=== PATIENT | female | born 1980 | race Caucasian/White ===

== ENCOUNTER 2016-09-20 20:14 | Emergency (ER) | payer OTHER ==
[~2016-09-20] VITALS: Ht 154.9 cm; Wt 62.0 kg
[2016-09-20 20:18] VITALS: TEMP 36.9; Ht 154.9 cm; Wt 62.0 kg
[2016-09-20] MEDS ORDERED: IBUPROFEN 600 MG TAB PO STA (20:31)
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
[2016-09-20] MEDS ORDERED: AMT24 PO (20:45)
[2016-09-20] MEDS ORDERED: PANT40TA PO (20:45)
[2016-09-20] MEDS ORDERED: DIPHTHERIA/TETANUS/PERTUSSIS 0.5 ML SYR/VIAL IM. ONE (20:45)
[2016-09-20 21:37] VITALS: BP 88/61; PULSE 78; O2SAT 98
== END 2016-09-20 21:38 | disposition home or self-care (01) ==
LOC: EDBD 20:14 → C.EDC 20:18
DX: S81.819A Laceration without foreign body, unspecified lower leg, initial encounter (principal); S80.12XA Contusion of left lower leg, initial encounter; V43.52XA Car driver injured in collision with other type car in traffic accident, initial encounter; Z23 Encounter for immunization

== ENCOUNTER → 2017-01-27 | Outpatient (CLI) | payer OTHER ==
[~2017-01-27] MED LIST: AMT24 PO; PANT40TA PO
[2017-01-27 10:01] LABS: CHOLESTEROL/HDL RATIO 2.1
== END | disposition home or self-care (01) ==
LOC: C.LAB 08:30
PROVIDERS: ATTEND Physician Assistant
DX: Z00.00 Encounter for general adult medical examination without abnormal findings (principal)

== ENCOUNTER → 2017-05-02 | Outpatient (CLI) | payer OTHER | END | disposition home or self-care (01) | LOC: C.PAPS 09:52 | PROVIDERS: ATTEND Obstetrics & Gynecology | DX: Z12.4 Encounter for screening for malignant neoplasm of cervix (principal) ==

== ENCOUNTER → 2018-03-22 | Outpatient (CLI) | payer OTHER | END | disposition home or self-care (01) | LOC: C.LAB 08:53 | PROVIDERS: ATTEND Physician Assistant | DX: Z00.00 Encounter for general adult medical examination without abnormal findings (principal) ==

== ENCOUNTER 2019-08-17 05:30 | Observation (INO) ==
--- NOTE | 2019-07-24 15:48 | PAT Medication Instructions ---
Medication Instructions Date of Service July 24, 2019 Home Medications esomeprazole magnesium 40 mg capsule,delayed release 40 mg PO QAM linaclotide 145 mcg capsule 145 mcg PO QAM DO NOT take the morning of surgery linaclotide 145 mcg capsule 145 mcg PO QAM Take morning of surgery With a small sip of water, OTHERWISE NOTHING TO EAT OR DRINK AFTER MIDNIGHT: esomeprazole magnesium 40 mg capsule,delayed release 40 mg PO QAM Other Notes If you have any questions please call us at [phone] or [phone] or [phone] or [phone]
--- NOTE | 2019-07-25 12:57 | Anesthesiology Consultation ---
Date of Service July 25, 2019 Assessment & Plan (1) Encounter for pre-operative examination: TEST AM DOS Chart Review Chart Review: Acceptable Risk for Surgery and Patient seen in Pre Admission Testing Teaching & Discussion Instructed NPO after midnight before surgery, except medications with 15 cc of water. Medication instructions provided according to the PAT guidelines. History Surgery Operation Date: 08/17/19 07:30 Proposed Procedures p Robotic Total Laparoscopic Hysterectomy - Azam Law Jr, MD, FACOG Height/Weight Height: 5 ft 1 in Weight: 68.9 kg Allergies Allergy/AdvReac Type Severity Reaction Status Date / Time No Known Drug Allergies Allergy Verified 07/25/19 11:21 Medications Home Medications Medication Instructions Recorded Confirmed Last Taken esomeprazole magnesium 40 mg 40 mg PO QAM cap 06/26/19 07/25/19 Unknown capsule,delayed release linaclotide 145 mcg capsule 145 mcg PO QAM 06/26/19 07/25/19 Unknown Past Medical History Medical History Chronic constipation GERD (gastroesophageal reflux disease) History of menorrhagia History of uterine leiomyoma Exercise / Class Metabolic Activity 1 > 8 Run/Swim/Ski/Tennis Past Family History Family History Son Allergic to eggs Esophagitis, eosinophilic Milk allergy Soy allergy Wheat allergy Grandfather (Paternal) Stroke Colorectal cancer Heart disease CHF Diabetes Mother Hepatic cirrhosis Leiomyoma of body of uterus Past Surgical History Surgical History History of delivery x 2 History of esophagogastroduodenoscopy (EGD) History of loop electrical excision procedure (LEEP) History of tubal ligation Past Anesthesia History No Hx of Anesthesia Complications and No Family Hx of Anesthesia Complications History of PONV No Hx of Motion Sickness and History of PONV (single episode after 2nd C/S, pt feels r/t drinking too much water afterward) Social History Smoking Status: Former smoker Do You Dip or Chew Tobacco: No Smoking End Date: 2004 Hx Alcohol Use: Yes Alcohol type: beer and wine alcohol intake frequency: a few times a month Hx Substance Use: No substance use type: does not use Review of Systems Pt denies any recent chest pain, shortness of breath, palpitations, cough, fever or URI. Physical Exam Vital Signs BP: 88/67 (rpt manual 90/72 -- pt denies lightheadedness/dizziness, states normally runs low but this is loweer than normal) P: 72bpm SPO2: 98% RA T: 98.4 F R: 12 ENMT Mouth: no dental restorations, no chipped teeth and no loose teeth Thyromental Distance: > or= 3.5 Finger Breadths (3.5) Mallampati Class: II Neck normal visual inspection; neck extension not limited Respiratory normal respiratory effort Auscultation: lungs clear to auscultation bilaterally Cardiovascular Rate/Rhythm: regular rate and regular rhythm Heart Sounds: no murmur Extremities: no edema Testing Laboratory Results 07/25/19 13:07 Blood Type AB Positive 07/25/19 13:07 Antibody Screen NEGATIVE 07/25/19 13:07
[2019-07-25 15:41] LABS: Basophils # (auto) 0.02 K/uL (0-0.2); Basophils % (auto) 0.3 %; Eosinophils # (auto) 0.06 K/uL (0-0.5); Hematocrit (blood only) 36.9 % (37-47); Immature Granulocytes # (auto) 0.01 K/uL (0.00-0.02); Immature Granulocytes % (auto) 0.2 %; Lymphocytes # (auto) 2.15 K/uL (1.2-3.4); Lymphocytes % (auto) 34.8 %; Mean Corpuscular Hemoglobin 28.8 pg (25-34); Mean Corpuscular Hgb Conc 32.5 g/dL (32-36); Mean Corpuscular Volume 88.7 fL (80-100); Mean Platelet Volume 10.8 fL (7.4-10.4); Monocytes % (auto) 4.9 %; Neutrophils # (auto) 3.64 K/uL (1.4-6.5); Neutrophils % (auto) 58.8 %; Platelet Count 335 K/uL (130-400); RDW Coefficient of Variation 14.2 % (11.5-14.5); RDW Standard Deviation 46.5 fL (36.4-46.3); Red Blood Count 4.16 M/uL (4.2-5.4); White Blood Count 6.18 K/uL (4.8-10.8)
[2019-08-17] MEDS ORDERED: LACTATED RINGER'S 1,000 ML IV SCH ×2 (06:00→11:02)
[2019-08-17] MEDS ORDERED: CEFAZOLIN 2000MG 2,000 MG/15 ML SYR IV SCH (06:00)
[2019-08-17] MEDS ORDERED: LR 15ML/HR IV SCH (06:00)
[2019-08-17] MEDS ORDERED: MIDAZOLAM HCL 1 MG/ML 2ML VIAL ONE (06:47)
[2019-08-17] MEDS ORDERED: fentaNYL citrate 100 MCG/2 ML VIAL ONE ×2 (06:47)
--- NOTE | 2019-08-17 06:55 | History & Physical Bridge Note ---
Date of Service August 17, 2019 History & Physical Bridge Note I have examined the patient, reviewed the History & Physical and in the interval since the performance of the History & Physical I have noted the following changes of clinical significance: no changes noted
[2019-08-17] MEDS ORDERED: LIDOCAINE HCL 2% 2 ML VIAL/AMP(20MG/ML) INFIL ONE (06:56)
[2019-08-17] MEDS ORDERED: PROPOFOL IV EMULSION 10 MG/ML 20 ML VIAL IV ONE (06:56)
[2019-08-17] MEDS ORDERED: ONDANSETRON INJ 2 MG/ML 2 ML VIAL ONE ×2 (06:57→09:13)
[2019-08-17] MEDS ORDERED: DEXAMETHASONE SOD INJ 4 MG/ML VIAL ONE (06:57)
[2019-08-17] MEDS ORDERED: ROCURONIUM BROMIDE 10 MG/ML 5 ML VIAL ONE (06:57)
[2019-08-17] MEDS ORDERED: ACETAMINOPHEN 1000 MG/100 ML IV IV ONE (06:58)
[2019-08-17] MEDS ORDERED: BUPIVACAINE 0.5 % 5 MG/1 ML MPF 30ML VIAL ONE (06:59)
[2019-08-17] MEDS ORDERED: METHYLENE BLUE 0.5% 10 ML VIAL ONE (06:59)
[2019-08-17] MEDS ORDERED: HYDROmorphone INJ 2 MG/ML SYR/VIAL ONE (07:44)
[2019-08-17] MEDS ORDERED: PROMETHAZINE HCL 6.25 MG in SODIUM CHLORIDE 0.9% 50 ML IV PRN (08:12)
[2019-08-17] MEDS ORDERED: ONDANSETRON INJ 2 MG/ML 2 ML VIAL IV PRN ×2 (08:12→11:02)
[2019-08-17] MEDS ORDERED: ATROPINE SULFATE 0.1 MG/ML 10ML SYR IV PRN (08:12)
[2019-08-17] MEDS ORDERED: ePHEDrine sulfate 50 MG/ML AMP IV PRN (08:12)
[2019-08-17] MEDS ORDERED: fentaNYL citrate 100 MCG/2 ML VIAL IV PRN (08:12)
[2019-08-17] MEDS ORDERED: KETOROLAC 30 MG/ML VIAL ONE (09:11)
[2019-08-17] MEDS ORDERED: TISSEEL FIBRIN SEALANT 4ML TOP ONE (09:20)
--- NOTE | 2019-08-17 09:25 | Post Operative Brief Note ---
PG Immediate Post Op with CF Date of Surgery August 17, 2019 Pre & Post Diagnosis Operation Date: 08/17/19 07:30 Pre-Op Diagnosis: 1. Menorrhagia 2. Dysfunctional Uterine Bleeding Post-Op Diagnosis: 1. Menorrhagia 2. Dysfunctional Uterine Bleeding I identified the patient and participated in the time-out.: Yes Procedure Operation Date: 08/17/19 07:30 Actual Procedures p Robotic-assisted Total Laparoscopic Hysterectomy, bilateral salpingectomy, cystoscopy - Azam aLw Jr, MD, FACOG Surgeon Azam Law Jr, MD, FACOG Microstrategy Reports Developer Jes Estimated Blood Loss 75 Findings See Below (multiparous uterus with normal appearing tubes and ocaries, omental adhesions lysed, TLH and salpingectomy, post procedure cystoscopy with bilateral ureteral jets) Specimens Specimen Description: Permanent specimen A: left fallopian tube B: uterus, cervix, right fallopian tube Drains Ambriz Catheter (18fr ambriz catheter placed at beginning of procedure by surgeon, ambriz demonstrates clear yellow urine; output measured and recorded by anesthesia. Catheter replaced with new 18fr catheter at completion of cysto portion of procedure.)
--- NOTE | 2019-08-17 10:14 | Operative Report ---
DATE OF OPERATION: 08/17/2019 PREOPERATIVE DIAGNOSES: Menorrhagia with irregular menstrual cycles. POSTOPERATIVE DIAGNOSES: Menorrhagia with irregular menstrual cycles. PROCEDURE PERFORMED: 1. Total laparoscopic hysterectomy. 2. Bilateral salpingectomy. 3. Post-procedure cystoscopy. SURGEON: Azam Law MD AIR HOIST OPERATOR: Dr. Yasmeen Andre. ANESTHESIA: General. FINDINGS: Laparoscopic examination of the pelvis showed a large multiparous uterus with normal appearing tubes and ovaries bilaterally. Omental adhesions to the anterior abdominal wall lysed. Total laparoscopic hysterectomy and bilateral salpingectomy performed. Post-procedure cystoscopy showed bilateral ureteral jets. PROCEDURE IN DETAIL: The patient was taken to the operating room and after general anesthesia, was placed in the dorsal lithotomy position and draped and prepped in a sterile fashion for a robotic hysterectomy. Montanez catheter was inserted into the bladder which remained there throughout the procedure. Cervical stay sutures were placed at 12 and 3 o'clock with 0 Vicryl suture. Uterine manipulator, VCare, was inserted into the uterine cavity and insufflated with air and fastened to the stay sutures. Small subumbilical incision was made and the Veress needle was introduced into the pelvic cavity, which was then insufflated with 3 liters of CO2. A suprapubic 11 mm trocar was placed. Pelvic organs were visualized and then under direct laparoscopic guidance, robotic 8 mm operative ports were placed, 1 on the left, 2 on the right and a left assistance port. Pelvic organs were visualized with the description as above. Robot was brought to the table and successfully docked on the left, bipolar cautery instruments were placed through arm #1, monopolar scissors through arm #2 and a ProGrasp in arm #3. Omental adhesions were grasped and using the monopolar scissors, these were lysed and freed. Pelvic organs were visualized. Both ureters were identified. A left salpingectomy was performed by cauterizing along the left mesosalpinx, removing the tube from the field. The left round ligament was cut opened the anterior leaf of the broad ligament which was taken down over the level of the cervix. Uterine vessels were skeletonized on the midline and then burned in 3 contiguous alvarez. Dissection was turned to the right. The right fallopian tube was isolated, cauterized and the mesosalpinx was cut excising the right tube. Right round ligament was cut, opening the anterior leaf of the broad ligament which was taken down to join the contralateral side. Bladder flap was developed until the bladder was below the level of the cervix. Uterine vessels skeletonized on the right hand side and cauterized in 3 contiguous alvarez and then cut. Dissection turned to the left. Uterine vessels were identified again, they had previously been cauterized and these were now cut. The cardinal and uterosacral ligaments were cauterized and cut bilaterally. Posterior colpotomy incision was made by cutting down onto the VCare and extending in a circular fashion, the cervix from the vagina. Specimen was delivered into the vagina. Hemostasis was present. Bipolar and the monopolar scissors were removed. These were replaced by the grasper in arm #1 and the eduardo needle transporter driver in arm #2. The vaginal cuff was closed from the lateral edges to the midline with a running 2-0 Vicryl VCare suture doubling back upon itself. Hemostasis was present. Dr. Andre then performed a cystoscopy after removing the Montanez catheter. The patient had received methylene blue intravenously approximately 30 minutes prior. Both ureteral orifices were visualized as well as the dome of the bladder, no evidence of suture injury to the bladder. Both orifices were visualized and ureteral jets were seen bilaterally. Fluid was allowed to escape and a new Montanez catheter was inserted. Finally, 4 mL of Tisseel was sprayed on to the vaginal cuff directly under laparoscopic guidance. All surgical instruments were then removed from the pelvis. The CO2 was allowed to escape. The robot was undocked and removed from the field. The fascia was closed on the umbilical and the assistance ports with an interrupted 0 Vicryl suture. The skin incisions were closed with a 4-0 Monocryl interrupted subcuticular stitches. A 0.5% Marcaine was injected in the solutions and sterile dressings were applied. The patient was taken out of dorsal lithotomy to recovery room in satisfactory condition. I attest to the content of the Intraoperative Record and any orders documented therein. Any exception s are noted below.
--- NOTE | 2019-08-17 10:14 | Anesthesiology Progress Note ---
Date of Service August 17, 2019 Anesthesia Post Procedure Vital Signs Vital Signs: Temp Pulse Pulse Pulse Resp BP BP 08/17/19 10:06 87 13 08/17/19 10:05 87 14 102/72 08/17/19 10:02 90 14 102/75 08/17/19 10:00 92 H 13 08/17/19 09:56 87 14 08/17/19 09:55 88 16 110/72 08/17/19 09:51 88 18 08/17/19 09:50 86 12 102/77 08/17/19 09:46 84 14 08/17/19 09:45 87 12 116/76 08/17/19 09:41 92 H 15 08/17/19 09:40 90 15 118/79 08/17/19 09:39 91 H 12 08/17/19 09:38 36.4 C L 94 H 94 H 12 103/82 103/82 08/17/19 05:58 36.8 C 74 18 98/79 L Pulse Ox 08/17/19 10:06 95 08/17/19 10:05 92 08/17/19 10:02 95 08/17/19 10:00 98 08/17/19 09:56 99 08/17/19 09:55 100 08/17/19 09:51 96 08/17/19 09:50 99 08/17/19 09:46 100 08/17/19 09:45 99 08/17/19 09:41 98 08/17/19 09:40 97 08/17/19 09:39 94 08/17/19 09:38 93 08/17/19 05:58 98 Pain Intensity Abdomen: Pain Intensity: 2 Transfer of Care Handoff Completed per policy Notes Mental Status: alert / awake / arousable Patient Amnestic to Procedure: Yes Nausea / Vomiting: adequately controlled Pain: adequately controlled Airway Patency, RR, SpO2: stable & adequate BP & HR: stable & adequate Hydration State: stable & adequate Anesthetic Complications: no major complications apparent
[2019-08-17] MEDS ORDERED: OXYCODONE/ACETAMINOPHEN 5mg/325mg TAB PO PRN (11:02)
[2019-08-17] MEDS ORDERED: ACETAMINOPHEN 325 MG TAB PO PRN (11:02)
[2019-08-17] MEDS ORDERED: IBUPROFEN 600 MG TAB PO PRN (11:02)
[2019-08-17] MEDS ORDERED: KETOROLAC 30 MG/ML VIAL IV PRN (11:02)
--- NOTE | 2019-08-17 14:26 | Gynecologic Progress Note ---
Date of Service August 17, 2019 Assessment & Plan (1) Dysfunctional uterine bleeding: -Discussed operative findings with the patient and her -Patient ambulating and tolerating p.o. well -Patient desires discharge home -Once the patient can demonstrate urination she will be allowed to be discharged -Postoperative discharge instructions discussed with the patient -Prescriptions sent to the pharmacy -Follow-up in 2 weeks time for postoperative check Subjective Patient ambulating and tolerating a regular diet. Physical Exam Gastrointestinal (Abdomen): Dressings clean and dry, appropriate postoperative tenderness Results & Data Vital Signs (Past 12 Hours) Vital Signs Temp Pulse Pulse Pulse Resp BP BP 08/17/19 13:40 98.2 F 95 H 16 08/17/19 12:40 97.7 F 81 18 08/17/19 11:40 98.1 F 95 H 18 08/17/19 11:10 97.7 F 91 H 18 08/17/19 10:40 97.9 F 90 18 08/17/19 10:26 93 H 14 08/17/19 10:25 92 H 14 102/71 08/17/19 10:21 89 14 08/17/19 10:20 98.8 F 87 14 107/77 08/17/19 10:16 85 14 08/17/19 10:15 68 14 100/73 08/17/19 10:11 95 H 14 104/76 08/17/19 10:10 98 H 22 08/17/19 10:06 87 13 08/17/19 10:05 87 14 102/72 08/17/19 10:02 90 14 102/75 08/17/19 10:00 92 H 13 08/17/19 09:56 87 14 08/17/19 09:55 88 16 110/72 08/17/19 09:51 88 18 08/17/19 09:50 86 12 102/77 08/17/19 09:46 84 14 08/17/19 09:45 87 12 116/76 08/17/19 09:41 92 H 15 08/17/19 09:40 90 15 118/79 08/17/19 09:39 91 H 12 08/17/19 09:38 97.5 F L 94 H 94 H 12 103/82 103/82 08/17/19 05:58 98.2 F 74 18 98/79 L BP Pulse Ox 08/17/19 13:40 106/75 98 08/17/19 12:40 101/64 97 08/17/19 11:40 96/65 L 96 08/17/19 11:10 105/70 91 08/17/19 10:40 108/71 94 08/17/19 10:26 97 08/17/19 10:25 93 08/17/19 10:21 96 08/17/19 10:20 95 08/17/19 10:16 92 08/17/19 10:15 93 08/17/19 10:11 97 08/17/19 10:10 92 08/17/19 10:06 95 08/17/19 10:05 92 08/17/19 10:02 95 08/17/19 10:00 98 08/17/19 09:56 99 08/17/19 09:55 100 08/17/19 09:51 96 08/17/19 09:50 99 08/17/19 09:46 100 08/17/19 09:45 99 08/17/19 09:41 98 08/17/19 09:40 97 08/17/19 09:39 94 08/17/19 09:38 93 08/17/19 05:58 98 PG Care Time/CCT Total # of Minutes Spent Total Time Spent with Patient: Total time spent is greater than 50% in coordination of care (as documented) at patient's floor/unit and/or counseling patient:
--- NOTE | 2019-08-17 14:32 | Discharge Summary ---
Date of Service August 17, 2019 Admission HPI Per Admitting Provider The patient is a 39-year-old 2 para 2, last menstrual period of 12 July, who presents today for preoperative evaluation. The patient is scheduled for total laparoscopic hysterectomy for chronic dysfunctional uterine bleeding. All the patient's menstrual cycles are regular, she has a random episodes of heavy vaginal bleeding. Etiology for this could never be determined. Patient was treated empirically with the estrogen ring and despite having a tubal ligation, there was no improvement in her bleeding. Workup for this included a pelvic ultrasound, office SIS and endometrial biopsy. Treatment options were discussed and the patient has opted for the above-listed procedure. Discharge Data Procedures Performed Operation Date: 08/17/19 07:30 Actual Procedures p Robotic-assisted Total Laparoscopic Hysterectomy, bilateral salpingectomy, - Azam Law Jr, MD, STEVE s Cystoscopy - [facility] Law [facility], [facility] Course (1) Dysfunctional uterine bleeding: -Discussed operative findings with the patient and her -Patient ambulating and tolerating p.o. well -Patient desires discharge home -Once the patient can demonstrate urination she will be allowed to be discharged -Postoperative discharge instructions discussed with the patient -Prescriptions sent to the pharmacy -Follow-up in 2 weeks time for postoperative check
[2019-08-17] MEDS ORDERED: KETOROLAC 0.5% OP SOLN PER DROP CHARGE OP PRN (16:24)
[2019-08-17] MEDS: ERYTHROMYCIN OP OINT 5 MG/GM 3.5 GM TUBE OP SCH ×2 (16:26→17:55)
--- NOTE | 2019-08-17 16:31 | Anesthesiology Progress Note ---
Date of Service August 17, 2019 Anesthesia Post Procedure Vital Signs Vital Signs: Temp Pulse Pulse Pulse Resp BP BP 08/17/19 15:20 36.3 C L 69 20 08/17/19 13:40 36.8 C 95 H 16 08/17/19 12:40 36.5 C 81 18 08/17/19 11:40 36.7 C 95 H 18 08/17/19 11:10 36.5 C 91 H 18 08/17/19 10:40 36.6 C 90 18 08/17/19 10:26 93 H 14 08/17/19 10:25 92 H 14 102/71 08/17/19 10:21 89 14 08/17/19 10:20 37.1 C 87 14 107/77 08/17/19 10:16 85 14 08/17/19 10:15 68 14 100/73 08/17/19 10:11 95 H 14 104/76 08/17/19 10:10 98 H 22 08/17/19 10:06 87 13 08/17/19 10:05 87 14 102/72 08/17/19 10:02 90 14 102/75 08/17/19 10:00 92 H 13 08/17/19 09:56 87 14 08/17/19 09:55 88 16 110/72 08/17/19 09:51 88 18 08/17/19 09:50 86 12 102/77 08/17/19 09:46 84 14 08/17/19 09:45 87 12 116/76 08/17/19 09:41 92 H 15 08/17/19 09:40 90 15 118/79 08/17/19 09:39 91 H 12 08/17/19 09:38 36.4 C L 94 H 94 H 12 103/82 103/82 08/17/19 05:58 36.8 C 74 18 98/79 L BP Pulse Ox 08/17/19 15:20 107/74 97 08/17/19 13:40 106/75 98 08/17/19 12:40 101/64 97 08/17/19 11:40 96/65 L 96 08/17/19 11:10 105/70 91 08/17/19 10:40 108/71 94 08/17/19 10:26 97 08/17/19 10:25 93 08/17/19 10:21 96 08/17/19 10:20 95 08/17/19 10:16 92 08/17/19 10:15 93 08/17/19 10:11 97 08/17/19 10:10 92 08/17/19 10:06 95 08/17/19 10:05 92 08/17/19 10:02 95 08/17/19 10:00 98 08/17/19 09:56 99 08/17/19 09:55 100 08/17/19 09:51 96 08/17/19 09:50 99 08/17/19 09:46 100 08/17/19 09:45 99 08/17/19 09:41 98 08/17/19 09:40 97 08/17/19 09:39 94 08/17/19 09:38 93 08/17/19 05:58 98 Pain Intensity Abdomen: Pain Intensity: 2 Notes Mental Status: alert / awake / arousable and participated in evaluation Patient Amnestic to Procedure: Yes Nausea / Vomiting: adequately controlled Pain: see Notes below Airway Patency, RR, SpO2: stable & adequate BP & HR: stable & adequate Hydration State: stable & adequate Anesthetic Complications: see Notes below Notes: Patient c/o of left eye pain that developed while in PACU and has become worse since arriving on the floor. Patient states the pain is burning in nature. It is associated with a foreign body sensation when blinking. The patient states her eye pain is worse than her incisional pain. She denies any past history of a similar pain. She denies vision changes. She denies the use of contact lenses. On exam the left eye is mildly erythematous. EOMI. On exam, there is no visible injury to the eye. No visible foreign body. The patients symptoms and presentation are consistent with post operative corneal abrasion. I discussed this with the patient. Most corneal abrasions self resolve within the first 24 to 72 hours. Patching is not necessary and may impair healing. The patient was encouraged to rest with eyes closed and the patient can gently apply a cool compress for symptom relief. The patient should avoid rubbing or touching the symptomatic eye. An order was placed for erythromycin ointment QID and ketorolac 0.5% drops PRN to assist with eye pain and symptoms. She was instructed to contact PAT through the hospital if her symptoms have not fully resolved within the next 48 hours. The patient is comfortable with this plan. Sita Naqvi MD, PhD Anesthesiology
[2019-08-17] MEDS ORDERED: KETOROLAC 0.5% OP SOLN 3 ML BTL OP PRN (17:36)
[2019-08-17] MEDS ORDERED: KETOROLAC 0.5% OP SOLN 5 ML BTL OP PRN (17:46)
[2019-08-18] MEDS ORDERED: PANTOprazole 40 MG TAB PO SCH (09:00)
[2019-08-18] MEDS ORDERED: LINACLOTIDE 72 MCG CAPSULE PO SCH (09:00)
== END 2019-08-17 18:10 | disposition home or self-care (01) ==
LOC: ASU 05:30 → 4N 05:30

== ENCOUNTER 2020-08-03 19:16 | Inpatient (IN) ==
[2020-08-03 20:11] LABS: Appearance Urine Cloudy (Clear); Bacteria Urine Automated 1+ (Negative); Bilirubin Urine Negative (Negative); Blood Urine Negative (Negative); Color Urine Yellow; Epithelial Cell Urine Auto >30 /lpf (0-5); Glucose Urine UA Trace (Negative); Ketones Urine 1+ (Negative); Leukocyte Esterase Urine Negative (Negative); Nitrite Urine Negative (Negative); Protein Urine Negative (Negative); RBC Urine Automated 0-4 /hpf (0-4); Specific Gravity Urine 1.018 (1.000-1.030); Urobilinogen Urine Negative (Negative)
--- NOTE | 2020-08-03 20:11 | Emergency Department Note ---
Impression & Plan Mood disorder, Suicidal ideation ED Provider Note INFORMANT: Patient ED PROVIDER(S): Jay Turcios MD CHIEF COMPLAINT: Suicidal ideation PLAN: Disposition: Admitted Condition: Good MEDICAL DECISION MAKING: Patient presented noting depressed mood and suicidal thoughts. She acted upon this with taking a small amount of trazodone. She had unremarkable laboratory testing and ECG except for a mild elevation of alcohol level. She was monitored. She did very well. She was medically cleared. She was evaluated by the ER psychiatric catalytic case operator. Consultation was made with [address] [place] [address] for further management. Triage Nursing notes reviewed and agree them. Vital Signs: reviewed and remarkable for no significant abnormalities Differential diagnosis: Mood disorder, infection, hypoglycemia, electrolyte abnormalities, cardiac sources, intracerebral event, toxicologic, trauma, neurologic, as well as other pathologies. Diagnostics interpreted by me: ECG:Rate: 85 Rhythm:Normal sinus [place]:Normal QRS:Normal ST segements:No elevation or depression Other:No PACs or PVCs Cardiac Monitoring: Cardiac monitoring ordered by me: The patient was placed on continuous cardiac monitoring and observed. It revealed a normal sinus rhythm at 90 beats per minute without ectopy or evidence of dysrhythmia. Imaging studies: Deferred Consultation(s): None HPI: The patient is a 40 year old female who presents to the Emergency Room with complaints of suicidal ideation. This started today after an argument with her and is time this is ever happened. The patient has a history stress disorder that has been exacerbated by family illness recently. Her primary care physician has been treating her with medication. She also notes trouble sleeping and has been using trazodone. Today after her verbal argument with her she took approximately 5 trazodone with the hopes that she would fall asleep and never wake up. She has no prior psychiatric admissions or suicidal attempt. No recent medical illnesses. Pt denies LOC, headache, fevers, chills, diaphoresis, visual changes, neck pain, chest pain, breathing difficulties, nausea, vomiting, abdominal pain, back pain, melena, hematochezia, urinary symptoms, numbness, weakness, lymphadenopathy, rash, or other complaints. ROS: See above HPI for pertinent positives & negatives. A total of 10 systems reviewed and were otherwise negative. 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 Oropharynx unremarkable. EYES: Normal conjunctiva. Sclera non-icteric. NECK: Inspection normal. Non-tender. Supple. No nuchal rigidity. FROM. No masses. RESPIRATORY: Clear to auscultation. No wheezes. No rales. Normal respiratory effort. CARDIAC: Normal rate. Normal rhythm. No murmurs. No rubs. Extremities warm and well perfused. Pulses equal. No JVD. GI: Soft, non-distended. No tenderness to palpation. No rebound or guarding. No masses. RECTAL: Deferred. MUSCULOSKELETAL: Atraumatic. Chest examination reveals no tenderness. The back is symmetrical on inspection without obvious abnormality. There is no CVA tenderness to palpation. No joint edema. LOWER EXTREMITIES: Calves are equal size bilaterally and non-tender. No edema. No discoloration. NEURO: Normal sensorium. No sensory or motor deficits noted. SKIN: No rash or jaundice noted. PSYCH: Depressed mood and flat affect. Positive SI. No HI. Jay Turcios MD Past Med/Surg History Medical History Acne Anxiety Chronic constipation Chronic sinusitis Depression GERD (gastroesophageal reflux disease) History of menorrhagia History of uterine leiomyoma Surgical History History of delivery x 2 History of esophagogastroduodenoscopy (EGD) History of loop electrical excision procedure (LEEP) History of robot-assisted laparoscopic hysterectomy History of tubal ligation Family History Son Allergic to eggs Esophagitis, eosinophilic Milk allergy Soy allergy Wheat allergy Grandfather (Paternal) Stroke Colorectal cancer Heart disease CHF Diabetes Mother Hepatic cirrhosis Leiomyoma of body of uterus Alcohol abuse Father Colonic polyp, Onset Age: 50 Anxiety Social History (Updated 01/11/20 @ 08:31 by Damaris Herrera MA) Smoking Status: Never smoker Age Started Using Tobacco: 18; Age Quit Using Tobacco: 23; Second Hand Exposure: No; Hx Alcohol Use: No Hx Substance Use: No Preferred Language: Nauruan Communication Ability: Effective Visual Impairment: No Limitations Hearing Ability: Normal Still Operator Gin Required: No Beliefs That Will Affect Care: None marital status: Current Living Situation: Spouse and Family Current Living Situation Comment: 2 children current occupational status: employed current occupation: [employer] Feels Safe at Home: Yes Childhood Exposure to Second-Hand Smoke: No Dental Care, Regularly: Yes Physical Activity Frequency: 3-4 Times per Week Seatbelt Use: always Sunscreen Use: Yes Assistive Devices: Glasses Allergies Allergies Allergy/AdvReac Type Severity Reaction Status Date / Time No Known Allergies Allergy Verified 08/03/20 21:05 Home Meds Home Medications Medication Instructions Recorded Confirmed desvenlafaxine succinate [Pristiq] 50 mg PO QAM 07/22/20 08/03/20 ibuprofen 600 mg PO Q4H PRN 07/22/20 08/03/20 trazodone 25 - 50 mg PO HS PRN 07/22/20 08/03/20 azelastine 2 spray INTRANASAL QAM 08/03/20 08/03/20 Previous Rx's Medication Instructions Recorded esomeprazole magnesium 40 mg 40 mg PO QAM 90 Days #90 cap 09/25/19 capsule,delayed release linaclotide 145 mcg capsule 145 mcg PO QAM 90 Days #90 cap 09/25/19 Results & Data (ED) Vital Signs Vital Signs - 24 hr 08/03/20 19:30 08/03/20 20:20 08/03/20 21:34 Temperature 37.1 C Temperature Source Oral Pulse Rate 120 H Pulse Rate [Bilateral Apical] 94 H 103 H Respiratory Rate 20 18 20 Blood Pressure 111/75 Blood Pressure [Right Arm] 120/79 90/63 L Blood Pressure Mean 87 Blood Pressure Mean [Right Arm] 92 72 Pulse Oximetry 98 99 96 Oxygen Delivery Method Room Air Room Air Sepsis Recent Fever Within 48 Hours No Sepsis New/Unexplained Change in Mental Status N/A Sepsis Action Taken by Nursing No Action Required 08/03/20 22:22 Temperature Temperature Source Pulse Rate Pulse Rate [Bilateral Apical] 94 H Respiratory Rate 20 Blood Pressure Blood Pressure [Right Arm] 82/54 L Blood Pressure Mean Blood Pressure Mean [Right Arm] 63 Pulse Oximetry 95 Oxygen Delivery Method Room Air Sepsis Recent Fever Within 48 Hours Sepsis New/Unexplained Change in Mental Status Sepsis Action Taken by Nursing Laboratory Data Result diagrams: 08/03/20 20:07 08/03/20 20:07 Lab Results 08/03/20 08/03/20 08/03/20 Range/Units 19:55 19:55 20:07 WBC 7.43 (4.8-10.8) K/uL RBC 4.44 (4.2-5.4) M/uL Hgb 13.3 (12.0-16.0) g/dL Hct 39.5 (37-47) % MCV 89.0 (80-100) fL MCH 30.0 (25-34) pg MCHC 33.7 (32-36) g/dL RDW Std Deviation 46.2 (36.4-46.3) fL RDW Coeff of Evgeny 14.1 (11.5-14.5) % Plt Count 299 (130-400) K/uL MPV 10.7 H (7.4-10.4) fL Immature Gran % (Auto) 0.1 % Neut % (Auto) 60.5 % Lymph % (Auto) 31.8 % [place] % (Auto) 6.9 % Eos % (Auto) 0.4 % Baso % (Auto) 0.3 % Neut # (Auto) 4.50 (1.4-6.5) K/uL Lymph # (Auto) 2.36 (1.2-3.4) K/uL [place] # (Auto) 0.51 (0.11-0.59) K/uL Eos # (Auto) 0.03 (0-0.5) K/uL Baso # (Auto) 0.02 (0-0.2) K/uL Immature Gran # (Auto) 0.01 (0.00-0.02) K/uL Sodium (136-145) mmol/L Potassium (3.5-5.1) mmol/L Chloride (98-107) mmol/L Carbon Dioxide (21-32) mmol/L Anion Gap (3-11) BUN (7-18) mg/dl Creatinine (0.6-1.2) mg/dl Est Cr Clr Drug Dosing ml/min Est GFR ( Amer) Est GFR (Non-Af Amer) BUN/Creatinine Ratio (10-20) Glucose (70-99) mg/dl Calcium (8.5-10.1) mg/dl Total Bilirubin (0.2-1) mg/dl AST (15-37) U/L ALT (12-78) U/L Alkaline Phosphatase (45-117) U/L Total Protein (6.4-8.2) gm/dl Albumin (3.4-5.0) gm/dl Globulin (2.5-4.0) gm/dl Albumin/Globulin Ratio (0.9-2) TSH (0.300-4.500) uIu/ml HCG, Qual (Negative) Urine Color Yellow Urine Appearance Cloudy A (Clear) Urine pH 5.0 (4.5-7.5) Ur Specific [place] 1.018 (1.000-1.030) Urine Protein Negative (Negative) Urine Glucose (UA) Trace H (Negative) Urine Ketones 1+ H (Negative) Urine Blood Negative (Negative) Urine Nitrite Negative (Negative) Urine Bilirubin Negative (Negative) Urine Urobilinogen Negative (Negative) Ur Leukocyte Esterase Negative (Negative) Urine WBC (Auto) 1-5 (0-5) /hpf Urine RBC (Auto) 0-4 (0-4) /hpf U Hyaline Cast (Auto) 1-5 (0-5) /lpf U Epithel Cells (Auto) >30 H (0-5) /lpf Urine Bacteria (Auto) 1+ H (Negative) Salicylates (2.8-20) mg/dl Urine Opiates Screen Neg (Neg) Ur Methadone, Qual Neg (Neg) Acetaminophen (10-30) ug/ml Urine Barbiturates Neg (Neg) Ur Phencyclidine (PCP) Neg (Neg) U Amphetamin/Meth Scrn Neg (Neg) MDMA (Ecstasy) Screen Pos H (Neg) U Benzodiazepines Scrn Neg (Neg) Ur Cocaine Metabolite Neg (Neg) U Marijuana (THC) Screen Neg (Neg) Ethyl Alcohol mg/dL (0-3) mg/dl SARS-CoV-2 Ag (Rapid) (Negative) 08/03/20 08/03/20 08/03/20 Range/Units 20:07 20:07 20:07 WBC (4.8-10.8) K/uL RBC (4.2-5.4) M/uL Hgb (12.0-16.0) g/dL Hct (37-47) % MCV (80-100) fL MCH (25-34) pg MCHC (32-36) g/dL RDW Std Deviation (36.4-46.3) fL RDW Coeff of Evgeny (11.5-14.5) % Plt Count (130-400) K/uL MPV (7.4-10.4) fL Immature Gran % (Auto) % Neut % (Auto) % Lymph % (Auto) % [place] % (Auto) % Eos % (Auto) % Baso % (Auto) % Neut # (Auto) (1.4-6.5) K/uL Lymph # (Auto) (1.2-3.4) K/uL [place] # (Auto) (0.11-0.59) K/uL Eos # (Auto) (0-0.5) K/uL Baso # (Auto) (0-0.2) K/uL Immature Gran # (Auto) (0.00-0.02) K/uL Sodium 144 (136-145) mmol/L Potassium 3.4 L (3.5-5.1) mmol/L Chloride 110 H (98-107) mmol/L Carbon Dioxide 28 (21-32) mmol/L Anion Gap 6.0 (3-11) BUN 6 L (7-18) mg/dl Creatinine 0.75 (0.6-1.2) mg/dl Est Cr Clr Drug Dosing 86.7 ml/min Est GFR ( Amer) 115.6 Est GFR (Non-Af Amer) 99.7 BUN/Creatinine Ratio 8.6 L (10-20) Glucose 108 H (70-99) mg/dl Calcium 8.6 (8.5-10.1) mg/dl Total Bilirubin 0.3 (0.2-1) mg/dl AST 13 L (15-37) U/L ALT 22 (12-78) U/L Alkaline Phosphatase 79 (45-117) U/L Total Protein 7.6 (6.4-8.2) gm/dl Albumin 3.9 (3.4-5.0) gm/dl Globulin 3.7 (2.5-4.0) gm/dl Albumin/Globulin Ratio 1.1 (0.9-2) TSH 1.090 (0.300-4.500) uIu/ml HCG, Qual (Negative) Urine Color Urine Appearance (Clear) Urine pH (4.5-7.5) Ur Specific [place] (1.000-1.030) Urine Protein (Negative) Urine Glucose (UA) (Negative) Urine Ketones (Negative) Urine Blood (Negative) Urine Nitrite (Negative) Urine Bilirubin (Negative) Urine Urobilinogen (Negative) Ur Leukocyte Esterase (Negative) Urine WBC (Auto) (0-5) /hpf Urine RBC (Auto) (0-4) /hpf U Hyaline Cast (Auto) (0-5) /lpf U Epithel Cells (Auto) (0-5) /lpf Urine Bacteria (Auto) (Negative) Salicylates < 1.7 L (2.8-20) mg/dl Urine Opiates Screen (Neg) Ur Methadone, Qual (Neg) Acetaminophen < 2 L (10-30) ug/ml Urine Barbiturates (Neg) Ur Phencyclidine (PCP) (Neg) U Amphetamin/Meth Scrn (Neg) MDMA (Ecstasy) Screen (Neg) U Benzodiazepines Scrn (Neg) Ur Cocaine Metabolite (Neg) U Marijuana (THC) Screen (Neg) Ethyl Alcohol mg/dL 150.2 H (0-3) mg/dl SARS-CoV-2 Ag (Rapid) (Negative) 08/03/20 08/03/20 Range/Units 20:07 20:30 WBC (4.8-10.8) K/uL RBC (4.2-5.4) M/uL Hgb (12.0-16.0) g/dL Hct (37-47) % MCV (80-100) fL MCH (25-34) pg MCHC (32-36) g/dL RDW Std Deviation (36.4-46.3) fL RDW Coeff of Evgeny (11.5-14.5) % Plt Count (130-400) K/uL MPV (7.4-10.4) fL Immature Gran % (Auto) % Neut % (Auto) % Lymph % (Auto) % [place] % (Auto) % Eos % (Auto) % Baso % (Auto) % Neut # (Auto) (1.4-6.5) K/uL Lymph # (Auto) (1.2-3.4) K/uL [place] # (Auto) (0.11-0.59) K/uL Eos # (Auto) (0-0.5) K/uL Baso # (Auto) (0-0.2) K/uL Immature Gran # (Auto) (0.00-0.02) K/uL Sodium (136-145) mmol/L Potassium (3.5-5.1) mmol/L Chloride (98-107) mmol/L Carbon Dioxide (21-32) mmol/L Anion Gap (3-11) BUN (7-18) mg/dl Creatinine (0.6-1.2) mg/dl Est Cr Clr Drug Dosing ml/min Est GFR ( Amer) Est GFR (Non-Af Amer) BUN/Creatinine Ratio (10-20) Glucose (70-99) mg/dl Calcium (8.5-10.1) mg/dl Total Bilirubin (0.2-1) mg/dl AST (15-37) U/L ALT (12-78) U/L Alkaline Phosphatase (45-117) U/L Total Protein (6.4-8.2) gm/dl Albumin (3.4-5.0) gm/dl Globulin (2.5-4.0) gm/dl Albumin/Globulin Ratio (0.9-2) TSH (0.300-4.500) uIu/ml HCG, Qual Negative (Negative) Urine Color Urine Appearance (Clear) Urine pH (4.5-7.5) Ur Specific [place] (1.000-1.030) Urine Protein (Negative) Urine Glucose (UA) (Negative) Urine Ketones (Negative) Urine Blood (Negative) Urine Nitrite (Negative) Urine Bilirubin (Negative) Urine Urobilinogen (Negative) Ur Leukocyte Esterase (Negative) Urine WBC (Auto) (0-5) /hpf Urine RBC (Auto) (0-4) /hpf U Hyaline Cast (Auto) (0-5) /lpf U Epithel Cells (Auto) (0-5) /lpf Urine Bacteria (Auto) (Negative) Salicylates (2.8-20) mg/dl Urine Opiates Screen (Neg) Ur Methadone, Qual (Neg) Acetaminophen (10-30) ug/ml Urine Barbiturates (Neg) Ur Phencyclidine (PCP) (Neg) U Amphetamin/Meth Scrn (Neg) MDMA (Ecstasy) Screen (Neg) U Benzodiazepines Scrn (Neg) Ur Cocaine Metabolite (Neg) U Marijuana (THC) Screen (Neg) Ethyl Alcohol mg/dL (0-3) mg/dl SARS-CoV-2 Ag (Rapid) Negative (Negative) Discharge Plan Visit Data Chief Complaint: Mental Health Evaluation Stated Complaint: MENTAL HEALTH ED Provider: Jay Turcios Discharge Problem: Mood disorder, Suicidal ideation Patient Disposition: Admitted As Inpatient Discharge Instructions Interventions: ED Discharge Assessment Last Done: 08/03/20 23:44
[2020-08-03 20:38] LABS: Basophils # (auto) 0.02 K/uL (0-0.2); Basophils % (auto) 0.3 %; Eosinophils # (auto) 0.03 K/uL (0-0.5); Eosinophils % (auto) 0.4 %; Hematocrit (blood only) 39.5 % (37-47); Hemoglobin 13.3 g/dL (12.0-16.0); Immature Granulocytes # (auto) 0.01 K/uL (0.00-0.02); Immature Granulocytes % (auto) 0.1 %; Lymphocytes # (auto) 2.36 K/uL (1.2-3.4); Lymphocytes % (auto) 31.8 %; Mean Corpuscular Hgb Conc 33.7 g/dL (32-36); Mean Platelet Volume 10.7 fL (7.4-10.4); Monocytes # (auto) 0.51 K/uL (0.11-0.59); Monocytes % (auto) 6.9 %; Neutrophils % (auto) 60.5 %; Platelet Count 299 K/uL (130-400); RDW Coefficient of Variation 14.1 % (11.5-14.5); RDW Standard Deviation 46.2 fL (36.4-46.3); Red Blood Count 4.44 M/uL (4.2-5.4); White Blood Count 7.43 K/uL (4.8-10.8)
[2020-08-03 20:39] LABS: Amphetamines+Metham, Urine Neg (Neg); Barbiturates, Urine Neg (Neg); Benzodiazepine, Urine Neg (Neg); Cocaine, Urine Neg (Neg); MDMA (Ecstacy), Urine Pos (Neg); Methadone, Urine Neg (Neg); Opiate, Urine Neg (Neg); Phencyclidine, Urine Neg (Neg)
[2020-08-03 20:56] LABS: Albumin Level 3.9 gm/dl (3.4-5.0); BUN Creatinine Ratio 8.6 (10-20); Calcium 8.6 mg/dl (8.5-10.1); Creatinine Clr Calc Pharmacy 86.7 ml/min; Est GFR (African American) 115.6; Est GFR (Non-African American) 99.7; Potassium 3.4 mmol/L (3.5-5.1)
[2020-08-03 20:58] LABS: Pregnancy Test, Serum Negative (Negative)
[2020-08-03 21:01] LABS: Acetaminophen < 2 ug/ml (10-30); Salicylate < 1.7 mg/dl (2.8-20)
[2020-08-03 21:06] LABS: Albumin Globulin Ratio 1.1 (0.9-2); Bilirubin,Total 0.3 mg/dl (0.2-1); Globulin 3.7 gm/dl (2.5-4.0); Thyroid Stimulating Hormone 1.09 uIu/ml (0.300-4.500); Total Protein 7.6 gm/dl (6.4-8.2)
[2020-08-04] MEDS ORDERED: ALUMINUM/MAGNESIUM SUSP 30 ML UDC PO PRN (00:12)
[2020-08-04] MEDS ORDERED: BISMUTH SUBSALICYLATE LIQD 236 ML PO PRN (00:12)
[2020-08-04] MEDS ORDERED: hydrOXYzine HCl 25 MG TAB PO PRN ×2 (00:12)
[2020-08-04] MEDS ORDERED: SODIUM CHLORIDE 0.65% NA SOLN 45 ML (OCEAN) PRN (00:12)
[2020-08-04] MEDS ORDERED: MAGNESIUM HYDROXIDE SUSP 30 ML UDC PO PRN (00:12)
[2020-08-04] MEDS ORDERED: ACETAMINOPHEN 325 MG TAB PO PRN (00:12)
[2020-08-04] MEDS ORDERED: IBUPROFEN 600 MG TAB PO PRN (10:40)
[2020-08-04] MEDS ORDERED: PANTOprazole 40 MG TAB PO SCH (11:00)
[2020-08-04] MEDS ORDERED: VENLAFAXINE HCL 37.5 MG TAB PO ONE (11:00)
--- NOTE | 2020-08-04 12:53 | History & Physical ---
Date of Service August 04, 2020 Impression / Recommendations Impression 40 yo female with a history of depression admit following trazodone OD. (1) Major depression, recurrent: The patient was admitted to the [facility] ([facility] unit) on q15 min checks (behavioral with suicide precautions) for safety. The patient will participate in group, recreational, and milieu therapies and will be offered additional individual and family sessions as clinically appropriate. As Pristiq was initially helpful and only on 50 mg, will further trial fo 100 mg daily. It is non-formulary so to bring home supply. As he is working and unlikely to get here early enough in the day for today's dose, she agreed to substitute Effexor XR 75 mg to minimize any discontinuation syndrome. Active/Remission status: currently active Major depression episode severity: severe Psychotic features: without psychotic features Qualified Code(s): F33.2 - Major depressive disorder, recurrent severe without psychotic features Protective Factors Assessment Employed: Yes ([employer]) Psychiatric History Identifying Data ALENA TORRES is a 40-year-old F who currently lives with locally, no formal psych hx, and was admitted on 08/03/20 23:21 on a 201 voluntary commitment for SI s/p trazodone OD. Chief Complaint "I was feeling hopeless, like I just wanted to go to sleep and not wake up". History of Present Illness Alena reports worsening mood over the course of pandemic, mainly due to missing work for appointments for her son and mother. "it's all just too much". Son is 9 and they are still regulating his Keppra for generalized seizures. Relationship with has been "bad on and off" but OK the past month until argument last night. She states she impulsively poured 5 pills into her hand and took them and went to bed. He returned to the home after the argument and saw them and got treatment. She is glad to be alive and states it was an act of hopelessness. She was trying to get a therapist for the past month and did some med changes in May from Celexa to Pristiq. She was hoping it would have less weight gain (10 lbs) and sexual side effects and "it seemed helpful at first" but not so much the past 3 weeks. She states that sleep and appetite are OK. "He'll probably say I drink more than I should" to cope with down thoughts--states she hadn't drank for 1 month, when she does drink may have a bottle of wine over the course of an isolated evening or 4-6 beers but "any is unacceptable". Tearfulness is longstanding complaint. She denies any hx of soniya. Past Psychiatric History Previous Psych History: no formal, had some counseling as a teen Current Psychiatric Diagnosis: MDD Outpatient Services: med management with PCP Previous Psych Admissions: none History of Previous Suicide Attempt: Yes Describe Attempts in the Past: overdose on trazodone this admit, no prior Past Medication Trials: Celexa only Allergies Allergy/AdvReac Type Severity Reaction Status Date / Time No Known Allergies Allergy Verified 08/03/20 21:05 Home Medications Medication Instructions Recorded Confirmed Type esomeprazole magnesium 40 mg 40 mg PO QAM 90 Days #90 cap 09/25/19 08/03/20 Rx capsule,delayed release linaclotide 145 mcg capsule 145 mcg PO QAM 90 Days #90 cap 09/25/19 08/03/20 Rx desvenlafaxine succinate [Pristiq] 50 mg PO QAM 07/22/20 08/03/20 History ibuprofen 600 mg PO Q4H PRN 07/22/20 08/03/20 History trazodone 25 - 50 mg PO HS PRN 07/22/20 08/03/20 History azelastine 2 spray INTRANASAL QAM 08/03/20 08/03/20 History Family History Family History of: None Family Mental Health History Comment: Reports father has depression and anxiety. Her paternal uncle is schizophrenic Alcohol History Hx of Alcohol Use Over the Past 12 Months: Yes (occasional, typically 2-3 drinks) AUDIT Total Score: 4 Smoking Use Have You Smoked or Used Tobacco Products in the Last 30 Days: No Smoking Status: Never smoker Substance History Hx of Prescription Med Misuse Over the Past 12 Months: No Hx of Over the Counter Med Misuse Over the Past 12 Months: No Hx of Inhalent Misuse Over the Past 12 Months: No Hx of Organic Substance Use Over the Past 12 Months: No Hx of Illegal Substances/Street Drug Use Over Past 12 Months: No Problems as a Result of Past Substance Use: None Identified Personal History Living Arrangements: Home Living Arrangements Comments: Lives with and two kids Highest Grade Completed: Graduate School Highest Grade Completed Comment: [employer] for [employer] Marital Status: Number Of Children: 2 (boys 9 and 13 yo) Beliefs That Will Affect Care: None Current Legal Problems: No Hx Legal Problems: No Psychological Trauma History Comment: none reported. Patient History Medical History Acne Anxiety Chronic constipation Chronic sinusitis Depression GERD (gastroesophageal reflux disease) History of menorrhagia History of uterine leiomyoma Surgical History History of delivery x 2 History of esophagogastroduodenoscopy (EGD) History of loop electrical excision procedure (LEEP) History of robot-assisted laparoscopic hysterectomy History of tubal ligation Family History Son Allergic to eggs Esophagitis, eosinophilic Milk allergy Soy allergy Wheat allergy Grandfather (Paternal) Stroke Colorectal cancer Heart disease CHF Diabetes Mother Hepatic cirrhosis Leiomyoma of body of uterus Alcohol abuse Father Colonic polyp, Onset Age: 50 Anxiety Social History Smoking Status: Never smoker Age Started Using Tobacco: 18; Age Quit Using Tobacco: 23; Second Hand Exposure: No; Hx Alcohol Use: No Hx Substance Use: No Preferred Language: Sri Lankan Communication Ability: Effective Visual Impairment: No Limitations Hearing Ability: Normal Soaking Pit Operator Required: No Beliefs That Will Affect Care: None marital status: Current Living Situation: Spouse and Family Current Living Situation Comment: 2 children current occupational status: employed current occupation: [employer] Feels Safe at Home: Yes Childhood Exposure to Second-Hand Smoke: No Dental Care, Regularly: Yes Physical Activity Frequency: 3-4 Times per Week Seatbelt Use: always Sunscreen Use: Yes Assistive Devices: Glasses Review of Systems Review of Systems: All systems reviewed & are unremarkable except as noted in HPI & below Physical Exam Psychiatric: Orientation: alert Apperance: appropriately groomed Eye Contact: good eye contact Motor Behavior: no abnormal motor movements Speech: normal rate/rhythm/volume of speech Affect: + depressed affect and + tearful affect Mood: + depressed mood Thought Process: goal directed thought process Thought Content: reality based without delusions suicidal ideation "on/off", no intent or plan, mainly hopelessness and is now guilty about what she did. Homicidal Thoughts: denies homicidal thoughts Hallucinations: no auditory hallucinations and no visual hallucinations Cognition: attention grossly intact Estimated Intelligence: consistent with education level Insight: + limited insight Judgement: + limited judgement Vital Signs (Past 24 Hours): Last Vital Signs Temp 36.5 C 08/04/20 06:18 Pulse 74 08/04/20 06:18 Resp 19 08/04/20 06:18 BP 104/69 08/04/20 06:18 Pulse Ox 96 08/04/20 00:19 Exam Statement: A physical exam was performed in the ED by Dr. Turcios for the purposes of medical clearance. I accept that physical as correct and adequate for the purposes of the inpatient physical exam. Results & Data ([facility]) Laboratory Results Laboratory Results - last 24 hr 08/03/20 08/03/20 08/03/20 19:55 19:55 19:55 WBC RBC Hgb Hct MCV MCH MCHC RDW Std Deviation RDW Coeff of Evgeny Plt Count MPV Immature Gran % (Auto) Neut % (Auto) Lymph % (Auto) [place] % (Auto) Eos % (Auto) Baso % (Auto) Neut # (Auto) Lymph # (Auto) [place] # (Auto) Eos # (Auto) Baso # (Auto) Immature Gran # (Auto) Sodium Potassium Chloride Carbon Dioxide Anion Gap BUN Creatinine Est Cr Clr Drug Dosing Est GFR ( Amer) Est GFR (Non-Af Amer) BUN/Creatinine Ratio Glucose Calcium Total Bilirubin AST ALT Alkaline Phosphatase Total Protein Albumin Globulin Albumin/Globulin Ratio TSH HCG, Qual Urine Color Yellow Urine Appearance Cloudy A Urine pH 5.0 Ur Specific [place] 1.018 Urine Protein Negative Urine Glucose (UA) Trace H Urine Ketones 1+ H Urine Blood Negative Urine Nitrite Negative Urine Bilirubin Negative Urine Urobilinogen Negative Ur Leukocyte Esterase Negative Urine WBC (Auto) 1-5 Urine RBC (Auto) 0-4 U Hyaline Cast (Auto) 1-5 U Epithel Cells (Auto) >30 H Urine Bacteria (Auto) 1+ H Salicylates Urine Opiates Screen Neg Ur Methadone, Qual Neg Acetaminophen Urine Barbiturates Neg Ur Phencyclidine (PCP) Neg U Amphetamin/Meth Scrn Neg Urine MDEA Pending MDMA (Ecstasy) Screen Pos H MDMA Pending Urine MDMA Pending U Benzodiazepines Scrn Neg Ur Cocaine Metabolite Neg U Marijuana (THC) Screen Neg Ethyl Alcohol mg/dL SARS-CoV-2 Ag (Rapid) 08/03/20 08/03/20 08/03/20 20:07 20:07 20:07 WBC 7.43 RBC 4.44 Hgb 13.3 Hct 39.5 MCV 89.0 MCH 30.0 MCHC 33.7 RDW Std Deviation 46.2 RDW Coeff of Evgeny 14.1 Plt Count 299 MPV 10.7 H Immature Gran % (Auto) 0.1 Neut % (Auto) 60.5 Lymph % (Auto) 31.8 [place] % (Auto) 6.9 Eos % (Auto) 0.4 Baso % (Auto) 0.3 Neut # (Auto) 4.50 Lymph # (Auto) 2.36 [place] # (Auto) 0.51 Eos # (Auto) 0.03 Baso # (Auto) 0.02 Immature Gran # (Auto) 0.01 Sodium 144 Potassium 3.4 L Chloride 110 H Carbon Dioxide 28 Anion Gap 6.0 BUN 6 L Creatinine 0.75 Est Cr Clr Drug Dosing 86.7 Est GFR ( Amer) 115.6 Est GFR (Non-Af Amer) 99.7 BUN/Creatinine Ratio 8.6 L Glucose 108 H Calcium 8.6 Total Bilirubin 0.3 AST 13 L ALT 22 Alkaline Phosphatase 79 Total Protein 7.6 Albumin 3.9 Globulin 3.7 Albumin/Globulin Ratio 1.1 TSH 1.090 HCG, Qual Urine Color Urine Appearance Urine pH Ur Specific [place] Urine Protein Urine Glucose (UA) Urine Ketones Urine Blood Urine Nitrite Urine Bilirubin Urine Urobilinogen Ur Leukocyte Esterase Urine WBC (Auto) Urine RBC (Auto) U Hyaline Cast (Auto) U Epithel Cells (Auto) Urine Bacteria (Auto) Salicylates < 1.7 L Urine Opiates Screen Ur Methadone, Qual Acetaminophen < 2 L Urine Barbiturates Ur Phencyclidine (PCP) U Amphetamin/Meth Scrn Urine MDEA MDMA (Ecstasy) Screen MDMA Urine MDMA U Benzodiazepines Scrn Ur Cocaine Metabolite U Marijuana (THC) Screen Ethyl Alcohol mg/dL SARS-CoV-2 Ag (Rapid) 08/03/20 08/03/20 08/03/20 20:07 20:07 20:30 WBC RBC Hgb Hct MCV MCH MCHC RDW Std Deviation RDW Coeff of Evgeny Plt Count MPV Immature Gran % (Auto) Neut % (Auto) Lymph % (Auto) [place] % (Auto) Eos % (Auto) Baso % (Auto) Neut # (Auto) Lymph # (Auto) [place] # (Auto) Eos # (Auto) Baso # (Auto) Immature Gran # (Auto) Sodium Potassium Chloride Carbon Dioxide Anion Gap BUN Creatinine Est Cr Clr Drug Dosing Est GFR ( Amer) Est GFR (Non-Af Amer) BUN/Creatinine Ratio Glucose Calcium Total Bilirubin AST ALT Alkaline Phosphatase Total Protein Albumin Globulin Albumin/Globulin Ratio TSH HCG, Qual Negative Urine Color Urine Appearance Urine pH Ur Specific [place] Urine Protein Urine Glucose (UA) Urine Ketones Urine Blood Urine Nitrite Urine Bilirubin Urine Urobilinogen Ur Leukocyte Esterase Urine WBC (Auto) Urine RBC (Auto) U Hyaline Cast (Auto) U Epithel Cells (Auto) Urine Bacteria (Auto) Salicylates Urine Opiates Screen Ur Methadone, Qual Acetaminophen Urine Barbiturates Ur Phencyclidine (PCP) U Amphetamin/Meth Scrn Urine MDEA MDMA (Ecstasy) Screen MDMA Urine MDMA U Benzodiazepines Scrn Ur Cocaine Metabolite U Marijuana (THC) Screen Ethyl Alcohol mg/dL 150.2 H SARS-CoV-2 Ag (Rapid) Negative Current Inpatient Medications Current Inpatient Medications: Current Inpatient Medications Acetaminophen (Acetaminophen 325 Mg Tab) 650 mg PO Q4H PRN PRN Reason: Headache or Minor Fever Stop: 09/03/20 00:11 Al Hydrox/Mg Hydrox/Simethicone (Aluminum/Magnesium Susp 30 Ml Udc) 30 ml PO Q4H PRN PRN Reason: GI Upset Stop: 09/03/20 00:11 Bismuth Subsalicylate (Bismuth Subsalicylate Liqd 236 Ml) 15 ml PO PRN PRN PRN Reason: Loose Stool Stop: 09/03/20 00:11 Hydroxyzine HCl (Hydroxyzine Hcl 25 Mg Tab) 50 mg PO HSZ PRN PRN Reason: Insomnia Stop: 09/03/20 00:11 Hydroxyzine HCl (Hydroxyzine Hcl 25 Mg Tab) 25 mg PO Q4H PRN PRN Reason: Anxiety Stop: 09/03/20 00:11 Ibuprofen (Ibuprofen 600 Mg Tab) 600 mg PO Q4H PRN PRN Reason: Pain Stop: 09/03/20 10:39 Magnesium Hydroxide (Magnesium Hydroxide Susp 30 Ml Udc) 30 ml PO DAILY PRN PRN Reason: Constipation Stop: 09/03/20 00:11 Miscellaneous (Azelastine 0.15 % (205.5 Mcg): Order Awaiting Action) 1 ea N/A QS KATJA Stop: 09/03/20 15:59 Miscellaneous (Linaclotide [Linzess] 145 Mcg Capsule: Order Awaiting Action) 1 ea N/A QS [facility] Stop: 09/03/20 15:59 Miscellaneous (Desvenlafaxine 100 Dose: Order Awaiting Action) 1 ea N/A QS [facility] Stop: 09/03/20 15:59 Pantoprazole Sodium (Pantoprazole 40 Mg Tab) 40 mg PO QAM [facility] Stop: 09/03/20 10:59 Last Admin: 08/04/20 11:19 Dose: 40 mg Documented by: Sodium Chloride (Sodium Chloride 0.65% Na Soln 45 Ml ([place])) 1 - 2 sprays NA PRN PRN PRN Reason: Nasal Dryness/Congestion Stop: 09/03/20 00:11 Trazodone HCl (Trazodone Hcl 50 Mg Tab) 25 mg PO HS PRN PRN Reason: Insomnia Stop: 09/03/20 21:59
--- NOTE | 2020-08-04 19:37 | Electrocardiogram Report ---
Test Reason : Blood Pressure : / mmHG Vent. Rate : 085 BPM Atrial Rate : 085 BPM P-R Int : 140 ms QRS Dur : 084 ms QT Int : 382 ms P-R-T Axes : 071 063 051 degrees QTc Int : 454 ms Normal sinus rhythm Normal ECG When compared with ECG of 13-DEC-2005 11:38, [place] interval has increased QT has lengthened Confirmed by Adrian Goodrich ([id number]) on 08/04/2020 7:37:02 PM Referred By: REFERRED SELF Confirmed By:Adrian Goodrich
[2020-08-05] MEDS: AZELASTINE 0.15% SCH (08:10)
[2020-08-05] MEDS: ESOMEPRAZOLE PO SCH (08:10)
[2020-08-05] MEDS: DESVENLAFAXINE SUCCINATE 50MG PO SCH (08:12)
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
[2020-08-05] MEDS: traZODone HCL 50 MG TAB PO PRN (22:32)
--- NOTE | 2020-08-06 07:56 | Psychiatric Progress Note ---
Date of Service August 06, 2020 Impression / Recommendations Impression 40 y/o female with a history of depression admitted following trazodone OD. (1) Suicide attempt: 08/05 -schedule family meeting with , and obtain collateral inform ation from him. -Discussed the concept of a safety plan, reviewed access to guns ( owns guns, patient does not use them, and they are locked in a safe). She denies ever thinking of using a gun to hurt herself, and states she has never touched them. We will review on the family meeting as part of her safety plan. -Patient would like to resume trazodone as it has been beneficial for sleep. She agrees to have hold her medications until she has stabilized. 08/06 - Family meeting held, confirmed no access to guns and agreed to remove alcohol from the home. Pt denying SI here. (2) Major depression, recurrent: 08/04 - The patient was admitted to the [facility] ([facility]) on q15 min checks (behavioral with suicide precautions) for safety. The patient will participate in group, recreational, and milieu therapies and will be offered additional individual and family sessions as clinically appropriate. As Pristiq was initially helpful and only on 50 mg, will further trial to 100 mg daily. It is non-formulary so to bring home supply. As he is working and unlikely to get here early enough in the day for today's dose, she agreed to substitute Effexor XR 75 mg to minimize any discontinuation syndrome. 08/05 - Continue Pristiq 100mg qam (she reports good response and tolerates it well, and did not tolerate SSRIs), and trazodone 25mg HS prn. -Refer for outpatient therapy and psychiatric care. She has some PTSD symptoms as well which were not endorsed yesterday on initial eval, and will need to be further explored. -Reviewed EKG on presentation, which was normal. 08/06 - Continue current medications and treatment. Referring to [facility] for dual diagnosis treatment. Provided her with information on the [place] [facility] for future reference if needed. -Sleep: Suboptimal d/t restlessness overnight, not feeling rested during the day despite sleeping 8 hours. Reviewed sleep hygiene and encouraged to implement these strategies (avoid caffeine in pm, etc). Consider sleep study, f/u with PCP. Has vivid, negative dreams which are disruptive. Encourage ongoing explor ation of past traumas and addressing stressors in therapy, and avoid alcohol as worsens sleep. Risk Factors Assessment Male: No : Yes Do You Have Access To A Gun?: Yes ( has guns, locked in gun safe) Health Problems: No Mental Health Diagnoses: Yes Substance Use Disorders: No Previous Attempt: No Family History of Suicide: No Previous Psychiatric Hospitalization: No Hopelessness: Yes Smoker: No Protective Factors Assessment : Yes Responsible for Young Children: Yes Employed: Yes ([employer]) Stable Relationships: Yes Supportive Family: Yes Interval History Identifying Information ALENA TORRES is a 40-year-old F who currently lives with her in [facility], has a history of depression and anxiety, and was admitted on 08/03/20 at 23:21 on a 201 voluntary commitment for SI s/p trazodone OD. Chief Complaint "Pretty good". Review of Systems Sleep Information Total Hours of Sleep: 6.5 Sleep Comments: pt on q-15 minute checks Meal Information Percent Meal Consumed - Breakfast: 20 Percent Meal Consumed - Lunch: 100 Percent Meal Consumed - Dinner: 40 Nutrition Comment: documented from meal record Subjective Subjective Patient was seen & assessed and interval progress reviewed with treatment team. Staff report she had a family meeting with the social sciences research scientist and her , during which they discussed relationship issues. Her stated that due to the patient's drinking, their children are staying with his mother and that things will need to change in order for them to reside together or remain a family. It was difficult to clarify the extent of the patient's alcohol use or the problems related to it. They discussed unresolved relationship conflicts related to a lack of trust and an episode in 2008 when patient cheated on her after drinking too much. She discussed her past traumas and the impact on their relationship, and their communication difficulties. On my assessment today, she reports mood is improved, and denies SI. She says the meeting with her was difficult, feels he is "misguided" with his focus on her drinking, as she doesn't feel it is the most important problem. She feels it is not a good coping skill and that she should work on healthier ones. She thinks this is related to her history of being unfaithful to him while intoxicated, and also worries that if she is impaired, she won't take care of their children. She states she is never home alone and he is always there when she is drinking. She admits to hiding her drinking from him, but is agreeing to referral for outpatient therapy ([facility]) to work on this, and thinks she needs to stop drinking. She has been journalling here and finds that very helpful, also spending down time doing puzzles and this has helped to lower stress. She is tolerating the higher dose of Pristiq well and denies side effects. Physical Exam Psychiatric Orientation: alert and cooperative Apperance: appropriately dressed, appropriately groomed and appeared stated age wearing a facemask Eye Contact: good eye contact Motor Behavior: steady gait and station and no abnormal motor movements Speech: normal rate/rhythm/volume of speech Affect: euthymic affect and mood congruent with affect "Pretty good." Thought Process: goal directed thought process and linear/logical thought process Thought Content: reality based without delusions Suicidal Thoughts: denies suicidal thoughts Homicidal Thoughts: denies homicidal thoughts Hallucinations: + auditory hallucinations Cognition: recent memory grossly intact, attention grossly intact and language grossly intact Estimated Intelligence: consistent with education level Insight: + fair insight Judgement: + fair judgement Vital Signs (Past 24 Hours) Last Vital Signs Temp 36.7 C 08/06/20 06:28 Pulse 82 08/06/20 06:29 Resp 16 08/06/20 06:28 BP 93/67 L 08/06/20 06:29 Pulse Ox 96 08/04/20 00:19 Results & Data ([facility]) Current Inpatient Medications Current Inpatient Medications: Current Inpatient Medications Acetaminophen (Acetaminophen 325 Mg Tab) 650 mg PO Q4H PRN PRN Reason: Headache or Minor Fever Stop: 09/03/20 00:11 Al Hydrox/Mg Hydrox/Simethicone (Aluminum/Magnesium Susp 30 Ml Udc) 30 ml PO Q4H PRN PRN Reason: GI Upset Stop: 09/03/20 00:11 Bismuth Subsalicylate (Bismuth Subsalicylate Liqd 236 Ml) 15 ml PO PRN PRN PRN Reason: Loose Stool Stop: 09/03/20 00:11 Desvenlafaxine Succinate (Desvenlafaxine Succinate 50mg) 2 ea PO QAM KATJA Stop: 09/04/20 08:59 Last Admin: 08/05/20 08:12 Dose: 2 ea Documented by: Hydroxyzine HCl (Hydroxyzine Hcl 25 Mg Tab) 50 mg PO HSZ PRN PRN Reason: Insomnia Stop: 09/03/20 00:11 Hydroxyzine HCl (Hydroxyzine Hcl 25 Mg Tab) 25 mg PO Q4H PRN PRN Reason: Anxiety Stop: 09/03/20 00:11 Ibuprofen (Ibuprofen 600 Mg Tab) 600 mg PO Q4H PRN PRN Reason: Pain Stop: 09/03/20 10:39 Linaclotide (Linaclotide 145 Mcg) 1 ea PO QAM KATJA Stop: 09/04/20 08:59 Last Admin: 08/05/20 08:12 Dose: 1 ea Documented by: Magnesium Hydroxide (Magnesium Hydroxide Susp 30 Ml Udc) 30 ml PO DAILY PRN PRN Reason: Constipation Stop: 09/03/20 00:11 Azelastine 0.15 % ~ Non-Formulary Patient's Own Med 2 ea NA QAM KATJA Stop: 09/04/20 08:59 Last Admin: 08/05/20 08:10 Dose: 2 sprays Documented by: Esomeprazole ~ Non- Formulary Patient's Own Med 1 ea PO QAM KATJA Stop: 09/04/20 08:59 Last Admin: 08/05/20 08:10 Dose: 1 cap Documented by: Sodium Chloride (Sodium Chloride 0.65% Na Soln 45 Ml ([place])) 1 - 2 sprays NA PRN PRN PRN Reason: Nasal Dryness/Congestion Stop: 09/03/20 00:11 Trazodone HCl (Trazodone Hcl 50 Mg Tab) 25 mg PO HS PRN PRN Reason: Insomnia Stop: 09/03/20 21:59 Last Admin: 08/05/20 22:32 Dose: 25 mg Documented by: Mental Health & Subst Abuse Tx Therapist Name of Therapist: none Post Discharge Appointments Primary Care Physician Name Of Family Doctor: Dr. Campbell (1) Major depression, recurrent Active/Remission status: currently active Major depression episode severity: severe Psychotic features: without psychotic features Qualified Code(s): F33.2 - Major depressive disorder, recurrent severe without psychotic features
[2020-08-06] MEDS: AZELASTINE 0.15% SCH (07:57)
[2020-08-06] MEDS: DESVENLAFAXINE SUCCINATE 50MG PO SCH (07:58)
[2020-08-06] MEDS: ESOMEPRAZOLE PO SCH (07:58)
[2020-08-06 20:52] LABS: MDA negative; MDEA negative; MDMA (Ecstasy) Urine, Confirm negative
[2020-08-06] MEDS: traZODone HCL 50 MG TAB PO PRN (21:14)
[2020-08-07] MEDS: AZELASTINE 0.15% SCH (08:17)
[2020-08-07] MEDS: ESOMEPRAZOLE PO SCH (08:17)
[2020-08-07] MEDS: DESVENLAFAXINE SUCCINATE 50MG PO SCH (08:18)
--- NOTE | 2020-08-07 08:33 | Discharge Summary ---
Date of Service August 07, 2020 History of Present Illness Massiel reports worsening mood over the course of pandemic, mainly due to missing work for appointments for her son and mother. "it's all just too much". Son is 9 and they are still regulating his Keppra for generalized seizures. Relationship with has been "bad on and off" but OK the past month until argument last night. She states she impulsively poured 5 pills into her hand and took them and went to bed. He returned to the home after the argument and saw them and got treatment. She is glad to be alive and states it was an act of hopelessness. She was trying to get a therapist for the past month and did some med changes in May from Celexa to Pristiq. She was hoping it would have less weight gain (10 lbs) and sexual side effects and "it seemed helpful at first" but not so much the past 3 weeks. She states that sleep and appetite are OK. "He'll probably say I drink more than I should" to cope with down thoughts--states she hadn't drank for 1 month, when she does drink may have a bottle of wine over the course of an isolated evening or 4-6 beers but "any is unacceptable". Tearfulness is longstanding complaint. She denies any hx of soniya. Physical Exam Psychiatric Orientation: alert and cooperative Apperance: appropriately dressed, appropriately groomed and appeared stated age wearing facemask Eye Contact: good eye contact Motor Behavior: steady gait and station and no abnormal motor movements Speech: normal rate/rhythm/volume of speech Affect: euthymic affect and mood congruent with affect "good" Thought Process: goal directed thought process Suicidal Thoughts: denies suicidal thoughts Homicidal Thoughts: denies homicidal thoughts Hallucinations: no auditory hallucinations Cognition: recent memory grossly intact, attention grossly intact and language grossly intact Estimated Intelligence: consistent with education level Insight: good insight Judgement: good judgement Vital Signs (Past 24 Hours) Last Vital Signs Temp 36.8 C 08/07/20 06:00 Pulse 87 08/07/20 06:00 Resp 16 08/07/20 06:00 BP 79/56 L 08/07/20 06:00 Pulse Ox 96 08/04/20 00:19 Principal Diagnosis Suicide attempt by overdose Major depressive disorder, recurrent, severe without psychosis Psychiatric Data Patient was hospitalized for 4 days. On admission, her Pristiq was increased to 100mg daily. She attended and participated in groups and therapy, worked on healthy coping skills (journalling), and processed stressors and past traumas. Triggers for her suicide attempt were explored, including that she had been thinking more about childhood traumas, which she had never had treatment for. She reported subsyndromal PTSD symptoms. Marital strain also played a role, as well as alcohol. She reported binge drinking, which causes marital discord, but denied that it caused impairment in other areas of her life. She had a family meeting with the social economist and her , during which they discussed relationship issues, her 's concerns about her drinking, and both agreed that she would abstain from alcohol for the time being, and to remove alcohol from the home. They discussed unresolved relationship conflicts related to a lack of trust and an episode in 2008 when patient cheated on her after drinking too much. She discussed her past traumas and the impact on their relationship, and their communication difficulties. Marital therapy was recommended and a referral made, and referrals were also made for psychiatric care and dual diagnosis therapy. She was engaged in treatment, actively participated in groups and therapy, was eating and sleeping well, and completed a discharge safety plan. Day of Discharge Assessment Staff report the patient has been doing well on the unit, continues to report improved mood and denies suicidal thoughts, and reported having a productive phone call with her last evening. On my assessment, she states that mood has improved significantly since admission, she denies any return of suici galilea thoughts, and feels treatment has been helpful to work on healthy coping skills and address stressors. She has a therapy intake scheduled next week, and we are still awaiting her psychiatric appointment, so we will schedule a bridge appointment with her PCP in the interim. She denies any side effects to her psychotropic medication, and denies any safety concerns with discharge. Transition of Care Transition Of Care Record: was reviewed with the patient Advance Directives Advance Directives Information Provided: Yes Advance Directives: No Mental Health Advance Directive: No Advance Directives on File: No Living Will: No Power of Isobutylene Operator Chief: No Advance Directives Reason:: Declines as Mental Health Visit. Risk Factors Assessment Risk factors were mitigated by admission to the inpatient unit, use of medications to target mood symptoms, education regarding diagnosis and treatment recommendations including abstinence from alcohol, involvement in groups and therapy, working on healthy coping skills and discharge safety plan, family meeting with her whom she lives with, and referral for outpatient services. Patient has demonstrated improvement in mood, has consistently denied suicidal ideation, has been eating and sleeping well, and performing ADLs independently. She is requesting discharge, and as she is no longer at acute risk of harm to herself, can be managed as an outpatient at this time. No risk factors for harm to others. Male: No : Yes Do You Have Access To A Gun?: Yes ( has guns, locked in gun safe) Health Problems: No Mental Health Diagnoses: Yes Substance Use Disorders: No Previous Attempt: No Family History of Suicide: No Previous Psychiatric Hospitalization: No Hopelessness: Yes Smoker: No Protective Factors Assessment : Yes Responsible for Young Children: Yes Employed: Yes ([employer] [place] [employer]) Stable Relationships: Yes Supportive Family: Yes Tobacco Cessation at Discharge Tobacco Cessation Medication Prescribed at Discharge: Not Applicable/Non-Smoker Total Time Total Time Spent: Greater Than 30 Minutes Total Time Includes: Examination of the patient, Discharge Planning and Medication Reconciliation Discharge Data Lab Results 08/03/20 08/03/20 08/03/20 19:55 19:55 19:55 WBC RBC Hgb Hct MCV MCH MCHC RDW Std Deviation RDW Coeff of Evgeny Plt Count MPV Immature Gran % (Auto) Neut % (Auto) Lymph % (Auto) Simpson % (Auto) Eos % (Auto) Baso % (Auto) Neut # (Auto) Lymph # (Auto) Simpson # (Auto) Eos # (Auto) Baso # (Auto) Immature Gran # (Auto) Sodium Potassium Chloride Carbon Dioxide Anion Gap BUN Creatinine Est Cr Clr Drug Dosing Est GFR ( Amer) Est GFR (Non-Af Amer) BUN/Creatinine Ratio Glucose Calcium Total Bilirubin AST ALT Alkaline Phosphatase Total Protein Albumin Globulin Albumin/Globulin Ratio TSH HCG, Qual Urine Color Yellow Urine Appearance Cloudy A Urine pH 5.0 Ur Specific [place] 1.018 Urine Protein Negative Urine Glucose (UA) Trace H Urine Ketones 1+ H Urine Blood Negative Urine Nitrite Negative Urine Bilirubin Negative Urine Urobilinogen Negative Ur Leukocyte Esterase Negative Urine WBC (Auto) 1-5 Urine RBC (Auto) 0-4 U Hyaline Cast (Auto) 1-5 U Epithel Cells (Auto) >30 H Urine Bacteria (Auto) 1+ H Salicylates Urine Opiates Screen Neg Ur Methadone, Qual Neg Acetaminophen Urine Barbiturates Neg Ur Phencyclidine (PCP) Neg U Amphetamin/Meth Scrn Neg Urine MDEA negative MDMA (Ecstasy) Screen Pos H MDMA negative Urine MDMA negative U Benzodiazepines Scrn Neg Ur Cocaine Metabolite Neg U Marijuana (THC) Screen Neg Ethyl Alcohol mg/dL SARS-CoV-2 Ag (Rapid) 08/03/20 08/03/20 08/03/20 20:07 20:07 20:07 WBC 7.43 RBC 4.44 Hgb 13.3 Hct 39.5 MCV 89.0 MCH 30.0 MCHC 33.7 RDW Std Deviation 46.2 RDW Coeff of Evgeny 14.1 Plt Count 299 MPV 10.7 H Immature Gran % (Auto) 0.1 Neut % (Auto) 60.5 Lymph % (Auto) 31.8 Simpson % (Auto) 6.9 Eos % (Auto) 0.4 Baso % (Auto) 0.3 Neut # (Auto) 4.50 Lymph # (Auto) 2.36 Simpson # (Auto) 0.51 Eos # (Auto) 0.03 Baso # (Auto) 0.02 Immature Gran # (Auto) 0.01 Sodium 144 Potassium 3.4 L Chloride 110 H Carbon Dioxide 28 Anion Gap 6.0 BUN 6 L Creatinine 0.75 Est Cr Clr Drug Dosing 86.7 Est GFR ( Amer) 115.6 Est GFR (Non-Af Amer) 99.7 BUN/Creatinine Ratio 8.6 L Glucose 108 H Calcium 8.6 Total Bilirubin 0.3 AST 13 L ALT 22 Alkaline Phosphatase 79 Total Protein 7.6 Albumin 3.9 Globulin 3.7 Albumin/Globulin Ratio 1.1 TSH 1.090 HCG, Qual Urine Color Urine Appearance Urine pH Ur Specific [place] Urine Protein Urine Glucose (UA) Urine Ketones Urine Blood Urine Nitrite Urine Bilirubin Urine Urobilinogen Ur Leukocyte Esterase Urine WBC (Auto) Urine RBC (Auto) U Hyaline Cast (Auto) U Epithel Cells (Auto) Urine Bacteria (Auto) Salicylates < 1.7 L Urine Opiates Screen Ur Methadone, Qual Acetaminophen < 2 L Urine Barbiturates Ur Phencyclidine (PCP) U Amphetamin/Meth Scrn Urine MDEA MDMA (Ecstasy) Screen MDMA Urine MDMA U Benzodiazepines Scrn Ur Cocaine Metabolite U Marijuana (THC) Screen Ethyl Alcohol mg/dL SARS-CoV-2 Ag (Rapid) 08/03/20 08/03/20 08/03/20 20:07 20:07 20:30 WBC RBC Hgb Hct MCV MCH MCHC RDW Std Deviation RDW Coeff of Evgeny Plt Count MPV Immature Gran % (Auto) Neut % (Auto) Lymph % (Auto) Simpson % (Auto) Eos % (Auto) Baso % (Auto) Neut # (Auto) Lymph # (Auto) Simpson # (Auto) Eos # (Auto) Baso # (Auto) Immature Gran # (Auto) Sodium Potassium Chloride Carbon Dioxide Anion Gap BUN Creatinine Est Cr Clr Drug Dosing Est GFR ( Amer) Est GFR (Non-Af Amer) BUN/Creatinine Ratio Glucose Calcium Total Bilirubin AST ALT Alkaline Phosphatase Total Protein Albumin Globulin Albumin/Globulin Ratio TSH HCG, Qual Negative Urine Color Urine Appearance Urine pH Ur Specific [place] Urine Protein Urine Glucose (UA) Urine Ketones Urine Blood Urine Nitrite Urine Bilirubin Urine Urobilinogen Ur Leukocyte Esterase Urine WBC (Auto) Urine RBC (Auto) U Hyaline Cast (Auto) U Epithel Cells (Auto) Urine Bacteria (Auto) Salicylates Urine Opiates Screen Ur Methadone, Qual Acetaminophen Urine Barbiturates Ur Phencyclidine (PCP) U Amphetamin/Meth Scrn Urine MDEA MDMA (Ecstasy) Screen MDMA Urine MDMA U Benzodiazepines Scrn Ur Cocaine Metabolite U Marijuana (THC) Screen Ethyl Alcohol mg/dL 150.2 H SARS-CoV-2 Ag (Rapid) Negative Hospital Course (1) Suicide attempt: 08/05 -schedule family meeting with , and obtain collateral information from him. -Discussed the concept of a safety plan, reviewed access to guns ( owns guns, patient does not use them, and they are locked in a safe). She denies ever thinking of using a gun to hurt herself, and states she has never touched them. We will review on the family meeting as part of her safety plan. -Patient would like to resume trazodone as it has been beneficial for sleep. She agrees to have hold her medications until she has stabilized. 08/06 - Family meeting held, confirmed no access to guns and agreed to remove alcohol from the home. Pt denying SI here. 08/07 - Patient continues to deny SI here, able to review safety plan. Discharge to home. (2) Major depression, recurrent: 08/04 - The patient was admitted to the [facility] ([facility] unit) on q15 min checks (behavioral with suicide precautions) for safety. The patient will participate in group, recreational, and milieu therapies and will be offered additional individual and family sessions as clinically appropriate. As Pristiq was initially helpful and only on 50 mg, will further trial to 100 mg daily. It is non-formulary so to bring home supply. As he is working and unlikely to get here early enough in the day for today's dose, she agreed to substitute Effexor XR 75 mg to minimize any discontinuation syndrome. 08/05 - Continue Pristiq 100mg qam (she reports good response and tolerates it well, and did not tolerate SSRIs), and trazodone 25mg HS prn. -Refer for outpatient therapy and psychiatric care. She has some PTSD symptoms as well which were not endorsed yesterday on initial eval, and will need to be further explored. -Reviewed EKG on presentation, which was normal. 08/06 - Continue current medications and treatment. Referring to [facility] for dual diagnosis treatment. Provided her with information on the [place] Nurse Peer Assistance Program for future reference if needed. -Sleep: Suboptimal d/t restlessness overnight, not feeling rested during the day despite sleeping 8 hours. Reviewed sleep hygiene and encouraged to implement these strategies (avoid caffeine in pm, etc). Consider sleep study, f/u with PCP. Has vivid, negative dreams which are disruptive. Encourage ongoing explo ration of past traumas and addressing stressors in therapy, and avoid alcohol as worsens sleep. 08/07 - Prescription issued for 1 month supply of Pristiq 100mg. Referred to [facility] for psychiatric care, still awaiting a scheduled appt, and will schedule a bridge appt with PCP in the interim. - Referred to [facility] for dual diagnosis therapy, intake 08/13/20. - Recommended marital therapy with RHEA Mckinley called but have not yet heard back. Mental Health & Subst Abuse Tx Therapist Name of Therapist: [facility] The[facility]'s Date of Therapist Appointment: 08/13/20 Time of Therapist Appointment: 11:00am Post Discharge Appointments Primary Care Physician Name Of Family Doctor: Dr. Campbell Primary Care Smoking Cessation Counseling Tobacco Cessation Medication Prescribed at Discharge: Not Applicable/Non-Smoker Discharge Plan Discharge Items Patient Disposition: Home - Self-Care Reason For Visit: MDR Discharge Diagnosis: Major depression, recurrent Activity: Per Instructions section Non-emergency contact: Psychiatrist and Therapist Call non-emergency contact if: you have any medication questions and your symptoms worsen Follow-up/Referrals: Louann Campbell MD [Primary Care Provider] - Diet: Regular Addtl Attending Provider Instructions: SPECIAL CARE INSTRUCTIONS: 1. Follow through with your scheduled aftercare appointments. If unable to keep an appointment, please call to reschedule. 2. Take your medication only as prescribed. Medication should not be changed or stopped without the approval of your doctor. In the event of worsening symptoms or concerns about side effects, contact your doctor immediately. 3. Utilize new healthy coping skills, anger management skills, and stress management skills learned during your hospitalization. Journal feelings and process them with a support person. Identify stressors or situations that may result in relapse, deterioration or inappropriate behaviors and develop a plan to deal with those issues. 4. If your coping skills are ineffective and you are in crisis, contact your outpatient providers for direction. If unable to reach your providers, please call the [facility] CRISIS LINE AT , go to the [facility] walk-in center at [address], [place], or go to the closest Emergency Room. 5. Avoid alcohol and un-prescribed drugs. 6. You have been provided with the Mental Health Advance Directives Pamphlet for your review. AFTERCARE APPOINTMENTS: * Please call your insurance company prior to your scheduled appointment to confirm your aftercare providers are covered. Take your insurance information to your jacob ointments. WHO TO CALL AND WHEN: Medical Emergencies: For questions or emergencies related to your hospital stay, please contact the Inpatient Behavioral Health Unit at [phone]. A director of managed services is on-call 14/03 for the Behavioral Health Unit for emergencies At any time you feel your situation is an emergency, you may also call 911 immediately. Pending Studies at Discharge: No Stand-Alone Forms: My [employer], Smoking Cessation Medications and DC Order Prescriptions: New desvenlafaxine succinate [Pristiq] 50 mg tablet extended release 24 hr 100 mg PO QAM Qty: 60 RF: 0 Continued Linzess 145 mcg capsule 145 mcg PO QAM 90 Days Qty: 90 RF: 3 esomeprazole magnesium 40 mg capsule,delayed release(DR/EC) 40 mg PO QAM 90 Days Qty: 90 RF: 3 trazodone 50 mg tablet 25 - 50 mg PO HS PRN (Reason: Sleep) RF: 0 ibuprofen 600 mg tablet 600 mg PO Q4H PRN (Reason: Pain) RF: 0 azelastine 0.15 % (205.5 mcg) spray,non-aerosol 2 spray intranasal QAM RF: 0 Discontinued desvenlafaxine succinate [Pristiq] 50 mg tablet extended release 24 hr 50 mg PO QAM RF: 0 Discharge Orders: Discharge Order (Routine); Ordered 08/07/20 Ordered By: Lissette Banuelos Admission Data Admit Date/Time: 08/03/20 23:21 Attending Provider: Judith Michel Admit Provider: Judith Michel Primary Care Provider: Louann Campbell Other Interventions: PSY Interdisciplinary Discharge Planning Last Done: 08/07/20 08:45 Coding Level of Care Code 88555 D/C day mgmt > 30 min Diagnoses Suicide attempt T14.91XA Major depression, recurrent F33.2 Active/Remission status: currently active Major depression episode severity: severe Psychotic features: without psychotic features
== END 2020-08-07 16:15 | disposition home or self-care (01) | DRG 918 ==
LOC: ED 19:16 → 3S 23:21

== ENCOUNTER 2021-11-09 22:22 | Inpatient (IN) ==
[~2021-11-09 22:22] MED LIST changes: -AMT24 PO; +ETOMIDATE 2 MG/ML 20 ML VIAL IV ONE; -PANT40TA PO; +SUCCINYLCHOLINE CHLORIDE 20 MG/ML 10 ML VIAL IV ONE
[2021-11-09] MEDS ORDERED: RAPID SEQUENCE INDUCTION BAG ONE (22:30)
[2021-11-09] MEDS ORDERED: SODIUM CHLORIDE 0.9% 1000ML 1,000 ML IV SCH ×2 (22:30→23:30)
[2021-11-09] MEDS ORDERED: PROPOFOL IV EMULSION 10 MG/ML 100 ML VIAL IV ONE (22:37)
[2021-11-09 22:49] LABS: Basophils # (auto) 0.02 K/uL (0-0.2); Basophils % (auto) 0.3 %; Eosinophils # (auto) 0.05 K/uL (0-0.5); Eosinophils % (auto) 0.7 %; Hematocrit (blood only) 40.2 % (37-47); Hemoglobin 14.1 g/dL (12.0-16.0); Immature Granulocytes # (auto) 0.02 K/uL (0.00-0.02); Immature Granulocytes % (auto) 0.3 %; Lymphocytes # (auto) 3.02 K/uL (1.2-3.4); Lymphocytes % (auto) 42.1 %; Mean Corpuscular Hemoglobin 32.3 pg (25-34); Mean Corpuscular Hgb Conc 35.1 g/dL (32-36); Mean Corpuscular Volume 92.2 fL (80-100); Mean Platelet Volume 9.8 fL (7.4-10.4); Monocytes # (auto) 0.56 K/uL (0.11-0.59); Monocytes % (auto) 7.8 %; Neutrophils # (auto) 3.51 K/uL (1.4-6.5); Neutrophils % (auto) 48.8 %; Platelet Count 244 K/uL (130-400); RDW Standard Deviation 50.7 fL (36.4-46.3); Red Blood Count 4.36 M/uL (4.2-5.4); White Blood Count 7.18 K/uL (4.8-10.8)
[2021-11-09 23:02] LABS: INR 0.9 (0.9-1.1)
[2021-11-09 23:09] LABS: Albumin Globulin Ratio 1.5 (0.9-2); Albumin Level 4.4 gm/dl (3.4-5.0); BUN Creatinine Ratio 14.1 (10-20); Bilirubin,Total 0.4 mg/dl (0.2-1.0); Calcium 9.3 mg/dl (8.5-10.1); Creatinine Clr Calc Pharmacy 113.1 ml/min; Est GFR (African American) 128.5 ml/min; Est GFR (Non-African American) 110.8 ml/min; Magnesium 2.1 mg/dl (1.7-2.4); Potassium 3.7 mmol/L (3.5-5.1); Total Protein 7.4 gm/dl (6.0-8.3)
[2021-11-09 23:16] LABS: Pregnancy Test, Serum Negative (Negative)
[2021-11-09 23:18] LABS: Acetaminophen < 3 ug/ml (10-30); Salicylate < 3.0 mg/dl (3.0-30)
[2021-11-09] MEDS ORDERED: dexAMETHasone**PF** 10 MG/ML VIAL IV ONE (23:24)
[2021-11-09] MEDS ORDERED: STAT IV Infusion **Titration per Protocol STA (23:44)
[2021-11-09 23:45] LABS: Appearance Urine Clear (Clear); Bilirubin Urine Negative (Negative); Blood Urine Negative (Negative); Color Urine Yellow; Glucose Urine UA Negative (Negative); Ketones Urine Negative (Negative); Leukocyte Esterase Urine Negative (Negative); Nitrite Urine Negative (Negative); Protein Urine Negative (Negative); Specific Gravity Urine 1.005 (1.000-1.030); Urobilinogen Urine Negative (Negative)
[2021-11-09] MEDS: propofoL 1,000 MG/100 ML VIAL IV SCH (23:49)
[2021-11-10 00:10] LABS: Amphetamines+Metham, Urine Neg (Neg); Barbiturates, Urine Neg (Neg); Benzodiazepine, Urine Neg (Neg); Cocaine, Urine Neg (Neg); MDMA (Ecstacy), Urine Neg (Neg); Methadone, Urine Neg (Neg); Opiate, Urine Neg (Neg); Phencyclidine, Urine Neg (Neg)
[2021-11-10] MEDS ORDERED: LACTATED RINGER'S 500 ML IV ONE ×2 (00:14→00:17)
--- NOTE | 2021-11-10 01:12 | Emergency Department Note ---
Impression & Plan Suicide attempt by drug overdose, Alcohol overdose, Obtundation ED Provider Note NAME: ALENA TORRES AGE: 41 SEX: F ARRIVES VIA: Ambulance INFORMANT: EMS ED PROVIDER(S): Pipo Goldsmith MD CHIEF COMPLAINT: Overdose PLAN: Disposition: Admit MEDICAL DECISION MAKING: The patient is a 41-year-old woman with a pmhx of depression with suicidal idea tion and history of intentional drug overdose, GERD who presents to the emergency department via EMS after please were called to the patient's home by her for the overdose. Per EMS report the patient had left her home in a personal vehicle was and was pulled over by police. It was reported that the patient was alert and oriented at that time. EMS was called and upon their arrival the patient was rapidly becoming altered. She was given IV Narcan with but with no effect. Patient continued to become less responsive in route to the emergency department. Upon arrival the patient was noted to be obtunded with a GCS of 6, not opening her eyes, moaning and without purposeful movements to painful stimulus. Per report, the told police that the patient had told him that she took 40 of her 50 mg Seroquel tablets and drank alcohol. She does have a history of prior suicide attempts. BSG was 70 in the field. Upon arrival the patient is obtunded with a GCS of 6, with heart in the 130s- 160s and O2 saturation in the 90s on room air. Pupils were mid range and reactive. Her reflexes were within normal limits. There was no clonus. Her skin was warm and dry. EKG demonstrates sinus tachycardia without QTC or QRS prolongation. WBC, H/H and platelets within normal limits. Chemistry without metabolic acidosis. Electrolytes LFTs without significant abnormality. hCG was negative. UA without convincing evidence of infection. Salicylates and acetaminophen were undetectable. Medical alcohol was 251. COVID-19, RNA, LULU test was negative. And the patient's obtundation on arrival in the setting of her overdose decision was made for intubation. See procedure note for details of the patient's difficult intubation which ultimately was successful. Serial chest x-rays were performed to ensure appropriate placement. OG tube was placed and after final chest x-ray was pulled back additionally. Case was reviewed with Poison Control Center and appreciate recommendations. A grees with management thus far and management will continue to be supportive. If needed for agitation may administer benzodiazepines addition to the patient's current propofol for sedation. Case was d/w Dr. Masters, [facility] hospitalist who will evaluate the patient for admission. Triage Nursing notes reviewed and agree them. Prior medical records reviewed Vital Signs: reviewed and remarkable for tachycardia. Differential diagnosis: Overdose, toxicologic, infection, hypoglycemia, electrolyte abnormalities, cardiac sources, intracerebral event, neurologic, trauma, as well as other pathologies. ER treatment provided: See below. Diagnostics interpreted by me: ECG: Sinus tachycardia, 139 bpm, no ectopy, no overt ST elevation or depression, QTC 416, QRS 76 Cardiac Monitoring: An order for continuous cardiac monitoring was placed and demonstrated Sinus tachycardia, 139 bpm, no ectopy. Laboratory studies: See below Imaging studies: See below Consultation(s): Poison control center [facility] hospitalist, Dr. Masters HPI: The patient is a 41-year-old woman with a pmhx of depression with suicidal ideation and history of intentional drug overdose, GERD who presents to the emergency department via EMS after please were called to the patient's home by her for the overdose. Per EMS report the patient had left her home in a personal vehicle was and was pulled over by police. It was reported that the patient was alert and oriented at that time. EMS was called and upon their arrival the patient was rapidly becoming altered. She was given IV Narcan with but with no effect. Patient continued to become less responsive in route to the emergency department. Upon arrival the patient was noted to be obtunded with a GCS of 6, not opening her eyes, moaning and without purposeful movements to painful stimulus. Per report, the told police that the patient had told him that she took 40 of her 50 mg Seroquel tablets and drank alcohol. She does have a history of prior suicide attempts. BSG was 70 in the field. ROS: See above HPI for pertinent positives & negatives. A total of 10 systems reviewed and were otherwise negative. VITALS:See Below PHYSICAL EXAMINATION: GENERAL: Obtunded. GCS 6. BMI 29.8 HENT: Normocephalic, atraumatic. Oropharynx unremarkable. EYES: Normal conjunctiva. Sclera non-icteric. NECK: Supple. No nuchal rigidity. FROM. No JVD. RESPIRATORY: Clear to auscultation. CARDIAC: Regular rate, normal rhythm. Extremities warm and well perfused. Pulses equal. ABDOMEN: Soft, non-distended. No tenderness to palpation. No rebound or guarding. No masses. RECTAL: Deferred. MUSCULOSKELETAL: Chest examination reveals no tenderness. The back is symmetrical on inspection without obvious abnormality. There is no CVA tenderness to palpation. No joint edema. LOWER EXTREMITIES: Calves are equal size bilaterally and non-tender. No edema. No discoloration. NEURO: GCS. Does not open eyes. Moans. Non-purposeful flexion. SKIN: No rash or jaundice noted. ED COURSE: Procedures: Endotracheal Intubation Indication: Airway protection. The patient was on 100% oxygen via NRB prior to the procedure. Suction, airway equipment, RSI drugs, respiratory equipment, and appropriate personnel were prepared prior to the initiation of the procedure. A time out was taken. Induction was performed with Etomidate and initial paralysis with Succinylcholine. After observing the clinical benefit of the medications the airway was visualized utilizing MAC4 glidesocpe. Unfortunately the patient's a irway anatomy was difficult and despite visualization of the cords stylette/ETT was unable to be placed. Additionally paralysis administered with Rocuronium. The patient was manually ventilated in between repeat attempts including attempt at direct visualization but again despite visualization of the cords placement of ETT tube was unsuccessful. Ultimately, repeat attempt was made with glide scope and use of bougie with cricoid pressure was successful and ET tube was loaded and placed between the cords deeply to ensure endotracheal positioning. This was noted to likely be a right mainstem intubation given lack of left-sided breath sounds. Serial chest x-rays were obtained to help guide placement of ET tube and avoid accidental extubation given the difficulty of her airway. A 8.0 size ETT tube was placed 19cm at the lip. Cuff inflated without signs of malfunction. There were bilateral breath sounds, positive colormetric change, no gastric sounds, a good capnography waveform, and post procedure pulse oximetry was 100%. Post intubation sedation was administered using propofol. Given airway edema due to traumatic/difficult intubation she was given dexamethasone. Critical Care: I have personally spent greater than 75 minutes of critical care time in the direct management of this patient. This includes bedside care, interpretation of diagnostic studies, and testing, discussion with consultants, patient, and family members, and other required patient management activities. This 75 minutes is in excess of all separately billable procedures. Pipo Goldsmith MD Past Med/Surg History Medical History Acne Chronic constipation Chronic sinusitis Depression Family history of colonic polyps GERD (gastroesophageal reflux disease) History of menorrhagia History of uterine leiomyoma Surgical History History of delivery x 2 History of esophagogastroduodenoscopy (EGD) History of loop electrical excision procedure (LEEP) History of robot-assisted laparoscopic hysterectomy History of tubal ligation Family History Son Allergic to eggs Esophagitis, eosinophilic Milk allergy Soy allergy Wheat allergy Grandfather (Paternal) Stroke Colorectal cancer Heart disease CHF Diabetes Mother Hepatic cirrhosis Leiomyoma of body of uterus Alcohol abuse Father Colonic polyp, Onset Age: 50 Anxiety Social History Smoking Status: Never smoker Tobacco Type: Cigarettes Age Started Using Tobacco: 18; Age Quit Using Tobacco: 25; Cigarettes Per Day: unsure-smoked socially; Second Hand Exposure: No; Hx Alcohol Use: Yes Alcohol type: beer and wine Alcohol Intake Frequency: Monthly or Less Hx Substance Use: No Preferred Language: Slovak Communication Ability: Effective Visual Impairment: No Limitations Hearing Ability: Normal Lumite Injector Required: No Beliefs That Will Affect Care: None marital status: Current Living Situation: Spouse and Family Current Living Situation Comment: 2 children current occupational status: employed 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 Feels Safe at Home: Yes Childhood Exposure to Second-Hand Smoke: No Dental Care, Regularly: Yes Physical Activity Frequency: 3-4 Times per Week Seatbelt Use: always Sunscreen Use: Yes Assistive Devices: Glasses Allergies Allergies Allergy/AdvReac Type Severity Reaction Status Date / Time No Known Allergies Allergy Verified 11/09/21 23:44 Home Meds Home Medications Medication Instructions Recorded Confirmed ibuprofen 600 mg tablet 600 mg PO Q4H PRN 07/22/20 11/09/21 prazosin 2 mg capsule 2 mg PO HS 08/09/21 11/09/21 folic acid 1 mg tablet 1 mg PO DAILY 09/08/21 11/09/21 thiamine mononitrate (vit B1) 100 100 mg PO DAILY 09/08/21 11/09/21 mg tablet aripiprazole 5 mg tablet (Abilify) 5 mg PO DAILY 10/23/21 11/09/21 duloxetine 20 mg capsule,delayed 20 mg PO DAILY 11/09/21 11/09/21 release (Cymbalta) esomeprazole magnesium 40 mg 40 mg PO QAM 11/09/21 11/09/21 capsule,delayed release trazodone 50 mg tablet 25 - 50 mg PO HS PRN 11/09/21 11/09/21 Previous Rx's Medication Instructions Recorded linaclotide 290 mcg capsule 290 mcg PO DAILY 90 Days #90 cap 01/21/21 ondansetron 4 mg disintegrating 4 mg PO Q6H PRN #120 tab 05/25/21 tablet olopatadine 0.6 % nasal spray 2 spray INTRANASAL DAILY #30.5 g 07/31/21 (Patanase) naltrexone 50 mg tablet 25 mg PO HS #30 tab 09/08/21 quetiapine 50 mg tablet 50 mg PO HS #30 tab 10/23/21 Results & Data (ED) Vital Signs Vital Signs - 24 hr 11/09/21 22:29 11/09/21 23:05 11/09/21 23:15 Temperature 36.8 C Temperature Source Temporal Artery Scan Pulse Rate 160 H Pulse Rate [Apical] 136 H Pulse Rate from SpO2 Sensor Respiratory Rate 8 L 20 Blood Pressure 144/106 H Blood Pressure [Right Arm] 114/71 Blood Pressure Mean 118 Blood Pressure Mean [Right Arm] 85 Blood Pressure Position Sitting Pulse Oximetry 90 96 Oxygen Delivery Method Room Air Mechanical Vent Mechanical Vent Fraction of Inspired Oxygen Sepsis Recent Fever Within 48 Hours No Sepsis New/Unexplained Change in Mental Status No Sepsis Action Taken by Nursing No Action Required 11/09/21 23:16 11/09/21 23:23 11/09/21 23:37 Temperature Temperature Source Pulse Rate 136 H 133 H Pulse Rate [Apical] Pulse Rate from SpO2 Sensor 136 H 133 H Respiratory Rate 14 22 14 Blood Pressure 100/49 L 112/64 Blood Pressure [Right Arm] Blood Pressure Mean 66 80 Blood Pressure Mean [Right Arm] Blood Pressure Position Pulse Oximetry 100 100 Oxygen Delivery Method Mechanical Vent Mechanical Vent Fraction of Inspired Oxygen 50 Sepsis Recent Fever Within 48 Hours Sepsis New/Unexplained Change in Mental Status Sepsis Action Taken by Nursing 11/09/21 23:40 11/09/21 23:46 11/10/21 00:00 Temperature Temperature Source Pulse Rate 130 H 129 H 127 H Pulse Rate [Apical] Pulse Rate from SpO2 Sensor 130 H 128 H Respiratory Rate 14 14 14 Blood Pressure 110/60 105/59 L Blood Pressure [Right Arm] Blood Pressure Mean 76 74 Blood Pressure Mean [Right Arm] Blood Pressure Position Pulse Oximetry 100 100 100 Oxygen Delivery Method Mechanical Vent Mechanical Vent Mechanical Vent Fraction of Inspired Oxygen Sepsis Recent Fever Within 48 Hours Sepsis New/Unexplained Change in Mental Status Sepsis Action Taken by Nursing 11/10/21 00:10 11/10/21 00:30 Temperature Temperature Source Pulse Rate 127 H 127 H Pulse Rate [Apical] Pulse Rate from SpO2 Sensor 127 H 127 H Respiratory Rate 14 23 Blood Pressure 104/60 111/74 Blood Pressure [Right Arm] Blood Pressure Mean 74 86 Blood Pressure Mean [Right Arm] Blood Pressure Position Pulse Oximetry 100 100 Oxygen Delivery Method Mechanical Vent Mechanical Vent Fraction of Inspired Oxygen Sepsis Recent Fever Within 48 Hours Sepsis New/Unexplained Change in Mental Status Sepsis Action Taken by Nursing Laboratory Data Attestation: I reviewed the patient's lab results. Result diagrams: 11/09/21 22:33 11/09/21 22:33 Lab Results 11/09/21 11/09/21 11/09/21 Range/Units 22:33 22:33 22:33 WBC 7.18 (4.8-10.8) K/uL RBC 4.36 (4.2-5.4) M/uL Hgb 14.1 (12.0-16.0) g/dL Hct 40.2 (37-47) % MCV 92.2 (80-100) fL MCH 32.3 (25-34) pg MCHC 35.1 (32-36) g/dL RDW Std Deviation 50.7 H (36.4-46.3) fL RDW Coeff of Evgeny 15.0 H (11.5-14.5) % Plt Count 244 (130-400) K/uL MPV 9.8 (7.4-10.4) fL Immature Gran % (Auto) 0.3 % Neut % (Auto) 48.8 % Lymph % (Auto) 42.1 % Douglas % (Auto) 7.8 % Eos % (Auto) 0.7 % Baso % (Auto) 0.3 % Neut # (Auto) 3.51 (1.4-6.5) K/uL Lymph # (Auto) 3.02 (1.2-3.4) K/uL Douglas # (Auto) 0.56 (0.11-0.59) K/uL Eos # (Auto) 0.05 (0-0.5) K/uL Baso # (Auto) 0.02 (0-0.2) K/uL Immature Gran # (Auto) 0.02 (0.00-0.02) K/uL PT 10.0 (9.0-12.0) Seconds INR 0.9 (0.9-1.1) Sodium 139 (136-145) mmol/L Potassium 3.7 (3.5-5.1) mmol/L Chloride 105 (98-107) mmol/L Carbon Dioxide 23 (21-32) mmol/L Anion Gap 11 (3-11) BUN 9 (6-23) mg/dl Creatinine 0.64 (0.6-1.2) mg/dl Est Cr Clr Drug Dosing 113.1 ml/min Est GFR ( Amer) 128.5 ml/min Est GFR (Non-Af Amer) 110.8 ml/min BUN/Creatinine Ratio 14.1 (10-20) Glucose 113 H (70-99(Fasting)) mg/dl Calcium 9.3 (8.5-10.1) mg/dl Magnesium 2.1 (1.7-2.4) mg/dl Total Bilirubin 0.4 (0.2-1.0) mg/dl AST 19 (13-39) U/L ALT 12 (7-52) U/L Alkaline Phosphatase 65 (34-104) U/L Total Creatine Kinase 91 (26-192) U/L Total Protein 7.4 (6.0-8.3) gm/dl Albumin 4.4 (3.4-5.0) gm/dl Globulin 3.0 (2.5-4.0) gm/dl Albumin/Globulin Ratio 1.5 (0.9-2) Lipase 106 H (11-82) U/L HCG, Qual (Negative) Urine Color Urine Appearance (Clear) Urine pH (4.5-7.5) Ur Specific [place] (1.000-1.030) Urine Protein (Negative) Urine Glucose (UA) (Negative) Urine Ketones (Negative) Urine Blood (Negative) Urine Nitrite (Negative) Urine Bilirubin (Negative) Urine Urobilinogen (Negative) Ur Leukocyte Esterase (Negative) Salicylates (3.0-30) mg/dl Urine Opiates Screen (Neg) Ur Methadone, Qual (Neg) Acetaminophen (10-30) ug/ml Urine Barbiturates (Neg) Ur Phencyclidine (PCP) (Neg) U Amphetamin/Meth Scrn (Neg) MDMA (Ecstasy) Screen (Neg) U Benzodiazepines Scrn (Neg) Ur Cocaine Metabolite (Neg) U Marijuana (THC) Screen (Neg) Ethyl Alcohol mg/dL (<10.0) mg/dl SARS-CoV-2, RNA, NAAT (NEGATIVE) 11/09/21 11/09/21 11/09/21 Range/Units 22:33 22:33 22:33 WBC (4.8-10.8) K/uL RBC (4.2-5.4) M/uL Hgb (12.0-16.0) g/dL Hct (37-47) % MCV (80-100) fL MCH (25-34) pg MCHC (32-36) g/dL RDW Std Deviation (36.4-46.3) fL RDW Coeff of Evgeny (11.5-14.5) % Plt Count (130-400) K/uL MPV (7.4-10.4) fL Immature Gran % (Auto) % Neut % (Auto) % Lymph % (Auto) % Douglas % (Auto) % Eos % (Auto) % Baso % (Auto) % Neut # (Auto) (1.4-6.5) K/uL Lymph # (Auto) (1.2-3.4) K/uL Douglas # (Auto) (0.11-0.59) K/uL Eos # (Auto) (0-0.5) K/uL Baso # (Auto) (0-0.2) K/uL Immature Gran # (Auto) (0.00-0.02) K/uL PT (9.0-12.0) Seconds INR (0.9-1.1) Sodium (136-145) mmol/L Potassium (3.5-5.1) mmol/L Chloride (98-107) mmol/L Carbon Dioxide (21-32) mmol/L Anion Gap (3-11) BUN (6-23) mg/dl Creatinine (0.6-1.2) mg/dl Est Cr Clr Drug Dosing ml/min Est GFR ( Amer) ml/min Est GFR (Non-Af Amer) ml/min BUN/Creatinine Ratio (10-20) Glucose (70-99(Fasting)) mg/dl Calcium (8.5-10.1) mg/dl Magnesium (1.7-2.4) mg/dl Total Bilirubin (0.2-1.0) mg/dl AST (13-39) U/L ALT (7-52) U/L Alkaline Phosphatase (34-104) U/L Total Creatine Kinase (26-192) U/L Total Protein (6.0-8.3) gm/dl Albumin (3.4-5.0) gm/dl Globulin (2.5-4.0) gm/dl Albumin/Globulin Ratio (0.9-2) Lipase (11-82) U/L HCG, Qual Negative (Negative) Urine Color Urine Appearance (Clear) Urine pH (4.5-7.5) Ur Specific [place] (1.000-1.030) Urine Protein (Negative) Urine Glucose (UA) (Negative) Urine Ketones (Negative) Urine Blood (Negative) Urine Nitrite (Negative) Urine Bilirubin (Negative) Urine Urobilinogen (Negative) Ur Leukocyte Esterase (Negative) Salicylates < 3.0 L (3.0-30) mg/dl Urine Opiates Screen (Neg) Ur Methadone, Qual (Neg) Acetaminophen < 3 L (10-30) ug/ml Urine Barbiturates (Neg) Ur Phencyclidine (PCP) (Neg) U Amphetamin/Meth Scrn (Neg) MDMA (Ecstasy) Screen (Neg) U Benzodiazepines Scrn (Neg) Ur Cocaine Metabolite (Neg) U Marijuana (THC) Screen (Neg) Ethyl Alcohol mg/dL 251.3 H (<10.0) mg/dl SARS-CoV-2, RNA, NAAT (NEGATIVE) 11/09/21 11/09/21 11/09/21 Range/Units 23:13 23:27 23:27 WBC (4.8-10.8) K/uL RBC (4.2-5.4) M/uL Hgb (12.0-16.0) g/dL Hct (37-47) % MCV (80-100) fL MCH (25-34) pg MCHC (32-36) g/dL RDW Std Deviation (36.4-46.3) fL RDW Coeff of Evgeny (11.5-14.5) % Plt Count (130-400) K/uL MPV (7.4-10.4) fL Immature Gran % (Auto) % Neut % (Auto) % Lymph % (Auto) % Douglas % (Auto) % Eos % (Auto) % Baso % (Auto) % Neut # (Auto) (1.4-6.5) K/uL Lymph # (Auto) (1.2-3.4) K/uL Douglas # (Auto) (0.11-0.59) K/uL Eos # (Auto) (0-0.5) K/uL Baso # (Auto) (0-0.2) K/uL Immature Gran # (Auto) (0.00-0.02) K/uL PT (9.0-12.0) Seconds INR (0.9-1.1) Sodium (136-145) mmol/L Potassium (3.5-5.1) mmol/L Chloride (98-107) mmol/L Carbon Dioxide (21-32) mmol/L Anion Gap (3-11) BUN (6-23) mg/dl Creatinine (0.6-1.2) mg/dl Est Cr Clr Drug Dosing ml/min Est GFR ( Amer) ml/min Est GFR (Non-Af Amer) ml/min BUN/Creatinine Ratio (10-20) Glucose (70-99(Fasting)) mg/dl Calcium (8.5-10.1) mg/dl Magnesium (1.7-2.4) mg/dl Total Bilirubin (0.2-1.0) mg/dl AST (13-39) U/L ALT (7-52) U/L Alkaline Phosphatase (34-104) U/L Total Creatine Kinase (26-192) U/L Total Protein (6.0-8.3) gm/dl Albumin (3.4-5.0) gm/dl Globulin (2.5-4.0) gm/dl Albumin/Globulin Ratio (0.9-2) Lipase (11-82) U/L HCG, Qual (Negative) Urine Color Yellow Urine Appearance Clear (Clear) Urine pH 5.0 (4.5-7.5) Ur Specific [place] 1.005 (1.000-1.030) Urine Protein Negative (Negative) Urine Glucose (UA) Negative (Negative) Urine Ketones Negative (Negative) Urine Blood Negative (Negative) Urine Nitrite Negative (Negative) Urine Bilirubin Negative (Negative) Urine Urobilinogen Negative (Negative) Ur Leukocyte Esterase Negative (Negative) Salicylates (3.0-30) mg/dl Urine Opiates Screen Neg (Neg) Ur Methadone, Qual Neg (Neg) Acetaminophen (10-30) ug/ml Urine Barbiturates Neg (Neg) Ur Phencyclidine (PCP) Neg (Neg) U Amphetamin/Meth Scrn Neg (Neg) MDMA (Ecstasy) Screen Neg (Neg) U Benzodiazepines Scrn Neg (Neg) Ur Cocaine Metabolite Neg (Neg) U Marijuana (THC) Screen Neg (Neg) Ethyl Alcohol mg/dL (<10.0) mg/dl SARS-CoV-2, RNA, NAAT NEGATIVE (NEGATIVE) Administered Medications Sodium Chloride (Nss 1000ml) 1,000 mls @ 125 mls/hr IV .Q8H [facility] Stop: 12/09/21 23:29 Last Admin: 11/09/21 23:43 Dose: 125 mls/hr Documented by: [id number] Propofol (Diprivan) 1,000 mg in 100 mls @ 9.156 mls/hr IV .[id number] [facility]; Protocol Stop: 11/12/21 23:44 Last Titration: 11/10/21 01:30 Dose: 35 mcg/kg/min, 16 mls/hr Documented by: [id number] Titration: 11/10/21 01:20 Dose: 30 mcg/kg/min, 13.7 mls/hr Documented by: [id number] Titration: 11/10/21 00:59 Dose: 25 mcg/kg/min, 11.4 mls/hr Documented by: [id number] Titration: 11/10/21 00:41 Dose: 20 mcg/kg/min, 9.2 mls/hr Documented by: [id number] Titration: 11/10/21 00:16 Dose: 15 mcg/kg/min, 6.9 mls/hr Documented by: [id number] Admin: 11/09/21 23:49 Dose: 10 mcg/kg/min, 4.6 mls/hr Documented by: [id number] Cosigned by: [id number] Discontinued Medications Dexamethasone Sodium Phosphate (DexamethasonePf 10 Mg/Ml Vial) 10 mg IV NOW ONE Stop: 11/09/21 23:25 Last Admin: 11/10/21 00:18 Dose: 10 mg Documented by: [id number] Sodium Chloride (Nss 1000ml) 1,000 mls @ 999 mls/hr IV .Q1H1M [facility] Stop: 11/09/21 23:30 Last Infusion: 11/09/21 23:36 Dose: 0 mls/hr Documented by: [id number] Admin: 11/09/21 22:45 Dose: 999 mls/hr Documented by: [id number] Lactated Ringer's (Lr) 500 mls @ 999 mls/hr IV .Q31M ONE Stop: 11/10/21 00:44 Last Infusion: 11/10/21 00:50 Dose: 0 mls/hr Documented by: [id number] Admin: 11/10/21 00:14 Dose: 999 mls/hr Documented by: [id number] Lactated Ringer's (Lr) 500 mls @ 999 mls/hr IV .Q31M ONE Stop: 11/10/21 00:47 Last Admin: 11/10/21 00:20 Dose: Not Given Documented by: [id number] Miscellaneous (Rapid Sequence Induction Bag) Confirm Administered Dose 1 ea .ROUTE .STK-MED ONE Stop: 11/09/21 22:31 Last Admin: 11/10/21 00:13 Dose: 1 ea Documented by: [id number] Propofol (Propofol Iv Emulsion 10 Mg/Ml 100 Ml Vial) Confirm Administered Dose 1,000 mg IV .STK-MED ONE Stop: 11/09/21 22:38 Last Admin: 11/10/21 00:13 Dose: Not Given Documented by: [id number] Imaging Data My Impression: CXR: Serial CXR performed for ETT placement subsequently in appropriate position. Gtube with distal placement, subsequently pulled back. Discharge Plan Visit Data Chief Complaint: Overdose (Intentional) ED Provider: Pipo Goldsmith Discharge Problem: Suicide attempt by drug overdose, Alcohol overdose, Obtundation Patient Disposition: Admitted As Inpatient Discharge Instructions Interventions: ED Discharge Assessment Last Done: 11/10/21 01:14 Discharge Problem: Alcohol overdose Qualifiers: Encounter type: initial encounter Injury intent: intentional self-harm Qualified Code(s): T51.92XA - Toxic effect of unspecified alcohol, intentional self-harm, initial encounter
--- NOTE | 2021-11-10 01:28 | History & Physical Report ---
Date of Service November 10, 2021 Assessment & Plan (1) Suicide attempt by drug overdose: Plan: 41yo female with history of MDD, psychosocial stressors, EtOH use presenting after intentional overdose at home, presumed suicide attempt. Patient reportedly ingested 40 tablets of Seroquel (50mg each) sometime between 19:30 and 20:30 as well as drinking an unknown amount of EtOH. Patient has had three prior suicide attempts before. She has been seen by Psychiatry in the past. Patient with declining mental status - obtunded on arrival with GCS of 6 necessitating intubation for airway protection. EKG with normal intervals. Patient is comfortably sedated on Propofol. [address] -Admit to MICU for supportive care, ventilator management -Hold Psychiatric agents - Abilify, Cymbalta, Seroquel, Trazodone -Telemetry monitoring for QT interval -Seizure precautions -Benzos as needed for seizure activity -Psychiatry consultation appreciated -Suicide checks per protocol Neuro: Patient with MDD as above, admission due to intentional overdose -Hold home medications for now -Propofol gtt for sedation -Dilaudid PRN pain -Psychiatry consultation appreciated -Question of daily/frequent EtOH use. Continue Folic acid and Thiamine daily. Hold Naltrexone. Monitor for withdrawal symptoms. CV: Patient with narrow complex sinus tachycardia possibly secondary to overdose of Seroquel. Blood pressure is stable -Continue to monitor -IVF Pulmonary: Patient intubated for airway protection. Adequate oxygenation on 14/400/50%/5. Difficult intubation in ER. Patient has been given Decadron for airway edema. -SBT in AM per PCC team GI: No active issues. -OGT in place. Routine care q shift -Protonix 40mg PO for PPX -NPO : No active issues -Continue to monitor renal function -Montanez in place, routine care qu shift Endocrine: No active issues Heme: No active issues. CBC WNL. ID: No active issues. Afebrile. No suspected infection. F/E/N - NSS at 125mL/hr to complete liter, electroytes WNL, NPO Ppx - Lovenox Code -Full Dispo - Admit to MICU (2) Depression: (3) GERD (gastroesophageal reflux disease): History of Present Illness Chief Complaint: intentional overdose Primary Care Provider: Louann Campbell MD Massiel Pop is a 41yo female presenting after intentional overdose. Patient intubated in the ER for airway protection. History obtained through discussion with ER staff as well as patient's mother at bedside. 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 Patient is currently under a considerable amount of stress in her personal life as she is in the middle of a very difficult divorce and custody situation. This evening she became very distraught and took appx 40 tablets of Seroquel (50mg each = appx 2000mg Seroquel) + EtOH unknown quantity. Patient's mother believes that she took the pills between 19:30 and 20:30. Patient's reportedly called the police. Patient was pulled over by the police and was reportedly alert and oriented. EMS was notified - patient noted to be altered. She was administered 20mg IV Narcan with no improvement in mental status. Patient's mental status continued to decline en route to [facility]. Upon arrival she was noted to be obtunded with GCS of 6. She was intubated for airway protection. Of note, intubation was difficult but ultimately successful. Some post-intubation airway edema noted No additional history obtained. ER Course: Etomidate 30mg, Succinylcholine 120mg, Rocuronium 10mg Dexamethasone 10mg IV Propofol NSS x 1L now at 125mL/hr LR x 1L Allergies Allergy/AdvReac Type Severity Reaction Status Date / Time No Known Allergies Allergy Verified 11/09/21 23:44 Home Medications Medication Instructions Recorded Confirmed Type ibuprofen 600 mg tablet 600 mg PO Q4H PRN 07/22/20 11/09/21 History linaclotide 290 mcg capsule 290 mcg PO DAILY 90 Days #90 cap 01/21/21 11/09/21 Rx ondansetron 4 mg disintegrating 4 mg PO Q6H PRN #120 tab 05/25/21 11/09/21 Rx tablet olopatadine 0.6 % nasal spray 2 spray INTRANASAL DAILY #30.5 g 07/31/21 11/09/21 Rx (Patanase) prazosin 2 mg capsule 2 mg PO HS 08/09/21 11/09/21 History folic acid 1 mg tablet 1 mg PO DAILY 09/08/21 11/09/21 History naltrexone 50 mg tablet 25 mg PO HS #30 tab 09/08/21 11/09/21 Rx thiamine mononitrate (vit B1) 100 100 mg PO DAILY 09/08/21 11/09/21 History mg tablet aripiprazole 5 mg tablet (Abilify) 5 mg PO DAILY 10/23/21 11/09/21 History quetiapine 50 mg tablet 50 mg PO HS #30 tab 10/23/21 11/09/21 Rx duloxetine 20 mg capsule,delayed 20 mg PO DAILY 11/09/21 11/09/21 History release (Cymbalta) esomeprazole magnesium 40 mg 40 mg PO QAM 11/09/21 11/09/21 History capsule,delayed release trazodone 50 mg tablet 25 - 50 mg PO HS PRN 11/09/21 11/09/21 History Past Med/Surg History Medical History Acne Chronic constipation Chronic sinusitis Depression Family history of colonic polyps GERD (gastroesophageal reflux disease) History of menorrhagia History of uterine leiomyoma Surgical History History of delivery x 2 History of esophagogastroduodenoscopy (EGD) History of loop electrical excision procedure (LEEP) History of robot-assisted laparoscopic hysterectomy History of tubal ligation Family History Son Allergic to eggs Esophagitis, eosinophilic Milk allergy Soy allergy Wheat allergy Grandfather (Paternal) Stroke Colorectal cancer Heart disease CHF Diabetes Mother Hepatic cirrhosis Leiomyoma of body of uterus Alcohol abuse Father Colonic polyp, Onset Age: 50 Anxiety Social History Smoking Status: Never smoker Tobacco Type: Cigarettes Age Started Using Tobacco: 18; Age Quit Using Tobacco: 25; Cigarettes Per Day: unsure-smoked socially; Second Hand Exposure: No; Hx Alcohol Use: Yes Alcohol type: beer and wine Alcohol Intake Frequency: Monthly or Less Hx Substance Use: No Preferred Language: Luxembourgish Communication Ability: Effective Visual Impairment: No Limitations Hearing Ability: Normal Diabetes Educator Required: No Beliefs That Will Affect Care: None marital status: Current Living Situation: Spouse and Family Current Living Situation Comment: 2 children current occupational status: employed 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 Feels Safe at Home: Yes Childhood Exposure to Second-Hand Smoke: No Dental Care, Regularly: Yes Physical Activity Frequency: 3-4 Times per Week Seatbelt Use: always Sunscreen Use: Yes Assistive Devices: Glasses Review of Systems Review of Systems: Unobtainable due to endotracheal tube Physical Exam Physical Exam: General: patient intubated, sedated on Propofol gtt Skin: warm, dry, intact, no rashes or lesions HEENT: NC/AT, Pupils small, equal, round and reactive, anicteric sclera, conjunctiva without injection, external ear normal to inspection and nontender, nares patent, moist mucus membranes, dentition intact, no oropharyngeal lesions, neck supple, trachea midline, no LAD, no thyromegaly, no JVD Heart: +S1/S2, regular, tachycardic no m/r/g Lungs: equal air entry bilaterally, no rales/rhonchi/wheezes Abd: +BS, soft, NT/ND, no masses/organomegaly/ascites Ext: warm, 2+ pulses in UE/LE bilaterally, no clubbing/cyanosis or edema Neuro: sedated, no clonus Results & Data Results & Data ([facility]) Vital Signs (Past 12 Hours) Vital Signs Temp Pulse Pulse Resp BP BP Pulse Ox 11/10/21 00:45 130 H 16 125/80 100 11/10/21 00:30 127 H 23 111/74 100 11/10/21 00:10 127 H 14 104/60 100 11/10/21 00:00 127 H 14 105/59 L 100 11/09/21 23:46 129 H 14 100 11/09/21 23:40 130 H 14 110/60 100 11/09/21 23:37 133 H 14 112/64 100 11/09/21 23:23 136 H 22 100/49 L 100 11/09/21 23:16 14 11/09/21 23:05 136 H 20 114/71 96 11/09/21 22:29 36.8 C 160 H 8 L 144/106 H 90 Laboratory Results Laboratory Results WBC 7.18 K/uL (4.8-10.8) 11/09/21 22:33 RBC 4.36 M/uL (4.2-5.4) 11/09/21 22:33 Hgb 14.1 g/dL (12.0-16.0) 11/09/21: Hct 40.2 % (37-47) 11/09/21: MCV 92.2 fL (80-100) 11/09/21: MCH 32.3 pg (25-34) 11/09/21: MCHC 35.1 g/dL (32-36) 11/09/21: RDW Std Deviation 50.7 fL (36.4-46.3) H 11/09/21: RDW Coeff of Evgeny 15.0 % (11.5-14.5) H 11/09/21: Plt Count 244 K/uL (130-400) 11/09/21: MPV 9.8 fL (7.4-10.4) 11/09/21: Immature Gran % (Auto) 0.3 % 11/09/21: Neut % (Auto) 48.8 % 11/09/21: Lymph % (Auto) 42.1 % 11/09/21: Randall % (Auto) 7.8 % 11/09/21: Eos % (Auto) 0.7 % 11/09/21: Baso % (Auto) 0.3 % 11/09/21: Neut # (Auto) 3.51 K/uL (1.4-6.5) 11/09/21: Lymph # (Auto) 3.02 K/uL (1.2-3.4) 11/09/21: Randall # (Auto) 0.56 K/uL (0.11-0.59) 11/09/21: Eos # (Auto) 0.05 K/uL (0-0.5) 11/09/21: Baso # (Auto) 0.02 K/uL (0-0.2) 11/09/21: Immature Gran # (Auto) 0.02 K/uL (0.00-0.02) 11/09/21: PT 10.0 Seconds (9.0-12.0) 11/09/21: INR 0.9 (0.9-1.1) 03/21/22 22:33 Sodium 139 mmol/L (136-145) 11/09/21 22:33 Potassium 3.7 mmol/L (3.5-5.1) 11/09/21 22:33 Chloride 105 mmol/L (98-107) 11/09/21 22:33 Carbon Dioxide 23 mmol/L (21-32) 11/09/21 22:33 Anion Gap 11 (3-11) 11/09/21 22:33 BUN 9 mg/dl (6-23) 11/09/21 22:33 Creatinine 0.64 mg/dl (0.6-1.2) 11/09/21 22:33 Est Cr Clr Drug Dosing 113.1 ml/min 11/09/21 22:33 Est GFR ( Amer) 128.5 ml/min 11/09/21 22:33 Est GFR (Non-Af Amer) 110.8 ml/min 11/09/21 22:33 BUN/Creatinine Ratio 14.1 (10-20) 11/09/21 22:33 Glucose 113 mg/dl (70-99(Fasting)) H 11/09/21 22:33 Calcium 9.3 mg/dl (8.5-10.1) 11/09/21 22:33 Magnesium 2.1 mg/dl (1.7-2.4) 11/09/21 22:33 Total Bilirubin 0.4 mg/dl (0.2-1.0) 11/09/21 22:33 AST 19 U/L (13-39) 11/09/21 22:33 ALT 12 U/L (7-52) 11/09/21 22:33 Alkaline Phosphatase 65 U/L (34-104) 11/09/21 22:33 Total Creatine Kinase 91 U/L (26-192) 11/09/21 22:33 Total Protein 7.4 gm/dl (6.0-8.3) 11/09/21 22:33 Albumin 4.4 gm/dl (3.4-5.0) 11/09/21 22:33 Globulin 3.0 gm/dl (2.5-4.0) 11/09/21 22:33 Albumin/Globulin Ratio 1.5 (0.9-2) 11/09/21 22:33 Lipase 106 U/L (11-82) H 11/09/21 22:33 HCG, Qual Negative (Negative) 11/09/21 22:33 Urine Color Yellow 11/09/21 23:27 Urine Appearance Clear (Clear) 11/09/21 23:27 Urine pH 5.0 (4.5-7.5) 11/09/21 23:27 Ur Specific [place] 1.005 (1.000-1.030) 11/09/21 23:27 Urine Protein Negative (Negative) 11/09/21 23:27 Urine Glucose (UA) Negative (Negative) 11/09/21 23:27 Urine Ketones Negative (Negative) 11/09/21 23: Urine Blood Negative (Negative) 11/09/21 23: Urine Nitrite Negative (Negative) 11/09/21 23: Urine Bilirubin Negative (Negative) 11/09/21 23: Urine Urobilinogen Negative (Negative) 11/09/21 23: Ur Leukocyte Esterase Negative (Negative) 11/09/21 23:27 Salicylates < 3.0 mg/dl (3.0-30) L 11/09/21 22:33 Urine Opiates Screen Neg (Neg) 11/09/21 23:27 Ur Methadone, Qual Neg (Neg) 11/09/21 23:27 Acetaminophen < 3 ug/ml (10-30) L 11/09/21 22:33 Urine Barbiturates Neg (Neg) 11/09/21 23:27 Ur Phencyclidine (PCP) Neg (Neg) 11/09/21 23:27 U Amphetamin/Meth Scrn Neg (Neg) 11/09/21 23:27 MDMA (Ecstasy) Screen Neg (Neg) 11/09/21 23:27 U Benzodiazepines Scrn Neg (Neg) 11/09/21 23:27 Ur Cocaine Metabolite Neg (Neg) 11/09/21 23:27 U Marijuana (THC) Screen Neg (Neg) 11/09/21 23:27 Ethyl Alcohol mg/dL 251.3 mg/dl (<10.0) H 11/09/21 22:33 SARS-CoV-2, RNA, NAAT NEGATIVE (NEGATIVE) 11/09/21 23:13 ECG Additional Comments: EKG with ST at 139, normal axis, YD=435, QRS=76, XVz=314, no acute ischemic changes Code Status & VTE Plan VTE Prophylaxis Plan VTE Prophylaxis will be ordered: Yes PG Care Time/CCT Total # of Minutes Spent Total Time Spent with Patient: Total time spent is greater than 50% in coordination of care (as documented) at patient's floor/unit and/or counseling patient: 45 minutes Coding Level of Care Code None Diagnoses Suicide attempt by drug overdose T50.902A Depression F32.9 GERD (gastroesophageal reflux disease) K21.9
[2021-11-10 02:10] LABS: iSTAT Art Bld Gas pCO2 Correct 44 mmHg (35-46); iSTAT Art Bld Gas pH Corrected 7.308 (7.35-7.45); iSTAT Arterial Blood Gas HCO3 22 meg/L (19-24); iSTAT Arterial Blood Gas pCO2 44 mmHg (35-46); iSTAT Arterial Blood Gas pH 7.31 (7.35-7.45); iSTAT Arterial Blood Gas pO2 111 mmHg (80-95); iSTAT Arterial Blood Gas pO2 C 111; iSTAT Carbon Dioxide 24 mmol/L (24-31); iSTAT FiO2 35 %; iSTAT Hematocrit 34 % (37-47); iSTAT Hemoglobin 11.6 g/dl (12.0-16.0); iSTAT Site R Radial; iSTAT Sodium 141 mmol/L (135-144)
[2021-11-10] MEDS ORDERED: HYDROmorphone INJ 0.5 MG/0.5 ML SYR IV PRN (02:11)
[2021-11-10] MEDS ORDERED: ICU PROTOCOL FOR HYPERGLYCEMIA PRN (02:11)
[2021-11-10] MEDS ORDERED: LORazepam 2 MG/1 ML VIAL IV PRN (02:11)
--- NOTE | 2021-11-10 02:15 | Critical Care Consultation ---
Date of Consultation November 10, 2021 Assessment & Plan (1) Suicide attempt by drug overdose: Reason Critically Ill: 41-year-old female presenting with multisubstance overdose to include release Seroquel and alcohol. Patient became increasingly obtunded and required intubation for airway protection. NEURO/PSYCH - * CAM ICU: Unable to assess * Suicide attempt: * Patient ingested approximately 40, 50 mg Seroquel with alcohol. * Patient has had multiple suicide attempts in the past. * Did require endotracheal intubation for airway protection. * Given suicide attempt with Seroquel, continue to monitor QRS/QTc. Continue supportive measures supporting blood pressure with IV fluids and pressors as needed. Consider magnesium/bicarb for QTC prolongation. Poison control has been contacted and no further interventions appropriate at this time. * Psychiatric consultation when clinically appropriate. CARDIAC/VASCULAR - * Tachycardia: * In the setting of significant overdose attempt with Seroquel. * EKG: Sinus tachycardia at [address] or T wave changes noted otherwise. QTc 416 ms. QRS 76 ms * Monitor on telemetry. RESPIRATORY - * Intubation for airway protection: * ABG to assess baseline status post intubation. * Wean ventilator settings as tolerated. * Reported difficult airway with some airway edema noted post intubation. GI/NUTRITION - * OGT in place RENAL/LYTES - * No significant electrolyte derangements - * No concerns at this time. * Montanez in place - Strict I&Os. ENDO - * No history of diabetes or thyroid disease * BSGs per unit protocol. ISS --> gtt per unit policy. HEME - * Stable H&H ID - * No concerns for infectious contribution at this time LINES/IV ACCESS - * PIVs x2 * Montanez * ET tube * OGT DVT PROPHYLAXIS - * SCDs I have personally spent 35 minutes of critical care time in the direct management of this patient. This is a life/limb threatening event. This includes time spent evaluating patient, direct bedside care, chart review, placing orders, interpretation of diagnostic studies, discussion with consultants, patient, and family members, as well as other required patient management activities. This time is exclusive of all separately billable procedures, and teaching time and separate from and in addition to any other critical care service time. Thank you for allowing us to participate in the care of this patient. Please refer to my attending physician's documentation for any further recommendations. (2) Alcohol overdose: (3) Obtundation: (4) Depression: History of Present Illness Attending Physician: Zabrina Masters DO History of Present Illness 41-year-old female with a significant past medical history of GERD, chronic constipation, depression, suicidal ideation, and alcohol use. Patient presented to the emergency department via EMS after presumed suicide attempt. Patient reports take greater than 40 tablets of Seroquel with alcohol. Intubated in the emergency department for airway protection. History of present illness unable to be obtained as patient is intubated and sedated. Allergies Allergy/AdvReac Type Severity Reaction Status Date / Time No Known Allergies Allergy Verified 11/09/21 23:44 Home Medications Medication Instructions Recorded Confirmed Type ibuprofen 600 mg tablet 600 mg PO Q4H PRN 07/22/20 11/09/21 History linaclotide 290 mcg capsule 290 mcg PO DAILY 90 Days #90 cap 01/21/21 11/09/21 Rx ondansetron 4 mg disintegrating 4 mg PO Q6H PRN #120 tab 05/25/21 11/09/21 Rx tablet olopatadine 0.6 % nasal spray 2 spray INTRANASAL DAILY #30.5 g 07/31/21 11/09/21 Rx (Patanase) prazosin 2 mg capsule 2 mg PO HS 08/09/21 11/09/21 History folic acid 1 mg tablet 1 mg PO DAILY 09/08/21 11/09/21 History naltrexone 50 mg tablet 25 mg PO HS #30 tab 09/08/21 11/09/21 Rx thiamine mononitrate (vit B1) 100 100 mg PO DAILY 09/08/21 11/09/21 History mg tablet aripiprazole 5 mg tablet (Abilify) 5 mg PO DAILY 10/23/21 11/09/21 History quetiapine 50 mg tablet 50 mg PO HS #30 tab 10/23/21 11/09/21 Rx duloxetine 20 mg capsule,delayed 20 mg PO DAILY 11/09/21 11/09/21 History release (Cymbalta) esomeprazole magnesium 40 mg 40 mg PO QAM 11/09/21 11/09/21 History capsule,delayed release trazodone 50 mg tablet 25 - 50 mg PO HS PRN 11/09/21 11/09/21 History Patient History Medical History Acne Chronic constipation Chronic sinusitis Depression Family history of colonic polyps GERD (gastroesophageal reflux disease) History of menorrhagia History of uterine leiomyoma Surgical History History of delivery x 2 History of esophagogastroduodenoscopy (EGD) History of loop electrical excision procedure (LEEP) History of robot-assisted laparoscopic hysterectomy History of tubal ligation Family History Son Allergic to eggs Esophagitis, eosinophilic Milk allergy Soy allergy Wheat allergy Grandfather (Paternal) Stroke Colorectal cancer Heart disease CHF Diabetes Mother Hepatic cirrhosis Leiomyoma of body of uterus Alcohol abuse Father Colonic polyp, Onset Age: 50 Anxiety Social History Smoking Status: Never smoker Tobacco Type: Cigarettes Age Started Using Tobacco: 18; Age Quit Using Tobacco: 25; Cigarettes Per Day: unsure-smoked socially; Second Hand Exposure: No; Hx Alcohol Use: Yes Alcohol type: beer and wine Alcohol Intake Frequency: Monthly or Less Hx Substance Use: No Preferred Language: Croatian Communication Ability: Effective Visual Impairment: No Limitations Hearing Ability: Normal Firer Low Pressure Required: No Beliefs That Will Affect Care: None marital status: Current Living Situation: Spouse and Family Current Living Situation Comment: 2 children current occupational status: employed 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 GENERAL - 41-year-old female appearing her stated age who is in no acute distress. Intubated and sedated. SKIN - Without rashes. HEAD - NC/AT. EYES - PERRL. Sclera anicteric. MOUTH/OROPHARYNX - ETT in place. Without perioral cyanosis. NECK - Supple to palpation. No lymphadenopathy noted. No nuchal rigidity. LUNGS - Chest wall symmetric without accessory muscle use, intercostals retractions, or central cyanosis. Normal vesicular breath sounds CTA B/L. No wheezes, rales, or rhonchi appreciated. CARDIAC - RRR with S1/S2. No murmur, rubs, or gallops appreciated. ABDOMEN - Abdominal contour obese without pulsations or visible masses. BS normoactive all four quadrants. No tenderness, palpable masses, hepatosplenome kenisha, or ascites noted. EXTREMITIES - No clubbing or peripheral cyanosis. No pretibial edema present. +3/5 radial and dorsalis pedis pulses palpated throughout. NEUROLOGIC - No focal neurological deficits noted. Unable to fully assess secondary to sedation. PSYCH - Sedated. Active suicide attempt. Results & Data Results & Data ([facility]) Vital Signs (Past 12 Hours) Vital Signs Temp Pulse Pulse Resp BP BP Pulse Ox 11/10/21 02:02 107 H 16 99 11/10/21 01:15 113 H 12 122/80 100 11/10/21 01:00 120 H 17 100 11/10/21 00:45 130 H 16 125/80 100 11/10/21 00:30 127 H 23 111/74 100 11/10/21 00:10 127 H 14 104/60 100 11/10/21 00:00 127 H 14 105/59 L 100 11/09/21 23:46 129 H 14 100 11/09/21 23:40 130 H 14 110/60 100 11/09/21 23:37 133 H 14 112/64 100 11/09/21 23:23 136 H 22 100/49 L 100 11/09/21 23:16 14 11/09/21 23:05 136 H 20 114/71 96 11/09/21 22:29 36.8 C 160 H 8 L 144/106 H 90 Coding Level of Care Code Critical Care 1st 30-74 mins Diagnoses Suicide attempt by drug overdose T50.902A Alcohol overdose T51.92XA Encounter type: initial encounter Injury intent: intentional self-harm Obtundation R40.1 Depression F32.9 Time Spent (min) 35 (1) Alcohol overdose Encounter type: initial encounter Injury intent: intentional self-harm Qualified Code(s): T51.92XA - Toxic effect of unspecified alcohol, intentional self-harm, initial encounter
[2021-11-10] MEDS ORDERED: ACETAMINOPHEN 1,000 MG/100 ML VIAL IV PRN (02:28)
[2021-11-10] MEDS: propofoL 1,000 MG/100 ML VIAL IV SCH ×4 (03:06→20:42)
[2021-11-10 05:20] LABS: Basophils # (auto) 0.01 K/uL (0-0.2); Basophils % (auto) 0.1 %; Hematocrit (blood only) 36.7 % (37-47); Hemoglobin 12.5 g/dL (12.0-16.0); Immature Granulocytes # (auto) 0.02 K/uL (0.00-0.02); Immature Granulocytes % (auto) 0.2 %; Lymphocytes # (auto) 0.81 K/uL (1.2-3.4); Lymphocytes % (auto) 8.5 %; Mean Corpuscular Hemoglobin 31.6 pg (25-34); Mean Corpuscular Hgb Conc 34.1 g/dL (32-36); Mean Corpuscular Volume 92.9 fL (80-100); Mean Platelet Volume 10.5 fL (7.4-10.4); Monocytes # (auto) 0.16 K/uL (0.11-0.59); Monocytes % (auto) 1.7 %; Neutrophils # (auto) 8.51 K/uL (1.4-6.5); Neutrophils % (auto) 89.5 %; Platelet Count 185 K/uL (130-400); RDW Coefficient of Variation 15.2 % (11.5-14.5); RDW Standard Deviation 51.7 fL (36.4-46.3); Red Blood Count 3.95 M/uL (4.2-5.4); White Blood Count 9.51 K/uL (4.8-10.8)
[2021-11-10] MEDS: ENOXAPARIN INJ 40 MG/0.4 ML SYR SQ SCH (05:26)
[2021-11-10 05:44] LABS: BUN Creatinine Ratio 16.7 (10-20); Calcium 8.2 mg/dl (8.5-10.1); Creatinine Clr Calc Pharmacy 172.4 ml/min; Est GFR (African American) 147.6 ml/min; Est GFR (Non-African American) 127.3 ml/min; Magnesium 1.8 mg/dl (1.7-2.4); Phosphorus 2.1 mg/dl (2.5-4.9); Potassium 3.9 mmol/L (3.5-5.1)
[2021-11-10] MEDS ORDERED: POTASSIUM PHOS 3 MMOL/1 ML INFUSION IV STA (05:49)
[2021-11-10] MEDS ORDERED: POTASSIUM PHOSPHATE 15 MMOL in SODIUM CHLORIDE 0.9% 250 ML IV ONE (06:00)
--- NOTE | 2021-11-10 07:07 | XRay Report ---
SINGLE VIEW CHEST CLINICAL HISTORY: Intubation. FINDINGS: 3 AP, portable, supine chest radiographs are compared to study dated 05/21/2006. An endotrac heal tube has been placed. On initial 2 images the tip projects over the main stem bronchus. On the t hird image of this has been pulled back and projects approximately 3 cm above the isa. The cardiom ediastinal silhouette is unremarkable. There is left basilar consolidation. No large pleural effusion or pneumothorax is seen. The bony thorax is grossly intact. IMPRESSION: 1. An endotracheal tube has been placed as above. 2. There is left basilar consolidation which could represent atelectasis versus pneumonia. Clinical c orrelation will be required and radiographic follow-up to resolution is recommended. ACT 112: Negative or not required by law. Electronically signed by: Simeon Matthew M.D. 11/10/2021 7:05 AM
[2021-11-10] MEDS ORDERED: MAGNESIUM SULFATE / D5W 1 GM/100 ML BAG IV ONE ×2 (07:45→15:38)
--- NOTE | 2021-11-10 07:48 | XRay Report ---
SINGLE VIEW CHEST CLINICAL HISTORY: Enteric tube placement. FINDINGS: An AP, portable, supine view of the lower chest and upper abdomen is compared to study perf ormed earlier the same day 11/09/2021. An enteric tube has been placed. The tip projects below the chichi phragm over the distal stomach. Left basilar consolidation is noted. The right lung base appears laquita r. The heart is normal in size. There is no evidence of bowel obstruction. IMPRESSION: 1. An enteric tube has been placed as above. 2. Left basilar consolidation persists. Electronically signed by: Simeon Matthew M.D. 11/10/2021 7:46 AM
--- NOTE | 2021-11-10 07:54 | Critical Care Progress Note ---
Date of Service November 10, 2021 Assessment & Plan (1) Suicide attempt by drug overdose: (2) Alcohol overdose: (3) Depression: Plan: (1) Suicide attempt by drug overdose: Reason Critically Ill: 41-year-old female presenting with multisubstance overdose to include release Seroquel and alcohol. Patient became increasingly obtunded and required intubation for airway protection. NEURO/PSYCH - * CAM ICU: Unable to assess * Suicide attempt: * Patient ingested approximately 40 tab 50 mg Seroquel with alcohol. * Patient has had multiple suicide attempts in the past. * endotracheal intubation for airway protection. * Given suicide attempt with Seroquel, continue to monitor QRS/QTc. Continue supportive measures supporting blood pressure with IV fluids and pressors as needed. Consider magnesium/bicarb for QTC prolongation. Poison control has been contacted and no further interventions appropriate at this time. * Psychiatric consultation when clinically appropriate. CARDIAC/VASCULAR - * Tachycardia: * In the setting of significant overdose attempt with Seroquel. * EKG: Sinus tachycardia at [address] or T wave changes noted otherwise. QTc 462 ms. QRS 82 ms * Monitor on telemetry. EKG Q8 RESPIRATORY - * Intubation for airway protection: * Wean ventilator settings as tolerated. * Reported difficult airway with some airway edema noted post intubation. GI/NUTRITION - * OGT in place RENAL/LYTES - * No significant electrolyte derangements, repleted K phos, Mg - * No concerns at this time. * Montanez in place - Strict I&Os. ENDO - * No history of diabetes or thyroid disease * BSGs per unit protocol. ISS --> gtt per unit policy. HEME - * Stable H&H ID - * No concerns for infectious contribution at this time LINES/IV ACCESS - * PIVs x2 * Montanez * ET tube * OGT DVT PROPHYLAXIS - * SCDs * Lovenox ordered Admission and Anticipated Discharge Date Admission Date: November 10, 2021 Supervising Physician Co-Signing Physician Notes Dr. Jenkins was the resident-physician during care of patient. I separately evaluated patient for morales portions of the history and the exam. I was present during the critical portion of medical decision making, and I discussed the case with the resident. I generally agree with the findings and plan except for any additions/exceptions noted. Patient seen and examined at bedside. No acute distress. Patient was on propofol 25 mics at the time of examination RASS -2 Patient was breathing with the vent. Constitutional: No acute distress HEENT: PERRLA, sluggish pupillary response, positive ETT Respiratory system: Decreased air entry bilaterally, no wheeze, no rhonchi, no crackles CVS: S1-S2 positive, no murmurs or gallops Abdomen: Soft, nontender, nondistended, positive bowel sounds x4 Extremities: +2 pulses bilaterally radialis/ dorsalis pedis, no cyanosis, no edema Neuro: RASS -2, sedated Psych: Unable to assess G/U: Positive Montanez --Prophylaxis VTE: Lovenox on hold GI: Lansoprazole Lines: Peripheral Diet: We will start tube feeds Plan: In/out: -905, urine output 2500 AB.31/44/111 on PEEP of 5, 35% Labs from today shows metabolic acidosis. Delta delta less than 1, gap was nongap. Gap is likely from lactic acidosis plus starvation ketosis. Unfortunately we do not have beta hydroxybutyric acid test in-house Give IV fluid LR bolus 1 L. Start the patient on tube feeds I will give the patient 5 mg of thiamine for 3 days followed by 200 mg for 2 days and then 100 mg on a daily basis Patient did have difficult intubation. Occasional oozing of blood from the mouth. Hold Lovenox for the time being I will start the patient on Solu-Medrol 40 mg every 12 hours to decrease the edema around the airway. Patient is already on lansoprazole. QTC early in the morning was 462. Continue repeating EKG IV every 8 hours. Keep phosphorus around 3, magnesium greater than 2, potassium > 4 Repeat BMP mag phos at 3 PM Patient will need psych consult prior to discharge I have personally spent additional 45 minutes of critical care time in the direct management of this patient. This is a life/limb threatening event. This includes time spent evaluating patient, direct bedside care, chart review, placing orders, interpretation of diagnostic studies, discussion with consultants, patient, and/or family members regarding treatment decisions, as well as other required patient management activities. This time is exclusive of all separately billable procedures, and teaching time and separate from and in addition to any other critical care service time. Subjective Patient seen at bedside, sedated intubated on mechanical vent. Grimaces with shoulder tapping. Review of Systems Review of Systems: Unobtainable due to reduced consciousness Physical Exam Constitutional: + lethargic, + mechanically ventilated and + overweight Eyes: PERRL ENMT: Intubated, blood noted on suction Neck: trachea midline, no thyromegaly Respiratory: no respiratory distress Auscultation: lungs clear to auscultation bilaterally Cardiovascular: Rate/Rhythm: regular rhythm and + tachycardic Heart Sounds: normal S1 and normal S2 Extremities: normal capillary refill; no edema Chest (Breasts): normal inspection/palpation of breasts Gastrointestinal (Abdomen): Inspection/Auscultation: abdomen normal to inspection and + hypoactive bowel sounds Percussion/Palpation: abdomen soft Skin: no rashes, warm and dry Results & Data Results & Data ([facility]) Vital Signs (Past 12 Hours) Vital Signs Temp Pulse Pulse Resp BP BP Pulse Ox 11/10/21 07:20 106 H 16 99 11/10/21 06:00 94 H 16 110/73 100 11/10/21 05:00 89 16 103/73 100 11/10/21 04:30 89 16 99 11/10/21 04:15 91 H 16 98 11/10/21 04:00 91 H 16 103/72 99 11/10/21 03:45 92 H 16 98 11/10/21 03:30 96 H 16 98 11/10/21 03:15 95 H 16 95 11/10/21 03:00 98 H 16 102/76 98 11/10/21 02:45 98 H 16 97 11/10/21 02:30 102 H 16 97 11/10/21 02:15 105 H 16 98 11/10/21 02:02 107 H 16 99 11/10/21 01:15 113 H 12 122/80 100 11/10/21 01:00 120 H 17 100 11/10/21 00:45 130 H 16 125/80 100 11/10/21 00:30 127 H 23 111/74 100 11/10/21 00:10 127 H 14 104/60 100 11/10/21 00:00 127 H 14 105/59 L 100 11/09/21 23:46 129 H 14 100 11/09/21 23:40 130 H 14 110/60 100 11/09/21 23:37 133 H 14 112/64 100 11/09/21 23:23 136 H 22 100/49 L 100 11/09/21 23:16 14 11/09/21 23:05 136 H 20 114/71 96 11/09/21 22:29 36.8 C 160 H 8 L 144/106 H 90 Resident Activity Tracking Resident Involvement: Resident Care Provided Care Provided: Adult Hospital Medicine (1) Alcohol overdose Encounter type: initial encounter Injury intent: intentional self-harm Qualified Code(s): T51.92XA - Toxic effect of unspecified alcohol, intentional self-harm, initial encounter
[2021-11-10] MEDS: fentaNYL citrate 100 MCG/2 ML VIAL IV PRN (08:04)
[2021-11-10 08:27] LABS: Appearance Urine Clear (Clear); Bilirubin Urine Negative (Negative); Blood Urine Negative (Negative); Color Urine Yellow; Glucose Urine UA Negative (Negative); Ketones Urine 3+ (Negative); Leukocyte Esterase Urine Negative (Negative); Nitrite Urine Negative (Negative); Protein Urine Negative (Negative); Specific Gravity Urine 1.019 (1.000-1.030); Urobilinogen Urine Negative (Negative); pH Urine 6.5 (4.5-7.5)
[2021-11-10 08:57] LABS: Creatinine Urine Random 54.2 mg/dl; Potassium Random Urine 136.1 mmol/L
[2021-11-10] MEDS: LANSOPRAZOLE 30 MG SOLTAB PO SCH (09:00)
[2021-11-10] MEDS: THIAMINE HCL 100 MG TAB PO SCH (09:00)
[2021-11-10] MEDS: FOLIC ACID 1 MG TAB PO SCH (09:00)
--- NOTE | 2021-11-10 09:17 | XRay Report ---
SINGLE VIEW CHEST CLINICAL HISTORY: Respiratory failure. FINDINGS: An AP, portable, upright chest radiograph is compared to study dated 11/09/2021. An endotrac heal tube and an enteric tube are unchanged in position. The cardiomediastinal silhouette is unremark able. Consolidative change at the left lung base has modestly improved from previous. No large pleura l effusion or pneumothorax is seen. The bony thorax is grossly intact. IMPRESSION: 1. Stable lines and tubes. 2. There is decreasing consolidation at the left lung base which likely represented atelectasis. Cont inued follow-up to resolution is recommended. ACT 112: Negative or not required by law. Electronically signed by: Simeon Matthew M.D. 11/10/2021 9:15 AM
[2021-11-10] MEDS ORDERED: LACTATED RINGER'S 1,000 ML IV ONE (09:26)
[2021-11-10] MEDS ORDERED: THIAMINE HCL 500 MG in SODIUM CHLORIDE 0.9% 50 ML IV SCH (09:45)
[2021-11-10] MEDS: THIAMINE HCL 500 MG in SODIUM CHLORIDE 0.9% 50 ML IV SCH (10:20)
--- NOTE | 2021-11-10 10:40 | Billing Data ---
Date of Service November 10, 2021 Coding Level of Care Code Critical Care ea addt'l 30 min Time Spent (min) 45 Comment [id number] plus [id number]
--- NOTE | 2021-11-10 10:47 | Electrocardiogram Report ---
Test Reason : Blood Pressure : / mmHG Vent. Rate : 097 BPM Atrial Rate : 097 BPM P-R Int : 130 ms QRS Dur : 084 ms QT Int : 368 ms P-R-T Axes : 068 059 057 degrees QTc Int : 467 ms Poor data quality, interpretation may be adversely affected Normal sinus rhythm Low voltage QRS Borderline ECG Confirmed by Tim Matt ([id number]) on 11/10/2021 10:47:18 AM Referred By: REFERRED SELF Confirmed By:Sammy Matt
--- NOTE | 2021-11-10 10:48 | Electrocardiogram Report ---
Test Reason : Blood Pressure : / mmHG Vent. Rate : 139 BPM Atrial Rate : 139 BPM P-R Int : 120 ms QRS Dur : 076 ms QT Int : 274 ms P-R-T Axes : 060 061 046 degrees QTc Int : 416 ms Sinus tachycardia Possible Left atrial enlargement Borderline ECG When compared with ECG of 03-AUG-2020 19:51, Vent. rate has increased BY 54 BPM Confirmed by Tim Matt ([id number]) on 11/10/2021 10:48:08 AM Referred By: REFERRED SELF Confirmed By:Sammy Matt
--- NOTE | 2021-11-10 10:52 | Electrocardiogram Report ---
Test Reason : Blood Pressure : / mmHG Vent. Rate : 106 BPM Atrial Rate : 106 BPM P-R Int : 120 ms QRS Dur : 082 ms QT Int : 348 ms P-R-T Axes : 066 061 060 degrees QTc Int : 462 ms Sinus tachycardia Low voltage QRS Borderline ECG When compared with ECG of 10-NOV-2021 03:17, (unconfirmed) No significant change was found Confirmed by Tim Matt ([id number]) on 11/10/2021 10:51:32 AM Referred By: REFERRED SELF Confirmed By:Sammy Matt
[2021-11-10] MEDS: PEPTAMEN INTENSE VHP 1.0 CAL 1,000 ML BAG OG SCH (11:13)
[2021-11-10] MEDS: TUBE FEEDING WATER FLUSH OG SCH ×4 (11:14→22:40)
--- NOTE | 2021-11-10 14:21 | Psychiatric Consultation ---
Date of Consultation November 10, 2021 Impression / Recommendations Impression This is a 41 yo woman admitted medically following a suspected intentional overdose suicide attempt. Diagnostically unclear at this time given that patient is currently intubated and history is per chart review but suspect worsening of MDD. Acute risk of self-harm remains elevated and high given suicide attempt requiring medical admission and ongoing ICU treatment, history of major depressive symptoms, history of prior attempts, history of substance use and postive ethyl alcohol on admission, and ongoing psychosocial stressors including divorce. Given elevated risk of harm to self they will likely meet criteria for inpatient psychiatric care for diagnostic clarification, safety/stabilization, development of additional coping skills, medication management and disposition/safety planning once medically stable. -Once extubated/no longer sedated begin 1-on-1 for risk of harm to self -Do not discharge or allow to leave AMA, [address] -Hold psych medications for now -Continue with AWSS, thiamine, folic acid -Once medically cleared plan for likely psychiatric hospitalization (either 201 or 302 status) pending further assessment once she is extubated and able to participate in psychiatric interview (1) Suicide attempt by drug overdose: (2) Alcohol overdose: Encounter type: initial encounter Injury intent: intentional self-harm Qualified Code(s): T51.92XA - Toxic effect of unspecified alcohol, intentional self-harm, initial encounter see above Psych History Identifying Data 41 yo woman with a history of GERD, MDD, PTSD, and alcohol use disorder with recent psychiatric hospitalization ([facility] 08/10/2021 - 08/14/2021) and multiple prior suicide attempts (3, most recently 07/2021 via attempted hanging) who was admitted medically for ingestion of seroquel and alcohol. Psychiatry was consulted for risk assessment and recommendations. Chief Complaint intubated History of Present Illness Massiel is currently intubated in the ICU due to the severity of the ingestion so history is per chart review. She was hospitalized in July 2021 following a suicide attempt via hanging and increase in depression and alcohol use in the context of a divorce. There she was diagnosed with MDD, PTSD and alcohol use disorder and set up with outpatient care through [facility] for psychiatry and therapy dual diagnosis at [place]. She presented to the ED on 11/10/21 via EMS after her called for reported suicide attempt via overdose. Reportedly prior to the attempt she had been pulled over by police and then on EMS arrival she had decreased responsiveness and was intubated and admitted to the ICU. Per 's report to EMS she consumed approximately 40 tabs of 50mg Seroquel (total dose of ~ 2,000 mg) and had been consuming alcohol. Appears her outpatient psychiatric medications are: abilify, Cymbalta, Seroquel, trazodone and naltrexone. Was also on prazosin 2 mg qhs at time of discharge from [facility] in 07/2021. Past Psychiatric History Previous Psych History: see HPI Previous Psych Admissions: [facility] 07/2021, [facility] 07/2020 History of Previous Suicide Attempt: Yes Allergies Allergy/AdvReac Type Severity Reaction Status Date / Time No Known Allergies Allergy Verified 11/09/21 23:44 Home Medications Medication Instructions Recorded Confirmed Type ibuprofen 600 mg tablet 600 mg PO Q4H PRN 07/22/20 11/09/21 History linaclotide 290 mcg capsule 290 mcg PO DAILY 90 Days #90 cap 01/21/21 11/09/21 Rx ondansetron 4 mg disintegrating 4 mg PO Q6H PRN #120 tab 05/25/21 11/09/21 Rx tablet olopatadine 0.6 % nasal spray 2 spray INTRANASAL DAILY #30.5 g 07/31/21 11/09/21 Rx (Patanase) prazosin 2 mg capsule 2 mg PO HS 08/09/21 11/09/21 History folic acid 1 mg tablet 1 mg PO DAILY 09/08/21 11/09/21 History naltrexone 50 mg tablet 25 mg PO HS #30 tab 09/08/21 11/09/21 Rx thiamine mononitrate (vit B1) 100 100 mg PO DAILY 09/08/21 11/09/21 History mg tablet aripiprazole 5 mg tablet (Abilify) 5 mg PO DAILY 10/23/21 11/09/21 History quetiapine 50 mg tablet 50 mg PO HS #30 tab 10/23/21 11/09/21 Rx duloxetine 20 mg capsule,delayed 20 mg PO DAILY 11/09/21 11/09/21 History release (Cymbalta) esomeprazole magnesium 40 mg 40 mg PO QAM 11/09/21 11/09/21 History capsule,delayed release trazodone 50 mg tablet 25 - 50 mg PO HS PRN 11/09/21 11/09/21 History Substance Abuse History recent alcohol use in July 2021, unclear use pattern in recent months. Positive ethyl alcohol on admission. Personal History Beliefs That Will Affect Care: None Patient History Medical History Acne Chronic constipation Chronic sinusitis Depression Family history of colonic polyps GERD (gastroesophageal reflux disease) History of menorrhagia History of uterine leiomyoma Surgical History History of delivery x 2 History of esophagogastroduodenoscopy (EGD) History of loop electrical excision procedure (LEEP) History of robot-assisted laparoscopic hysterectomy History of tubal ligation Family History Son Allergic to eggs Esophagitis, eosinophilic Milk allergy Soy allergy Wheat allergy Grandfather (Paternal) Stroke Colorectal cancer Heart disease CHF Diabetes Mother Hepatic cirrhosis Leiomyoma of body of uterus Alcohol abuse Father Colonic polyp, Onset Age: 50 Anxiety Social History Smoking Status: Never smoker Tobacco Type: Cigarettes Age Started Using Tobacco: 18; Age Quit Using Tobacco: 25; Cigarettes Per Day: unsure-smoked socially; Second Hand Exposure: No; Hx Alcohol Use: Yes Alcohol type: beer and wine Alcohol Intake Frequency: Monthly or Less Hx Substance Use: No Preferred Language: Persian Communication Ability: Unable Visual Impairment: No Limitations Hearing Ability: Normal Electrical Systems Designer Required: No Beliefs That Will Affect Care: None marital status: Current Living Situation: Spouse and Family Current Living Situation Comment: 2 children current occupational status: employed 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 [employer] Feels Safe at Home: Yes Childhood Exposure to Second-Hand Smoke: No Dental Care, Regularly: Yes Physical Activity Frequency: 3-4 Times per Week Seatbelt Use: always Sunscreen Use: Yes Assistive Devices: Oxygen - Continuous Physical Exam Psychiatric: Orientation: + not alert Apperance: appropriately dressed and appropriately groomed Motor Behavior: no abnormal motor movements Vital Signs (Past 24 Hours): Last Vital Signs Temp 36.7 C 11/10/21 08:00 Pulse 104 H 11/10/21 11:35 Resp 20 11/10/21 11:35 BP 110/76 11/10/21 11:00 Pulse Ox 99 11/10/21 11:35 Review of Systems Unobtainable due to endotracheal tube Results & Data (PSY) Laboratory Results UDS negative with exception of alcohol, normal AST/ALT Medications Administered Enoxaparin Sodium (Enoxaparin Inj 40 Mg/0.4 Ml Syr) 40 mg SQ Q24H [facility] Stop: 12/10/21 05:59 Last Admin: 11/10/21 05:26 Dose: 40 mg Documented by: [id number] Fentanyl Citrate (Fentanyl Citrate 100 Mcg/2 Ml Vial) 50 mcg IV Q2H PRN PRN Reason: Moderate Pain (4,5,6) on NRS Stop: 11/24/21 02:27 Last Admin: 11/10/21 08:04 Dose: 50 mcg Documented by: [id number] Folic Acid (Folic Acid 1 Mg Tab) 1 mg PO DAILY [facility] Stop: 12/10/21 08:59 Last Admin: 11/10/21 09:00 Dose: 1 mg Documented by: [id number] Propofol (Diprivan) 1,000 mg in 100 mls @ 9.156 mls/hr IV .[id number] [facility]; Protocol Stop: 11/12/21 23:44 Last Titration: 11/10/21 09:00 Dose: 20 mcg/kg/min, 9.2 mls/hr Documented by: [id number] Titration: 11/10/21 07:46 Dose: 25 mcg/kg/min, 11.4 mls/hr Documented by: [id number] Titration: 11/10/21 07:05 Dose: 30 mcg/kg/min, 13.7 mls/hr Documented by: [id number] Cosigned by: [id number] Admin: 11/10/21 05:27 Dose: 30 mcg/kg/min, 13.7 mls/hr Documented by: [id number] Cosigned by: [id number] Titration: 11/10/21 05:27 Dose: 30 mcg/kg/min, 13.7 mls/hr Documented by: [id number] Cosigned by: [id number] Admin: 11/10/21 03:06 Dose: 30 mcg/kg/min, 13.7 mls/hr Documented by: [id number] Cosigned by: [id number] Titration: 11/10/21 03:06 Dose: 35 mcg/kg/min, 16 mls/hr Documented by: [id number] Cosigned by: [id number] Titration: 11/10/21 01:30 Dose: 35 mcg/kg/min, 16 mls/hr Documented by: [id number] Titration: 11/10/21 01:20 Dose: 30 mcg/kg/min, 13.7 mls/hr Documented by: [id number] Titration: 11/10/21 00:59 Dose: 25 mcg/kg/min, 11.4 mls/hr Documented by: [id number] Titration: 11/10/21 00:41 Dose: 20 mcg/kg/min, 9.2 mls/hr Documented by: [id number] Titration: 11/10/21 00:16 Dose: 15 mcg/kg/min, 6.9 mls/hr Documented by: [id number] Admin: 11/09/21 23:49 Dose: 10 mcg/kg/min, 4.6 mls/hr Documented by: [id number] Cosigned by: [id number] Thiamine HCl 500 mg/ Sodium (Chloride) 55 mls @ 220 mls/hr IV QAM KATJA Stop: 11/13/21 10:14 Last Infusion: 11/10/21 10:35 Dose: 0 mls/hr Documented by: [id number] Admin: 11/10/21 10:20 Dose: 220 mls/hr Documented by: [id number] Lansoprazole (Lansoprazole 30 Mg Soltab) 30 mg PO QAM KATJA Stop: 12/10/21 08:59 Last Admin: 11/10/21 09:00 Dose: 30 mg Documented by: [id number] Nutritional Formula (Peptamen Intense Vhp 1.0 Porter 1,000 Ml Bag) 1,000 ml OG UD KATJA; Protocol Stop: 12/10/21 10:44 Last Admin: 11/10/21 11:13 Dose: 1,000 ml Documented by: [id number] Sterile Water (Tube Feeding Water Flush) 150 ml OG Q4H KATJA Stop: 12/10/21 10:44 Last Admin: 11/10/21 11:14 Dose: 150 ml Documented by: [id number] Thiamine HCl (Thiamine Hcl 100 Mg Tab) 100 mg PO DAILY AKTJA Stop: 12/10/21 08:59 Last Admin: 11/10/21 09:00 Dose: 100 mg Documented by: [id number] Coding Level of Care Code 73879 Inpt Consult Level 2 Diagnoses Suicide attempt by drug overdose T50.902A Alcohol overdose T51.92XA Encounter type: initial encounter Injury intent: intentional self-harm
[2021-11-10 15:36] LABS: BUN Creatinine Ratio 9.6 (10-20); Calcium 8.6 mg/dl (8.5-10.1); Creatinine Clr Calc Pharmacy 139.3 ml/min; Est GFR (African American) 137.5 ml/min; Est GFR (Non-African American) 118.7 ml/min; Magnesium 1.9 mg/dl (1.7-2.4); Phosphorus 3.2 mg/dl (2.5-4.9); Potassium 3.7 mmol/L (3.5-5.1)
[2021-11-10] MEDS ORDERED: POTASSIUM CHLORIDE CRTAB 20 MEQ TABCR PO STA (15:38)
[2021-11-10] MEDS: POTASSIUM CHLORIDE / WTR 10 MEQ/100 ML PLCT IV SCH ×2 (16:16→17:23)
--- NOTE | 2021-11-10 16:17 | Electrocardiogram Report ---
Test Reason : Blood Pressure : / mmHG Vent. Rate : 106 BPM Atrial Rate : 106 BPM P-R Int : 122 ms QRS Dur : 082 ms QT Int : 342 ms P-R-T Axes : 032 046 051 degrees QTc Int : 454 ms Poor data quality, interpretation may be adversely affected Sinus tachycardia Low voltage QRS Borderline ECG When compared with ECG of 10-NOV-2021 07:15, No significant change was found Confirmed by Tim Matt ([id number]) on 11/10/2021 4:16:26 PM Referred By: REFERRED SELF Confirmed By:Sammy Matt
[2021-11-10] MEDS ORDERED: POTASSIUM CHLORIDE 20 MEQ/15 ML UDC PO STA ×2 (16:39→17:13)
[2021-11-10] MEDS: methylPREDNISolone 40 MG in SYRINGE 0 ML IV SCH (19:53)
[2021-11-11] MEDS: propofoL 1,000 MG/100 ML VIAL IV SCH ×6 (01:43→21:45)
[2021-11-11 03:36] LABS: iSTAT Allen Test Pass; iSTAT Art Bld Gas pCO2 Correct 34 mmHg (35-46); iSTAT Art Bld Gas pH Corrected 7.456 (7.35-7.45); iSTAT Arterial Blood Gas HCO3 24 meg/L (19-24); iSTAT Arterial Blood Gas pCO2 35 mmHg (35-46); iSTAT Arterial Blood Gas pH 7.45 (7.35-7.45); iSTAT Arterial Blood Gas pO2 91 mmHg (80-95); iSTAT Arterial Blood Gas pO2 C 88; iSTAT Carbon Dioxide 25 mmol/L (24-31); iSTAT FiO2 25 %; iSTAT Hematocrit 34 % (37-47); iSTAT Hemoglobin 11.6 g/dl (12.0-16.0); iSTAT Site L Radial; iSTAT Sodium 138 mmol/L (135-144)
[2021-11-11] MEDS: TUBE FEEDING WATER FLUSH OG SCH ×6 (03:48→21:45)
[2021-11-11 05:16] LABS: Basophils # (auto) 0.01 K/uL (0-0.2); Basophils % (auto) 0.1 %; Hematocrit (blood only) 36.5 % (37-47); Immature Granulocytes # (auto) 0.04 K/uL (0.00-0.02); Immature Granulocytes % (auto) 0.3 %; Lymphocytes # (auto) 0.72 K/uL (1.2-3.4); Lymphocytes % (auto) 6.3 %; Mean Corpuscular Hgb Conc 32.9 g/dL (32-36); Mean Corpuscular Volume 94.3 fL (80-100); Monocytes % (auto) 5.2 %; Neutrophils # (auto) 10.13 K/uL (1.4-6.5); Neutrophils % (auto) 88.1 %; Platelet Count 230 K/uL (130-400); RDW Coefficient of Variation 15.5 % (11.5-14.5); RDW Standard Deviation 53.6 fL (36.4-46.3); Red Blood Count 3.87 M/uL (4.2-5.4)
[2021-11-11] MEDS: ENOXAPARIN INJ 40 MG/0.4 ML SYR SQ SCH ×2 (05:28→08:09)
[2021-11-11 05:41] LABS: Calcium 8.8 mg/dl (8.5-10.1); Creatinine Clr Calc Pharmacy 130.3 ml/min; Est GFR (African American) 142.2 ml/min; Est GFR (Non-African American) 122.7 ml/min; Magnesium 2.3 mg/dl (1.7-2.4); Phosphorus 3.3 mg/dl (2.5-4.9); Potassium 3.9 mmol/L (3.5-5.1)
[2021-11-11] MEDS ORDERED: POTASSIUM CHLORIDE CRTAB 20 MEQ TABCR PO ONE (07:08)
[2021-11-11] MEDS: LANSOPRAZOLE 30 MG SOLTAB PO SCH (08:00)
[2021-11-11] MEDS: FOLIC ACID 1 MG TAB PO SCH (08:00)
[2021-11-11] MEDS: methylPREDNISolone 40 MG in SYRINGE 0 ML IV SCH ×3 (08:01→21:45)
[2021-11-11] MEDS: THIAMINE HCL 500 MG in SODIUM CHLORIDE 0.9% 50 ML IV SCH (08:02)
--- NOTE | 2021-11-11 08:04 | Critical Care Progress Note ---
Date of Service November 11, 2021 Assessment & Plan (1) Suicide attempt by drug overdose: (2) Alcohol overdose: (3) Depression: Plan: (1) Suicide attempt by drug overdose: Reason Critically Ill: 41-year-old female presenting with multisubstance overdose to include release Seroquel and alcohol. Patient became increasingly obtunded and required intubation for airway protection. NEURO/PSYCH - * CAM ICU: Unable to assess * Suicide attempt: * Patient ingested approximately 40 tab 50 mg Seroquel with alcohol. * Patient has had multiple suicide attempts in the past. * endotracheal intubation for airway protection. * Given suicide attempt with Seroquel, continue to monitor QRS/QTc. Continue supportive measures symptom management blood pressure with IV fluids and pressors as needed. Poison control has been contacted and no further interventions appropriate at this time. * Psychiatric consultation when clinically appropriate. * Currently on propofol 30 will continue to wean down, RASS -1 CARDIAC/VASCULAR - * QTC being monitored RESPIRATORY - * Intubation for airway protection: * ABG to assess baseline status post intubation. * Wean ventilator settings as tolerated. * Reported difficult airway with some airway edema noted post intubation. Added solumedrol GI/NUTRITION - * OGT in place, started tube feeding * on thiamine 500mg 3 days, 200mg 2 days, 100mg daily after, folic acid RENAL/LYTES - * No significant electrolyte derangements, repleted K phos, Mg - * No concerns at this time. * Montanez in place - Strict I&Os. -200, urine 4400 ENDO - * No history of diabetes or thyroid disease * BSGs per unit protocol. ISS --> gtt per unit policy. HEME - * Stable H&H * ABG 7.456/34/88 on PEEP 5, 25% ID - * No concerns for infectious contribution at this time * Lactate 2.2 LINES/IV ACCESS - * PIVs x2 * Montanez * ET tube * OGT DVT PROPHYLAXIS - * SCDs * Lovenox ordered, resumed Admission and Anticipated Discharge Date Admission Date: November 10, 2021 Supervising Physician Co-Signing Physician Notes Dr. Jenkins was the resident-physician during care of patient. I separately evaluated patient for morales portions of the history and the exam. I was present during the critical portion of medical decision making, and I discussed the case with the resident. I generally agree with the findings and plan except for any additions/exceptions noted. Patient seen and examined at bedside. No acute distress. Overnight patient did have bouts of agitation for which propofol was increased The time of examination patient was on 40 of propofol She was breathing with the vent Has been afebrile. Saturating 97-98% on 25% FiO2 Constitutional: No acute distress HEENT: PERRLA, sluggish pupillary response, positive ETT Respiratory system: Decreased air entry bilaterally, no wheeze, no rhonchi, no crackles CVS: S1-S2 positive, no murmurs or gallops Abdomen: Soft, nontender, nondistended, positive bowel sounds x4 Extremities: +2 pulses bilaterally radialis/ dorsalis pedis, no cyanosis, no edema Neuro: RASS -2, sedated Psych: Unable to assess G/U: Positive Montanez --Prophylaxis VTE: Lovenox GI: Lansoprazole Lines: Peripheral Diet: Tube feeds Plan: In/out: -1.1 L, urine output 4400 AB.45/35/91 on 25%, PEEP of 5 Patient's metabolic acidosis has resolved. QTC today 449. Try to go down on propofol to keep the patient RASS -1 Unfortunately patient still does not have any cuff leak. She has already been started on Solu-Medrol as of yesterday. Patient also has size 8 tube. I would continue with ventilation for the time being. If there is still no leak tomorrow we can still give a trial of extubation keeping anesthesia aware I have personally spent additional 37 minutes of critical care time in the direct management of this patient. This is a life/limb threatening event. This includes time spent evaluating patient, direct bedside care, chart review, placing orders, interpretation of diagnostic studies, discussion with consultants, patient, and/or family members regarding treatment decisions, as well as other required patient management activities. This time is exclusive of all separately billable procedures, and teaching time and separate from and in addition to any other critical care service time. Subjective Patient seen at bedside, calm comfortable, able to follow commands, notes some discomfort with her intubation, patient was made aware she still required intubation due to her throat swelling. Per nursing she needed additional propofol after family agitation, currently weaning down. No events overnight. Review of Systems Review of Systems: Unobtainable due to endotracheal tube Physical Exam Constitutional: + lethargic, + mechanically ventilated and + overweight Eyes: PERRL Neck: trachea midline, no thyromegaly Respiratory: no respiratory distress Auscultation: lungs clear to auscultation bilaterally Cardiovascular: Rate/Rhythm: regular rate and regular rhythm Heart Sounds: normal S1 and normal S2 Extremities: normal capillary refill; no edema Chest (Breasts): normal inspection/palpation of breasts Gastrointestinal (Abdomen): Inspection/Auscultation: abdomen normal to inspe ction Percussion/Palpation: abdomen soft Skin: no rashes, warm and dry Results & Data Results & Data ([facility]) Vital Signs (Past 12 Hours) Vital Signs Temp Pulse Resp BP Pulse Ox 11/11/21 07:35 74 17 99 11/11/21 06:30 74 16 98 11/11/21 06:15 73 16 97 11/11/21 06:00 72 16 98/75 L 97 11/11/21 05:45 83 17 93 11/11/21 05:30 75 16 99 11/11/21 05:15 72 16 99 11/11/21 05:01 78 16 11/11/21 05:00 115/85 11/11/21 04:59 75 16 95 11/11/21 04:52 79 16 96 11/11/21 04:30 81 16 96 11/11/21 04:15 85 16 96 11/11/21 04:00 36.5 C 83 16 94/79 L 94 11/11/21 03:45 81 16 97 11/11/21 03:41 80 16 98 11/11/21 03:30 81 16 97 11/11/21 03:15 80 16 98 11/11/21 03:00 83 16 97/68 L 97 11/11/21 02:45 83 16 97 11/11/21 02:30 78 16 98 11/11/21 02:15 80 16 97 11/11/21 02:00 82 16 101/73 97 11/11/21 01:45 82 16 11/11/21 01:30 82 16 11/11/21 01:15 83 16 92/62 L 95 11/11/21 01:01 85 14 95 11/11/21 00:45 89 16 95 11/11/21 00:30 86 16 95 11/11/21 00:15 86 16 95 11/11/21 00:00 36.8 C 84 16 91/65 L 95 11/10/21 23:45 85 16 95 11/10/21 23:30 92 H 16 95 11/10/21 23:15 85 16 95 11/10/21 23:12 85 17 96 11/10/21 23:00 84 16 98/75 L 96 11/10/21 22:45 83 16 95 11/10/21 22:33 85 16 95 11/10/21 22:15 86 16 96 11/10/21 22:01 89 16 96 11/10/21 21:45 82 16 95 11/10/21 21:31 79 16 96 11/10/21 21:15 81 14 96 11/10/21 21:01 85 16 96 11/10/21 21:00 94/64 L 11/10/21 20:59 85 17 96 11/10/21 20:45 89 16 96 11/10/21 20:38 105 H 11/10/21 20:32 94 H 16 96 11/10/21 20:15 36.4 C L 96 H 16 107/72 95 Resident Activity Tracking Resident Involvement: Resident Care Provided Care Provided: Adult Hospital Medicine (1) Alcohol overdose Encounter type: initial encounter Injury intent: intentional self-harm Qualified Code(s): T51.92XA - Toxic effect of unspecified alcohol, intentional self-harm, initial encounter
[2021-11-11] MEDS: MULTI VIT W/MINERALS LIQUID 15 ML UDP NG SCH (08:08)
[2021-11-11] MEDS: PROPOFOL BOLUS FROM BAG IV PRN ×3 (08:13→21:45)
--- NOTE | 2021-11-11 08:14 | XRay Report ---
XR chest 1V portable CLINICAL HISTORY: Status post intubation. Follow up left basilar opacity.. COMPARISON STUDY: 11/10/2021 TECHNIQUE: 1 view of the chest FINDINGS: Single frontal view of the chest demonstrates the cardiomediastinal silhouette to be within normal li mits. ET and NG tubes are again seen. There is decreased expansion of lungs when compared to previous study. However, there has been resolution of left basilar opacity, again most likely representing at electasis. The lungs are clear of new alveolar opacities. There is no evidence for pleural effusion. There is no evidence for vascular congestion. There is no acute osseous pathology. IMPRESSION: 1. Stable tubes and catheters with resolution of left basilar atelectasis. 2. Otherwise, no acute chest disease. ACT 112: Negative or not required by law. Electronically signed by: Cornel Barbosa M.D. 11/11/2021 8:13 AM
[2021-11-11] MEDS: fentaNYL citrate 100 MCG/2 ML VIAL IV PRN ×4 (09:23→22:11)
--- NOTE | 2021-11-11 10:19 | Billing Data ---
Date of Service November 11, 2021 Coding Level of Care Code Critical Care 1st 30-74 mins Time Spent (min) 37
--- NOTE | 2021-11-11 13:32 | Electrocardiogram Report ---
Test Reason : Blood Pressure : / mmHG Vent. Rate : 084 BPM Atrial Rate : 084 BPM P-R Int : 130 ms QRS Dur : 080 ms QT Int : 380 ms P-R-T Axes : 026 058 058 degrees QTc Int : 449 ms Normal sinus rhythm Low voltage QRS Borderline ECG When compared with ECG of 10-NOV-2021 15:23, No significant change was found Confirmed by Tim Matt ([id number]) on 11/11/2021 1:32:48 PM Referred By: REFERRED SELF Confirmed By:Sammy Matt
--- NOTE | 2021-11-11 13:37 | Electrocardiogram Report ---
Test Reason : Blood Pressure : / mmHG Vent. Rate : 077 BPM Atrial Rate : 077 BPM P-R Int : 138 ms QRS Dur : 080 ms QT Int : 390 ms P-R-T Axes : 039 052 052 degrees QTc Int : 441 ms Normal sinus rhythm Low voltage QRS Borderline ECG When compared with ECG of 10-NOV-2021 22:45, (unconfirmed) No significant change was found Confirmed by Tim Matt ([id number] on 11/11/2021 1:36:55 PM Referred By: REFERRED SELF Confirmed By:Sammy Matt
--- NOTE | 2021-11-11 21:09 | Hospitalist Progress Note ---
Date of Service November 11, 2021 Assessment & Plan (1) Suicide attempt by drug overdose: Plan: 41yo female with history of MDD, psychosocial stressors, EtOH use presenting after intentional overdose at home, presumed suicide attempt. Patient reportedly ingested 40 tablets of Seroquel (50mg each) sometime between 19:30 and 20:30 as well as drinking an unknown amount of EtOH. Patient has had three prior suicide attempts before. She has been seen by Psychiatry in the past. Patient with declining mental status - obtunded on arrival with GCS of 6 necessitating intubation for airway protection. EKG with normal intervals. Patient is comfortably sedated on Propofol. [address] -Admit to MICU for supportive care, ventilator management -Hold Psychiatric agents - Abilify, Cymbalta, Seroquel, Trazodone -Telemetry monitoring for QT interval -Seizure precautions -Benzos as needed for seizure activity -Psychiatry consultation appreciated -Suicide checks per protocol Patient will remain intubated today 11/12 Neuro: Patient with MDD as above, admission due to intentional overdose -Hold home medications for now -Propofol gtt for sedation -Dilaudid PRN pain -Psychiatry consultation appreciated -Question of daily/frequent EtOH use. Continue Folic acid and Thiamine daily. Hold Naltrexone. Monitor for withdrawal symptoms. CV: Patient with narrow complex sinus tachycardia possibly secondary to overdose of Seroquel. Blood pressure is stable -Continue to monitor -IVF Pulmonary: Patient intubated for airway protection. Adequate oxygenation on 14/400/50%/5. Difficult intubation in ER. Patient has been given Decadron for airway edema. -SBT in AM per PCC team GI: No active issues. -OGT in place. Routine care q shift -Protonix 40mg PO for PPX -NPO : No active issues -Continue to monitor renal function -Montanez in place, routine care qu shift Endocrine: No active issues Heme: No active issues. CBC WNL. ID: No active issues. Afebrile. No suspected infection. F/E/N - NSS at 125mL/hr to complete liter, electroytes WNL, NPO Ppx - Lovenox Code -Full Dispo - Admit to MICU (2) Depression: (3) GERD (gastroesophageal reflux disease): Admission and Anticipated Discharge Date Admission Date: November 10, 2021 Subjective Patient is intubated Review of Systems Review of Systems: Unobtainable due to endotracheal tube Physical Exam Physical Exam: General: patient intubated, sedated on Propofol gtt Skin: warm, dry, intact, no rashes or lesions HEENT: NC/AT, Pupils small, equal, round and reactive, anicteric sclera, conjunctiva without injection, external ear normal to inspection and nontender, nares patent, moist mucus membranes, dentition intact, no oropharyngeal lesions, neck supple, trachea midline, no LAD, no thyromegaly, no JVD Heart: +S1/S2, regular, tachycardic no m/r/g Lungs: equal air entry bilaterally, no rales/rhonchi/wheezes Abd: +BS, soft, NT/ND, no masses/organomegaly/ascites Ext: warm, 2+ pulses in UE/LE bilaterally, no clubbing/cyanosis or edema Neuro: sedated, no clonus Results & Data Results & Data ([facility]) Vital Signs (Past 12 Hours) Vital Signs Temp Pulse Pulse Resp BP Pulse Ox 11/11/21 20:08 86 16 94 11/11/21 19:00 96 H 18 103/70 96 11/11/21 18:45 94 H 13 11/11/21 18:39 91 H 11/11/21 18:00 81 18 92/69 L 11/11/21 17:00 87 17 101/69 96 11/11/21 16:30 37.6 C H 11/11/21 16:00 88 16 101/71 95 11/11/21 15:30 87 17 96 11/11/21 15:01 83 17 97/71 L 96 11/11/21 14:00 83 16 101/65 95 11/11/21 13:49 81 14 96 11/11/21 13:38 81 20 97 11/11/21 13:18 82 16 96 11/11/21 13:02 78 16 91/62 L 96 11/11/21 12:01 80 17 89/60 L 94 11/11/21 11:56 36.9 C 11/11/21 11:45 79 16 96 11/11/21 11:30 76 16 95 11/11/21 11:15 75 16 96 11/11/21 11:00 77 16 88/63 L 96 11/11/21 10:45 72 16 97 11/11/21 10:43 80 16 96 11/11/21 10:32 78 16 96 11/11/21 10:15 73 16 97 11/11/21 10:00 72 16 97/69 L 97 11/11/21 09:58 36.6 C 11/11/21 09:45 69 16 99 11/11/21 09:30 68 16 99 11/11/21 09:15 97 H 22 98 PG Care Time/CCT Total # of Minutes Spent Total Time Spent with Patient: Total time spent is greater than 50% in coordination of care (as documented) at patient's floor/unit and/or counseling patient: Coding Level of Care Code 49302 Subseq Hosp Care Lvl 2 Diagnoses Suicide attempt by drug overdose T50.902A Depression F32.9 GERD (gastroesophageal reflux disease) K21.9
--- NOTE | 2021-11-11 22:52 | Communication Note ---
Date of Service: November 11, 2021 Patient noted to have several second period of asystole with turning during bathing. I was in a different patient room but was summoned by nursing staff to be made aware of events. Rhythm strip confirms sinus pause of several beats. Return of rhythm was spontaneous and without intervention. Patient's propofol was titrated down as her HR had been noted to be slowing compared to days prior. Additionally, EKG and PRP orders were placed. EKG shows a NSR @ [address] changes noted. QTc 410. QRS 84. Electrolytes pending. Patient is waking with stimulation. Will wean down propofol and reassess electrolytes. Patient reassessed after review of labs and EKG. She is now awake, alert, and writing on a piece of paper. She complains of some pain in her throat. Explained why she must remain intubated overnight. Overall, doing much better with no further sinus pauses. I have personally spent 32 minutes of critical care time in the direct ma nagement of this patient. This is a life/limb threatening event. This includes time spent evaluating patient, direct bedside care, chart review, placing orders, interpretation of diagnostic studies, discussion with consultants, patient, and family members, as well as other required patient management activities. This time is exclusive of all separately billable procedures, and teaching time and separate from and in addition to any other critical care service time. Coding Level of Care Code Critical Care 1st 30-74 mins Time Spent (min) 32
[2021-11-11 23:29] LABS: BUN Creatinine Ratio 32.1 (10-20); Calcium 8.7 mg/dl (8.5-10.1); Creatinine Clr Calc Pharmacy 109.4 ml/min; Est GFR (African American) 134.2 ml/min; Est GFR (Non-African American) 115.8 ml/min; Phosphorus 3.1 mg/dl (2.5-4.9); Potassium 3.9 mmol/L (3.5-5.1)
[2021-11-12] MEDS ORDERED: fentaNYL citrate 100 MCG/2 ML VIAL ONE (00:43)
[2021-11-12] MEDS: propofoL 1,000 MG/100 ML VIAL IV SCH ×4 (00:59→03:09)
[2021-11-12] MEDS: TUBE FEEDING WATER FLUSH OG SCH ×2 (02:55→06:43)
[2021-11-12] MEDS: PEPTAMEN INTENSE VHP 1.0 CAL 1,000 ML BAG OG SCH (03:10)
[2021-11-12] MEDS: ENOXAPARIN INJ 40 MG/0.4 ML SYR SQ SCH (04:01)
[2021-11-12] MEDS: fentaNYL citrate 100 MCG/2 ML VIAL IV PRN ×2 (04:02→08:06)
[2021-11-12 05:33] LABS: Basophils # (auto) 0.01 K/uL (0-0.2); Basophils % (auto) 0.1 %; Hematocrit (blood only) 35.6 % (37-47); Hemoglobin 11.7 g/dL (12.0-16.0); Immature Granulocytes # (auto) 0.03 K/uL (0.00-0.02); Immature Granulocytes % (auto) 0.2 %; Lymphocytes % (auto) 8.6 %; Mean Corpuscular Hemoglobin 31.4 pg (25-34); Mean Corpuscular Hgb Conc 32.9 g/dL (32-36); Mean Corpuscular Volume 95.4 fL (80-100); Mean Platelet Volume 10.4 fL (7.4-10.4); Monocytes # (auto) 0.89 K/uL (0.11-0.59); Monocytes % (auto) 6.4 %; Neutrophils # (auto) 11.77 K/uL (1.4-6.5); Neutrophils % (auto) 84.7 %; Platelet Count 216 K/uL (130-400); RDW Coefficient of Variation 15.6 % (11.5-14.5); RDW Standard Deviation 55.1 fL (36.4-46.3); Red Blood Count 3.73 M/uL (4.2-5.4)
[2021-11-12 05:58] LABS: Calcium 8.7 mg/dl (8.5-10.1); Creatinine Clr Calc Pharmacy 130.3 ml/min; Est GFR (African American) 142.2 ml/min; Est GFR (Non-African American) 122.7 ml/min; Magnesium 1.9 mg/dl (1.7-2.4); Phosphorus 3.2 mg/dl (2.5-4.9)
[2021-11-12] MEDS ORDERED: MAGNESIUM SULFATE / D5W 1 GM/100 ML BAG IV ONE (07:58)
[2021-11-12] MEDS: THIAMINE HCL 500 MG in SODIUM CHLORIDE 0.9% 50 ML IV SCH (08:07)
[2021-11-12] MEDS: MULTI VIT W/MINERALS LIQUID 15 ML UDP NG SCH (08:07)
[2021-11-12] MEDS: FOLIC ACID 1 MG TAB PO SCH (08:07)
[2021-11-12] MEDS: methylPREDNISolone 40 MG in SYRINGE 0 ML IV SCH (08:07)
[2021-11-12] MEDS: LANSOPRAZOLE 30 MG SOLTAB PO SCH (08:07)
[2021-11-12] MEDS ORDERED: RACEPINEPHRINE 2.25% NEBU SOLN 0.5 ML VIAL ONE (08:16)
--- NOTE | 2021-11-12 08:32 | XRay Report ---
XR chest 1V portable CLINICAL HISTORY: Dyspnea TECHNIQUE: Single frontal radiograph of the chest was obtained. Comparison: Comparison is made to chest one view 11/11/2021 FINDINGS: Enteric tube is stable. The cardiomediastinal silhouette is normal. Lungs are underinflated but clear . No evidence of pleural effusion or pneumothorax. IMPRESSION: No acute chest disease. ACT 112: Negative or not required by law. Electronically signed by: Dexter Morejon M.D. 11/12/2021 8:31 AM
--- NOTE | 2021-11-12 08:48 | Critical Care Progress Note ---
Date of Service November 12, 2021 Assessment & Plan (1) Suicide attempt by drug overdose: (2) Alcohol overdose: (3) Depression: Plan: (1) Suicide attempt by drug overdose: Reason Critically Ill: 41-year-old female presenting with multisubstance overdose to include release Seroquel and alcohol. Patient became increasingly obtunded and required intubation for airway protection. NEURO/PSYCH - * CAM ICU: Unable to assess * Suicide attempt: * Patient ingested approximately 40 tab 50 mg Seroquel with alcohol. * Patient has had multiple suicide attempts in the past. * Given suicide attempt with Seroquel, continue to monitor QRS/QTc. Continue supportive measures symptom management blood pressure with IV fluids and pressors as needed. Poison control has been contacted and no further interventions appropriate at this time. * Psychiatric consultation when clinically appropriate. * patient extubated, propofol OG tube and restraints dc'd, 1:1 sitter present CARDIAC/VASCULAR - * Tachycardia: resolved * In the setting of significant overdose attempt with Seroquel. * EKG: normal sinus rhythm QTc 401, QRS 80 * Monitor on telemetry. RESPIRATORY - * Intubation for airway protection, airway edema noted post intubation, added solumedrol to reduce inflammation * patient currently extubated, continue solumedrol for today and tomorrow, on high flow NC GI/NUTRITION - * OGT removed, regular diet in safety tray ordered * on thiamine 500mg 3 days, 200mg 2 days, 100mg daily after, folic acid * consider speech eval tomorrow RENAL/LYTES - * No significant electrolyte derangements, repleted K phos, Mg - * No concerns at this time. * Montanez in place - Strict I&Os. +850, urine 1650 ENDO - * No history of diabetes or thyroid disease * BSGs per unit protocol. ISS --> gtt per unit policy. HEME - * Stable H&H * ABG 7.456/34/88 on PEEP 5, 25% ID - * No concerns for infectious contribution at this time * Lactate 2.2 LINES/IV ACCESS - * PIVs x2 * Montanez DVT PROPHYLAXIS - * SCDs * Lovenox ordered, resumed Admission and Anticipated Discharge Date Admission Date: November 10, 2021 Supervising Physician Co-Signing Physician Notes Dr. Jenkins was the resident-physician during care of patient. I separately evaluated patient for morales portions of the history and the exam. I was present during the critical portion of medical decision making, and I discussed the case with the resident. I generally agree with the findings and plan except for any additions/exceptions noted. Patient seen and examined at bedside. No acute distress Overnight while patient was on propofol and being cleaned she did have a pause of approximately 5 seconds I think this is most likely vasovagal response from propofol as well as being on the side. EKG did not show any significant changes. She is asymptomatic Serge Denied any headache, no nausea, no vomiting She was requesting to take the tube out. Constitutional: No acute distress HEENT: PERRLA, PERRLA, positive ETT Respiratory system: Decreased air entry bilaterally, no wheeze, no rhonchi, no crackles CVS: S1-S2 positive, no murmurs or gallops Abdomen: Soft, nontender, nondistended, positive bowel sounds x4 Extremities: +2 pulses bilaterally radialis/ dorsalis pedis, no cyanosis, no edema Neuro: RASS -1, answering all the questions appropriately Psych: Normal mood and affect G/U: Positive Montanez --Prophylaxis VTE: Lovenox GI: Lansoprazole Lines: Peripheral Diet: Tube feeds Plan: In/out: +724, urine output 1650 Today at bedside unfortunately patient again did not have any cuff leak. Patient has current total of 4 doses of 40 mg Solu-Medrol 12 hours apart. Patient does have size 8 tube. I will give her a trial of extubation and make anesthesia aware regarding the history of traumatic intubation if she needs to be reintubated We will keep the patient on high flow post extubation. We will consider racemic epi if I hear stridor post extubation. QTC is 401. We will discontinue serial EKGs Magnesium being replaced. Continue with Solu-Medrol tonight and then stop it tomorrow I have personally spent additional 38 minutes of critical care time in the direct management of this patient. This is a life/limb threatening event. This includes time spent evaluating patient, direct bedside care, chart review, placing orders, interpretation of diagnostic studies, discussion with consultants, patient, and/or family members regarding treatment decisions, as well as other required patient management activities. This time is exclusive of all separately billable procedures, and teaching time and separate from and in addition to any other critical care service time. Subjective Patient seen at bedside, awake writing on notepad would like her endotracheal tube removed, writes it is uncomfortable. Patient understands the tube was placed due to her swollen airway, there was no air leak when cuff was deflated so there was a possibility anesthesia would need to replace the tube soon after removal, patient wanted trial of tube removal. Endotracheal tube was removed with hotel yardperson and anesthesia present in room, patient tolerated procedure well some gurgles while breathing but no resperatory distress, placed on high flow NC, whispers when speaking. She states she has nothing to live for at this time, is tearful. 1 to 1 sitter present in room. OG tube removed, sedation dc'd, restraints removed. Overnight patient had a 4-5 beat pause when nursing turned her for bathing afterwards resumed without further incident, likely secondary to vasovagal and on propofol. No further events overnight. Review of Systems Review of Systems: Unobtainable due to endotracheal tube Physical Exam Constitutional: well developed, well nourished, cooperative, + in distress and + overweight Eyes: PERRL ENMT: external ear and nose normal, oropharynx normal Neck: trachea midline, no thyromegaly Respiratory: no respiratory distress Auscultation: lungs clear to auscultation bilaterally; no rhonchi Cardiovascular: Rate/Rhythm: regular rate and regular rhythm Heart Sounds: normal S1 and normal S2 Extremities: normal capillary refill; no edema Chest (Breasts): normal inspection/palpation of breasts Gastrointestinal (Abdomen): Inspection/Auscultation: abdomen normal to inspection Percussion/Palpation: abdomen soft Skin: no rashes, warm and dry Psychiatric: Orientation: alert and oriented x 3 Results & Data Results & Data ([facility]) Vital Signs (Past 12 Hours) Vital Signs Temp Pulse Resp BP Pulse Ox 11/12/21 07:39 37.3 C 11/12/21 06:15 72 18 98 11/12/21 06:00 71 14 94/68 L 98 11/12/21 05:45 70 14 97 11/12/21 05:30 74 14 97 11/12/21 05:15 37.2 C 74 14 96 11/12/21 05:00 70 15 99/71 L 95 11/12/21 04:45 74 14 95 11/12/21 04:30 77 14 96 11/12/21 04:15 71 19 95 11/12/21 04:14 79 19 96 11/12/21 04:00 37.2 C 77 21 105/76 95 11/12/21 03:45 77 16 96 11/12/21 03:30 78 16 96 11/12/21 03:15 76 16 96 11/12/21 03:00 78 16 96/68 L 96 11/12/21 02:45 81 16 95 11/12/21 02:30 81 16 96 11/12/21 02:15 82 16 95 11/12/21 02:00 84 16 95/66 L 95 11/12/21 01:45 82 16 95 11/12/21 01:30 87 16 95 11/12/21 01:15 83 16 95 11/12/21 01:00 82 16 97/72 L 95 11/12/21 00:45 82 16 95 11/12/21 00:30 85 18 96 11/12/21 00:15 83 32 H 100 11/12/21 00:00 77 16 90/63 L 96 11/11/21 23:45 79 19 96 11/11/21 23:30 71 16 97 11/11/21 23:15 76 16 96 11/11/21 23:00 37.8 C H 79 21 97/72 L 98 11/11/21 22:45 72 16 96 11/11/21 22:40 81 29 H 95 11/11/21 22:31 70 14 90/64 L 11/11/21 22:30 73 16 97 11/11/21 22:27 62 16 103/73 96 11/11/21 22:15 17 100 11/11/21 22:00 82 16 105/78 94 11/11/21 21:45 83 16 96 11/11/21 21:30 79 16 11/11/21 21:15 84 16 96 11/11/21 21:00 85 16 94/62 L 96 Resident Activity Tracking Resident Involvement: Resident Care Provided Care Provided: Adult Hospital Medicine (1) Alcohol overdose Encounter type: initial encounter Injury intent: intentional self-harm Qualified Code(s): T51.92XA - Toxic effect of unspecified alcohol, intentional self-harm, initial encounter
[2021-11-12] MEDS ORDERED: Flu Vaccine (Fluarix) 0.5mL SYR (Standard Dose) IM ONE (09:00)
[2021-11-12] MEDS ORDERED: PNEUMOCOCCAL Polysaccharide Vaccine 25mcg/0.5mL vial/Syr IM ONE (09:00)
--- NOTE | 2021-11-12 15:26 | Psychiatric Progress Note ---
Date of Service November 12, 2021 Impression / Recommendations Impression This is a 41 yo woman admitted medically following an intentional overdose suicide attempt. Diagnostically consistent with worsening of MDD. Acute risk of self-harm remains elevated and high given suicide attempt requiring medical admission and ongoing ICU treatment, history of major depressive symptoms, history of prior attempts, history of substance use and positive ethyl alcohol on admission, and ongoing psychosocial stressors including divorce. Given elevated risk of harm to self they will likely meet criteria for inpatient psychiatric care for diagnostic clarification, safety/stabilization, development of additional coping skills, medication management and disposition/safety planning once medically stable. -1-on-1 for risk of harm to self -Do not discharge or allow to leave AMA, [address] -Hold psych medications for now -Continue with AWSS, thiamine, folic acid -Once medically cleared plan for likely psychiatric hospitalization (either 201 or 302 status) (1) Suicide attempt by drug overdose: (2) Alcohol overdose: (3) MDD (major depressive disorder), recurrent episode, severe: see above Interval History Identifying Information 41 yo woman with a history of GERD, MDD, PTSD, and alcohol use disorder with recent psychiatric hospitalization ([facility] 08/10/2021 - 08/14/2021) and multiple prior suicide attempts (3, most recently 07/2021 via attempted hanging) who was admitted medically for ingestion of seroquel and alcohol. Psychiatry was consulted for risk assessment and recommendations. Chief Complaint "It was an attempt". Review of Systems Notes Pain with swallowing. Subjective Subjective Patient was seen & assessed and interval progress reviewed. Massiel was extubated this morning and is able to speak softly though speech is notably hoarse. Her was present at bedside and she requested that he remain in the room for the interview. Given speech difficulties and swallowing pain, interview was less extensive and focused on recent events. She confirms that overdose of seroquel and alcohol use was a suicide attempt. Denies current SI. She is ambivalent about being alive noting "glad to have survived" but still feels very depressed and becomes tearful as we discuss this. Reviewed plan to hold her psychiatric medications until medical stability improves which she agrees with. 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 Discussed that once medically clear she will need to decide if she is agreeable to inpatient psych treatment which will be the recommendation, at this time she states she is agreeable and will want inpatient psychiatric treatment. She denied any other questions or concerns. Physical Exam Psychiatric Orientation: alert and oriented x 3 Apperance: appropriately dressed and appropriately groomed Eye Contact: good eye contact Motor Behavior: no abnormal motor movements Speech: normal rate/rhythm/volume of speech Affect: + depressed affect and + tearful affect Mood: + depressed mood Thought Process: goal directed thought process Thought Content: reality based without delusions Suicidal Thoughts: denies suicidal thoughts (but ambivalent about surviving attempt) Homicidal Thoughts: denies homicidal thoughts Hallucinations: no auditory hallucinations and no visual hallucinations Cognition: recent memory grossly intact, remote memory grossly intact, attention grossly intact and language grossly intact Estimated Intelligence: consistent with education level Insight: + fair insight Judgement: + limited judgement Vital Signs (Past 24 Hours) Last Vital Signs Temp 37.3 C 11/12/21 07:39 Pulse 86 11/12/21 11:00 Resp 22 11/12/21 11:00 BP 113/82 11/12/21 11:00 Pulse Ox 98 11/12/21 11:00 Results & Data ([facility]) Laboratory Results Laboratory Results - last 24 hr 11/11/21 11/11/21 11/12/21 18:38 22:54 04:57 WBC 13.90 H RBC 3.73 L Hgb 11.7 L Hct 35.6 L MCV 95.4 MCH 31.4 MCHC 32.9 RDW Std Deviation 55.1 H RDW Coeff of Evgeny 15.6 H Plt Count 216 MPV 10.4 Immature Gran % (Auto) 0.2 Neut % (Auto) 84.7 Lymph % (Auto) 8.6 [place] % (Auto) 6.4 Eos % (Auto) 0.0 Baso % (Auto) 0.1 Neut # (Auto) 11.77 H Lymph # (Auto) 1.20 [place] # (Auto) 0.89 H Eos # (Auto) 0.00 Baso # (Auto) 0.01 Immature Gran # (Auto) 0.03 H Sodium 138 Potassium 3.9 Chloride 107 Carbon Dioxide 24 Anion Gap 7 BUN 18 Creatinine 0.56 L Est Cr Clr Drug Dosing 109.4 Est GFR ( Amer) 134.2 Est GFR (Non-Af Amer) 115.8 BUN/Creatinine Ratio 32.1 H Glucose 123 H POC Glucose 122 H Calcium 8.7 Phosphorus 3.1 Magnesium 2.0 11/12/21 04:57 WBC RBC Hgb Hct MCV MCH MCHC RDW Std Deviation RDW Coeff of Evgeny Plt Count MPV Immature Gran % (Auto) Neut % (Auto) Lymph % (Auto) [place] % (Auto) Eos % (Auto) Baso % (Auto) Neut # (Auto) Lymph # (Auto) [place] # (Auto) Eos # (Auto) Baso # (Auto) Immature Gran # (Auto) Sodium 135 L Potassium 4.0 Chloride 106 Carbon Dioxide 25 Anion Gap 4 BUN 16 Creatinine 0.47 L Est Cr Clr Drug Dosing 130.3 Est GFR ( Amer) 142.2 Est GFR (Non-Af Amer) 122.7 BUN/Creatinine Ratio 34.0 H Glucose 134 H POC Glucose Calcium 8.7 Phosphorus 3.2 Magnesium 1.9 Current Inpatient Medications Current Inpatient Medications: Current Inpatient Medications Enoxaparin Sodium (Enoxaparin Inj 40 Mg/0.4 Ml Syr) 40 mg SQ Q24H [facility] Stop: 12/10/21 05:59 Last Admin: 11/12/21 04:01 Dose: 40 mg Documented by: Fentanyl Citrate (Fentanyl Citrate 100 Mcg/2 Ml Vial) 50 mcg IV Q1H PRN PRN Reason: Moderate Pain (4,5,6) on NRS Stop: 11/24/21 02:27 Last Admin: 11/12/21 08:06 Dose: 50 mcg Documented by: Folic Acid (Folic Acid 1 Mg Tab) 1 mg PO DAILY [facility] Stop: 12/10/21 08:59 Last Admin: 11/12/21 08:07 Dose: 1 mg Documented by: Acetaminophen ([facility]) 1,000 mg in 100 mls @ 400 mls/hr IV Q8H PRN PRN Reason: Fever/Mild Pain (Pain 1,2,3) Stop: 11/13/21 02:27 Thiamine HCl 200 mg/ Sodium (Chloride) 52 mls @ 208 mls/hr IV QAM [facility] Stop: 11/14/21 09:14 Methylprednisolone 40 mg/ (Syringe) 0.64 mls @ 1.5 mls/min IV TODAY@2100 ONE Stop: 11/12/21 21:01 Lansoprazole (Lansoprazole 30 Mg Soltab) 30 mg PO QAM KATJA Stop: 12/10/21 08:59 Last Admin: 11/12/21 08:07 Dose: 30 mg Documented by: Multivitamins/Minerals (Multi Vit W/Minerals Liquid 15 Ml Udp) 15 ml NG QAM KATJA Stop: 12/11/21 08:59 Last Admin: 11/12/21 08:07 Dose: 15 ml Documented by: Thiamine HCl (Thiamine Hcl 100 Mg Tab) 100 mg PO DAILY [facility] Stop: 12/10/21 08:59 Last Admin: 11/10/21 09:00 Dose: 100 mg Documented by: (1) Alcohol overdose Encounter type: initial encounter Injury intent: intentional self-harm Qualified Code(s): T51.92XA - Toxic effect of unspecified alcohol, intentional self-harm, initial encounter
[2021-11-12] MEDS ORDERED: COUGH DROP (SUGAR FREE) LOZ 24 LOZ/1 BOX BUCCAL STA (15:59)
[2021-11-12] MEDS ORDERED: COUGH DROP (SUGAR FREE) LOZ 24 LOZ/1 BOX BUCCAL ONE (16:03)
[2021-11-12] MEDS: COUGH DROP (SUGAR FREE) LOZ 24 LOZ/1 BOX BUCCAL PRN (16:12)
--- NOTE | 2021-11-12 16:16 | Billing Data ---
Date of Service November 12, 2021 Coding Level of Care Code Critical Care 1st 30-74 mins Time Spent (min) 38
[2021-11-12] MEDS ORDERED: ALBUT/IPRATROP 3MG/0.5MG NEB 3 ML VIAL ONE (16:38)
[2021-11-12] MEDS: ALBUT/IPRATROP 3MG/0.5MG NEB 3 ML VIAL NEB SCH ×2 (16:50→19:31)
--- NOTE | 2021-11-12 16:53 | Electrocardiogram Report ---
Test Reason : Blood Pressure : / mmHG Vent. Rate : 096 BPM Atrial Rate : 096 BPM P-R Int : 126 ms QRS Dur : 084 ms QT Int : 334 ms P-R-T Axes : 052 049 043 degrees QTc Int : 421 ms Normal sinus rhythm Normal ECG When compared with ECG of 11-NOV-2021 06:31, No significant change was found Confirmed by Tim Matt ([id number]) on 11/12/2021 4:53:06 PM Referred By: REFERRED SELF Confirmed By:Sammy Matt
--- NOTE | 2021-11-12 16:56 | Electrocardiogram Report ---
Test Reason : Blood Pressure : / mmHG Vent. Rate : 074 BPM Atrial Rate : 074 BPM P-R Int : 116 ms QRS Dur : 084 ms QT Int : 370 ms P-R-T Axes : 046 057 050 degrees QTc Int : 410 ms Normal sinus rhythm Normal ECG When compared with ECG of 11-NOV-2021 18:32, (unconfirmed) No significant change was found Confirmed by Tim Matt ([id number]) on 11/12/2021 4:56:23 PM Referred By: REFERRED SELF Confirmed By:Sammy Matt
--- NOTE | 2021-11-12 16:58 | Electrocardiogram Report ---
Test Reason : Blood Pressure : / mmHG Vent. Rate : 073 BPM Atrial Rate : 073 BPM P-R Int : 128 ms QRS Dur : 080 ms QT Int : 364 ms P-R-T Axes : 040 053 048 degrees QTc Int : 401 ms Normal sinus rhythm Normal ECG When compared with ECG of 11-NOV-2021 22:35, (unconfirmed) No significant change was found Confirmed by Tim Matt ([id number]) on 11/12/2021 4:58:42 PM Referred By: REFERRED SELF Confirmed By:Sammy Matt
--- NOTE | 2021-11-12 20:41 | Hospitalist Progress Note ---
Date of Service November 12, 2021 Assessment & Plan (1) Suicide attempt by drug overdose: Plan: 41yo female with history of MDD, psychosocial stressors, EtOH use presenting after intentional overdose at home, presumed suicide attempt. Patient reportedly ingested 40 tablets of Seroquel (50mg each) sometime between 19:30 and 20:30 as well as drinking an unknown amount of EtOH. Patient has had three prior suicide attempts before. She has been seen by Psychiatry in the past. Patient with declining mental status - obtunded on arrival with GCS of 6 necessitating intubation for airway protection. EKG with normal intervals. Patient is comfortably sedated on Propofol. [address] -Admit to MICU for supportive care, ventilator management -Hold Psychiatric agents - Abilify, Cymbalta, Seroquel, Trazodone -Telemetry monitoring for QT interval -Seizure precautions -Benzos as needed for seizure activity -Psychiatry consultation appreciated -Suicide checks per protocol Patient will try to extubate later today. update: 8:30 Patient extubated. Following commands D/W Psych. She cannot leave against medical advice. She is agreeable to inpatient psych. Neuro: Patient with MDD as above, admission due to intentional overdose -Hold home medications for now -Propofol gtt for sedation -Dilaudid PRN pain -Psychiatry consultation appreciated -Question of daily/frequent EtOH use. Continue Folic acid and Thiamine daily. Hold Naltrexone. Monitor for withdrawal symptoms. CV: Patient with narrow complex sinus tachycardia possibly secondary to overdose of Seroquel. Blood pressure is stable -Continue to monitor -IVF Pulmonary: Patient intubated for airway protection. Adequate oxygenation on 14/400/50%/5. Difficult intubation in ER. Patient has been given Decadron for airway edema. -SBT in AM per PCC team GI: No active issues. -OGT in place. Routine care q shift -Protonix 40mg PO for PPX -NPO : No active issues -Continue to monitor renal function -Montanez in place, routine care qu shift Endocrine: No active issues Heme: No active issues. CBC WNL. ID: No active issues. Afebrile. No suspected infection. F/E/N - NSS at 125mL/hr to complete liter, electroytes WNL, NPO Ppx - Lovenox Code -Full Dispo - Admit to MICU (2) Depression: (3) GERD (gastroesophageal reflux disease): Admission and Anticipated Discharge Date Admission Date: November 10, 2021 Subjective Patient is intubated Review of Systems Review of Systems: Unobtainable due to endotracheal tube Physical Exam Physical Exam: General: patient intubated, sedated on Propofol gtt Skin: warm, dry, intact, no rashes or lesions HEENT: NC/AT, Pupils small, equal, round and reactive, anicteric sclera, conjunctiva without injection, external ear normal to inspection and nontender, nares patent, moist mucus membranes, dentition intact, no oropharyngeal lesions, neck supple, trachea midline, no LAD, no thyromegaly, no JVD Heart: +S1/S2, regular, tachycardic no m/r/g Lungs: equal air entry bilaterally, no rales/rhonchi/wheezes Abd: +BS, soft, NT/ND, no masses/organomegaly/ascites Ext: warm, 2+ pulses in UE/LE bilaterally, no clubbing/cyanosis or edema Neuro: sedated, no clonus Results & Data Results & Data ([facility]) Vital Signs (Past 12 Hours) Vital Signs Temp Pulse Pulse Resp BP Pulse Ox 11/12/21 20:00 90 22 111/71 92 11/12/21 19:45 95 H 19 99 11/12/21 19:30 91 H 14 94 11/12/21 19:15 102 H 20 97 11/12/21 19:00 81 16 112/82 96 11/12/21 18:45 100 H 22 99 11/12/21 18:30 102 H 19 97 11/12/21 18:15 77 25 H 100/74 98 11/12/21 18:00 89 16 97/65 L 97 11/12/21 17:00 87 24 98 11/12/21 16:50 96 H 18 98 11/12/21 16:00 92 H 19 105/69 97 11/12/21 15:04 88 20 96/71 L 97 11/12/21 15:03 81 23 87/67 L 11/12/21 15:01 85 22 90/61 L 98 11/12/21 14:00 80 16 115/71 96 11/12/21 13:00 91 H 18 105/77 94 11/12/21 12:00 37.1 C 87 27 H 118/80 97 11/12/21 11:20 87 18 94 11/12/21 11:00 86 22 113/82 98 11/12/21 10:08 77 16 11/12/21 10:00 82 14 102/69 11/12/21 09:00 80 15 109/77 99 PG Care Time/CCT Total # of Minutes Spent Total Time Spent with Patient: Total time spent is greater than 50% in coordination of care (as documented) at patient's floor/unit and/or counseling patient: Coding Level of Care Code 47910 Subseq Hosp Care Lvl 2 Diagnoses Suicide attempt by drug overdose T50.902A Depression F32.9 GERD (gastroesophageal reflux disease) K21.9
[2021-11-12] MEDS: guaiFENesin 600 MG TABCR PO SCH (20:58)
[2021-11-12] MEDS ORDERED: methylPREDNISolone 40 MG in SYRINGE 0 ML IV ONE (21:00)
[2021-11-12] MEDS: ALBUT/IPRATROP 3MG/0.5MG NEB 3 ML VIAL NEB PRN (23:05)
[2021-11-13] MEDS: ALBUT/IPRATROP 3MG/0.5MG NEB 3 ML VIAL NEB SCH ×4 (01:05→19:12)
[2021-11-13] MEDS: ALBUT/IPRATROP 3MG/0.5MG NEB 3 ML VIAL NEB PRN ×4 (04:21→15:46)
[2021-11-13] MEDS: ENOXAPARIN INJ 40 MG/0.4 ML SYR SQ SCH (05:44)
[2021-11-13 05:47] LABS: Basophils # (auto) 0.01 K/uL (0-0.2); Basophils % (auto) 0.1 %; Hemoglobin 12.5 g/dL (12.0-16.0); Immature Granulocytes # (auto) 0.03 K/uL (0.00-0.02); Immature Granulocytes % (auto) 0.3 %; Lymphocytes # (auto) 1.41 K/uL (1.2-3.4); Lymphocytes % (auto) 13.7 %; Mean Corpuscular Hemoglobin 31.6 pg (25-34); Mean Corpuscular Hgb Conc 32.9 g/dL (32-36); Mean Corpuscular Volume 96.2 fL (80-100); Mean Platelet Volume 10.1 fL (7.4-10.4); Monocytes # (auto) 0.78 K/uL (0.11-0.59); Monocytes % (auto) 7.6 %; Neutrophils # (auto) 8.09 K/uL (1.4-6.5); Neutrophils % (auto) 78.3 %; Platelet Count 233 K/uL (130-400); RDW Coefficient of Variation 15.4 % (11.5-14.5); RDW Standard Deviation 54.4 fL (36.4-46.3); Red Blood Count 3.95 M/uL (4.2-5.4); White Blood Count 10.32 K/uL (4.8-10.8)
[2021-11-13 06:14] LABS: BUN Creatinine Ratio 29.5 (10-20); Calcium 8.8 mg/dl (8.5-10.1); Creatinine Clr Calc Pharmacy 100.4 ml/min; Est GFR (African American) 130.5 ml/min; Est GFR (Non-African American) 112.6 ml/min; Magnesium 2.1 mg/dl (1.7-2.4); Phosphorus 4.2 mg/dl (2.5-4.9); Potassium 3.7 mmol/L (3.5-5.1)
[2021-11-13] MEDS ORDERED: POTASSIUM CHLORIDE CRTAB 20 MEQ TABCR PO STA (06:27)
[2021-11-13] MEDS: COUGH DROP (SUGAR FREE) LOZ 24 LOZ/1 BOX BUCCAL PRN (07:00)
--- NOTE | 2021-11-13 07:32 | Hospitalist Progress Note ---
Date of Service November 13, 2021 Assessment & Plan (1) Suicide attempt by drug overdose: Plan: 41yo female with history of MDD, psychosocial stressors, EtOH use presenting after intentional overdose at home, presumed suicide attempt. Patient reportedly ingested 40 tablets of Seroquel (50mg each) sometime between 19:30 and 20:30 as well as drinking an unknown amount of EtOH. Patient has had three prior suicide attempts before. She has been seen by Psychiatry in the past. Patient with declining mental status - obtunded on arrival with GCS of 6 necessitating intubation for airway protection. Patient was cared for in the critical care unit while intubated on the ventilator she was extubated 8:30 AM on 11/12/2021 she has a raspy voice and some sore throat subsequent to that but she has been stable with regard to her pulmonary status and has not required supplemental oxygen -Hold Psychiatric agents - Abilify, Cymbalta, Seroquel, Trazodone --Question of daily/frequent EtOH use. Continue Folic acid and Thiamine daily. Hold Naltrexone. Patient became more active with signs of acute alcohol withdrawal with agitation tachycardia and anxiety in the afternoon of 11/13/2021 patient will be on Librium 50 mg load 25 every 8 and she will be on gabapentin 800 load with the 400 due to her low body size. As needed Ativan with the DANIEL scale is also ordered -Psychiatry consultation appreciated -Suicide precautions and checks per protocol D/W Psych.[address] She cannot leave against medical advice. She is agreeable to inpatient psych. (2) Depression: Plan: All medications are held at this time psychiatry is involved patient willing to go voluntarily to inpatient psychiatry when she is medically stable (3) GERD (gastroesophageal reflux disease): Plan: Patient on Protonix Plan: Patient is a full code Lovenox for DVT prevention Admission and Anticipated Discharge Date Admission Date: November 10, 2021 Subjective Patient is still slightly tearful she is agreeable to voluntary care. He has a significantly raspy sore throat and some increased work of breathing which likely was from her difficult intubation since she has been extubated she has had stable respiratory status Afternoon the patient became more active and what appeared to be alcohol withdrawal and is started on Librium gabapentin and as needed IV Ativan Review of Systems Review of Systems: Mild distress and fatigue no headache, no visual changes no speech or swallowing issues no chest pain, pressure or palpitations no shortness of breath, cough or wheezes no abdominal pain, nausea or vomiting, diarrhea or constipation no dysuria, hematuria or frequency no focal joint pain or swelling no back pain, CVA tenderness or radicular pain no bruising, bleeding or rashes no focal signs of weakness or numbness or altered sensation no complaints of anxiety or depression.. Results & Data Results & Data ([facility]) Vital Signs (Past 12 Hours) Vital Signs Temp Pulse Pulse Resp BP Pulse Ox 11/13/21 07:00 86 21 99/69 L 97 11/13/21 06:00 82 19 98 11/13/21 05:45 97 H 19 97 11/13/21 05:30 110 H 21 93 11/13/21 05:15 83 17 98 11/13/21 05:04 98.6 F 11/13/21 05:00 99 H 19 96/67 L 97 11/13/21 04:45 92 H 18 96 11/13/21 04:30 78 13 98 11/13/21 04:22 89 22 97 11/13/21 04:15 85 17 97 11/13/21 04:00 93 H 20 95/67 L 99 11/13/21 03:45 92 H 18 97 11/13/21 03:30 95 H 19 97 11/13/21 03:15 90 21 98 11/13/21 03:00 87 21 93/65 L 97 11/13/21 02:45 88 21 97 11/13/21 02:30 91 H 15 97 11/13/21 02:15 115 H 18 98 11/13/21 02:00 108 H 20 87/62 L 97 11/13/21 01:45 108 H 21 97 11/13/21 01:30 110 H 21 98 11/13/21 01:15 111 H 20 99 11/13/21 01:05 111 H 18 96 11/13/21 01:00 110 H 21 96/61 L 96 11/13/21 00:45 115 H 19 96 11/13/21 00:30 110 H 23 97 11/13/21 00:15 123 H 26 H 97 11/13/21 00:00 110 H 22 99/66 L 95 11/12/21 23:45 112 H 22 94 11/12/21 23:30 75 12 90 11/12/21 23:15 100 H 23 99 11/12/21 23:07 102 H 24 97 11/12/21 23:00 93 H 18 96/73 L 93 11/12/21 22:45 100 H 25 H 94 11/12/21 22:30 103 H 25 H 94 11/12/21 22:15 96 H 19 94 11/12/21 22:00 95 H 25 H 91/58 L 93 11/12/21 21:45 104 H 22 93 11/12/21 21:30 105 H 24 93 11/12/21 21:15 99 H 22 95 11/12/21 21:02 99.3 F 11/12/21 21:01 96 H 15 106/74 94 11/12/21 21:00 99 H 15 96 11/12/21 20:45 104 H 15 98 11/12/21 20:30 107 H 23 93 11/12/21 20:15 101 H 24 95 11/12/21 20:00 90 22 111/71 92 11/12/21 19:45 95 H 19 99 11/12/21 19:31 88 20 98 PG Care Time/CCT Total # of Minutes Spent Total Time Spent with Patient: Total time spent is greater than 50% in coordination of care (as documented) at patient's floor/unit and/or counseling patient: Coding Level of Care Code 43220 Subseq Hosp Care Lvl 3 Diagnoses Suicide attempt by drug overdose T50.902A Depression F32.9 GERD (gastroesophageal reflux disease) K21.9
[2021-11-13] MEDS: FOLIC ACID 1 MG TAB PO SCH (08:06)
[2021-11-13] MEDS: LANSOPRAZOLE 30 MG SOLTAB PO SCH (08:06)
[2021-11-13] MEDS: guaiFENesin 600 MG TABCR PO SCH ×2 (08:06→20:55)
[2021-11-13] MEDS: MULTI VIT W/MINERALS LIQUID 15 ML UDP NG SCH (08:12)
--- NOTE | 2021-11-13 08:34 | Critical Care Progress Note ---
Date of Service November 13, 2021 Assessment & Plan (1) Suicide attempt by drug overdose: (2) Alcohol overdose: (3) Depression: Plan: (1) Suicide attempt by drug overdose: Reason Critically Ill: 41-year-old female presenting with multisubstance overdose to include release Seroquel and alcohol. Patient became increasingly obtunded and required intubation for airway protection. NEURO/PSYCH - * CAM ICU: negative * Suicide attempt: * Patient ingested approximately 40 tab 50 mg Seroquel with alcohol. * Patient has had multiple suicide attempts in the past. * Poison control has been contacted and no further interventions appropriate at this time. * Psychiatric consulted, [address] * patient extubated, 1:1 sitter present CARDIAC/VASCULAR - * Tachycardia: resolved * In the setting of significant overdose attempt with Seroquel. * EKG: normal sinus rhythm QTc 401, QRS 80 * Monitor on telemetry. RESPIRATORY - * Intubation for airway protection, airway edema noted post intubation, added solumedrol to reduce inflammation * patient currently extubated, continue solumedrol 40mg IV q12 for today, albuterol inhaler and mucinex for breathing discomfort * CXR unremarkable GI/NUTRITION - * regular diet in safety tray ordered * on thiamine 500mg 3 days, 200mg 2 days, 100mg daily after, folic acid * passed swallow eval RENAL/LYTES - * No significant electrolyte derangements, repleted K phos, Mg - * No concerns at this time. * Strict I&Os. -1362, urine 1700 ENDO - * No history of diabetes or thyroid disease * BSGs per unit protocol. ISS --> gtt per unit policy. HEME - * Stable H&H * last ABG 7.456/34/88 on PEEP 5, 25% ID - * No concerns for infectious contribution at this time * Lactate 2.2 LINES/IV ACCESS - * PIVs x2 DVT PROPHYLAXIS - * SCDs * Lovenox ordered Patient may be downgraded from ICU. For additional information please refer to Dr. Cook's addendum. Admission and Anticipated Discharge Date Admission Date: November 10, 2021 Supervising Physician Co-Signing Physician Notes Dr. Jenkins was the resident-physician during care of patient. I separately evaluated patient for morales portions of the history and the exam. I was present during the critical portion of medical decision making, and I discussed the case with the resident. I generally agree with the findings and plan except for any additions/exceptions noted. Patient seen and examined at bedside. No acute distress. Patient was successfully extubated yesterday. She did complain of some chest tightness overnight for which she got duo nebs. She does have a hoarse voice still Overall she says she feels better. She passed swallow eval. No headache, no nausea, no vomiting Constitutional: No acute distress HEENT: PERRLA, PERRLA, no clear stridor Respiratory system: Decreased air entry bilaterally, no wheeze, positive rhonchi appreciated specially in the right lower lobe, no crackles CVS: S1-S2 positive, no murmurs or gallops Abdomen: Soft, nontender, nondistended, positive bowel sounds x4 Extremities: +2 pulses bilaterally radialis/ dorsalis pedis, no cyanosis, no edema Neuro: Awake alert oriented x3 Psych: Normal mood and affect G/U: No Montanez --Prophylaxis VTE: Lovenox GI: Lansoprazole --> changed to Protonix Lines: Peripheral Diet: Swallow eval today Plan: In/out: -1.3 L, urine output 1700 Patient's T-max was 37. Chest x-ray from today does not show any infiltrate. She does bring up phlegm which is clear. We will send for sputum if it changes in color. She still has hoarse voice and complains of tightness in the chest area. Overall she is doing better. I will give another day of Solu-Medrol 40 mg twice daily given the hoarseness of voice that she has. I do not hear any clear stridor on auscultation of the neck She does have some rhonchi for which she already has flutter valve Patient is hemodynamically stable to be downgraded to medical floor Please note the above document was generated using voice recognition software. It may contain grammatical, syntax or spelling errors.Any formal questions or concerns about the content, text or information contained within the body of this dictation should be directly addressed to the provider for clarification. Subjective Patient seen at bedside calm comfortable cooperative, raspy breath post extubation yesterday. She passed swallow evaluation, can tolerate medication and soft foods. States she still feels discomfort breathing, patient understands this is more due to extubation than her history of exercise induced asthma, at home she does not regularly use her rescue inhaler. No other events overnight. Review of Systems Review of Systems: Positive breathing discomfort Negative fever chills Negative headache dizziness Negative chest pain palpitations SOB Negative nausea vomitting diarrhea constipation Negative numbness tingling rash swelling Physical Exam Constitutional: well developed, well nourished, cooperative and + overweight Eyes: PERRL ENMT: external ear and nose normal, oropharynx normal Neck: trachea midline, no thyromegaly Respiratory: + stridor; no respiratory distress Auscultation: lungs clear to auscultation bilaterally; no rhonchi Cardiovascular: Rate/Rhythm: regular rate and regular rhythm Heart Sounds: normal S1 and normal S2 Extremities: normal capillary refill; no edema Chest (Breasts): Chest: normal inspection of chest Gastrointestinal (Abdomen): Inspection/Auscultation: abdomen normal to inspection Percussion/Palpation: abdomen soft Skin: no rashes, warm and dry Psychiatric: Orientation: alert and oriented x 3 Results & Data Results & Data ([facility]) Vital Signs (Past 12 Hours) Vital Signs Temp Pulse Pulse Resp BP Pulse Ox 11/13/21 07:34 101 H 28 H 99 11/13/21 07:00 86 21 99/69 L 97 11/13/21 06:00 82 19 98 11/13/21 05:45 97 H 19 97 11/13/21 05:30 110 H 21 93 11/13/21 05:15 83 17 98 11/13/21 05:04 37.0 C 11/13/21 05:00 99 H 19 96/67 L 97 11/13/21 04:45 92 H 18 96 11/13/21 04:30 78 13 98 11/13/21 04:22 89 22 97 11/13/21 04:15 85 17 97 11/13/21 04:00 93 H 20 95/67 L 99 11/13/21 03:45 92 H 18 97 11/13/21 03:30 95 H 19 97 11/13/21 03:15 90 21 98 11/13/21 03:00 87 21 93/65 L 97 11/13/21 02:45 88 21 97 11/13/21 02:30 91 H 15 97 11/13/21 02:15 115 H 18 98 11/13/21 02:00 108 H 20 87/62 L 97 11/13/21 01:45 108 H 21 97 11/13/21 01:30 110 H 21 98 11/13/21 01:15 111 H 20 99 11/13/21 01:05 111 H 18 96 11/13/21 01:00 110 H 21 96/61 L 96 11/13/21 00:45 115 H 19 96 11/13/21 00:30 110 H 23 97 11/13/21 00:15 123 H 26 H 97 11/13/21 00:00 110 H 22 99/66 L 95 11/12/21 23:45 112 H 22 94 11/12/21 23:30 75 12 90 11/12/21 23:15 100 H 23 99 11/12/21 23:07 102 H 24 97 11/12/21 23:00 93 H 18 96/73 L 93 11/12/21 22:45 100 H 25 H 94 11/12/21 22:30 103 H 25 H 94 11/12/21 22:15 96 H 19 94 11/12/21 22:00 95 H 25 H 91/58 L 93 11/12/21 21:45 104 H 22 93 11/12/21 21:30 105 H 24 93 11/12/21 21:15 99 H 22 95 11/12/21 21:02 37.4 C 11/12/21 21:01 96 H 15 106/74 94 11/12/21 21:00 99 H 15 96 11/12/21 20:45 104 H 15 98 Resident Activity Tracking Resident Involvement: Resident Care Provided Care Provided: Adult Hospital Medicine (1) Alcohol overdose Encounter type: initial encounter Injury intent: intentional self-harm Qualified Code(s): T51.92XA - Toxic effect of unspecified alcohol, intentional self-harm, initial encounter
[2021-11-13] MEDS ORDERED: THIAMINE HCL 200 MG in SODIUM CHLORIDE 0.9% 50 ML IV SCH (09:00)
--- NOTE | 2021-11-13 09:16 | XRay Report ---
XR chest 1V portable HISTORY: Shortness of breath. COMPARISON: Chest 11/12/2021. FINDINGS: The lungs are clear. Cardiac silhouette is normal in size. No pleural effusions. No pneumot horax. IMPRESSION: No acute process. ACT 112: Negative or not required by law. Electronically signed by: Shawn Seay M.D. 11/13/2021 9:15 AM
[2021-11-13] MEDS: MULTIVITAMIN TAB PO SCH (10:33)
[2021-11-13] MEDS: methylPREDNISolone 40 MG in SYRINGE 0 ML IV SCH ×2 (10:35→20:55)
--- NOTE | 2021-11-13 11:10 | Billing Data ---
Date of Service November 13, 2021 Coding Level of Care Code 02807 Subseq Hosp Care Lvl 3
--- NOTE | 2021-11-13 11:21 | Psychiatric Progress Note ---
Date of Service November 13, 2021 Impression / Recommendations Impression This is a 41 yo woman admitted medically following an intentional overdose suicide attempt. Diagnostically consistent with worsening of MDD. Acute risk of self-harm remains elevated and high given suicide attempt requiring medical admission and ongoing ICU treatment, history of major depressive symptoms, history of prior attempts, history of substance use and positive ethyl alcohol on admission, and ongoing psychosocial stressors including divorce. Given elevated risk of harm to self they will likely meet criteria for inpatient psychiatric care for diagnostic clarification, safety/stabilization, development of additional coping skills, medication management and disposition/safety planning once medically stable. She would like to come to the [facility] behavioral health unit once she is medically stable. -1-on-1 for risk of harm to self -Do not discharge or allow to leave AMA, [address] -Hold psych medications for now -Continue with AWSS, thiamine, folic acid -Once medically cleared plan for psychiatric hospitalization (201 vs 302) -psych liason to get collateral records from [facility] and [facility] (1) Suicide attempt by drug overdose: (2) Alcohol overdose: (3) MDD (major depressive disorder), recurrent episode, severe: inpatient psych treatment once medically stable, she'd prefer [facility] Interval History Identifying Information 41 yo woman with a history of GERD, MDD, PTSD, and alcohol use disorder with recent psychiatric hospitalization ([facility] 08/10/2021 - 08/14/2021) and multiple prior suicide attempts (3, most recently 07/2021 via attempted hanging) who was admitted medically for ingestion of seroquel and alcohol. Psychiatry was consulted for risk assessment and recommendations. Chief Complaint "I'm still feeling pretty ambivalent". Review of Systems Notes Stable sleep and appetite. Sore throat and some breathing difficulty but she feels this is improving. Subjective Subjective Patient was seen & assessed and interval progress reviewed. She is not feeling suicidal today but continues to feel ambivalent about surviving the attempt. Discussed that attempt was quite impulsive. She remains motivated for inpatient psychiatric treatment and thinks she would like to do more extended residential dual diagnosis treatment after that. Some potential signs of withdrawal today, ongoing AWSS. She signed ROIs so psych liason can get records from [facility] and [facility] [employer]. She discussed with psych liason recent stressors contributing to depression including separation from her since May. Physical Exam Psychiatric Orientation: alert and oriented x 3 Apperance: appropriately dressed and appropriately groomed Eye Contact: good eye contact Motor Behavior: no abnormal motor movements Speech: normal rate/rhythm/volume of speech Affect: + depressed affect and + tearful affect Mood: + depressed mood Thought Process: goal directed thought process Thought Content: reality based without delusions Suicidal Thoughts: denies suicidal thoughts (but ambivalent about surviving attempt) Homicidal Thoughts: denies homicidal thoughts Hallucinations: no auditory hallucinations and no visual hallucinations Cognition: recent memory grossly intact, remote memory grossly intact, attention grossly intact and language grossly intact Estimated Intelligence: consistent with education level Insight: + fair insight Judgement: + limited judgement Vital Signs (Past 24 Hours) Last Vital Signs Temp 37.0 C 11/13/21 05:04 Pulse 96 H 11/13/21 10:39 Resp 15 11/13/21 10:39 BP 101/74 11/13/21 10:39 Pulse Ox 99 11/13/21 10:39 Results & Data ([facility]) Laboratory Results Laboratory Results - last 24 hr 11/13/21 11/13/21 05:11 05:11 WBC 10.32 RBC 3.95 L Hgb 12.5 Hct 38.0 MCV 96.2 MCH 31.6 MCHC 32.9 RDW Std Deviation 54.4 H RDW Coeff of Evgeny 15.4 H Plt Count 233 MPV 10.1 Immature Gran % (Auto) 0.3 Neut % (Auto) 78.3 Lymph % (Auto) 13.7 [place] % (Auto) 7.6 Eos % (Auto) 0.0 Baso % (Auto) 0.1 Neut # (Auto) 8.09 H Lymph # (Auto) 1.41 [place] # (Auto) 0.78 H Eos # (Auto) 0.00 Baso # (Auto) 0.01 Immature Gran # (Auto) 0.03 H Sodium 141 Potassium 3.7 Chloride 105 Carbon Dioxide 25 Anion Gap 11 BUN 18 Creatinine 0.61 Est Cr Clr Drug Dosing 100.4 Est GFR ( Amer) 130.5 Est GFR (Non-Af Amer) 112.6 BUN/Creatinine Ratio 29.5 H Glucose 128 H Calcium 8.8 Phosphorus 4.2 D Magnesium 2.1 Current Inpatient Medications Current Inpatient Medications: Current Inpatient Medications Albuterol (Albut/Ipratrop 3mg/0.5mg Neb 3 Ml Vial) 3 ml NEB Q6R KATJA; Protocol Stop: 12/12/21 18:59 Last Admin: 11/13/21 07:31 Dose: 3 ml Documented by: Albuterol (Albut/Ipratrop 3mg/0.5mg Neb 3 Ml Vial) 3 ml NEB Q4R PRN; Protocol PRN Reason: Shortness Of Breath Or Wheezin Stop: 12/12/21 22:59 Last Admin: 11/13/21 04:21 Dose: 3 ml Documented by: Enoxaparin Sodium (Enoxaparin Inj 40 Mg/0.4 Ml Syr) 40 mg SQ Q24H KATJA Stop: 12/10/21 05:59 Last Admin: 11/13/21 05:44 Dose: 40 mg Documented by: Fentanyl Citrate (Fentanyl Citrate 100 Mcg/2 Ml Vial) 50 mcg IV Q1H PRN PRN Reason: Moderate Pain (4,5,6) on NRS Stop: 11/24/21 02:27 Last Admin: 11/12/21 08:06 Dose: 50 mcg Documented by: Folic Acid (Folic Acid 1 Mg Tab) 1 mg PO DAILY KATJA Stop: 12/10/21 08:59 Last Admin: 11/13/21 08:06 Dose: 1 mg Documented by: Guaifenesin (Guaifenesin 600 Mg Tabcr) 1,200 mg PO Q12 KATJA Stop: 12/12/21 20:59 Last Admin: 11/13/21 08:06 Dose: 1,200 mg Documented by: Methylprednisolone 40 mg/ (Syringe) 0.64 mls @ 1.5 mls/min IV BID KATJA Stop: 11/13/21 21:01 Last Admin: 11/13/21 10:35 Dose: 1.5 mls/min Documented by: Menthol (Cough Drop (Sugar Free) Kae 24 Kae/1 Box) 1 kae BUCCAL QID PRN PRN Reason: Sore Throat Stop: 12/12/21 16:03 Last Admin: 11/13/21 07:00 Dose: 1 kae Documented by: Multivitamins (Multivitamin Tab) 1 tab PO QAM KATJA Stop: 12/13/21 08:59 Last Admin: 11/13/21 10:33 Dose: 1 tab Documented by: Pantoprazole Sodium (Pantoprazole 40 Mg Tab) 40 mg PO DAILY [facility] Stop: 12/14/21 08:59 Thiamine HCl (Thiamine Hcl 100 Mg Tab) 100 mg PO DAILY KATJA Stop: 12/10/21 08:59 Last Admin: 11/10/21 09:00 Dose: 100 mg Documented by: (1) Alcohol overdose Encounter type: initial encounter Injury intent: intentional self-harm Qualified Code(s): T51.92XA - Toxic effect of unspecified alcohol, intentional self-harm, initial encounter
[2021-11-13] MEDS ORDERED: ONDANSETRON 2 MG OD TAB PO PRN (11:33)
[2021-11-13] MEDS ORDERED: POLYETHYLENE (MIRALAX) 17 GM PACK PO PRN (11:35)
[2021-11-13] MEDS: ACETAMINOPHEN 325 MG TAB PO PRN (11:44)
[2021-11-13] MEDS ORDERED: ATIVAN IV ALCOHOL WITHDRAWL IV PRN (13:12)
[2021-11-13] MEDS ORDERED: GABAPENTIN 800MG ALCOHOL WITHDRAWAL LOAD PO STA (13:12)
[2021-11-13] MEDS ORDERED: LORazepam 2 MG/1 ML VIAL IV PRN ×3 (13:12)
[2021-11-13] MEDS: chlordiazePOXIDE HCl 25 MG CAP PO SCH ×2 (13:45→20:55)
[2021-11-13] MEDS: ALUMINUM/MAGNESIUM SUSP 72 ML, LIDOCAINE VISCOUS 2% SOLN 24 ML, BARCODE IDENTIFIER 1 EA PO PRN ×2 (13:52→23:19)
[2021-11-13] MEDS ORDERED: GABAPENTIN 400 MG CAP PO SCH ×2 (14:00→20:00)
[2021-11-13] MEDS ORDERED: chlordiazePOXIDE HCl 25 MG CAP PO SCH (14:00)
[2021-11-13] MEDS: GABAPENTIN 400 MG CAP PO SCH (20:55)
[2021-11-14] MEDS: ALBUT/IPRATROP 3MG/0.5MG NEB 3 ML VIAL NEB SCH ×4 (01:04→19:18)
[2021-11-14] MEDS: ALUMINUM/MAGNESIUM SUSP 72 ML, LIDOCAINE VISCOUS 2% SOLN 24 ML, BARCODE IDENTIFIER 1 EA PO PRN ×4 (04:40→20:00)
[2021-11-14] MEDS: GABAPENTIN 400 MG CAP PO SCH ×3 (05:34→22:05)
[2021-11-14] MEDS: ENOXAPARIN INJ 40 MG/0.4 ML SYR SQ SCH (05:34)
[2021-11-14 05:50] LABS: Basophils # (auto) 0.01 K/uL (0-0.2); Basophils % (auto) 0.1 %; Hematocrit (blood only) 38.3 % (37-47); Hemoglobin 12.6 g/dL (12.0-16.0); Immature Granulocytes # (auto) 0.13 K/uL (0.00-0.02); Immature Granulocytes % (auto) 0.9 %; Lymphocytes % (auto) 12.3 %; Mean Corpuscular Hemoglobin 31.2 pg (25-34); Mean Corpuscular Hgb Conc 32.9 g/dL (32-36); Mean Corpuscular Volume 94.8 fL (80-100); Mean Platelet Volume 10.3 fL (7.4-10.4); Monocytes % (auto) 6.5 %; Neutrophils % (auto) 80.2 %; Platelet Count 302 K/uL (130-400); RDW Coefficient of Variation 15.2 % (11.5-14.5); RDW Standard Deviation 52.7 fL (36.4-46.3); Red Blood Count 4.04 M/uL (4.2-5.4); White Blood Count 13.84 K/uL (4.8-10.8)
[2021-11-14 06:08] LABS: BUN Creatinine Ratio 20.5 (10-20); Creatinine Clr Calc Pharmacy 139.2 ml/min; Est GFR (African American) 145.3 ml/min; Est GFR (Non-African American) 125.4 ml/min
[2021-11-14] MEDS: THIAMINE HCL 100 MG TAB PO SCH (07:44)
[2021-11-14] MEDS: FOLIC ACID 1 MG TAB PO SCH (07:44)
[2021-11-14] MEDS: guaiFENesin 600 MG TABCR PO SCH ×2 (07:45→19:59)
[2021-11-14] MEDS: MULTIVITAMIN TAB PO SCH (07:45)
[2021-11-14] MEDS: chlordiazePOXIDE HCl 25 MG CAP PO SCH ×3 (07:46→19:59)
[2021-11-14 09:00] LABS: Alanine Aminotransferase 22 U/L (7-52); Albumin Level 3.9 gm/dl (3.4-5.0); Alkaline Phosphatase 54 U/L (34-104); Bilirubin,Total 0.5 mg/dl (0.2-1.0)
[2021-11-14] MEDS: PANTOprazole 40 MG TAB PO SCH (09:07)
--- NOTE | 2021-11-14 10:03 | Hospitalist Progress Note ---
Date of Service November 14, 2021 Assessment & Plan (1) Suicide attempt by drug overdose: Plan: 41yo female with history of MDD, psychosocial stressors, EtOH use disorder, presenting after intentional overdose at home, presumed suicide attempt. Patient reportedly ingested 40 tablets of Seroquel (50mg each) sometime between 19:30 and 20:30 as well as drinking an unknown amount of EtOH. EtOH level 251 on arrival UDS, ASA, APAP negative Patient has had three prior suicide attempts before. She has been seen by Psychiatry in the past. Patient with declining mental status - obtunded on arrival with GCS of 6 necessitating intubation for airway protection. QTc was never prolonged and mentation improved after 2 days, extubated. Remained hemodynamically stable, just some sinus tachycardia Patient was cared for in the critical care unit while intubated on the v entilator she was extubated 8:30 AM on 11/12/2021 Continues to have some issues with hoarse voice from presumed laryngeal edema, but is improved after 2 days of IV steroids -continue to hold Psychiatric agents from home - Abilify, Cymbalta, Seroquel, Trazodone --Question of daily/frequent EtOH use. Continue Folic acid and Thiamine daily. Hold Naltrexone. Patient became more active with signs of acute alcohol withdrawal with agitation tachycardia and anxiety in the afternoon of 11/13/2021 Started on Librium taper and gabapentin taper--> withdrawal symptoms now much improved -continue As needed Ativan with the DANIEL scale is also ordered -Psychiatry consultation appreciated-plan for inaptient psych stay after medically cleared -Suicide precautions and 1:1 D/W Psych.[address] She cannot leave against medical advice. She is agreeable to inpatient psych. (2) Alcohol use disorder: Plan: Unknown amount of daily EtOH use as above, level 251 on arrival With EtOH withdrawal as above treating with Librium, gabapentin tapers thiamine, folate, MVI daily LFTs normal continued substance abuse counseling will be crucial in the future (3) Laryngeal edema: Plan: secondary to difficult intubation hoarse voice, sore throat, some upper airway inspiratory and exp wheezing received IV steroids x 2 days, now discontinued as per PULM restart steroids if worsens again may need ENT eval in future if not improving (4) MDD (major depressive disorder), recurrent episode, severe: Plan: with suicide attempt appreciate Psychiatry consultation plan for inpatient psych admission after medically cleared holding meds from home (5) Chronic constipation: Plan: moving bowels on 11/14 Miralax prn on Linzess at home (6) Exercise-induced asthma: Plan: having some upper airway edema as above with wheezing but feels better with nebs-continue nebs SPutum cx with moderate normal esperanza, no PNA on CXR, no need for abx (7) GERD (gastroesophageal reflux disease): Plan: Patient on Protonix Plan: Patient is a full code Lovenox for DVT prevention Dispo-continued stay on tele, not yet medically cleared for discharge to Psychiatry Discussed her care with Psychiatry today Admission and Anticipated Discharge Date Admission Date: November 10, 2021 Subjective Feeling a little better today with her breathing. Still sore throat and hoarse voice but less SOB. No abd pains or nausea, is amanda po. Is moving bowels and urinating. SInus tach on tele Review of Systems Review of Systems: All systems reviewed & are unremarkable except as noted in HPI & below Physical Exam Constitutional: WD/WN, vitals as above Eyes: + anicteric sclerae Neck: trachea midline, no thyromegaly Respiratory: normal respiratory effort Auscultation: + wheezes (inspiratory and exp wheezes more audible over upper airway) Cardiovascular: RRR, no murmur, no edema Chest (Breasts): Chest: normal inspection of chest Gastrointestinal (Abdomen): normal bowel sounds, soft, nontender, no hepatosplenomegaly Musculoskeletal: Extremities: extremities normal to inspection; no cyanosis and no clubbing Skin: no rashes, warm and dry Neurologic: moves all extremities and awake; no focal motor deficits Psychiatric: A+Ox3, euthymic affect Lymphatic: no lymphedema Results & Data Results & Data ([facility]) Vital Signs (Past 12 Hours) Vital Signs Temp Pulse Pulse Resp BP BP Pulse Ox 11/14/21 09:21 36.9 C 114 H 14 98/74 L 98 11/14/21 07:31 98 H 19 95 11/14/21 06:00 101 H 20 11/14/21 04:00 113 H 25 H 11/14/21 03:00 98 H 20 103/73 99 11/14/21 02:21 110 H 11/14/21 02:00 105 H 18 97/67 L 94 11/14/21 01:05 101 H 18 95 11/14/21 01:00 95 H 23 115/82 94 11/14/21 00:00 36.8 C 95 H 21 113/72 95 Laboratory Results 11/14/21 11/14/21 11/14/21 Range/Units 09:31 05:33 05:33 WBC (4.8-10.8) K/uL RBC (4.2-5.4) M/uL Hgb (12.0-16.0) g/dL Hct (37-47) % MCV (80-100) fL MCH (25-34) pg MCHC (32-36) g/dL RDW Std Deviation (36.4-46.3) fL RDW Coeff of Evgeny (11.5-14.5) % Plt Count (130-400) K/uL MPV (7.4-10.4) fL Immature Gran % (Auto) % Neut % (Auto) % Lymph % (Auto) % [place] % (Auto) % Eos % (Auto) % Baso % (Auto) % Neut # (Auto) (1.4-6.5) K/uL Lymph # (Auto) (1.2-3.4) K/uL [place] # (Auto) (0.11-0.59) K/uL Eos # (Auto) (0-0.5) K/uL Baso # (Auto) (0-0.2) K/uL Immature Gran # (Auto) (0.00-0.02) K/uL Sodium 135 L (136-145) mmol/L Potassium (3.5-5.1) mmol/L Chloride 104 (98-107) mmol/L Carbon Dioxide 24 (21-32) mmol/L Anion Gap 7 (3-11) BUN 9 (6-23) mg/dl Creatinine 0.44 L (0.6-1.2) mg/dl Est Cr Clr Drug Dosing 139.2 ml/min Est GFR ( Amer) 145.3 ml/min Est GFR (Non-Af Amer) 125.4 ml/min BUN/Creatinine Ratio 20.5 H (10-20) Glucose 117 H (70-99(Fasting)) mg/dl Calcium 9.0 (8.5-10.1) mg/dl Phosphorus 3.0 D (2.5-4.9) mg/dl Magnesium 2.0 (1.7-2.4) mg/dl Total Bilirubin 0.5 (0.2-1.0) mg/dl Direct Bilirubin 0.1 TNP AST 21 TNP ALT 22 (7-52) U/L Alkaline Phosphatase 54 (34-104) U/L Total Protein 7.0 (6.0-8.3) gm/dl Albumin 3.9 (3.4-5.0) gm/dl 11/14/21 Range/Units 05:33 WBC 13.84 H (4.8-10.8) K/uL RBC 4.04 L (4.2-5.4) M/uL Hgb 12.6 (12.0-16.0) g/dL Hct 38.3 (37-47) % MCV 94.8 (80-100) fL MCH 31.2 (25-34) pg MCHC 32.9 (32-36) g/dL RDW Std Deviation 52.7 H (36.4-46.3) fL RDW Coeff of Evgeny 15.2 H (11.5-14.5) % Plt Count 302 (130-400) K/uL MPV 10.3 (7.4-10.4) fL Immature Gran % (Auto) 0.9 % Neut % (Auto) 80.2 % Lymph % (Auto) 12.3 % [place] % (Auto) 6.5 % Eos % (Auto) 0.0 % Baso % (Auto) 0.1 % Neut # (Auto) 11.10 H (1.4-6.5) K/uL Lymph # (Auto) 1.70 (1.2-3.4) K/uL [place] # (Auto) 0.90 H (0.11-0.59) K/uL Eos # (Auto) 0.00 (0-0.5) K/uL Baso # (Auto) 0.01 (0-0.2) K/uL Immature Gran # (Auto) 0.13 H (0.00-0.02) K/uL Sodium (136-145) mmol/L Potassium (3.5-5.1) mmol/L Chloride (98-107) mmol/L Carbon Dioxide (21-32) mmol/L Anion Gap (3-11) BUN (6-23) mg/dl Creatinine (0.6-1.2) mg/dl Est Cr Clr Drug Dosing ml/min Est GFR ( Amer) ml/min Est GFR (Non-Af Amer) ml/min BUN/Creatinine Ratio (10-20) Glucose (70-99(Fasting)) mg/dl Calcium (8.5-10.1) mg/dl Phosphorus (2.5-4.9) mg/dl Magnesium (1.7-2.4) mg/dl Total Bilirubin (0.2-1.0) mg/dl Direct Bilirubin AST ALT (7-52) U/L Alkaline Phosphatase (34-104) U/L Total Protein (6.0-8.3) gm/dl Albumin (3.4-5.0) gm/dl PG Care Time/CCT Total # of Minutes Spent Total Time Spent with Patient: Total time spent is greater than 50% in coordination of care (as documented) at patient's floor/unit and/or counseling patient: Coding Level of Care Code 73656 Subseq Hosp Care Lvl 3 Diagnoses Suicide attempt by drug overdose T50.902A GERD (gastroesophageal reflux disease) K21.9 Alcohol use disorder Laryngeal edema J38.4 MDD (major depressive disorder), recurrent episode, severe F33.2 Chronic constipation K59.09 Exercise-induced asthma J45.990
[2021-11-14 10:09] LABS: Bilirubin Direct 0.1 mg/dl (0-0.2)
[2021-11-14] MEDS: LORazepam 1 MG TAB PO PRN ×2 (10:40→19:59)
[2021-11-14] MEDS: ALBUT/IPRATROP 3MG/0.5MG NEB 3 ML VIAL NEB PRN ×2 (10:56→23:07)
--- NOTE | 2021-11-14 12:47 | Psychiatric Progress Note ---
Date of Service November 14, 2021 Impression / Recommendations Impression This is a 41 yo woman admitted medically following an intentional overdose suicide attempt. Diagnostically consistent with worsening of MDD. Acute risk of self-harm remains elevated and high given suicide attempt requiring medical admission and ongoing ICU treatment, history of major depressive symptoms, history of prior attempts, history of substance use and positive ethyl alcohol on admission, and ongoing psychosocial stressors including divorce. Given elevated risk of harm to self they will likely meet criteria for inpatient psychiatric care for diagnostic clarification, safety/stabilization, development of additional coping skills, medication management and disposition/safety planning once medically stable. She would like to come to the [facility] behavioral health unit once she is medically stable. -1-on-1 for risk of harm to self -Do not discharge or allow to leave AMA, [address] -Hold psych medications for now -Continue with AWSS, thiamine, folic acid -Once medically cleared plan for psychiatric hospitalization (201 vs 302) -psych liason to get collateral records from [place] [facility] 11/14/21: improving medically but now on Librium for withdrawal (1) Suicide attempt by drug overdose: (2) Alcohol overdose: (3) MDD (major depressive disorder), recurrent episode, severe: 11/14/21: inpatient psych treatment once medically cleared with recommendation for leave of absence from work and likely stepdown to dual dx rehab from inpatient psych. Interval History Identifying Information 41 yo woman with a history of GERD, MDD, PTSD, and alcohol use disorder with recent psychiatric hospitalization ([place] 08/10/2021 - 08/14/2021) and multipl e prior suicide attempts (3, most recently 07/2021 via attempted hanging) who was admitted medically for ingestion of seroquel and alcohol. Psychiatry was consulted for risk assessment and recommendations. Chief Complaint "throat is sore, still some breathing issues, but I'm still willing for inpatient." Review of Systems Notes as per HPI Subjective Subjective Patient was seen & assessed and interval progress reviewed with nursing and Dr. Dai. Reportedly rather dramatic interaction with her yesterday at same time having some withdrawal symptoms. Currently calm and pleasant with a visitor and 1-on-1 at bedside. Physical Exam Psychiatric Orientation: alert Apperance: appropriately groomed Eye Contact: good eye contact Motor Behavior: no abnormal motor movements Speech: normal rate/rhythm/volume of speech Affect: no tearful affect Mood: + depressed mood Thought Process: goal directed thought process Thought Content: reality based without delusions Suicidal Thoughts: denies suicidal thoughts (while monitored in hospital, ambivalent re: future) Homicidal Thoughts: denies homicidal thoughts did not appear to be responding to internal stimuli. Cognition: attention grossly intact and language grossly intact Estimated Intelligence: consistent with education level Vital Signs (Past 24 Hours) Last Vital Signs Temp 36.9 C 11/14/21 09:21 Pulse 92 H 11/14/21 10:57 Resp 20 11/14/21 10:57 BP 98/74 L 11/14/21 09:21 Pulse Ox 98 11/14/21 09:21 Results & Data ([facility]) Laboratory Results Laboratory Results - last 24 hr 11/14/21 11/14/21 11/14/21 05:33 05:33 05:33 WBC 13.84 H RBC 4.04 L Hgb 12.6 Hct 38.3 MCV 94.8 MCH 31.2 MCHC 32.9 RDW Std Deviation 52.7 H RDW Coeff of Evgeny 15.2 H Plt Count 302 MPV 10.3 Immature Gran % (Auto) 0.9 Neut % (Auto) 80.2 Lymph % (Auto) 12.3 [place] % (Auto) 6.5 Eos % (Auto) 0.0 Baso % (Auto) 0.1 Neut # (Auto) 11.10 H Lymph # (Auto) 1.70 [place] # (Auto) 0.90 H Eos # (Auto) 0.00 Baso # (Auto) 0.01 Immature Gran # (Auto) 0.13 H Sodium 135 L Potassium Chloride 104 Carbon Dioxide 24 Anion Gap 7 BUN 9 Creatinine 0.44 L Est Cr Clr Drug Dosing 139.2 Est GFR ( Amer) 145.3 Est GFR (Non-Af Amer) 125.4 BUN/Creatinine Ratio 20.5 H Glucose 117 H Calcium 9.0 Phosphorus 3.0 D Magnesium 2.0 Total Bilirubin 0.5 Direct Bilirubin TNP AST TNP ALT 22 Alkaline Phosphatase 54 Total Protein 7.0 Albumin 3.9 11/14/21 09:31 WBC RBC Hgb Hct MCV MCH MCHC RDW Std Deviation RDW Coeff of Evgeny Plt Count MPV Immature Gran % (Auto) Neut % (Auto) Lymph % (Auto) [place] % (Auto) Eos % (Auto) Baso % (Auto) Neut # (Auto) Lymph # (Auto) [place] # (Auto) Eos # (Auto) Baso # (Auto) Immature Gran # (Auto) Sodium Potassium Chloride Carbon Dioxide Anion Gap BUN Creatinine Est Cr Clr Drug Dosing Est GFR ( Amer) Est GFR (Non-Af Amer) BUN/Creatinine Ratio Glucose Calcium Phosphorus Magnesium Total Bilirubin Direct Bilirubin 0.1 AST 21 ALT Alkaline Phosphatase Total Protein Albumin Current Inpatient Medications Current Inpatient Medications: Current Inpatient Medications Acetaminophen (Acetaminophen 325 Mg Tab) 650 mg PO Q4H PRN PRN Reason: Pain Stop: 12/13/21 11:31 Last Admin: 11/13/21 11:44 Dose: 650 mg Documented by: Albuterol (Albut/Ipratrop 3mg/0.5mg Neb 3 Ml Vial) 3 ml NEB Q6R KATJA; Protocol Stop: 12/12/21 18:59 Last Admin: 11/14/21 07:29 Dose: 3 ml Documented by: Albuterol (Albut/Ipratrop 3mg/0.5mg Neb 3 Ml Vial) 3 ml NEB Q4R PRN; Protocol PRN Reason: Shortness Of Breath Or Wheezin Stop: 12/12/21 22:59 Last Admin: 11/14/21 10:56 Dose: 3 ml Documented by: Chlordiazepoxide HCl (Chlordiazepoxide Hcl 25 Mg Cap) 25 mg PO TID KATJA Stop: 12/13/21 13:59 Last Admin: 11/14/21 07:46 Dose: 25 mg Documented by: Al Hydrox/Mg Hydrox/Simethicone 72 ml/ Lidocaine HCl 24 ml/ BARCODE IDENTIFIER 1 ea 0 ml PO Q4H PRN PRN Reason: throat pain Stop: 12/13/21 12:14 Last Admin: 11/14/21 09:08 Dose: 24 ml Documented by: Enoxaparin Sodium (Enoxaparin Inj 40 Mg/0.4 Ml Syr) 40 mg SQ Q24H KATJA Stop: 12/10/21 05:59 Last Admin: 11/14/21 05:34 Dose: 40 mg Documented by: Folic Acid (Folic Acid 1 Mg Tab) 1 mg PO DAILY KATJA Stop: 12/10/21 08:59 Last Admin: 11/14/21 07:44 Dose: 1 mg Documented by: Gabapentin (Gabapentin 400 Mg Cap) 400 mg PO Q8H KATJA Stop: 11/15/21 06:01 Gabapentin (Gabapentin 400 Mg Cap) 400 mg PO Q12H [facility] Stop: 11/16/21 06:01 Gabapentin (Gabapentin 400 Mg Cap) 400 mg PO Q24H [facility] Stop: 11/17/21 06:01 Guaifenesin (Guaifenesin 600 Mg Tabcr) 1,200 mg PO Q12 [facility] Stop: 12/12/21 20:59 Last Admin: 11/14/21 07:45 Dose: 1,200 mg Documented by: Lorazepam (Lorazepam 2 Mg/1 Ml Vial) 1 mg IV UD PRN; Protocol PRN Reason: EtOH Withdrawl AWSS Score 6,7 Stop: 12/13/21 13:11 Last Admin: 11/13/21 13:45 Dose: 1 mg Documented by: Lorazepam (Lorazepam 2 Mg/1 Ml Vial) 3 mg IV ONCE PRN; Protocol PRN Reason: EtOH Withdrawl AWSS Score >=10 Stop: 12/13/21 13:11 Lorazepam (Lorazepam 2 Mg/1 Ml Vial) 2 mg IV UD PRN; Protocol PRN Reason: EtOH Withdrawl AWSS Score 8,9 Stop: 12/13/21 13:11 Lorazepam (Lorazepam 1 Mg Tab) 1 mg PO Q6 PRN PRN Reason: Anxiety Stop: 12/14/21 09:54 Last Admin: 11/14/21 10:40 Dose: 1 mg Documented by: Menthol (Cough Drop (Sugar Free) Kae 24 Kae/1 Box) 1 kae BUCCAL QID PRN PRN Reason: Sore Throat Stop: 12/12/21 16:03 Last Admin: 11/13/21 07:00 Dose: 1 kae Documented by: Multivitamins (Multivitamin Tab) 1 tab PO QAM [facility] Stop: 12/13/21 08:59 Last Admin: 11/14/21 07:45 Dose: 1 tab Documented by: Ondansetron HCl (Ondansetron 2 Mg Od Tab) 2 mg PO Q4H PRN PRN Reason: Nausea And Vomiting Stop: 12/13/21 11:32 Pantoprazole Sodium (Pantoprazole 40 Mg Tab) 40 mg PO DAILY [facility] Stop: 12/14/21 08:59 Last Admin: 11/14/21 09:07 Dose: 40 mg Documented by: Polyethylene Glycol (Polyethylene (Miralax) 17 Gm Pack) 17 gm PO DAILY PRN PRN Reason: Constipation Stop: 12/13/21 11:34 Thiamine HCl (Thiamine Hcl 100 Mg Tab) 100 mg PO DAILY KATJA Stop: 12/10/21 08:59 Last Admin: 11/14/21 07:44 Dose: 100 mg Documented by: (1) Alcohol overdose Encounter type: initial encounter Injury intent: intentional self-harm Qualified Code(s): T51.92XA - Toxic effect of unspecified alcohol, intentional self-harm, initial encounter
[2021-11-14] MEDS: ACETAMINOPHEN 325 MG TAB PO PRN (15:49)
[2021-11-14] MEDS: BUDESONIDE 0.5 MG/2 ML VIAL (PULMICORT) NEB SCH (21:48)
--- NOTE | 2021-11-14 22:15 | Communication Note ---
Date of Service: November 14, 2021 Contacted by the nurse and advised the patient was having difficulty with breathing and wheezing. Tried nebulized Pulmicort without symptomatic improvement. Will give 20 mg IV Solu-Medrol and reassess.
[2021-11-14] MEDS ORDERED: methylPREDNISolone 20 MG in SYRINGE 0 ML IV ONE (22:45)
[2021-11-15] MEDS: ALBUT/IPRATROP 3MG/0.5MG NEB 3 ML VIAL NEB SCH ×4 (01:20→14:50)
[2021-11-15] MEDS: ALUMINUM/MAGNESIUM SUSP 72 ML, LIDOCAINE VISCOUS 2% SOLN 24 ML, BARCODE IDENTIFIER 1 EA PO PRN ×4 (02:03→19:57)
[2021-11-15] MEDS: ALBUT/IPRATROP 3MG/0.5MG NEB 3 ML VIAL NEB PRN ×3 (03:10→23:37)
[2021-11-15] MEDS: LORazepam 1 MG TAB PO PRN ×3 (03:29→22:33)
[2021-11-15] MEDS: COUGH DROP (SUGAR FREE) LOZ 24 LOZ/1 BOX BUCCAL PRN (04:14)
[2021-11-15] MEDS: GABAPENTIN 400 MG CAP PO SCH (06:08)
[2021-11-15] MEDS: ENOXAPARIN INJ 40 MG/0.4 ML SYR SQ SCH (06:08)
[2021-11-15 06:12] LABS: Basophils # (auto) 0.01 K/uL (0-0.2); Basophils % (auto) 0.1 %; Eosinophils # (auto) 0.05 K/uL (0-0.5); Eosinophils % (auto) 0.4 %; Hematocrit (blood only) 37.5 % (37-47); Hemoglobin 12.3 g/dL (12.0-16.0); Immature Granulocytes # (auto) 0.11 K/uL (0.00-0.02); Lymphocytes # (auto) 1.71 K/uL (1.2-3.4); Mean Corpuscular Hemoglobin 31.5 pg (25-34); Mean Corpuscular Hgb Conc 32.8 g/dL (32-36); Mean Corpuscular Volume 95.9 fL (80-100); Mean Platelet Volume 9.8 fL (7.4-10.4); Monocytes # (auto) 0.74 K/uL (0.11-0.59); Monocytes % (auto) 6.5 %; Neutrophils # (auto) 8.77 K/uL (1.4-6.5); Platelet Count 291 K/uL (130-400); RDW Coefficient of Variation 15.2 % (11.5-14.5); RDW Standard Deviation 53.2 fL (36.4-46.3); Red Blood Count 3.91 M/uL (4.2-5.4); White Blood Count 11.39 K/uL (4.8-10.8)
[2021-11-15 06:37] LABS: BUN Creatinine Ratio 20.4 (10-20); Calcium 8.7 mg/dl (8.5-10.1); Est GFR (African American) 140.3 ml/min; Magnesium 1.9 mg/dl (1.7-2.4); Potassium 4.1 mmol/L (3.5-5.1)
[2021-11-15] MEDS: BUDESONIDE 0.5 MG/2 ML VIAL (PULMICORT) NEB SCH ×2 (07:25→20:06)
[2021-11-15] MEDS: MULTIVITAMIN TAB PO SCH (07:42)
[2021-11-15] MEDS: THIAMINE HCL 100 MG TAB PO SCH (07:42)
[2021-11-15] MEDS: chlordiazePOXIDE HCl 25 MG CAP PO SCH ×3 (07:42→21:31)
[2021-11-15] MEDS: guaiFENesin 600 MG TABCR PO SCH (07:42)
[2021-11-15] MEDS: FOLIC ACID 1 MG TAB PO SCH (07:42)
[2021-11-15] MEDS: PANTOprazole 40 MG TAB PO SCH (07:42)
[2021-11-15] MEDS: predniSONE 20 MG TAB PO SCH (08:01)
--- NOTE | 2021-11-15 09:52 | Hospitalist Progress Note ---
Date of Service November 15, 2021 Assessment & Plan (1) Suicide attempt by drug overdose: Plan: 41yo female with history of MDD, psychosocial stressors, EtOH use disorder, presenting after intentional overdose at home, presumed suicide attempt. Patient reportedly ingested 40 tablets of Seroquel (50mg each) sometime between 19:30 and 20:30 as well as drinking an unknown amount of EtOH. EtOH level 251 on arrival UDS, ASA, APAP negative Patient has had three prior suicide attempts before. She has been seen by Psychiatry in the past. Patient with declining mental status - obtunded on arrival with GCS of 6 necessitating intubation for airway protection. Had a difficult intubation as per ER MD notes QTc was never prolonged and mentation improved after 2 days, extubated. Remained hemodynamically stable, just some sinus tachycardia Patient was cared for in the critical care unit while intubated on the ventilator she was extubated 8:30 AM on 11/12/2021 Continues to have some issues with hoarse voice from laryngeal edema, did receive 2 days of IV steroids With some worsening SOB and trouble drinking thin liquids 11/15 CT soft tissue neck 11/15 confirms laryngeal edema but airway patent -restart prednisone 40mg po once daily x 3 days -continue to hold Psychiatric agents from home - Abilify, Cymbalta, Seroquel, Trazodone -Psychiatry consultation appreciated-plan for inaptient psych stay after medically cleared -Suicide precautions and 1:1 D/W Psych.[address] She cannot leave against medical advice. She is agreeable to inpatient psych once medically cleared (2) Alcohol use disorder: Plan: admits to drinking mostly on the weekends as above, level 251 on arrival With EtOH withdrawal worsening on 11/13 treating with Librium, gabapentin tapers doing very well with withdrawal today, mild -dc gabapentin -decrease Librium to bid for today then once daily for tomorrow, then stop -continue As needed Ativan with the DANIEL scale thiamine, folate, MVI daily LFTs normal continued substance abuse counseling will be crucial in the future-she is considering dual diagnosis program after discharge from inpatient Psych (3) Laryngeal edema: Plan: secondary to difficult intubation hoarse voice, sore throat, some upper airway inspiratory and exp wheezing received IV steroids x 2 days, then discontinued as per PULM with worsening sxs 11/15 as above, CT neck with laryngeal edema, airway patent restart steroids as above x 3 more days may need ENT eval in future if not improving -continue to adv diet as tolerated -start maintenance IVFs while not taking much po-LR at 80mL/hr (4) MDD (major depressive disorder), recurrent episode, severe: Plan: with suicide attempt appreciate Psychiatry consultation plan for inpatient psych admission after medically cleared holding meds from home (5) Chronic constipation: Plan: moving bowels on 11/14 Miralax prn on Linzess at home but takes prn (6) Exercise-induced asthma: Plan: having some upper airway edema as above with wheezing but feels better with nebs-continue nebs SPutum cx with moderate normal esperanza, no PNA on CXR, no need for abx (7) GERD (gastroesophageal reflux disease): Plan: Patient on Protonix Plan: Patient is a full code Lovenox for DVT prevention Dispo-continued stay on tele, not yet medically cleared for discharge to Psychiatry Discussed her care with Psychiatry today-will have a bed available tomorrow if medically stable-will see how she is feeling tomorrow Admission and Anticipated Discharge Date Admission Date: November 10, 2021 Subjective Had some difficulty with SOB overnight, bad sore throat, and choking even on thin liquids. SHe was started on Pulmicort nebs and given IV SOlu Medrol 20mg x 1. This AM she feels slightly better but not much. Is very cautiously sipping even water. No tremor or anxiety. Says she only drinks EtOH on the weekends. No abd pain, did not move bowels today yet. Tele with sinus tach Review of Systems Review of Systems: All systems reviewed & are unremarkable except as noted in HPI & below Physical Exam Constitutional: WD/WN, vitals as above Eyes: + anicteric sclerae ENMT: posterior OP without erythema, uvula normal, airway patent Neck: trachea midline, no thyromegaly Respiratory: normal respiratory effort Auscultation: + wheezes (inspiratory and exp wheezes more audible over upper airway) Cardiovascular: RRR, no murmur, no edema Chest (Breasts): Chest: normal inspection of chest Gastrointestinal (Abdomen): normal bowel sounds, soft, nontender, no hepatosplenomegaly Musculoskeletal: Extremities: extremities normal to inspection; no cyanosis and no clubbing Skin: no rashes, warm and dry Neurologic: moves all extremities and awake; no focal motor deficits Motor/Sensory: no tremor Psychiatric: A+Ox3, euthymic affect Lymphatic: no lymphedema Results & Data Results & [facility] ([facility] Vital Signs (Past 12 Hours) Vital Signs Temp Pulse Pulse Resp BP Pulse Ox 11/15/21 08:16 105 H 14 107/86 97 11/15/21 07:23 110 H 20 96 11/15/21 03:30 37.3 C 114 H 20 110/71 96 11/15/21 03:10 100 H 18 96 11/15/21 00:50 110 H 11/14/21 23:30 37.2 C 116 H 22 113/60 95 11/14/21 23:07 110 H 22 95 Laboratory Results 11/15/21 11/15/21 Range/Units 05:54 05:54 WBC 11.39 H (4.8-10.8) K/uL RBC 3.91 L (4.2-5.4) M/uL Hgb 12.3 (12.0-16.0) g/dL Hct 37.5 (37-47) % MCV 95.9 (80-100) fL MCH 31.5 (25-34) pg MCHC 32.8 (32-36) g/dL RDW Std Deviation 53.2 H (36.4-46.3) fL RDW Coeff of Evgeny 15.2 H (11.5-14.5) % Plt Count 291 (130-400) K/uL MPV 9.8 (7.4-10.4) fL Immature Gran % (Auto) 1.0 % Neut % (Auto) 77.0 % Lymph % (Auto) 15.0 % [place] % (Auto) 6.5 % Eos % (Auto) 0.4 % Baso % (Auto) 0.1 % Neut # (Auto) 8.77 H (1.4-6.5) K/uL Lymph # (Auto) 1.71 (1.2-3.4) K/uL [place] # (Auto) 0.74 H (0.11-0.59) K/uL Eos # (Auto) 0.05 (0-0.5) K/uL Baso # (Auto) 0.01 (0-0.2) K/uL Immature Gran # (Auto) 0.11 H (0.00-0.02) K/uL Sodium 137 (136-145) mmol/L Potassium 4.1 (3.5-5.1) mmol/L Chloride 105 (98-107) mmol/L Carbon Dioxide 24 (21-32) mmol/L Anion Gap 8 (3-11) BUN 10 (6-23) mg/dl Creatinine 0.49 L (0.6-1.2) mg/dl Est Cr Clr Drug Dosing 125.0 ml/min Est GFR ( Amer) 140.3 ml/min Est GFR (Non-Af Amer) 121.0 ml/min BUN/Creatinine Ratio 20.4 H (10-20) Glucose 151 H (70-99(Fasting)) mg/dl Calcium 8.7 (8.5-10.1) mg/dl Magnesium 1.9 (1.7-2.4) mg/dl PG Care Time/CCT Total # of Minutes Spent Total Time Spent with Patient: Total time spent is greater than 50% in coordination of care (as documented) at patient's floor/unit and/or counseling patient: Coding Level of Care Code 20283 Subseq Hosp Care Lvl 3 Diagnoses Suicide attempt by drug overdose T50.902A Alcohol use disorder Laryngeal edema J38.4 MDD (major depressive disorder), recurrent episode, severe F33.2 Chronic constipation K59.09 Exercise-induced asthma J45.990 GERD (gastroesophageal reflux disease) K21.9
[2021-11-15] MEDS: LACTATED RINGER'S 1,000 ML IV SCH ×2 (10:10→21:31)
[2021-11-15] MEDS ORDERED: OPTIRAY 320 100ml IV ONE (10:13)
--- NOTE | 2021-11-15 10:27 | CT Scan Report ---
CT soft tissue neck w con CLINICAL HISTORY: hoarseness,SOB s/p extubation Technique: Axial CT images of the soft tissues of the neck were obtained following intravenous admini stration of 100 cc of Omnipaque 300. Automated dose lowering techniques and/or adjustment according t o patient size were utilized for this exam. Comparison: None available at the time of this dictation. Findings: There are no masses or inflammatory changes seen within the soft tissues of the neck. There is mild e berry of the larynx, however the larynx is patent. No enlarged lymph nodes are seen. The parotid gland s, submandibular glands, and thyroid gland are unremarkable. Imaged portions of the brain parenchyma are unremarkable. Mucous retention cyst is in the right maxi llary sinus. Impression: Likely mild laryngeal edema in this patient status post extubation, without obstruction of the pharyn x and larynx. ACT 112: Negative or not required by law. Electronically signed by: Dexter Morejon M.D. 11/15/2021 10:25 AM
[2021-11-15] MEDS ORDERED: GABAPENTIN 400 MG CAP PO SCH (18:00)
[2021-11-15] MEDS: ACETAMINOPHEN 325 MG TAB PO PRN (22:33)
[2021-11-16] MEDS: ALBUT/IPRATROP 3MG/0.5MG NEB 3 ML VIAL NEB SCH ×3 (00:36→12:10)
[2021-11-16] MEDS: ALUMINUM/MAGNESIUM SUSP 72 ML, LIDOCAINE VISCOUS 2% SOLN 24 ML, BARCODE IDENTIFIER 1 EA PO PRN ×2 (01:41→07:32)
[2021-11-16] MEDS: ALBUT/IPRATROP 3MG/0.5MG NEB 3 ML VIAL NEB PRN (03:11)
[2021-11-16] MEDS: ACETAMINOPHEN 325 MG TAB PO PRN ×2 (04:40→08:43)
[2021-11-16] MEDS: ENOXAPARIN INJ 40 MG/0.4 ML SYR SQ SCH (05:17)
[2021-11-16] MEDS: LORazepam 1 MG TAB PO PRN (05:25)
[2021-11-16] MEDS: BUDESONIDE 0.5 MG/2 ML VIAL (PULMICORT) NEB SCH (07:10)
[2021-11-16] MEDS: chlordiazePOXIDE HCl 25 MG CAP PO SCH (07:32)
[2021-11-16] MEDS: PANTOprazole 40 MG TAB PO SCH (07:33)
[2021-11-16] MEDS: FOLIC ACID 1 MG TAB PO SCH (07:33)
[2021-11-16] MEDS: MULTIVITAMIN TAB PO SCH (07:33)
[2021-11-16] MEDS: predniSONE 20 MG TAB PO SCH (07:34)
[2021-11-16] MEDS: THIAMINE HCL 100 MG TAB PO SCH (07:34)
[2021-11-16] MEDS ORDERED: KETOROLAC TROMETHAMINE 15 MG/ML VIAL IV PRN (09:13)
[2021-11-16] MEDS: LACTATED RINGER'S 1,000 ML IV SCH (09:34)
[2021-11-16] MEDS ORDERED: IBUPROFEN 800 MG TAB PO PRN (11:00)
[2021-11-16] MEDS ORDERED: chlordiazePOXIDE HCl 25 MG CAP PO ONE (15:00)
--- NOTE | 2021-11-16 15:49 | Discharge Summary ---
Date of Service November 16, 2021 Admission HPI Per Admitting Provider Massiel Pop is a 41yo female presenting after intentional overdose. Patient intubated in the ER for airway protection. History obtained through discussion with ER staff as well as patient's mother at bedside. 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 Patient is currently under a considerable amount of stress in her personal life as she is in the middle of a very difficult divorce and custody situation. This evening she became very distraught and took appx 40 tablets of Seroquel (50mg each = appx 2000mg Seroquel) + EtOH unknown quantity. Patient's mother believes that she took the pills between 19:30 and 20:30. Patient's reportedly called the police. Patient was pulled over by the police and was reportedly alert and oriented. EMS was notified - patient noted to be altered. She was administered 20mg IV Narcan with no improvement in mental status. Patient's mental status continued to decline en route to [facility]. Upon arrival she was noted to be obtunded with GCS of 6. She was intubated for airway protection. Of note, intubation was difficult but ultimately successful. Some post-intubation airway edema noted No additional history obtained. ER Course: Etomidate 30mg, Succinylcholine 120mg, Rocuronium 10mg Dexamethasone 10mg IV Propofol NSS x 1L now at 125mL/hr LR x 1L Principal Diagnosis Suicide attempt, overdose on Seroquel, Alcohol use disorder with withdrawal and intoxication, laryngeal edema Discharge Exam Constitutional WD/WN, vitals as above Eyes + anicteric sclerae Neck trachea midline, no thyromegaly Respiratory normal respiratory effort, lungs clear to auscultation normal respiratory effort Auscultation: + wheezes (inspiratory and exp wheezes more audible over upper airway, improving) Cardiovascular RRR, no murmur, no edema Chest (Breasts) Chest: normal inspection of chest Gastrointestinal (Abdomen) normal bowel sounds, soft, nontender, no hepatosplenomegaly Musculoskeletal Extremities: extremities normal to inspection; no cyanosis and no clubbing Skin no rashes, warm and dry Neurologic moves all extremities and awake; no focal motor deficits Motor/Sensory: no tremor Psychiatric A+Ox3, euthymic affect Lymphatic no lymphedema Discharge Data Allergies Allergy/AdvReac Type Severity Reaction Status Date / Time No Known Allergies Allergy Verified 11/09/21 23:44 Consultations 11/09/21 23:42 ED Decision to Admit Stat 11/10/21 02:11 Consult Solder Cream Maker Routine Consult Psychiatry Routine Ordered Studies 11/15/21 10:01 CT soft tissue neck w con Urgent Hospital Course (1) Suicide attempt by drug overdose: 41yo female with history of MDD, psychosocial stressors, EtOH use disorder, presenting after intentional overdose at home, presumed suicide attempt. Patient reportedly ingested 40 tablets of Seroquel (50mg each) sometime between 19:30 and 20:30 as well as drinking an unknown amount of EtOH. EtOH level 251 on arrival UDS, ASA, APAP negative Patient has had three prior suicide attempts before. She has been seen by Psychiatry in the past. Patient with declining mental status - obtunded on arrival with GCS of 6 necessitating intubation for airway protection. Had a difficult intubation as per ER MD notes QTc was never prolonged and mentation improved after 2 days, extubated. Remained hemodynamically stable, just some sinus tachycardia Patient was cared for in the critical care unit while intubated on the ventilator she was extubated 8:30 AM on 11/12/2021 Continues to have some issues with hoarse voice from laryngeal edema, did receive 2 days of IV steroids With some worsening SOB and trouble drinking thin liquids 11/15 CT soft tissue neck 11/15 confirms laryngeal edema but airway patent -restarted prednisone 40mg po once daily x 3 days and now with improvement in hoarseness and throat pain-finish one more day of prednisone -can use ibuprofen as needed for pain -continue to hold Psychiatric agents from home - Abilify, Cymbalta, Seroquel, Trazodone and Psych to determine which meds to use -Psychiatry consultation appreciated-plan for inpatient psych stay after medically cleared -Suicide precautions and 1:1 D/W Psych.[address] She cannot leave against medical advice. She is agreeable to inpatient psych now that she is medically cleared-dc to inpatient U (2) Alcohol use disorder: admits to drinking mostly on the weekends as above, level 251 on arrival With EtOH withdrawal worsening on 11/13 treated with Librium, gabapentin tapers doing very well with withdrawal, mild, no symptoms on 11/16 -dcd gabapentin -last dose of Librium on afternoon of 11/16, then stop continue thiamine, folate, MVI daily LFTs normal continued substance abuse counseling will be crucial in the future-she is considering dual diagnosis program after discharge from inpatient Psych (3) Laryngeal edema: secondary to difficult intubation hoarse voice, sore throat, some upper airway inspiratory and exp wheezing received IV steroids x 2 days, then discontinued as per PULM with worsening sxs 11/15 as above, CT neck with laryngeal edema, airway patent restart steroids as above x 3 more days-last dose on 11/17 may need ENT eval in future if not improving -continue soft diet as tolerated -dc IVFs as she is able to drink adequate fluids now (4) MDD (major depressive disorder), recurrent episode, severe: with suicide attempt appreciate Psychiatry consultation plan for inpatient psych admission after medically cleared today holding meds from home (5) Chronic constipation: moving bowels on 11/14 Miralax prn on Linzess at home but takes prn (6) Exercise-induced asthma: having some upper airway edema as above with wheezing but feels better now SPutum cx with moderate normal esperanza, no PNA on CXR, no need for abx albuterol HFA prn on discharge (7) GERD (gastroesophageal reflux disease): Patient on PPI Patient is a full code Lovenox for DVT prevention was used Dispo-dc to inpatient Psych unit Total Time Total Time Spent Total Time Spent (In Minutes): 40 min Discharge Plan Discharge Items Patient Disposition: Transfer Behavioral Health Fac Reason For Visit: OVERDOSE, INTUBATION Discharge Diagnosis: Overdose, alcohol use disorder with withdrawal, laryngeal edema, suicide attempt Condition on Discharge: Fair Activity: As commented below Bathing: No limitations Exercise/Sports: Gradually increase as tolerated Non-emergency contact: Primary Care Provider and Psychiatrist Call non-emergency contact if: you have any medication questions, your symptoms worsen and your pain is not controlled Follow-up/Referrals: Louann Campbell MD [Primary Care Provider] - Diet: Regular Diet Texture: Easy to Chew Addtl Attending Provider Instructions: Please continue the prednisone for one more day for the laryngeal edema. You can take ibuprofen as needed for headaches or throat pain. If your hoarseness does not continue to improve over the next 1-2 weeks, please get a referral to see ENT. Psychiatry will determine which medications to put you on for your major depresive disorder. Best wishes to you, Namita Dai M.D. Pending Studies at Discharge: No Stand-Alone Forms: My [facility] Skilled Items DNR: No Lines: None Urinary Catheter: No Medications and DC Order Prescriptions: New acetaminophen 325 mg Tablet 650 mg PO Q4H PRN (Reason: pain) Qty: 30 RF: 0 ibuprofen 800 mg Tablet 800 mg PO TID PRN (Reason: pain) Qty: 30 RF: 0 Cepacol Sore Throat (shahida-men) 15-3.6 mg Lozenge 1 misty buccal QID PRN (Reason: sore throat) Qty: 30 RF: 0 polyethylene glycol 3350 [Miralax] 17 gram Powder In Packet 17 g PO DAILY PRN (Reason: constipation) Qty: 30 RF: 0 prednisone 20 mg Tablet 40 mg PO DAILY Qty: 2 RF: 0 multivitamin with folic acid [Daily-Ana (with folic acid)] 400 mcg Tablet 1 tab PO QAM Qty: 30 RF: 0 albuterol sulfate 90 mcg/actuation HFA aerosol inhaler 2 inh inhalation Q6H PRN (Reason: shortness of breath or wheezing) Qty: 8.5 RF: 0 Continued olopatadine [Patanase] 0.6 % spray,non-aerosol 2 spray intranasal DAILY Qty: 30.5 RF: 11 folic acid 1 mg tablet 1 mg PO DAILY RF: 0 thiamine mononitrate (vit B1) 100 mg tablet 100 mg PO DAILY RF: 0 esomeprazole magnesium 40 mg capsule,delayed release(DR/EC) 40 mg PO QAM RF: 0 Changed linaclotide 290 mcg capsule 290 mcg PO DAILY PRN (Reason: constipation) 90 Days Qty: 90 RF: 3 Discontinued ondansetron 4 mg tablet,disintegrating 4 mg PO Q6H PRN (Reason: nausea and vomiting) Qty: 120 RF: 0 naltrexone 50 mg tablet 25 mg PO HS Qty: 30 RF: 0 quetiapine 50 mg tablet 50 mg PO HS Qty: 30 RF: 0 aripiprazole [Abilify] 5 mg tablet 5 mg PO DAILY RF: 0 ibuprofen 600 mg tablet 600 mg PO Q4H PRN (Reason: Pain) RF: 0 prazosin 2 mg capsule 2 mg PO HS RF: 0 trazodone 50 mg tablet 25 - 50 mg PO HS PRN (Reason: Sleep) RF: 0 duloxetine [Cymbalta] 20 mg capsule,delayed release(DR/EC) 20 mg PO DAILY RF: 0 Discharge Orders: Discharge Order (Routine); Ordered 11/16/21 Ordered By: Namita Dai Admission Data Admit Date/Time: 11/10/21 00:45 Attending Provider: Namita Dai Admit Provider: Zabrina Masters Primary Care Provider: Louann Campbell Other Providers: Zabrina Masters ; Luisito Cook ; Kristin Randall ; Judith Michel ; Anna Butcher Coding Level of Care Code D/C DAY MANAGEMENT >30 MINS Diagnoses Suicide attempt by drug overdose T50.902A Alcohol use disorder Laryngeal edema J38.4 MDD (major depressive disorder), recurrent episode, severe F33.2 Chronic constipation K59.09 Exercise-induced asthma J45.990 GERD (gastroesophageal reflux disease) K21.9
[2021-11-17] MEDS ORDERED: GABAPENTIN 400 MG CAP PO SCH (06:00)
== END 2021-11-16 16:39 | DRG 917 ==
LOC: ED 22:22 → 1E 11-10 00:45 → SUATTDRO 11-10 00:45 → 1E 11-10 01:14

== ENCOUNTER 2021-11-16 16:13 | Inpatient (IN) ==
[2021-11-16] MEDS ORDERED: BISMUTH SUBSALICYLATE LIQD 236 ML PO PRN (16:19)
[2021-11-16] MEDS ORDERED: SODIUM CHLORIDE 0.65% NA SOLN 45 ML (OCEAN) PRN (16:19)
[2021-11-16] MEDS ORDERED: MAGNESIUM HYDROXIDE SUSP 30 ML UDC PO PRN (16:19)
[2021-11-16] MEDS ORDERED: ACETAMINOPHEN 325 MG TAB PO PRN (16:19)
[2021-11-16] MEDS ORDERED: hydrOXYzine HCl 25 MG TAB PO PRN ×2 (16:19)
[2021-11-16] MEDS ORDERED: ALUMINUM/MAGNESIUM SUSP 30 ML UDC PO PRN (16:19)
[2021-11-16] MEDS ORDERED: ALBUTEROL HFA 8 GM INHALER INH PRN (17:19)
[2021-11-16] MEDS ORDERED: LINACLOTIDE 290 MCG PO PRN (17:19)
[2021-11-16] MEDS ORDERED: POLYETHYLENE (MIRALAX) 17 GM PACK PO PRN (18:00)
[2021-11-16] MEDS: COUGH DROP (SUGAR FREE) LOZ 24 LOZ/1 BOX BUCCAL PRN (19:30)
[2021-11-16] MEDS: IBUPROFEN 800 MG TAB PO PRN (19:52)
[2021-11-16] MEDS ORDERED: FIRST - Mouthwash BLM 119 ML PO SCH (20:00)
--- NOTE | 2021-11-16 22:38 | History & Physical ---
Date of Service November 16, 2021 Impression / Recommendations Homero Rankin is a 41-year-old female with a history of multiple suicide attempts due to recurrent depression complicated by alcohol use disorder who presents s/p significant Seroquel OD that required intubation. She has residual laryngeal edema that is resolving but still causing throat pain/difficulty swallowing and is on prednisone for asthma. She completed Librium taper. (1) MDD (major depressive disorder), recurrent episode, severe: (2) Suicide attempt by drug overdose: (3) Alcohol use disorder: The patient was admitted to [facility] on q15 min checks (behavioral with suicide precautions) for safety. The patient will participate in group, recreational, and milieu therapies and will be offered additional individual and family sessions as clinically appropriate. Will discuss medication options tomorrow, main goal is getting patient to dual dx rehab treatment. The patient's AUDIT score suggests problematic drinking (Zone III WHO). Brief intervention was offered and accepted. Intervention was greater than 5 min in length and included assessing readiness to quit, motivation toward rehab (interest in [facility]) and impact on med staff role. 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 head screen worker will also assist in anticipating barriers to sobriety and in problem-solving for solutions to those problems while arranging for referral to appropriate treatment. The patient is in action stage with regards to transtheoretical model of change and would like to transition to rehab as soon as possible/feels more stable. She will be provided with the recovery workbook. 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 Needs: coparenting/couples work, rehab referral Risk Factors Assessment : Yes Do You Have Access To A Gun?: No ( previously secured) Mental Health Diagnoses: Yes Substance Use Disorders: Yes Previous Attempt: Yes Previous Attempt; Highly Lethal: Yes Previous Psychiatric Hospitalization: Yes Protective Factors Assessment : Yes (but ) Responsible for Young Children: Yes Employed: Yes Psychiatric History Identifying Data ALENA TORRES is a 41-year-old F who currently lives in [place], has a history of multiple suicide attempts, and was admitted on 11/16/21 16:51 on a 201 voluntary commitment on discharge from the medical floor s/p suicide attempt. Chief Complaint "I won't lie, I really didn't want to wake up." History of Present Illness Patient was seen in consultation by Dr. Randall on the medical floor s/p intentional ingestion of 40 of 50 mg Seroquel (reported by who called EMS) with ETOH as a suicide attempt. She required intubation and had a several day ICU course with residual issues with asthma and sore throat that makes it difficult to eat. The couple continues to have marital problems that also precipitated her 2019 admission to [facility] where she took an impulsive trazodone ingestion and minimized her drinking. She states she has some "brain zaps" from psych meds being held but relates that she had been "off of" the Seroquel for some time due to concerns about weight gain. Her most recent hospitalization was at [facility] in 08/11 following a period of heavy drinking and attempted hanging. Past Psychiatric History Current Psychiatric Diagnosis: MDD Outpatient Services: [facility] [place] [facility] Previous Psych Admissions: [facility] 08/10, [facility] 08/11 Do You Have Access To A Gun?: No ( previously secured) History of Previous Suicide Attempt: Yes Describe Attempts in the Past: 3-4 prior Past Medication Trials: per records: Abilify, Cymbalta, Seroquel, trazodone, naltrexone, prazosin, Pristiq Allergies Allergy/AdvReac Type Severity Reaction Status Date / Time No Known Allergies Allergy Verified 11/09/21 23:44 Home Medications Medication Instructions Recorded Confirmed Type olopatadine 0.6 % nasal spray 2 spray INTRANASAL DAILY #30.5 g 07/31/21 11/09/21 Rx (Patanase) folic acid 1 mg tablet 1 mg PO DAILY 09/08/21 11/09/21 History thiamine mononitrate (vit B1) 100 100 mg PO DAILY 09/08/21 11/09/21 History mg tablet esomeprazole magnesium 40 mg 40 mg PO QAM 11/09/21 11/09/21 History capsule,delayed release acetaminophen 325 mg tablet 650 mg PO Q4H PRN #30 tab 11/16/21 Rx albuterol sulfate 90 mcg/actuation 2 inh INHALATION Q6H PRN #8.5 g 11/16/21 Rx aerosol inhaler benzocaine 15 mg-menthol 3.6 mg 1 kae BUCCAL QID PRN #30 ea 11/16/21 Rx lozenges (Cepacol Sore Throat (benzocaine-menthol)) ibuprofen 800 mg tablet 800 mg PO TID PRN #30 tab 11/16/21 Rx linaclotide 290 mcg capsule 290 mcg PO DAILY PRN 90 Days #90 11/16/21 11/09/21 Rx cap multivitamin with folic acid 400 1 tab PO QAM #30 tab 11/16/21 Rx mcg tablet (Daily-Ana (with folic acid)) polyethylene glycol 3350 17 gram 17 g PO DAILY PRN #30 ea 11/16/21 Rx oral powder packet (Miralax) prednisone 20 mg tablet 40 mg PO DAILY #2 tab 11/16/21 Rx Alcohol History Hx of Alcohol Use Over the Past 12 Months: Yes AUDIT Total Score: 19 Smoking Use Have You Smoked or Used Tobacco Products in the Last 30 Days: No Smoking Status: Former smoker Substance History Hx of Prescription Med Misuse Over the Past 12 Months: Yes (overdose of prescription medications) Hx of Over the Counter Med Misuse Over the Past 12 Months: No Hx of Inhalent Misuse Over the Past 12 Months: No Hx of Organic Substance Use Over the Past 12 Months: No Hx of Illegal Substances/Street Drug Use Over Past 12 Months: No Problems as a Result of Past Substance Use: Relationships Ended, Life out of Control and Attempted Suicide Problems as a Result of Past Substance Use Comments: possible DUI r/t ovedose/ETOH use Personal History Highest Grade 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: 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) Employment Status: [employer] Employed (will submit for leave of absence) Marital Status: Number Of Children: 2 boys, 1 has a seizure disorder Beliefs That Will Affect Care: None Hx Legal Problems: No Patient History Medical History Acne Alcohol use disorder Chronic constipation Chronic sinusitis Depression Exercise-induced asthma Family history of colonic polyps GERD (gastroesophageal reflux disease) History of menorrhagia History of uterine leiomyoma Surgical History History of delivery x 2 History of esophagogastroduodenoscopy (EGD) History of loop electrical excision procedure (LEEP) History of robot-assisted laparoscopic hysterectomy History of tubal ligation Family History Son Allergic to eggs Esophagitis, eosinophilic Milk allergy Soy allergy Wheat allergy Grandfather (Paternal) Stroke Colorectal cancer Heart disease CHF Diabetes Mother Hepatic cirrhosis Leiomyoma of body of uterus Alcohol abuse Father Colonic polyp, Onset Age: 50 Anxiety Social History Smoking Status: Former smoker Tobacco Type: Cigarettes Age Started Using Tobacco: 18; Age Quit Using Tobacco: 25; Cigarettes Per Day: unsure-smoked socially; Second Hand Exposure: No; Hx Alcohol Use: Yes Alcohol type: beer and wine Alcohol Intake Frequency: Monthly or Less Hx Substance Use: Yes Last Used Substance: Just Prior to Arrival Preferred Language: Northern Irish Communication Ability: Effective Visual Impairment: No Limitations Hearing Ability: Normal Road Consultant Required: No Beliefs That Will Affect Care: None marital status: Current Living Situation: Spouse and Family Current Living Situation Comment: 2 children current occupational status: employed 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 Feels Safe at Home: Yes Childhood Exposure to Second-Hand Smoke: No Dental Care, Regularly: Yes Physical Activity Frequency: 3-4 Times per Week Seatbelt Use: always Sunscreen Use: Yes Assistive Devices: None Review of Systems Review of Systems: All systems reviewed & are unremarkable except as noted in HPI & below Physical Exam Psychiatric: Orientation: alert and oriented x 3 Apperance: appropriately dressed and appropriately groomed Eye Contact: good eye contact Motor Behavior: no abnormal motor movements Speech: normal rate/rhythm/volume of speech Affect: + depressed affect Mood: + depressed mood Thought Process: goal directed thought process Thought Content: reality based without delusions Suicidal Thoughts: + reports suicidal thoughts (passive, future focussed re: rehab) Homicidal Thoughts: denies homicidal thoughts Hallucinations: no auditory hallucinations and no visual hallucinations Cognition: attention grossly intact and language grossly intact Estimated Intelligence: consistent with education level Insight: + limited insight Judgement: + limited judgement Vital Signs (Past 24 Hours): Last Vital Signs Temp 36.8 C 11/16/21 20:05 Pulse 87 11/16/21 17:12 Resp 18 11/16/21 17:12 BP 104/71 11/16/21 17:12 Exam Statement: A physical exam was performed on the medical floor by the hospitalist service and I accept that PE as well as medical clearance by Dr. Dai for the purposes of inpatient physical. Results & Data [facility] Laboratory Results See medical admission. Current Inpatient Medications Current Inpatient Medications: Current Inpatient Medications Acetaminophen (Acetaminophen 325 Mg Tab) 650 mg PO Q4H PRN PRN Reason: Headache or Minor Fever Stop: 12/16/21 16:18 Al Hydrox/Mg Hydrox/Simethicone (Aluminum/Magnesium Susp 30 Ml Udc) 30 ml PO Q4H PRN PRN Reason: GI Upset Stop: 12/16/21 16:18 Albuterol (Albuterol Hfa 8 Gm Inhaler) 2 puffs INH Q6R PRN PRN Reason: shortness of breath or wheezing Stop: 12/16/21 17:18 Bismuth Subsalicylate (Bismuth Subsalicylate Liqd 236 Ml) 15 ml PO PRN PRN PRN Reason: Loose Stool Stop: 12/16/21 16:18 Folic Acid (Folic Acid 1 Mg Tab) 1 mg PO DAILY KATJA Stop: 12/17/21 08:59 Hydroxyzine HCl (Hydroxyzine Hcl 25 Mg Tab) 50 mg PO HSZ PRN PRN Reason: Insomnia Stop: 12/16/21 16:18 Hydroxyzine HCl (Hydroxyzine Hcl 25 Mg Tab) 25 mg PO Q4H PRN PRN Reason: Anxiety Stop: 12/16/21 16:18 Ibuprofen (Ibuprofen 800 Mg Tab) 800 mg PO TID PRN PRN Reason: pain Stop: 12/16/21 17:46 Last Admin: 11/16/21 19:52 Dose: 800 mg Documented by: Menthol (Cough Drop (Sugar Free) Kae 24 Kae/1 Box) 1 kae BUCCAL QID PRN PRN Reason: sore throat Stop: 12/16/21 17:18 Last Admin: 11/16/21 19:30 Dose: 1 kae Documented by: Multi-Ingredient Mouthwash/Gargle (First - Mouthwash Blm 119 Ml) 5 ml PO Q4 PRN PRN Reason: Pain Stop: 12/16/21 19:59 Multivitamins (Multivitamin Tab) 1 tab PO QAM KATJA Stop: 12/17/21 08:59 Pantoprazole Sodium (Pantoprazole 40 Mg Tab) 40 mg PO QAM KATJA Stop: 12/17/21 08:59 Polyethylene Glycol (Polyethylene (Miralax) 17 Gm Pack) 17 gm PO DAILY PRN PRN Reason: constipation Stop: 12/16/21 17:59 Prednisone (Prednisone 20 Mg Tab) 40 mg PO DAILY KATJA Stop: 12/17/21 08:59 Sodium Chloride (Sodium Chloride 0.65% Na Soln 45 Ml (Latimer)) 1 - 2 sprays NA PRN PRN PRN Reason: Nasal Dryness/Congestion Stop: 12/16/21 16:18 Thiamine HCl (Thiamine Hcl 100 Mg Tab) 100 mg PO DAILY KATJA Stop: 12/17/21 08:59
[2021-11-17] MEDS: IBUPROFEN 800 MG TAB PO PRN ×2 (04:00→20:26)
[2021-11-17] MEDS: FOLIC ACID 1 MG TAB PO SCH (08:46)
[2021-11-17] MEDS: PANTOprazole 40 MG TAB PO SCH (08:47)
[2021-11-17] MEDS: MULTIVITAMIN TAB PO SCH (08:47)
[2021-11-17] MEDS: THIAMINE HCL 100 MG TAB PO SCH (08:47)
[2021-11-17] MEDS: predniSONE 20 MG TAB PO SCH (08:47)
[2021-11-17] MEDS: COUGH DROP (SUGAR FREE) LOZ 24 LOZ/1 BOX BUCCAL PRN (08:51)
[2021-11-17] MEDS: FIRST - Mouthwash BLM 119 ML PO PRN ×3 (09:28→17:07)
--- NOTE | 2021-11-17 15:25 | Psychiatric Progress Note ---
Date of Service November 17, 2021 Impression / Recommendations Impression 41 yo female s/p Seroquel and ETOH OD, difficult intubation with residual asthma/laryngeal edema (resolving), tapering steroid. 11/17/21: mood improving, Lungs with bilateral upper airway wheezes, clearing lower airways with good inspiratory efforts. (1) MDD (major depressive disorder), recurrent episode, severe: (2) Suicide attempt by drug overdose: (3) Alcohol use disorder: 11/17/21: patient prefers to remain off of psychiatric medications and focus on recovery/rehab program. [facility] to [facility] paperwork and department will notify med staff office on leave. 11/16/21: [facility] on q15 min checks (behavioral with suicide precautions) for safety. The patient will participate in group, recreational, and milieu therapies and will be offered additional individual and family sessions as clinically appropriate. Will discuss medication options tomorrow, main goal is getting patient to dual dx rehab treatment. The patient's AUDIT score suggests problematic drinking (Zone III WHO). Brief intervention was offered and accepted. Intervention was greater than 5 min in length and included assessing readiness to quit, motivation toward rehab (interest in [facility]) and impact on med staff role. She currently has a machine adjuster leader case trim with the [place] [facility]. heater worker will also assist in anticipating barriers to sobriety and in problem-solving for solutions to those problems while arranging for referral to appropriate treatment. The patient is in action stage with regards to transtheoretical model of change and would like to transition to rehab as soon as possible/feels more stable. She will be provided with the recovery workbook. Risk Factors Assessment : Yes Do You Have Access To A Gun?: No Mental Health Diagnoses: Yes Substance Use Disorders: Yes Previous Attempt: Yes Previous Attempt; Highly Lethal: Yes Previous Psychiatric Hospitalization: Yes Protective Factors Assessment : Yes (but ) Responsible for Young Children: Yes Employed: Yes Interval History Identifying Information ALENA TORRES is a 41-year-old F who currently lives in [place], has a history of multiple suicide attempts, and was admitted on 11/16/21 16:51 on a 201 voluntary commitment on discharge from the medical floor s/p suicide attempt. Chief Complaint "I feel like things happen for a reason and I'm ready for next steps." Review of Systems Sleep Information Total Hours of Sleep: 5 Sleep Comments: pt on q-15 minute checks Meal Information Percent Meal Consumed - Breakfast: 100 Percent Meal Consumed - Lunch: 100 Percent Meal Consumed - Dinner: 100 Subjective Subjective Patient was seen & assessed and interval progress reviewed with nursing and social work. Patient is motivated toward [employer] [facility] program and CM/monitoring with appropriate peer nursing program. She reports some ongoing asthma symptoms, her voice/ST is about the same but able to eat better with lidocaine prior to meals. Physical Exam Psychiatric Orientation: alert and oriented x 3 Apperance: appropriately dressed and appropriately groomed Eye Contact: good eye contact Motor Behavior: no abnormal motor movements Speech: normal rate/rhythm/volume of speech Affect: + depressed affect Mood: + depressed mood Thought Process: goal directed thought process Thought Content: reality based without delusions denied suicidal thoughts Homicidal Thoughts: denies homicidal thoughts Hallucinations: no auditory hallucinations and no visual hallucinations Cognition: attention grossly intact and language grossly intact Estimated Intelligence: consistent with education level Insight: + limited insight Judgement: + limited judgement Vital Signs (Past 24 Hours) Last Vital Signs Temp 37 C 11/17/21 06:24 Pulse 101 H 11/17/21 14:51 Resp 18 11/17/21 10:41 BP 117/73 11/17/21 14:51 Pulse Ox 98 11/17/21 10:41 Results & Data ([facility]) Current Inpatient Medications Current Inpatient Medications: Current Inpatient Medications Acetaminophen (Acetaminophen 325 Mg Tab) 650 mg PO Q4H PRN PRN Reason: Headache or Minor Fever Stop: 12/16/21 16:18 Al Hydrox/Mg Hydrox/Simethicone (Aluminum/Magnesium Susp 30 Ml Udc) 30 ml PO Q4H PRN PRN Reason: GI Upset Stop: 12/16/21 16:18 Albuterol (Albuterol Hfa 8 Gm Inhaler) 2 puffs INH Q4RWA KATJA Stop: 12/17/21 15:19 Bismuth Subsalicylate (Bismuth Subsalicylate Liqd 236 Ml) 15 ml PO PRN PRN PRN Reason: Loose Stool Stop: 12/16/21 16:18 Folic Acid (Folic Acid 1 Mg Tab) 1 mg PO DAILY KATJA Stop: 12/17/21 08:59 Last Admin: 11/17/21 08:46 Dose: 1 mg Documented by: Hydroxyzine HCl (Hydroxyzine Hcl 25 Mg Tab) 50 mg PO HSZ PRN PRN Reason: Insomnia Stop: 12/16/21 16:18 Hydroxyzine HCl (Hydroxyzine Hcl 25 Mg Tab) 25 mg PO Q4H PRN PRN Reason: Anxiety Stop: 12/16/21 16:18 Ibuprofen (Ibuprofen 800 Mg Tab) 800 mg PO TID PRN PRN Reason: pain Stop: 12/16/21 17:46 Last Admin: 11/17/21 04:00 Dose: 800 mg Documented by: Menthol (Cough Drop (Sugar Free) Kae 24 Kae/1 Box) 1 kae BUCCAL QID PRN PRN Reason: sore throat Stop: 12/16/21 17:18 Last Admin: 11/17/21 08:51 Dose: 1 kae Documented by: Multi-Ingredient Mouthwash/Gargle (First - Mouthwash Blm 119 Ml) 5 ml PO Q4 PRN PRN Reason: Pain Stop: 12/16/21 19:59 Last Admin: 11/17/21 12:40 Dose: 5 ml Documented by: Multivitamins (Multivitamin Tab) 1 tab PO QAM KATJA Stop: 12/17/21 08:59 Last Admin: 11/17/21 08:47 Dose: 1 tab Documented by: Pantoprazole Sodium (Pantoprazole 40 Mg Tab) 40 mg PO QAM KATJA Stop: 12/17/21 08:59 Last Admin: 11/17/21 08:47 Dose: 40 mg Documented by: Polyethylene Glycol (Polyethylene (Miralax) 17 Gm Pack) 17 gm PO DAILY PRN PRN Reason: constipation Stop: 12/16/21 17:59 Prednisone (Prednisone 20 Mg Tab) 40 mg PO DAILY KATJA Stop: 12/17/21 08:59 Last Admin: 11/17/21 08:47 Dose: 40 mg Documented by: Sodium Chloride (Sodium Chloride 0.65% Na Soln 45 Ml ([place])) 1 - 2 sprays NA PRN PRN PRN Reason: Nasal Dryness/Congestion Stop: 12/16/21 16:18 Thiamine HCl (Thiamine Hcl 100 Mg Tab) 100 mg PO DAILY KATJA Stop: 12/17/21 08:59 Last Admin: 03/29/22 08:47 Dose: 100 mg Documented by: Mental Health & Subst Abuse Tx Therapist Name of Therapist: [facility] Post Discharge Appointments Primary Care Physician Name Of Family Doctor: Dr. Radha Campbell
[2021-11-17] MEDS: ALBUTEROL HFA 8 GM INHALER INH SCH ×2 (16:35→20:08)
[2021-11-18] MEDS: COUGH DROP (SUGAR FREE) LOZ 24 LOZ/1 BOX BUCCAL PRN (02:10)
[2021-11-18] MEDS: IBUPROFEN 800 MG TAB PO PRN ×2 (05:11→21:58)
[2021-11-18] MEDS: ALBUTEROL HFA 8 GM INHALER INH SCH ×4 (06:50→18:31)
[2021-11-18] MEDS: FIRST - Mouthwash BLM 119 ML PO PRN ×2 (08:41→17:27)
[2021-11-18] MEDS: FOLIC ACID 1 MG TAB PO SCH (08:42)
[2021-11-18] MEDS: MULTIVITAMIN TAB PO SCH (08:42)
[2021-11-18] MEDS: predniSONE 20 MG TAB PO SCH (08:43)
[2021-11-18] MEDS: PANTOprazole 40 MG TAB PO SCH (08:43)
[2021-11-18] MEDS: THIAMINE HCL 100 MG TAB PO SCH (08:43)
--- NOTE | 2021-11-18 12:00 | Psychiatric Progress Note ---
Date of Service November 18, 2021 Impression / Recommendations Impression 41 yo female s/p Seroquel and ETOH OD, difficult intubation with residual asthma/laryngeal edema (resolving), tapering steroid. 11/18/21: improving (1) MDD (major depressive disorder), recurrent episode, severe: (2) Suicide attempt by drug overdose: (3) Alcohol use disorder: 11/18/21: medically and psychiatrically stable for discharge to rehab. Bed acceptance pending. Will write prednisone taper at discharge. 11/17/21: patient prefers to remain off of psychiatric medications and focus on recovery/rehab program. Referral to [facility]. [facility] paperwork and department will notify med staff office on leave. 11/16/21: [facility] on q15 min checks (behavioral with suicide precautions) for safety. The patient will participate in group, recreational, and milieu therapies and will be offered additional individual and family sessions as clinically appropriate. Will discuss medication options tomorrow, main goal is getting patient to dual dx rehab treatment. The patient's AUDIT score suggests problematic drinking (Zone III WHO). Brief intervention was offered and accepted. Intervention was greater than 5 min in length and included assessing readiness to quit, motivation toward rehab (interest in [facility]) and impact on med staff role. She currently has a case preparer and liner with the [place] [facility]. bench worker helper will also assist in anticipating barriers to sobriety and in problem-solving for solutions to those problems while arranging for referral to appropriate treatment. The patient is in action stage with regards to transtheoretical model of change and would like to transition to rehab as soon as possible/feels more stable. She will be provided with the recovery workbook. Risk Factors Assessment : Yes Do You Have Access To A Gun?: No Mental Health Diagnoses: Yes Substance Use Disorders: Yes Previous Attempt: Yes Previous Attempt; Highly Lethal: Yes Previous Psychiatric Hospitalization: Yes Protective Factors Assessment : Yes (but ) Responsible for Young Children: Yes Employed: Yes Interval History Identifying Information ALENA TORRES is a 41-year-old F who currently lives in [place], has a history of multiple suicide attempts, and was admitted on 11/16/21 16:51 on a 201 voluntary commitment on discharge from the medical floor s/p suicide attempt. Chief Complaint "ready for my next step". Review of Systems Sleep Information Total Hours of Sleep: 4.5 Sleep Comments: pt CHARLES @0450 and thereafter. pt in dayarea reading a book. pt on q-15 minute checks Meal Information Percent Meal Consumed - Breakfast: 100 Percent Meal Consumed - Lunch: 100 Percent Meal Consumed - Dinner: 80 Subjective Subjective Patient was seen & assessed and interval progress reviewed with treatment team. Family meeting with today. She misses her kids and is hoping to spend some time with them prior to and during her travel to rehab. She denies SOB and voice is stronger today. Eating and drinking well. She continues to deny suicidal ideation. Physical Exam Psychiatric Orientation: alert and oriented x 3 Apperance: appropriately dressed and appropriately groomed Eye Contact: good eye contact Motor Behavior: no abnormal motor movements Speech: normal rate/rhythm/volume of speech Affect: euthymic affect Mood: + depressed mood Thought Process: goal directed thought process Thought Content: reality based without delusions Suicidal Thoughts: denies suicidal thoughts Homicidal Thoughts: denies homicidal thoughts Hallucinations: no auditory hallucinations and no visual hallucinations Cognition: attention grossly intact and language grossly intact Estimated Intelligence: consistent with education level Insight: + fair insight Judgement: + fair judgement Vital Signs (Past 24 Hours) Last Vital Signs Temp 37.2 C 11/18/21 06:24 Pulse 99 H 11/18/21 06:24 Resp 18 11/18/21 06:24 BP 108/75 11/18/21 06:24 Pulse Ox 98 11/17/21 16:35 Results & Data ([facility]) Current Inpatient Medications Current Inpatient Medications: Current Inpatient Medications Acetaminophen (Acetaminophen 325 Mg Tab) 650 mg PO Q4H PRN PRN Reason: Headache or Minor Fever Stop: 12/16/21 16:18 Al Hydrox/Mg Hydrox/Simethicone (Aluminum/Magnesium Susp 30 Ml Udc) 30 ml PO Q4H PRN PRN Reason: GI Upset Stop: 12/16/21 16:18 Albuterol (Albuterol Hfa 8 Gm Inhaler) 2 puffs INH Q4RWA KATJA Stop: 12/17/21 15:19 Last Admin: 11/18/21 10:47 Dose: 2 puffs Documented by: Bismuth Subsalicylate (Bismuth Subsalicylate Liqd 236 Ml) 15 ml PO PRN PRN PRN Reason: Loose Stool Stop: 12/16/21 16:18 Folic Acid (Folic Acid 1 Mg Tab) 1 mg PO DAILY [facility] Stop: 12/17/21 08:59 Last Admin: 11/18/21 08:42 Dose: 1 mg Documented by: Hydroxyzine HCl (Hydroxyzine Hcl 25 Mg Tab) 50 mg PO HSZ PRN PRN Reason: Insomnia Stop: 12/16/21 16:18 Hydroxyzine HCl (Hydroxyzine Hcl 25 Mg Tab) 25 mg PO Q4H PRN PRN Reason: Anxiety Stop: 12/16/21 16:18 Ibuprofen (Ibuprofen 800 Mg Tab) 800 mg PO TID PRN PRN Reason: pain Stop: 12/16/21 17:46 Last Admin: 11/18/21 05:11 Dose: 800 mg Documented by: Menthol (Cough Drop (Sugar Free) Kae 24 Kae/1 Box) 1 kae BUCCAL QID PRN PRN Reason: sore throat Stop: 12/16/21 17:18 Last Admin: 11/18/21 02:10 Dose: 1 kae Documented by: Multi-Ingredient Mouthwash/Gargle (First - Mouthwash Blm 119 Ml) 5 ml PO Q4 PRN PRN Reason: Pain Stop: 12/16/21 19:59 Last Admin: 11/18/21 08:41 Dose: 5 ml Documented by: Multivitamins (Multivitamin Tab) 1 tab PO QAM [facility] Stop: 12/17/21 08:59 Last Admin: 11/18/21 08:42 Dose: 1 tab Documented by: Pantoprazole Sodium (Pantoprazole 40 Mg Tab) 40 mg PO QAM [facility] Stop: 12/17/21 08:59 Last Admin: 11/18/21 08:43 Dose: 40 mg Documented by: Polyethylene Glycol (Polyethylene (Miralax) 17 Gm Pack) 17 gm PO DAILY PRN PRN Reason: constipation Stop: 12/16/21 17:59 Prednisone (Prednisone 20 Mg Tab) 40 mg PO DAILY [facility] Stop: 12/17/21 08:59 Last Admin: 11/18/21 08:43 Dose: 40 mg Documented by: Sodium Chloride (Sodium Chloride 0.65% Na Soln 45 Ml ([place])) 1 - 2 sprays NA PRN PRN PRN Reason: Nasal Dryness/Congestion Stop: 12/16/21 16:18 Thiamine HCl (Thiamine Hcl 100 Mg Tab) 100 mg PO DAILY KATJA Stop: 12/17/21 08:59 Last Admin: 11/18/21 08:43 Dose: 100 mg Documented by: Mental Health & Subst Abuse Tx Psychiatrist Name of Psychiatrist: [facility] Comment: Follow up after completion of rehab. Therapist Name of Therapist: [facility] Appointment Comment: Follow up after completion of rehab. Photo Lab Technician Name of Photo Lab Technician: JIMENEZ Roman Phone Number for Photo Lab Technician: [phone] ext. [phone] Case Management Appointment Comment: Follow up with additional needs/concerns/progress. Post Discharge Appointments Primary Care Physician Name Of Family Doctor: ATIYA - Dr. Radha Campbell Provider Appointment Comment: Follow up after completion of rehab. Specialist Name of Specialist: Sara Govea [place] Phone Number for Specialist: [phone] Specialty Appointment Comment: [address], [place] [address]
[2021-11-19] MEDS: FIRST - Mouthwash BLM 119 ML PO PRN ×2 (04:45→15:27)
[2021-11-19] MEDS: COUGH DROP (SUGAR FREE) LOZ 24 LOZ/1 BOX BUCCAL PRN ×2 (07:47→11:00)
[2021-11-19] MEDS: ALBUTEROL HFA 8 GM INHALER INH SCH ×4 (07:49→20:07)
[2021-11-19] MEDS: FOLIC ACID 1 MG TAB PO SCH (07:49)
[2021-11-19] MEDS: MULTIVITAMIN TAB PO SCH (07:50)
[2021-11-19] MEDS: PANTOprazole 40 MG TAB PO SCH (07:50)
[2021-11-19] MEDS: THIAMINE HCL 100 MG TAB PO SCH (07:51)
[2021-11-19] MEDS: predniSONE 20 MG TAB PO SCH (07:51)
--- NOTE | 2021-11-19 13:53 | Psychiatric Progress Note ---
Date of Service November 19, 2021 Impression / Recommendations Impression 41 yo female s/p Seroquel and ETOH OD, difficult intubation with residual asthma/laryngeal edema (resolving), tapering steroid. 11/19/21: accepted to program recommended by [facility]. (1) MDD (major depressive disorder), recurrent episode, severe: (2) Suicide attempt by drug overdose: (3) Alcohol use disorder: 11/19/21: met with patient for the 4th time today to review discharge planning. Reviewed my recommendation that she transition to rehab by secure transport in am (which is the plan that is now supported by ). She was clearly disappointed but voiced understanding of the medical decision making and wants to comply with all recs. Staff to assist with notification of family/friends and gathering necessary items. Transport by [facility] before 6 am. 11/18/21: medically and psychiatrically stable for discharge to rehab. Bed acceptance pending. Will write prednisone taper at discharge. 11/17/21: patient prefers to remain off of psychiatric medications and focus on recovery/rehab program. Referral to [facility]. [facility] paperwork and department will notify med staff office on leave. 11/16/21: [facility]) on q15 min checks (behavioral with suicide precautions) for safety. The patient will participate in group, recreational, and milieu therapies and will be offered additional individual and family sessions as clinically appropriate. Will discuss medication options tomorrow, main goal is getting patient to dual dx rehab treatment. The patient's AUDIT score suggests problematic drinking (Zone III WHO). Brief intervention was offered and accepted. Intervention was greater than 5 min in length and included assessing readiness to quit, motivation toward rehab (interest in [facility]) and impact on med staff role. She currently has a case folder with the [place] [facility]. production line worker will also assist in anticipating barriers to sobriety and in problem-solving for solutions to those problems while arranging for referral to appropriate treatment. The patient is in action stage with regards to transtheoretical model of change and would like to transition to rehab as soon as possible/feels more stable. She will be provided with the recovery workbook. Risk Factors Assessment : Yes Do You Have Access To A Gun?: No Mental Health Diagnoses: Yes Substance Use Disorders: Yes Previous Attempt: Yes Previous Attempt; Highly Lethal: Yes Previous Psychiatric Hospitalization: Yes Protective Factors Assessment : Yes (but ) Responsible for Young Children: Yes Employed: Yes Interval History Identifying Information MASSIEL TORRES is a 41-year-old F who currently lives in [place], has a history of multiple suicide attempts, and was admitted on 11/16/21 16:51 on a 201 voluntary commitment on discharge from the medical floor s/p suicide attempt. Chief Complaint "I really don't want this to be a lateral move." Review of Systems Sleep Information Total Hours of Sleep: 5.25 Meal Information Percent Meal Consumed - Breakfast: 100 Percent Meal Consumed - Lunch: 75 Percent Meal Consumed - Dinner: 100 Subjective Subjective Patient was seen & assessed and interval progress reviewed with nursing and social work. I spent time with patient and transition social worker while she was communicating with [facility] as she had some initial reservations about the [facility] program ([facility]), wanted to ensure met dual dx/rehab requirements as goal is return to practice after the program. It was reinforced by [facility] that she would be stepping down to an IOP program for several weeks and the patient identified preference for [facility] as already established but will be determined during her caer at [facility]. Reviewed FMLA and short term disability paperwork. Bed availability for 11/20/21 was confirmed with arrival "as early as possible" The patient continued to request the previous plan (prior to denial from Sara) that transport. Reviewed same concern that relationship issues were a contributing factor to her depression/ETOH use; she reports that he has been discussing goal for reconciliation. Reviewed focus should be on recovery prior to longer term decision making. Previous rationale for time at home was really to accommodate seeing kids as we do not have visiting at this time; she and her decided that seeing kids again and leaving right away would be confusing. requested to speak with provider following meeting with to discuss medication concerns and discharge plan. Reviewed that given her lack of lability on unit, as well as concerns about disinhibition on antidepressants/Abilify, I felt it important to reestablish a baseline (hx of multiple med changes) with ongoing consideration for medications during her recovery program. Again reinforced safety plan as he stated he planned to stay over with her as he had made arrangements for the kids. Reviewed that previous plan was for her friends to stay with her and I had concerns about even transport tomorrow given their marital status. He stated that he had spoken with "4 of her friends and she'd have 5 people with her" at all times. Reviewed with the patient and her that we would like to discuss safety plan further with these identified supports given need for monitoring for sharps, OTC meds, etc. Staff attempted to confirm availability of friend with contact provided. No answer per staff. Patient provided additional names. The next 2 names stated they planned to visit but could not stay overnight. Met with patient to review her hospitalization and reflect on her attempt in general. Sat with her while she emailed Cecy in the med staff office to of ficially request a leave of absence from the medical staff. Massiel provided additional contact info for neighbor/friend who she was hoping to stay with joceline. Physical Exam Psychiatric Orientation: alert and oriented x 3 Apperance: appropriately dressed and appropriately groomed Eye Contact: good eye contact Motor Behavior: no abnormal motor movements Speech: normal rate/rhythm/volume of speech Affect: euthymic affect Mood: + anxious mood Thought Process: goal directed thought process Thought Content: reality based without delusions Suicidal Thoughts: denies suicidal thoughts Homicidal Thoughts: denies homicidal thoughts Hallucinations: no auditory hallucinations and no visual hallucinations Cognition: attention grossly intact and language grossly intact Estimated Intelligence: consistent with education level Vital Signs (Past 24 Hours) Last Vital Signs Temp 37.0 C 11/19/21 06:25 Pulse 79 11/19/21 06:26 Resp 16 11/19/21 06:25 BP 105/75 11/19/21 06:26 Pulse Ox 98 11/17/21 16:35 Results & Data ([facility]) Current Inpatient Medications Current Inpatient Medications: Current Inpatient Medications Acetaminophen (Acetaminophen 325 Mg Tab) 650 mg PO Q4H PRN PRN Reason: Headache or Minor Fever Stop: 12/16/21 16:18 Al Hydrox/Mg Hydrox/Simethicone (Aluminum/Magnesium Susp 30 Ml Udc) 30 ml PO Q4H PRN PRN Reason: GI Upset Stop: 12/16/21 16:18 Albuterol (Albuterol Hfa 8 Gm Inhaler) 2 puffs INH Q4RWA KATJA Stop: 12/17/21 15:19 Last Admin: 11/19/21 11:05 Dose: 2 puffs Documented by: Bismuth Subsalicylate (Bismuth Subsalicylate Liqd 236 Ml) 15 ml PO PRN PRN PRN Reason: Loose Stool Stop: 12/16/21 16:18 Folic Acid (Folic Acid 1 Mg Tab) 1 mg PO DAILY KATJA Stop: 12/17/21 08:59 Last Admin: 11/19/21 07:49 Dose: 1 mg Documented by: Hydroxyzine HCl (Hydroxyzine Hcl 25 Mg Tab) 50 mg PO HSZ PRN PRN Reason: Insomnia Stop: 12/16/21 16:18 Hydroxyzine HCl (Hydroxyzine Hcl 25 Mg Tab) 25 mg PO Q4H PRN PRN Reason: Anxiety Stop: 12/16/21 16:18 Ibuprofen (Ibuprofen 800 Mg Tab) 800 mg PO TID PRN PRN Reason: pain Stop: 12/16/21 17:46 Last Admin: 11/18/21 21:58 Dose: 800 mg Documented by: Menthol (Cough Drop (Sugar Free) Kae 24 Kae/1 Box) 1 kae BUCCAL QID PRN PRN Reason: sore throat Stop: 12/16/21 17:18 Last Admin: 11/19/21 11:00 Dose: 1 kae Documented by: Multi-Ingredient Mouthwash/Gargle (First - Mouthwash Blm 119 Ml) 5 ml PO Q4 PRN PRN Reason: Pain Stop: 12/16/21 19:59 Last Admin: 11/19/21 04:45 Dose: 5 ml Documented by: Multivitamins (Multivitamin Tab) 1 tab PO QAM KATJA Stop: 12/17/21 08:59 Last Admin: 11/19/21 07:50 Dose: 1 tab Documented by: Pantoprazole Sodium (Pantoprazole 40 Mg Tab) 40 mg PO QAM KATJA Stop: 12/17/21 08:59 Last Admin: 11/19/21 07:50 Dose: 40 mg Documented by: Polyethylene Glycol (Polyethylene (Miralax) 17 Gm Pack) 17 gm PO DAILY PRN PRN Reason: constipation Stop: 12/16/21 17:59 Prednisone (Prednisone 20 Mg Tab) 40 mg PO DAILY KATJA Stop: 12/17/21 08:59 Last Admin: 11/19/21 07:51 Dose: 40 mg Documented by: Sodium Chloride (Sodium Chloride 0.65% Na Soln 45 Ml ([place])) 1 - 2 sprays NA PRN PRN PRN Reason: Nasal Dryness/Congestion Stop: 12/16/21 16:18 Thiamine HCl (Thiamine Hcl 100 Mg Tab) 100 mg PO DAILY KATJA Stop: 12/17/21 08:59 Last Admin: 11/19/21 07:51 Dose: 100 mg Documented by: Mental Health & Subst Abuse Tx Psychiatrist Name of Psychiatrist: [facility] Comment: Follow up after completion of rehab. Therapist Name of Therapist: [facility] Appointment Comment: Follow up after completion of rehab. Wound Care Technician Name of Wound Care Technician: JIMENEZ Roman Phone Number for Wound Care Technician: [phone] ext. [phone] Case Management Appointment Comment: Follow up with additional needs/concerns/progress. Post Discharge Appointments Primary Care Physician Name Of Family Doctor: ATIYA - Dr. Radha Campbell Provider Appointment Comment: Follow up after completion of rehab. Specialist Name of Specialist: Sara Govea - [place] Phone Number for Specialist: [phone] Specialty Appointment Comment: [address], [place] [address]
[2021-11-19] MEDS: IBUPROFEN 800 MG TAB PO PRN (21:00)
[2021-11-20] MEDS: ALBUTEROL HFA 8 GM INHALER INH SCH (05:20)
[2021-11-20] MEDS: MULTIVITAMIN TAB PO SCH (05:21)
[2021-11-20] MEDS: FOLIC ACID 1 MG TAB PO SCH (05:21)
[2021-11-20] MEDS: PANTOprazole 40 MG TAB PO SCH (05:22)
[2021-11-20] MEDS: THIAMINE HCL 100 MG TAB PO SCH (05:23)
[2021-11-20] MEDS: FIRST - Mouthwash BLM 119 ML PO PRN (05:26)
[2021-11-20] MEDS ORDERED: predniSONE 10 MG TABLET PO SCH (09:00)
== END 2021-11-20 05:52 | disposition alcohol treatment (31) | DRG 885 ==
LOC: 3S 16:51
DX: K21.9 Gastro-esophageal reflux disease without esophagitis; Z90.710 Acquired absence of both cervix and uterus; Z91.51 Personal history of suicidal behavior; F10.10 Alcohol abuse, uncomplicated; K59.09 Other constipation; Z98.51 Tubal ligation status; F33.2 Major depressive disorder, recurrent severe without psychotic features; Z87.891 Personal history of nicotine dependence; J45.990 Exercise induced bronchospasm; Z79.52 Long term (current) use of systemic steroids

== ENCOUNTER 2022-01-19 11:27 | Inpatient (IN) ==
--- NOTE | 2022-01-19 11:56 | Emergency Department Note ---
Impression & Plan Stridor, Dyspnea ED Provider Note NAME: ALENA TORRES AGE: 41 SEX: F : 1980 ARRIVES VIA: Walk-In INFORMANT: Patient, ED PROVIDER(S): Kareem Thomas MD Chief Complaint: Shortness of breath, throat HPI: Patient presents due to concern for shortness of breath as well as some stridor. The patient relates that she was admitted and had to be intubated 2 months ago. Patient has had some difficulty with her voice since then. The patient had been seen by Dr. Valenzuela in the outpatient setting. Patient was seen by ear nose and throat Dr. Valenzuela on December 23. At time she had been seen for dysphonia and dyspnea. 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 Patient was undergoing speech therapy and had already received high-dose steroids. Patient feels as though her symptoms have worsened over the last 3 weeks but maybe even worse in the last 2 days with stridor presenting today. No known cough fever chills. The patient denies any chest pains or difficulty with swallowing. The patient does not believe that she recently swallowed or aspirated something. Patient has not taken anything for symptoms at home. No known allergies. Patient denies any vomiting or diarrhea. ROS: See HPI for pertinent positives and negatives. A total of 10 systems were reviewed and otherwise negative. Past medical history: See below Surgical history: See below Social history: See below Physical Exam: GENERAL: NAD, wearing a mask, non-toxic. EYE EXAM: Normal conjunctiva. PERRL, no anisocoria and EOM's grossly intact w/o pain. OROPHARYNX: Moist mucus membranes. Grossly normal dentition. No exudate, posterior pharynx is clear, no tonsillar/uvular deviation or swelling. No cervical adenopathy, no submental, submandibular, or sublingual swelling. NECK: Supple, no nuchal rigidity, no adenopathy, non-tender. No signs of meningismus. FROM of the neck with good chin to chest and neck extension. Mild stridor noted. LUNGS: Clear to auscultation. Normal chest wall mechanics. HEART: NSR, no MRG. ABDOMEN: Abdomen soft, non-tender, normo-active bowel sounds, no masses, no rebound or guarding. BACK: No CVA TTP. SKIN: No rashes and no bruising. UPPER EXTREMITIES: Upper extremities are grossly normal. LOWER EXTREMITIES: Grossly normal, no edema. NEURO EXAM: A&O x3, cranial nerves II-XII grossly intact, normal speech, moves all 4 extremities on command w/o issue. Differential diagnoses: Viral syndrome, vocal cord dysfunction, obstruction, tonsillitis, streptococcal pharyngitis, mononucleosis, peritonsillar abscess, retropharyngeal abscess, otitis, pneumonia, influenza, as well as other pathologies. Course: Patient was seen and evaluated the bedside. Full history physical exam was performed. Imaging Studies: See Below Cardiac monitoring: An order was placed for continuous cardiac monitoring. The monitor shows a rate of 65 with sinus rhythm. MDM: Patient was seen due to concern for stridor. The patient did have blood work completed along with a CT soft tissue neck. The patient's blood work fairly unremarkable. CT soft tissue neck is negative. The patient did receive racemic epinephrine and Solu-Medrol upon presentation. Upon reassessment the patient had no further stridor. Patient did undergo an ambulatory pulse ox trial and was not symptomatic and had no desaturation. Patient's sats were maintained well in the high 90s. However, I did receive a [place] text from Dr. Valenzuela with ENT who stated that she was planning on traching the patient. Patient looks and feels well. Patient was admitted to Dr. Pa pending operative treatment. Critical Care: I have personally spent 35 minutes of critical care time in direct management of this patient. This includes bedside care, interpretation of diagnostic studies, and testing, discussion with consultants, patient, and family members, and other require inpatient management activities. This 35 minutes is in excess of all separately billable procedures. Past Med/Surg History Medical History Acne Alcohol overdose Alcohol use disorder Chronic constipation Chronic sinusitis Exercise-induced asthma Family history of colonic polyps GERD (gastroesophageal reflux disease) History of menorrhagia History of uterine leiomyoma Surgical History History of delivery x 2 History of esophagogastroduodenoscopy (EGD) History of loop electrical excision procedure (LEEP) History of robot-assisted laparoscopic hysterectomy History of tubal ligation Family History Son Allergic to eggs Esophagitis, eosinophilic Milk allergy Soy allergy Wheat allergy Grandfather (Paternal) Stroke Colorectal cancer Heart disease CHF Diabetes Mother Hepatic cirrhosis Leiomyoma of body of uterus Alcohol abuse Father Colonic polyp, Onset Age: 50 Anxiety Social History Smoking Status: Former smoker Tobacco Type: Cigarettes Age Started Using Tobacco: 18; Age Quit Using Tobacco: 25; Cigarettes Per Day: unsure-smoked socially; Second Hand Exposure: No; Do You Dip or Chew Tobacco: No; Tobacco Cessation Education Requested by Patient: No Hx Alcohol Use: Yes Alcohol type: beer and wine Alcohol Intake Frequency: Monthly or Less Hx Substance Use: Yes Last Used Substance: Just Prior to Arrival Preferred Language: [place] Communication Ability: Effective Communication Ability Comment: New Trach Visual Impairment: No Limitations Hearing Ability: Normal Conveyor Man Required: No Beliefs That Will Affect Care: None marital status: Current Living Situation: Spouse Current Living Situation Comment: 2 children current occupational status: employed current occupation: [email or web address] [place] [employer] Other Information That Helps Us Care for You: No Feels Safe at Home: Yes Safety Concerns: Feels Safe At This Time Childhood Exposure to Second-Hand Smoke: No Dental Care, Regularly: Yes Physical Activity Frequency: 3-4 Times per Week Seatbelt Use: always Sunscreen Use: Yes Assistive Devices: None Allergies Allergies Allergy/AdvReac Type Severity Reaction Status Date / Time No Known Drug Allergies Allergy Verified 01/19/22 12:54 Home Meds Home Medications Medication Instructions Recorded Confirmed folic acid 1 mg tablet 1 mg PO DAILY 09/08/21 01/19/22 thiamine mononitrate (vit B1) 100 100 mg PO DAILY 09/08/21 01/19/22 mg tablet esomeprazole magnesium 40 mg 40 mg PO QAM 11/09/21 01/19/22 capsule,delayed release prazosin 2 mg capsule 2 mg PO QPM 12/30/21 01/19/22 Previous Rx's Medication Instructions Recorded olopatadine 0.6 % nasal spray 2 spray INTRANASAL DAILY #30.5 g 07/31/21 (Patanase) acetaminophen 325 mg tablet 650 mg PO Q4H PRN #30 tab 11/16/21 albuterol sulfate 90 mcg/actuation 2 inh INHALATION Q6H PRN #8.5 g 11/16/21 aerosol inhaler ibuprofen 800 mg tablet 800 mg PO TID PRN #30 tab 11/16/21 linaclotide 290 mcg capsule 290 mcg PO DAILY PRN 90 Days #90 11/16/21 cap multivitamin with folic acid 400 1 tab PO QAM #30 tab 11/16/21 mcg tablet (Daily-Ana (with folic acid)) escitalopram oxalate 10 mg tablet 10 mg PO DAILY #90 tab 12/30/21 (Lexapro) methylprednisolone 4 mg tablets in See Rx Instructions .ROUTE 01/19/22 a dose pack .COMPLEX #21 ea Results & Data (ED) Vital Signs Vital Signs - 24 hr 01/19/22 11:42 01/19/22 12:14 01/19/22 12:34 Temperature 36.8 C Temperature Source Oral Pulse Rate 94 H Pulse Rate [Right Finger] 69 Respiratory Rate 22 16 Respiratory Effort / Characteristics Labored Short of Breath Normal for Patient Spontaneous Blood Pressure 105/66 Blood Pressure Mean 79 Blood Pressure Position Sitting Pulse Oximetry 96 99 Oxygen Delivery Method Room Air Room Air Room Air Sepsis Recent Fever Within 48 Hours No Sepsis New/Unexplained Change in Mental Status No Sepsis Action Taken by Nursing No Action Required Home Medications Current Medication List: was personally reviewed by me Laboratory Data Attestation: I reviewed the patient's lab results. Result diagrams: 01/20/22 05:18 01/20/22 05:18 Lab Results 01/19/22 01/19/22 01/19/22 Range/Units 12:15 12:15 12:41 WBC 7.53 (4.8-10.8) K/uL RBC 4.33 (4.2-5.4) M/uL Hgb 13.5 (12.0-16.0) g/dL POC Hgb 11.9 L (12.0-16.0) g/dl Hct 39.1 (37-47) % POC Hct 35 L (37-47) % MCV 90.3 (80-100) fL MCH 31.2 (25-34) pg MCHC 34.5 (32-36) g/dL RDW Std Deviation 43.1 (36.4-46.3) fL RDW Coeff of Evgeny 12.9 (11.5-14.5) % Plt Count 317 (130-400) K/uL MPV 11.3 H (7.4-10.4) fL Immature Gran % (Auto) 0.1 % Neut % (Auto) 62.1 % Lymph % (Auto) 31.1 % [place] % (Auto) 5.4 % Eos % (Auto) 0.9 % Baso % (Auto) 0.4 % Neut # (Auto) 4.67 (1.4-6.5) K/uL Lymph # (Auto) 2.34 (1.2-3.4) K/uL [place] # (Auto) 0.41 (0.11-0.59) K/uL Eos # (Auto) 0.07 (0-0.5) K/uL Baso # (Auto) 0.03 (0-0.2) K/uL Immature Gran # (Auto) 0.01 (0.00-0.02) K/uL POC Sodium 139 (135-144) mmol/L Sodium 140 (136-145) mmol/L POC Potassium 3.9 (3.3-5.0) mmol/L Potassium 4.0 (3.5-5.1) mmol/L POC Chloride 113 H (101-112) mmol/L Chloride 109 H (98-107) mmol/L Carbon Dioxide 26 (21-32) mmol/L POC Total CO2 19 L (24-31) mmol/L Anion Gap 5 (3-11) POC Anion Gap 12.0 L (16-25) mmol/L POC BUN 6 L (7-18) mg/dl BUN 7 (6-23) mg/dl Creatinine 0.65 (0.6-1.2) mg/dl POC Creatinine 0.5 L (0.6-1.3) mg/dl Est Cr Clr Drug Dosing 102.6 ml/min Est GFR ( Amer) 127.8 ml/min Est GFR (Non-Af Amer) 110.3 ml/min BUN/Creatinine Ratio 10.8 (10-20) Glucose 95 (70-99(Fasting)) mg/dl POC Glucose (other) 96 (70-99) mg/dl Calcium 9.5 (8.5-10.1) mg/dl POC Ioniz Calcium Ketty 1.01 L (1.12-1.32) mmol/l Total Bilirubin 0.7 (0.2-1.0) mg/dl AST 14 (13-39) U/L ALT 10 (7-52) U/L Alkaline Phosphatase 59 (34-104) U/L Total Protein 7.1 (6.0-8.3) gm/dl Albumin 4.6 (3.4-5.0) gm/dl Globulin 2.5 (2.5-4.0) gm/dl Albumin/Globulin Ratio 1.8 (0.9-2) SARS-CoV-2, RNA, NAAT (NEGATIVE) 01/19/22 Range/Units 13:36 WBC (4.8-10.8) K/uL RBC (4.2-5.4) M/uL Hgb (12.0-16.0) g/dL POC Hgb (12.0-16.0) g/dl Hct (37-47) % POC Hct (37-47) % MCV (80-100) fL MCH (25-34) pg MCHC (32-36) g/dL RDW Std Deviation (36.4-46.3) fL RDW Coeff of Evgeny (11.5-14.5) % Plt Count (130-400) K/uL MPV (7.4-10.4) fL Immature Gran % (Auto) % Neut % (Auto) % Lymph % (Auto) % [place] % (Auto) % Eos % (Auto) % Baso % (Auto) % Neut # (Auto) (1.4-6.5) K/uL Lymph # (Auto) (1.2-3.4) K/uL [place] # (Auto) (0.11-0.59) K/uL Eos # (Auto) (0-0.5) K/uL Baso # (Auto) (0-0.2) K/uL Immature Gran # (Auto) (0.00-0.02) K/uL POC Sodium (135-144) mmol/L Sodium (136-145) mmol/L POC Potassium (3.3-5.0) mmol/L Potassium (3.5-5.1) mmol/L POC Chloride (101-112) mmol/L Chloride (98-107) mmol/L Carbon Dioxide (21-32) mmol/L POC Total CO2 (24-31) mmol/L Anion Gap (3-11) POC Anion Gap (16-25) mmol/L POC BUN (7-18) mg/dl BUN (6-23) mg/dl Creatinine (0.6-1.2) mg/dl POC Creatinine (0.6-1.3) mg/dl Est Cr Clr Drug Dosing ml/min Est GFR ( Amer) ml/min Est GFR (Non-Af Amer) ml/min BUN/Creatinine Ratio (10-20) Glucose (70-99(Fasting)) mg/dl POC Glucose (other) (70-99) mg/dl Calcium (8.5-10.1) mg/dl POC Ioniz Calcium Ketty (1.12-1.32) mmol/l Total Bilirubin (0.2-1.0) mg/dl AST (13-39) U/L ALT (7-52) U/L Alkaline Phosphatase (34-104) U/L Total Protein (6.0-8.3) gm/dl Albumin (3.4-5.0) gm/dl Globulin (2.5-4.0) gm/dl Albumin/Globulin Ratio (0.9-2) SARS-CoV-2, RNA, NAAT NEGATIVE (NEGATIVE) Administered Medications Acetaminophen (Acetaminophen 500 Mg Tab) 1,000 mg PO Q8H PRN PRN Reason: Fever or mild pain (1,2,3) Stop: 02/19/22 11:06 Last Admin: 01/20/22 14:39 Dose: 1,000 mg Documented by: [id number] Escitalopram Oxalate (Escitalopram Oxalate 10 Mg Tab) 10 mg PO [facility] Stop: 02/19/22 08:59 Last Admin: 01/20/22 08:19 Dose: 10 mg Documented by: [id number] Fentanyl Citrate (Fentanyl Citrate 100 Mcg/2 Ml Vial) 50 mcg IV Q2H PRN PRN Reason: Moderate Pain (4,5,6) on NRS Stop: 02/02/22 20:04 Last Admin: 01/20/22 11:26 Dose: 50 mcg Documented by: [id number] Admin: 01/20/22 07:26 Dose: 50 mcg Documented by: [id number] Admin: 01/20/22 04:15 Dose: 50 mcg Documented by: [id number] Admin: 01/19/22 21:27 Dose: 50 mcg Documented by: [id number] F[facility] ([facility] 1 Mg Tab) [facility] Stop: 02/19/22 11:44 Last Admin: 01/20/22 12:12 Dose: 1 mg Documented by: [id number] Pantoprazole Sodium (Pantoprazole 40 Mg Tab) 40 mg PO [facility] Stop: 02/19/22 08:59 Last Admin: 01/20/22 08:19 Dose: 40 mg Documented by: [id number] Thiamine HCl (Thiamine Hcl 100 Mg Tab) 100 mg PO [facility] Stop: 02/19/22 08:59 Last Admin: 01/20/22 08:19 Dose: 100 mg Documented by: [id number] Discontinued Medications Diphenhydramine HCl (Diphenhydramine 50 Mg/Ml Vial) 12.5 mg IV NOW STA Stop: 01/19/22 22:11 Last Admin: 01/20/22 00:03 Dose: Not Given Documented by: [id number] Epinephrine (Racepinephrine 2.25% Nebu Soln 0.5 Ml Vial) 0.5 ml NEB NOW STA Stop: 01/19/22 12:11 Last Admin: 01/19/22 12:33 Dose: 0.5 ml Documented by: [id number] Fentanyl Citrate (Fentanyl Citrate 100 Mcg/2 Ml Vial) 50 mcg IV Q5M PRN PRN Reason: PACU Use Only-Pain Stop: 01/20/22 01:22 Last Admin: 01/19/22 18:27 Dose: 50 mcg Documented by: [id number] Sodium Chloride (Nss 1000ml) 1,000 mls @ 999 mls/hr IV .[id number] ONE Stop: 01/19/22 13:14 Last Infusion: 01/19/22 13:22 Dose: 0 mls/hr Documented by: [id number] Admin: 01/19/22 12:27 Dose: 999 mls/hr Documented by: [id number] Parenteral Electrolytes (Plasma-Lyte A) 1,000 mls @ 80 mls/hr IV .[id number] [facility] Stop: 02/18/22 20:14 Last Infusion: 01/20/22 07:38 Dose: 0 mls/hr Documented by: [id number] Admin: 01/19/22 21:27 Dose: 80 mls/hr Documented by: [id number] Magnesium Sulfate/Dextrose (Magnesium Sulfate / D5w) 1 gm in 100 mls @ 50 mls/hr IV ONE ONE Stop: 01/20/22 09:57 Last Infusion: 01/20/22 10:39 Dose: 0 mls/hr Documented by: [id number] Admin: 01/20/22 08:19 Dose: 50 mls/hr Documented by: [id number] Ioversol (Optiray 320 100ml) 94 ml IV ONCE ONE Stop: 01/19/22 13:18 Last Admin: 01/19/22 13:17 Dose: 94 ml Documented by: [id number] Methylprednisolone (Methylprednisolone 125 Mg/2 Ml Vial) 125 mg IV NOW STA Stop: 01/19/22 12:11 Last Admin: 01/19/22 12:28 Dose: 125 mg Documented by: [id number] Imaging Data Radiologist's Impression: Soft Tissue Neck CT 01/19/22 12:10 CT soft tissue neck w con HISTORY: 41 years-old Female stridor, sob acute stridor with shortness of breath COMPARISON: CT soft tissue neck 11/15/2021 TECHNIQUE: Multiple axial CT images of the soft tissues of the neck were obtained following the intravenous administration of 94 mL Optiray 320. A dose lowering technique was used consistent with the principals of BO. FINDINGS: The imaged intracranial structures appear unremarkable. Possible developmental venous anomaly within the right lentiform nucleus. The nasopharynx, oral pharynx and hypopharynx appear patent. Mild secretions are noted within the vallecula with mild prominence of the lingual tonsils. The epiglottis, glottis and subglottic airway appears unremarkable. Unremarkable thyroid. There is no prevertebral edema. No parapharyngeal fluid collections. There is a small focus of polypoid mucosal thickening within the anterior right maxillary sinus. Mastoid air cells and middle ear cavities are clear. No pneumothorax. 4 mm groundglass nodule of the right lung apex is unchanged. Mild multilevel uncovertebral hypertrophy with facet arthrosis and mild intervertebral disc space narrowing of the cervical spine. IMPRESSION: 1. Unremarkable appearance of the soft tissues of the neck. 2. No significant inflammatory changes or fluid collections. 3. No lymphadenopathy. 4. Unchanged 4 mm groundglass nodule of the right upper lobe. ACT 112: Negative or not required by law. The above report was generated using voice recognition software. It may contain grammatical, syntax or spelling errors. Electronically signed by: Oscar Alvarez M.D. 01/19/2022 1:36 PM Discharge Plan Visit Data Chief Complaint: Referred by Doctor Stated Complaint: SHORTNESS OF BREATH, DR REFERRED ED Provider: Kareem Thomas Discharge Problem: Stridor, Dyspnea Patient Disposition: Home - Self-Care Condition: Good Discharge Instructions Interventions: ED Discharge Assessment Last Done: 01/19/22 15:54
[2022-01-19] MEDS ORDERED: RACEPINEPHRINE 2.25% NEBU SOLN 0.5 ML VIAL NEB STA (12:10)
[2022-01-19] MEDS ORDERED: methylPREDNISolone 125 MG/2 ML VIAL IV STA (12:10)
[2022-01-19] MEDS ORDERED: SODIUM CHLORIDE 0.9% 1000ML 1,000 ML IV ONE (12:14)
[2022-01-19 12:30] LABS: Basophils # (auto) 0.03 K/uL (0-0.2); Basophils % (auto) 0.4 %; Eosinophils # (auto) 0.07 K/uL (0-0.5); Eosinophils % (auto) 0.9 %; Hematocrit (blood only) 39.1 % (37-47); Hemoglobin 13.5 g/dL (12.0-16.0); Immature Granulocytes # (auto) 0.01 K/uL (0.00-0.02); Immature Granulocytes % (auto) 0.1 %; Lymphocytes # (auto) 2.34 K/uL (1.2-3.4); Lymphocytes % (auto) 31.1 %; Mean Corpuscular Hemoglobin 31.2 pg (25-34); Mean Corpuscular Hgb Conc 34.5 g/dL (32-36); Mean Corpuscular Volume 90.3 fL (80-100); Mean Platelet Volume 11.3 fL (7.4-10.4); Monocytes # (auto) 0.41 K/uL (0.11-0.59); Monocytes % (auto) 5.4 %; Neutrophils # (auto) 4.67 K/uL (1.4-6.5); Neutrophils % (auto) 62.1 %; Platelet Count 317 K/uL (130-400); RDW Coefficient of Variation 12.9 % (11.5-14.5); RDW Standard Deviation 43.1 fL (36.4-46.3); Red Blood Count 4.33 M/uL (4.2-5.4); White Blood Count 7.53 K/uL (4.8-10.8)
[2022-01-19 12:50] LABS: Albumin Globulin Ratio 1.8 (0.9-2); Albumin Level 4.6 gm/dl (3.4-5.0); BUN Creatinine Ratio 10.8 (10-20); Bilirubin,Total 0.7 mg/dl (0.2-1.0); Calcium 9.5 mg/dl (8.5-10.1); Creatinine Clr Calc Pharmacy 102.6 ml/min; Est GFR (African American) 127.8 ml/min; Est GFR (Non-African American) 110.3 ml/min; Globulin 2.5 gm/dl (2.5-4.0); Total Protein 7.1 gm/dl (6.0-8.3)
[2022-01-19] MEDS ORDERED: OPTIRAY 320 100ml IV ONE (13:17)
--- NOTE | 2022-01-19 13:38 | CT Scan Report ---
CT soft tissue neck w con HISTORY: 41 years-old Female stridor, sob acute stridor with shortness of breath COMPARISON: CT soft tissue neck 11/15/2021 TECHNIQUE: Multiple axial CT images of the soft tissues of the neck were obtained following the intra venous administration of 94 mL Optiray 320. A dose lowering technique was used consistent with the pr incipals of BO. FINDINGS: The imaged intracranial structures appear unremarkable. Possible developmental venous anomaly within the right lentiform nucleus. The nasopharynx, oral pharynx and hypopharynx appear patent. Mild secret ions are noted within the vallecula with mild prominence of the lingual tonsils. The epiglottis, glot tis and subglottic airway appears unremarkable. Unremarkable thyroid. There is no prevertebral edema. No parapharyngeal fluid collections. There is a small focus of polypoid mucosal thickening within th e anterior right maxillary sinus. Mastoid air cells and middle ear cavities are clear. No pneumothora x. 4 mm groundglass nodule of the right lung apex is unchanged. Mild multilevel uncovertebral hypertr ophy with facet arthrosis and mild intervertebral disc space narrowing of the cervical spine. IMPRESSION: 1. Unremarkable appearance of the soft tissues of the neck. 2. No significant inflammatory changes or fluid collections. 3. No lymphadenopathy. 4. Unchanged 4 mm groundglass nodule of the right upper lobe. ACT 112: Negative or not required by law. The above report was generated using voice recognition software. It may contain grammatical, syntax o r spelling errors. Electronically signed by: Oscar Alvarez M.D. 01/19/2022 1:36 PM
[2022-01-19] MEDS ORDERED: ICU PROTOCOL FOR HYPERGLYCEMIA PRN ×2 (15:14→19:59)
--- NOTE | 2022-01-19 15:36 | History & Physical Report ---
Date of Service January 19, 2022 Assessment & Plan (1) Stridor: Plan: Patient admitted to the ICU for stridor, vocal cord paralysis and granuloma Patient will getting a tracheostomy today. -Will need RT and trach teaching after OR -OK for bedside speech eval after OR. (2) MDD (major depressive disorder), recurrent episode, severe: Plan: Recent admission since 11/10 after a suicide attempt by drug overdose. All of her psychiatric medication was discontinued during that admission. Transferred to a residential treatment program ([facility]) where she stayed for 29 days. At time of discharge, she was prescribed Lexapro 10 mg and prazosin 2 mg as her only psychiatric medications. Appears controlled. Hold meds while NPO. (3) Alcohol use disorder: Plan: S/P discharge from residential treatment program. will check alcohol level. (4) GERD (gastroesophageal reflux disease): Plan: resume ppi (5) Status post tracheostomy: Plan: Update: ENT recommends keeping patient admitted for 5 days. may consider restarting diet once she passes bedside swallow. She may require speech. There does appear to be scaring on posterior glottis. History of Present Illness Chief Complaint: SOB. Primary Care Provider: Louann Campbell MD 41 yo female with history of depression presents to the ER with 4 week history of worsening SOB. Patient reports SOB on exertion with any activity. Patient reports feeling SOB since her last hospital stay in which she was intubated. This occurred after a suicide attempt. Patient reports she has been having worsening SOB on exertion accompanied by a stridor. Patient reports she felt her worst yesterday. Patient is following with ENT: Dr. Valenzuela. Patient had a recent laryngoscopy which showed granuloma on right vocal cord. Due to worsening stridor and SOB, she was told to come to the ER. Allergies Allergy/AdvReac Type Severity Reaction Status Date / Time No Known Drug Allergies Allergy Verified 01/19/22 12:54 Home Medications Medication Instructions Recorded Confirmed Type olopatadine 0.6 % nasal spray 2 spray INTRANASAL DAILY #30.5 g 07/31/21 01/19/22 Rx (Patanase) folic acid 1 mg tablet 1 mg PO DAILY 09/08/21 01/19/22 History thiamine mononitrate (vit B1) 100 100 mg PO DAILY 09/08/21 01/19/22 History mg tablet esomeprazole magnesium 40 mg 40 mg PO QAM 11/09/21 01/19/22 History capsule,delayed release acetaminophen 325 mg tablet 650 mg PO Q4H PRN #30 tab 11/16/21 01/19/22 Rx albuterol sulfate 90 mcg/actuation 2 inh INHALATION Q6H PRN #8.5 g 11/16/21 01/19/22 Rx aerosol inhaler ibuprofen 800 mg tablet 800 mg PO TID PRN #30 tab 11/16/21 01/19/22 Rx linaclotide 290 mcg capsule 290 mcg PO DAILY PRN 90 Days #90 11/16/21 01/19/22 Rx cap multivitamin with folic acid 400 1 tab PO QAM #30 tab 11/16/21 01/19/22 Rx mcg tablet (Daily-Ana (with folic acid)) escitalopram oxalate 10 mg tablet 10 mg PO DAILY #90 tab 12/30/21 01/19/22 Rx (Lexapro) prazosin 2 mg capsule 2 mg PO QPM 12/30/21 01/19/22 History methylprednisolone 4 mg tablets in See Rx Instructions .ROUTE 01/19/22 Rx a dose pack .COMPLEX #21 ea Past Med/Surg History Medical History Acne Alcohol overdose Alcohol use disorder Chronic constipation Chronic sinusitis Exercise-induced asthma Family history of colonic polyps GERD (gastroesophageal reflux disease) History of menorrhagia History of uterine leiomyoma Surgical History History of delivery x 2 History of esophagogastroduodenoscopy (EGD) History of loop electrical excision procedure (LEEP) History of robot-assisted laparoscopic hysterectomy History of tubal ligation Family History Son Allergic to eggs Esophagitis, eosinophilic Milk allergy Soy allergy Wheat allergy Grandfather (Paternal) Stroke Colorectal cancer Heart disease CHF Diabetes Mother Hepatic cirrhosis Leiomyoma of body of uterus Alcohol abuse Father Colonic polyp, Onset Age: 50 Anxiety Social History Smoking Status: Former smoker Tobacco Type: Cigarettes Age Started Using Tobacco: 18; Age Quit Using Tobacco: 25; Cigarettes Per Day: unsure-smoked socially; Second Hand Exposure: No; Do You Dip or Chew Tobacco: No; Tobacco Cessation Education Requested by Patient: No Hx Alcohol Use: Yes Alcohol type: beer and wine Alcohol Intake Frequency: Monthly or Less Hx Substance Use: Yes Last Used Substance: Just Prior to Arrival Preferred Language: Polish Communication Ability: Impaired Communication Ability Comment: New Trach Visual Impairment: No Limitations Hearing Ability: Normal Delinquency Prevention Social Worker Required: No Beliefs That Will Affect Care: None marital status: Current Living Situation: Spouse Current Living Situation Comment: 2 children current occupational status: employed 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[place] [employer] Other Information That Helps Us Care for You: No Feels Safe at Home: Yes Safety Concerns: Feels Safe At This Time Childhood Exposure to Second-Hand Smoke: No Dental Care, Regularly: Yes Physical Activity Frequency: 3-4 Times per Week Seatbelt Use: always Sunscreen Use: Yes Assistive Devices: None Review of Systems Review of Systems: All systems reviewed & are unremarkable except as noted in HPI & below Physical Exam Constitutional: WD/WN, vitals as above Eyes: PERRL, conjunctivae normal, anicteric sclerae ENMT: external ear and nose normal, oropharynx normal Neck: trachea midline, no thyromegaly Respiratory: normal respiratory effort, lungs clear to auscultation inspiratory stridor, normal expiratory sounds Cardiovascular: RRR, no murmur, no edema Gastrointestinal (Abdomen): normal bowel sounds, soft, nontender, no hepatosplenomegaly Musculoskeletal: no cyanosis or clubbing, extremities motor strength 5/5 Skin: no rashes, warm and dry Neurologic: PERRL, EOMI, accommodation nl, no face palsy, no dysarthria Psychiatric: A+Ox3, euthymic affect Lymphatic: no cervical or axillary lymphadenopathy Results & Data Results & Data ([facility]) Vital Signs (Past 12 Hours) Vital Signs Temp Pulse Pulse Resp BP Pulse Ox 01/19/22 12:34 69 16 99 01/19/22 11:42 36.8 C 94 H 22 105/66 96 PG Care Time/CCT Total # of Minutes Spent Total Time Spent with Patient: Total time spent is greater than 50% in coordination of care (as documented) at patient's floor/unit and/or counseling patient: Coding Level of Care Code 28749 Initial Inpt Care Lvl 3 Diagnoses Alcohol use disorder MDD (major depressive disorder), recurrent episode, severe F33.2 GERD (gastroesophageal reflux disease) K21.9 Status post tracheostomy Z93.0 Stridor R06.1
--- NOTE | 2022-01-19 15:59 | ENT Consultation ---
Date of Consultation January 19, 2022 Assessment & Plan (1) Dyspnea: (2) Stridor: (3) Vocal fold paresis, bilateral: 41yF with progressive dyspnea/stridor and L>R TVF hypomobility after traumatic intubation 10/2021. Now with dyspnea and stridor at rest, significant with exertion. CT without subglottic stenosis. -To OR for tracheostomy, direct laryngoscopy and possible bronchoscopy -To ICU after, expect inpatient stay x5 days to allow for tract to heal and first trach change -Will need RT and trach teaching after OR -OK for bedside speech eval after OR History of Present Illness History of Present Illness 41yF history of recent traumatic intubation 10/2021 with subsequent dysphonia and progressive dyspnea/stridor. Recent FFL showed L>R TVF hypomobility and small R vocal process granuloma. Concern for PGS. Now with worsened dyspnea/stridor over past several days even at rest. Some improvement after IV solumedrol and racemic epinephrine. CT neck per my read without evidence of subglottic stenosis. Allergies Allergy/AdvReac Type Severity Reaction Status Date / Time No Known Drug Allergies Allergy Verified 01/19/22 12:54 Home Medications Medication Instructions Recorded Confirmed Type olopatadine 0.6 % nasal spray 2 spray INTRANASAL DAILY #30.5 g 07/31/21 01/19/22 Rx (Patanase) folic acid 1 mg tablet 1 mg PO DAILY 09/08/21 01/19/22 History thiamine mononitrate (vit B1) 100 100 mg PO DAILY 09/08/21 01/19/22 History mg tablet esomeprazole magnesium 40 mg 40 mg PO QAM 11/09/21 01/19/22 History capsule,delayed release acetaminophen 325 mg tablet 650 mg PO Q4H PRN #30 tab 11/16/21 01/19/22 Rx albuterol sulfate 90 mcg/actuation 2 inh INHALATION Q6H PRN #8.5 g 11/16/21 01/19/22 Rx aerosol inhaler ibuprofen 800 mg tablet 800 mg PO TID PRN #30 tab 11/16/21 01/19/22 Rx linaclotide 290 mcg capsule 290 mcg PO DAILY PRN 90 Days #90 11/16/21 01/19/22 Rx cap multivitamin with folic acid 400 1 tab PO QAM #30 tab 11/16/21 01/19/22 Rx mcg tablet (Daily-Ana (with folic acid)) escitalopram oxalate 10 mg tablet 10 mg PO DAILY #90 tab 12/30/21 01/19/22 Rx (Lexapro) prazosin 2 mg capsule 2 mg PO QPM 12/30/21 01/19/22 History methylprednisolone 4 mg tablets in See Rx Instructions .ROUTE 01/19/22 Rx a dose pack .COMPLEX #21 ea Patient History Medical History Acne Alcohol overdose Alcohol use disorder Chronic constipation Chronic sinusitis Exercise-induced asthma Family history of colonic polyps GERD (gastroesophageal reflux disease) History of menorrhagia History of uterine leiomyoma Surgical History History of delivery x 2 History of esophagogastroduodenoscopy (EGD) History of loop electrical excision procedure (LEEP) History of robot-assisted laparoscopic hysterectomy History of tubal ligation Family History Son Allergic to eggs Esophagitis, eosinophilic Milk allergy Soy allergy Wheat allergy Grandfather (Paternal) Stroke Colorectal cancer Heart disease CHF Diabetes Mother Hepatic cirrhosis Leiomyoma of body of uterus Alcohol abuse Father Colonic polyp, Onset Age: 50 Anxiety Social History Smoking Status: Never smoker Tobacco Type: Cigarettes Age Started Using Tobacco: 18; Age Quit Using Tobacco: 25; Cigarettes Per Day: unsure-smoked socially; Second Hand Exposure: No; Hx Alcohol Use: Yes Alcohol type: beer and wine Alcohol Intake Frequency: Monthly or Less Hx Substance Use: Yes Last Used Substance: Just Prior to Arrival Preferred Language: Mexican Communication Ability: Effective Visual Impairment: No Limitations Hearing Ability: Normal Email Marketing Manager Required: No Beliefs That Will Affect Care: None marital status: Current Living Situation: Spouse and Family Current Living Situation Comment: 2 children current occupational status: employed 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 [place] Feels Safe at Home: Yes Childhood Exposure to Second-Hand Smoke: No Dental Care, Regularly: Yes Physical Activity Frequency: 3-4 Times per Week Seatbelt Use: always Sunscreen Use: Yes Assistive Devices: None Review of Systems Review of Systems: A 10 point ROS is negative except as noted above Physical Exam Physical Exam: WNWD, NAD EOMI, normal sclera Nares patent, no external deformity External ears normal Raspy voice +inspiratory stridor, mildly increased WOB without acute distress AAO x3 Moving all extremities spontaneously Results & Data ([facility]) Vital Signs (Past 12 Hours) Vital Signs Temp Pulse Pulse Resp BP Pulse Ox 01/19/22 12:34 69 16 99 01/19/22 11:42 36.8 C 94 H 22 105/66 96 PG Care Time/CCT Total # of Minutes Spent Total Time Spent with Patient: Total time spent is greater than 50% in coordination of care (as documented) at patient's floor/unit and/or counseling patient: Coding Level of Care Code 02280 Inpt Consult Level 4 Diagnoses Dyspnea R06.00 Stridor R06.1 Vocal fold paresis, bilateral J38.02
[2022-01-19] MEDS ORDERED: ONDANSETRON INJ 2 MG/ML 2 ML VIAL ONE (16:09)
[2022-01-19] MEDS ORDERED: fentaNYL citrate 100 MCG/2 ML VIAL ONE ×2 (16:09)
[2022-01-19] MEDS ORDERED: NEOSTIGMINE METHYLSULFATE 1 MG/ML 10ML VIAL ONE (16:09)
[2022-01-19] MEDS ORDERED: DEXAMETHASONE SOD INJ 4 MG/ML VIAL ONE (16:09)
[2022-01-19] MEDS ORDERED: LIDOCAINE 2% 2 ML VIAL/AMP(20MG/ML) INFIL ONE (16:09)
[2022-01-19] MEDS ORDERED: MIDAZOLAM HCL 1 MG/ML 2ML VIAL ONE (16:09)
[2022-01-19] MEDS ORDERED: PROPOFOL IV EMULSION 10 MG/ML 20 ML VIAL IV ONE (16:09)
[2022-01-19] MEDS ORDERED: GLYCOPYRROLATE 0.2 MG/ML VIAL ONE (16:09)
[2022-01-19] MEDS ORDERED: SUGAMMADEX SODIUM 200 MG/2 ML VIAL IV ONE (16:11)
[2022-01-19] MEDS ORDERED: PHENYLEPHRINE HCL 10 MG/ML VIAL ONE (17:20)
--- NOTE | 2022-01-19 17:20 | Anesthesiology Consultation ---
Date of Service January 19, 2022 Assessment & Plan Chart Review Chart Review: Acceptable Risk for Surgery Consults Requested none History Surgery Operation Date: 01/19/22 13:35 Proposed Procedures p Direct Laryngoscopy - Harper Hector MD s Tracheostomy - Harper Hector MD s Possible Bronchoscopy - Harper Hector MD Height/Weight Height: 5 ft 1 in Weight: 71 kg Allergies Allergy/AdvReac Type Severity Reaction Status Date / Time No Known Drug Allergies Allergy Verified 01/19/22 12:54 Medications Home Medications Medication Instructions Recorded Confirmed Last Taken olopatadine 0.6 % nasal spray 2 spray INTRANASAL DAILY #30.5 g 07/31/21 01/19/22 01/19/22 (Patanase) folic acid 1 mg tablet 1 mg PO DAILY 09/08/21 01/19/22 Unknown thiamine mononitrate (vit B1) 100 100 mg PO DAILY 09/08/21 01/19/22 01/19/22 mg tablet esomeprazole magnesium 40 mg 40 mg PO QAM 11/09/21 01/19/22 01/19/22 capsule,delayed release acetaminophen 325 mg tablet 650 mg PO Q4H PRN #30 tab 11/16/21 01/19/22 Unknown albuterol sulfate 90 mcg/actuation 2 inh INHALATION Q6H PRN #8.5 g 11/16/21 01/19/22 Unknown aerosol inhaler ibuprofen 800 mg tablet 800 mg PO TID PRN #30 tab 11/16/21 01/19/22 Unknown linaclotide 290 mcg capsule 290 mcg PO DAILY PRN 90 Days #90 11/16/21 01/19/22 08/09/21 cap multivitamin with folic acid 400 1 tab PO QAM #30 tab 11/16/21 01/19/22 01/19/22 mcg tablet (Daily-Ana (with folic acid)) escitalopram oxalate 10 mg tablet 10 mg PO DAILY #90 tab 12/30/21 01/19/22 01/19/22 (Lexapro) prazosin 2 mg capsule 2 mg PO QPM 12/30/21 01/19/22 Unknown methylprednisolone 4 mg tablets in See Rx Instructions .ROUTE 01/19/22 Unknown a dose pack .COMPLEX #21 ea NPO Date Last Intake of Fluids: 01/19/22 Time Last Intake of Fluids: 11:00 Date Last Intake of Solids: 01/19/22 Time Last Intake of Solids: 11:00 Last Intake of Solids Comment: peanut butter sandwich Past Medical History Medical History Acne Alcohol overdose Alcohol use disorder Chronic constipation Chronic sinusitis Exercise-induced asthma Family history of colonic polyps GERD (gastroesophageal reflux disease) History of menorrhagia History of uterine leiomyoma Past Family History Family History Son Allergic to eggs Esophagitis, eosinophilic Milk allergy Soy allergy Wheat allergy Grandfather (Paternal) Stroke Colorectal cancer Heart disease CHF Diabetes Mother Hepatic cirrhosis Leiomyoma of body of uterus Alcohol abuse Father Colonic polyp, Onset Age: 50 Anxiety Past Surgical History Surgical History History of delivery x 2 History of esophagogastroduodenoscopy (EGD) History of loop electrical excision procedure (LEEP) History of robot-assisted laparoscopic hysterectomy History of tubal ligation Social History Smoking Status: Never smoker Smoking cigarettes per day: unsure-smoked socially Hx Alcohol Use: Yes Alcohol type: beer and wine alcohol intake frequency: a few times a month Hx Substance Use: Yes substance use type: prescription drug Last Used Substance: Just Prior to Arrival Physical Exam Vital Signs Last Vital Signs Temp 37.7 C H 01/19/22 15:54 Pulse 78 01/19/22 15:54 Resp 18 01/19/22 15:54 BP 94/74 L 01/19/22 15:54 Pulse Ox 98 01/19/22 15:54 Testing Laboratory Results 01/19/22 12:15 01/19/22 12:15
[2022-01-19] MEDS ORDERED: HYDROmorphone INJ 2 MG/ML SYR/VIAL IV PRN (17:22)
[2022-01-19] MEDS ORDERED: ATROPINE SULFATE 0.1 MG/ML 10ML SYR IV PRN (17:22)
[2022-01-19] MEDS ORDERED: ePHEDrine sulfate 50 MG/ML AMP IV PRN (17:22)
[2022-01-19] MEDS ORDERED: ONDANSETRON INJ 2 MG/ML 2 ML VIAL IV PRN ×2 (17:22→20:05)
[2022-01-19] MEDS ORDERED: fentaNYL citrate 100 MCG/2 ML VIAL IV PRN (17:22)
[2022-01-19] MEDS ORDERED: PROMETHAZINE HCL 12.5 MG in SODIUM CHLORIDE 0.9% 50 ML IV PRN (17:22)
[2022-01-19] MEDS ORDERED: KETOROLAC 30 MG/ML VIAL ONE (17:51)
--- NOTE | 2022-01-19 18:04 | Post Operative Brief Note ---
PG Immediate Post Op with CF Date of Surgery January 19, 2022 Pre & Post Diagnosis Operation Date: 01/19/22 13:35 Pre-Op Diagnosis: SHORTNESS OF BREATH, DR REFERRED Post-Op Diagnosis: SHORTNESS OF BREATH, DR REFERRED I identified the patient and participated in the time-out.: Yes Procedure Operation Date: 01/19/22 13:35 Actual Procedures p Direct Laryngoscopy(Not Applicable) - Noah Valenzuela MD s Tracheostomy(Not Applicable) - Noah Valenzuela MD Surgeon Noah Valenzuela MD Grocery Buyer Dr. Harper Hector Estimated Blood Loss 10 Findings See Below 1. Posterior glottic scarring 2. Arytenoid feel mobile 3. #6 cuffed Shiley placed easily
--- NOTE | 2022-01-19 18:42 | Anesthesiology Progress Note ---
Date of Service January 19, 2022 Anesthesia Post Procedure Vital Signs Vital Signs: Temp Pulse Pulse Pulse Resp BP BP 01/19/22 18:35 89 19 107/76 01/19/22 18:25 128 H 30 H 109/71 01/19/22 18:15 36.3 C L 121 H 18 117/82 01/19/22 15:54 37.7 C H 78 18 94/74 L 01/19/22 12:34 69 16 01/19/22 11:42 36.8 C 94 H 22 105/66 Pulse Ox 01/19/22 18:35 99 01/19/22 18:25 99 01/19/22 18:15 97 01/19/22 15:54 98 01/19/22 12:34 99 01/19/22 11:42 96 Pain Intensity Neck: Pain Intensity: 2 Transfer of Care Handoff Completed per policy Notes Mental Status: alert / awake / arousable and participated in evaluation Patient Amnestic to Procedure: Yes Nausea / Vomiting: adequately controlled Pain: adequately controlled Airway Patency, RR, SpO2: stable & adequate BP & HR: stable & adequate Hydration State: stable & adequate Anesthetic Complications: no major complications apparent
--- NOTE | 2022-01-19 18:46 | Operative Report (OR) ---
DATE OF PROCEDURE: 01/19/2022 PREOPERATIVE DIAGNOSES: 1. Bilateral true vocal fold hypomobility. 2. Dyspnea. 3. Stridor. POSTOPERATIVE DIAGNOSES: 1. Bilateral true vocal fold hypomobility. 2. Dyspnea. 3. Stridor. PROCEDURES: 1. Direct laryngoscopy. 2. Tracheostomy. SURGEON: Rosalia Valenzuela MD. ANESTHESIA: General, orotracheal. ESTIMATED BLOOD LOSS: 10 mL. FURNACE CHECKER: Harper Hector MD. INTRAOPERATIVE FINDINGS: 1. Scarring of the posterior glottis. 2. Arytenoid cartilage appears mobile on palpation. 3. #6 cuffed Shiley placed easily through the 2nd space between the second and third tracheal rings. COMPLICATIONS: None. SPECIMENS: None. INDICATIONS FOR THE PROCEDURE: The patient is a 41-year-old female with a history of intubation lilian ral months ago with progressive dyspnea and stridor as well as dysphonia. She was seen in the office and flexible laryngoscopy showed left greater than right true vocal fold hypomobility. She had prog ressive dyspnea on exertion and ultimately stridor at rest, which prompted her to present to the [facility] Room. CT imaging showed no subglottic stenosis. It was recommended that she undergo direct la ryngoscopy and tracheostomy in the operating room. The risks and benefits of the procedure were disc ussed in detail, and the patient elected to proceed with surgery. Informed consent was obtained. A preprocedure COVID test was negative. DESCRIPTION OF PROCEDURE: The patient was identified in the preoperative holding area and brought ba to the operating room. She was placed supine on the operating room table. After the successful i nduction of general orotracheal anesthesia, using a GlideScope and easy passing of a 6-0 ET tube by [facility] Anesthesia team, the patient was prepped and draped in the usual fashion for direct laryngoscopy a nd tracheostomy. A surgical timeout was performed. A shoulder roll was placed. The patient's anter ior neck was palpated and the thyroid cartilage, cricoid cartilage and sternal notch were all marked. An approximately 3-4 cm transverse incision was carried out 2 fingerbreadths above the sternal notc h. Dissection was carried out through the subcutaneous tissue using electrocautery. The strap muscl es were identified and retracted in the midline raphe. The midline raphe was then followed down to t he thyroid gland. The cricoid cartilage was identified and electrocautery was used to dissect down d irectly onto the cricoid cartilage. Blunt dissection was used to elevate the thyroid isthmus off the trachea. The thyroid was then divid ed at the isthmus. A small oozing vessel from the right side was controlled using electrocautery. T he trachea was then cleared of fascia and the space between the second and third tracheal rings was i dentified and scored. The patient was then preoxygenated and with communication with the Anesthesia team, the endotracheal tube cuff was deflated. The airway was entered sharply and a tracheostomy was extended laterally in both directions using a curved Mckeon between the second and third tracheal ring . A superior and inferior 2-0 silk stay sutures were applied around the 2nd and the 3rd tracheal rin g. The endotracheal tube was then backed out by the Anesthesia team and a #6 cuffed Shiley tracheost rudolph tube was inserted into the airway under direct visualization. End tidal CO2 was confirmed. The trach was then sutured using a 2-0 silk sutures and secured using a soft trach collar. The head of the bed was then turned 90 degrees and a direct laryngoscopy was performed using a Dedo laryngosco pe. The dental guard was placed. The bilateral arytenoids cartilages were examined and palpated and noted to be mobile and in proper position. The posterior glottis was examined and noted to have sca rring. There were no lesions of the vocal folds. The laryngoscope was then removed from the patient and the dental guard was removed. No lip or dental injuries were noted. The patient was then turne d over to the anesthesia team and awakened without difficulty. She was transferred to the PACU in go od condition. I was present and performed the entire procedure myself. Job ID: [id number]
[2022-01-19 18:51] LABS: iSTAT Creatinine 0.5 mg/dl (0.6-1.3); iSTAT Hemoglobin 11.9 g/dl (12.0-16.0); iSTAT Ionized Calcium 1.01 mmol/l (1.12-1.32); iSTAT Potassium 3.9 mmol/L (3.3-5.0)
--- NOTE | 2022-01-19 19:58 | Critical Care Consultation ---
Date of Consultation January 19, 2022 Assessment & Plan (1) Admitted to intensive care unit: Reason Critically Ill: [] NEURO - * CAM ICU: 41-year-old female status post tracheostomy placement in the setting of bilateral vocal cord paralysis with granuloma requiring close airway monitoring status post intervention. CARDIAC/VASCULAR - * No history of cardiac disease * Monitor on telemetry. RESPIRATORY - * Status post tracheostomy placement for vocal cord paralysis and vocal cord granuloma: * Inner cannula in place at this point in the event the patient requires positive pressure ventilatory support. * Currently receiving trach collar humidified oxygen at this point. We will titrate down as tolerated. * Monitor in ICU status post trach. * Will obtain post trach chest x-ray. GI/NUTRITION - * N.p.o. currently * Prophylaxis: Protonix RENAL/LYTES - * No significant electrolyte derangements * IVF: Normosol at 80 mils per hour - * No concerns at this time * Montanez in place - Strict I&Os. ENDO - * No history of diabetes or thyroid disease. * BSGs per unit protocol. ISS --> gtt per unit policy. HEME - * Stable H&H ID - * No concerns for infectious contribution at this time. * COVID-19 testing negative. LINES/IV ACCESS - * PIVs x2 * Tracheostomy * Montanez catheter DVT PROPHYLAXIS - * Hold status post trach placement. * SCDs I have personally spent 35 minutes of critical care time in the direct management of this patient. This is a life/limb threatening event. This includes time spent evaluating patient, direct bedside care, chart review, placing orders, interpretation of diagnostic studies, discussion with consultants, patient, and family members, as well as other required patient management activities. This time is exclusive of all separately billable procedures, and teaching time and separate from and in addition to any other critical care service time. Thank you for allowing us to participate in the care of this patient. Please refer to my attending physician's documentation for any further recommendations. (2) Status post tracheostomy: (3) Stridor: (4) Dyspnea: (5) Vocal fold paresis, bilateral: (6) Vocal process granuloma: (7) Dysphonia: (8) MDD (major depressive disorder), recurrent episode, severe: (9) Suicide attempt by drug overdose: History of Present Illness Attending Physician: Farhad Pa History of Present Illness Patient is a 41-year-old female with a significant past medical history of chronic constipation, GERD, major depressive disorder, alcohol use disorder, and suicide attempts. Patient had been intubated on 11/10/2021 after suicide attempt. Patient's airway was difficult at this point and extubation was delayed secondary to airway edema. Since that time and since discharge from psychiatric care, the patient has had worsening stridor and dyspnea on exertion. She has been evaluated by ENT locally. She recently had a scope performed which demonstrated vocal cord paresis bilaterally and concerns for granuloma. Unfortunately, the patient symptoms had worsened over the last few days which prompted emergency department visit today. After discussion, the patient was taken emergently to the operative suite where she underwent tracheostomy placement. Patient successfully underwent tracheostomy tube placement without issue. She was brought to the ICU for ongoing management status post trach placement. Upon evaluation in the ICU, the patient is awake, alert, and oriented. She is unable to communicate verbally secondary to recent trach placement, but does nod appropriately to questions. She nods her head yes when questioned about pain at tracheal site. She denies any other location of pain at this time. She specifically denies complaints of chest pain, palpitations, shortness of breath, nausea, vomiting, or headaches. Allergies Allergy/AdvReac Type Severity Reaction Status Date / Time No Known Drug Allergies Allergy Verified 01/19/22 12:54 Home Medications Medication Instructions Recorded Confirmed Type olopatadine 0.6 % nasal spray 2 spray INTRANASAL DAILY #30.5 g 07/31/21 01/19/22 Rx (Patanase) folic acid 1 mg tablet 1 mg PO DAILY 09/08/21 01/19/22 History thiamine mononitrate (vit B1) 100 100 mg PO DAILY 09/08/21 01/19/22 History mg tablet esomeprazole magnesium 40 mg 40 mg PO QAM 11/09/21 01/19/22 History capsule,delayed release acetaminophen 325 mg tablet 650 mg PO Q4H PRN #30 tab 11/16/21 01/19/22 Rx albuterol sulfate 90 mcg/actuation 2 inh INHALATION Q6H PRN #8.5 g 11/16/21 01/19/22 Rx aerosol inhaler ibuprofen 800 mg tablet 800 mg PO TID PRN #30 tab 11/16/21 01/19/22 Rx linaclotide 290 mcg capsule 290 mcg PO DAILY PRN 90 Days #90 11/16/21 01/19/22 Rx cap multivitamin with folic acid 400 1 tab PO QAM #30 tab 11/16/21 01/19/22 Rx mcg tablet (Daily-Ana (with folic acid)) escitalopram oxalate 10 mg tablet 10 mg PO DAILY #90 tab 12/30/21 01/19/22 Rx (Lexapro) prazosin 2 mg capsule 2 mg PO QPM 12/30/21 01/19/22 History methylprednisolone 4 mg tablets in See Rx Instructions .ROUTE 01/19/22 Rx a dose pack .COMPLEX #21 ea Patient History Medical History Acne Alcohol overdose Alcohol use disorder Chronic constipation Chronic sinusitis Exercise-induced asthma Family history of colonic polyps GERD (gastroesophageal reflux disease) History of menorrhagia History of uterine leiomyoma Surgical History History of delivery x 2 History of esophagogastroduodenoscopy (EGD) History of loop electrical excision procedure (LEEP) History of robot-assisted laparoscopic hysterectomy History of tubal ligation Family History Son Allergic to eggs Esophagitis, eosinophilic Milk allergy Soy allergy Wheat allergy Grandfather (Paternal) Stroke Colorectal cancer Heart disease CHF Diabetes Mother Hepatic cirrhosis Leiomyoma of body of uterus Alcohol abuse Father Colonic polyp, Onset Age: 50 Anxiety Social History Smoking Status: Former smoker Tobacco Type: Cigarettes Age Started Using Tobacco: 18; Age Quit Using Tobacco: 25; Cigarettes Per Day: unsure-smoked socially; Second Hand Exposure: No; Do You Dip or Chew Tobacco: No; Tobacco Cessation Education Requested by Patient: No Hx Alcohol Use: Yes Alcohol type: beer and wine Alcohol Intake Frequency: Monthly or Less Hx Substance Use: Yes Last Used Substance: Just Prior to Arrival Preferred Language: Kyrgyz Communication Ability: Impaired Communication Ability Comment: New Trach Visual Impairment: No Limitations Hearing Ability: Normal Hvac Manager Required: No Beliefs That Will Affect Care: None marital status: Current Living Situation: Spouse Current Living Situation Comment: 2 children current occupational status: employed 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 GENERAL - 41-year-old female appearing her stated age who is in no acute distress. Communicates appropriately yes/no with nodding. SKIN - Without rashes. HEAD - NC/AT. EYES - PERRL with EOMI bilaterally. Sclera anicteric. Palpebral conjunctiva pink and moist with no injection noted. EARS - No deformities of external structures noted on gross examination bilaterally. NOSE - Midline and without cyanosis. No epistaxis or purulent drainage noted. MOUTH/OROPHARYNX - Without perioral cyanosis. Buccal mucosa pink and moist. Good dentition noted. NECK - Trach in place with dressing clean, dry, and intact. Neck with FROM. Supple to palpation. No lymphadenopathy noted. No nuchal rigidity. LUNGS - Chest wall symmetric without accessory muscle use, intercostals retractions, or central cyanosis. Normal vesicular breath sounds CTA B/L. No wheezes, rales, or rhonchi appreciated. CARDIAC - RRR with S1/S2. No murmur, rubs, or gallops appreciated. ABDOMEN - Abdominal contour flat without pulsations or visible masses. BS normoactive all four quadrants. No tenderness, palpable masses, hepatosplenomegaly, or ascites noted. EXTREMITIES - No clubbing or peripheral cyanosis. No pretibial edema present. +3/5 radial and dorsalis pedis pulses palpated throughout. +5/5 strength noted in UE/LE bilaterally. NEUROLOGIC - Cranial nerves II through XII grossly intact. Sensory intact to light touch throughout. PSYCH - A&Ox3 and cooperates fully with examiner. Pt is very pleasant and interacts well with examiner. Results & Data Results & Data ([facility]) Vital Signs (Past 12 Hours) Vital Signs Temp Pulse Pulse Pulse Resp BP BP 01/19/22 18:55 92 H 20 106/70 01/19/22 18:45 36.3 C L 89 21 99/74 L 01/19/22 18:35 89 19 107/76 01/19/22 18:25 128 H 30 H 109/71 01/19/22 18:15 36.3 C L 121 H 18 117/82 01/19/22 15:54 37.7 C H 78 18 94/74 L 01/19/22 12:34 69 16 01/19/22 11:42 36.8 C 94 H 22 105/66 Pulse Ox 01/19/22 18:55 99 01/19/22 18:45 98 01/19/22 18:35 99 01/19/22 18:25 99 01/19/22 18:15 97 01/19/22 15:54 98 01/19/22 12:34 99 01/19/22 11:42 96 Coding Level of Care Code Critical Care 1st 30-74 mins Diagnoses Admitted to intensive care unit Z78.9 Status post tracheostomy Z93.0 Stridor R06.1 Dyspnea R06.00 Vocal fold paresis, bilateral J38.02 Vocal process granuloma J38.3 Dysphonia R49.0 MDD (major depressive disorder), recurrent episode, severe F33.2 Suicide attempt by drug overdose T50.902A Time Spent (min) 35
[2022-01-19] MEDS ORDERED: LEVALBUTEROL HCL 0.63 MG/3 ML NEB INH PRN (20:05)
[2022-01-19] MEDS ORDERED: ACETAMINOPHEN 1,000 MG/100 ML VIAL IV PRN (20:05)
[2022-01-19] MEDS ORDERED: NORMOSOL-R 1,000 ML IV SCH (20:15)
--- NOTE | 2022-01-19 20:46 | XRay Report ---
XR chest 1V portable CLINICAL HISTORY: s/p trach placement COMPARISON STUDY: Chest radiograph November 13, 2021. FINDINGS: Interval tracheostomy tube placement as noted. Lung volumes are diminished. There is no pne umothorax. Gaseous distention of the stomach is noted. Linear left basilar opacities favor atelectasi s. There is no evidence for pulmonary edema. IMPRESSION: 1. Interval tracheostomy. 2. No pneumothorax. 3. Low lung volumes with suspected left basilar atelectasis. 4. Gaseous distention of the stomach. ACT 112: Negative or not required by law. Electronically signed by: Julio Campbell M.D. 01/19/2022 8:45 PM
[2022-01-19] MEDS: fentaNYL citrate 100 MCG/2 ML VIAL IV PRN (21:27)
[2022-01-19] MEDS ORDERED: diphenhydrAMINE 50 MG/ML VIAL IV STA (22:10)
[2022-01-20] MEDS: fentaNYL citrate 100 MCG/2 ML VIAL IV PRN ×3 (04:15→11:26)
[2022-01-20 05:38] LABS: Basophils # (auto) 0.01 K/uL (0-0.2); Basophils % (auto) 0.1 %; Hematocrit (blood only) 34.9 % (37-47); Hemoglobin 12.1 g/dL (12.0-16.0); Immature Granulocytes # (auto) 0.03 K/uL (0.00-0.02); Immature Granulocytes % (auto) 0.2 %; Lymphocytes # (auto) 1.58 K/uL (1.2-3.4); Lymphocytes % (auto) 12.6 %; Mean Corpuscular Hemoglobin 31.8 pg (25-34); Mean Corpuscular Hgb Conc 34.7 g/dL (32-36); Mean Corpuscular Volume 91.6 fL (80-100); Mean Platelet Volume 10.4 fL (7.4-10.4); Monocytes # (auto) 0.89 K/uL (0.11-0.59); Monocytes % (auto) 7.1 %; Neutrophils # (auto) 10.02 K/uL (1.4-6.5); Platelet Count 284 K/uL (130-400); RDW Coefficient of Variation 13.1 % (11.5-14.5); RDW Standard Deviation 43.7 fL (36.4-46.3); Red Blood Count 3.81 M/uL (4.2-5.4); White Blood Count 12.53 K/uL (4.8-10.8)
[2022-01-20 05:59] LABS: BUN Creatinine Ratio 15.1 (10-20); Calcium 8.7 mg/dl (8.5-10.1); Creatinine Clr Calc Pharmacy 130.4 ml/min; Est GFR (African American) 136.7 ml/min; Est GFR (Non-African American) 117.9 ml/min; Magnesium 1.9 mg/dl (1.7-2.4); Phosphorus 3.9 mg/dl (2.5-4.9); Potassium 3.7 mmol/L (3.5-5.1)
--- NOTE | 2022-01-20 07:56 | Ears,Nose,Throat Progress Note ---
Date of Service January 20, 2022 Assessment & Plan (1) Status post tracheostomy: (2) Vocal fold paresis, bilateral: Plan: 41yF with progressive dyspnea/stridor and L>R TVF hypomobility after traumatic intubation 10/2021. CT without subglottic stenosis. Now s/p DL/tracheostomy 01/19/22. Doing well in ICU -Bedside swallow eval, if goes well ok for clears and advance as tolerated -Recommend GROUP EXERCISE INSTRUCTOR eval -Trach care teaching with RT -Backup trach (same size/type) and obturator at bedside at all times -Continue humidified trach mask -Will plan for trach change 01/24 or 01/25 and d/c after Admission and Anticipated Discharge Date Admission Date: January 19, 2022 Subjective MILENA o/n. Breathing much improved. Mild oozing around trach per RN. Physical Exam Physical Exam: AFVSS SaO2 95% on TM NAD #[address], mild bloody drainage around trach site, stay sutures x2. Cuff deflated on exam today. Suctioning with minimal blood tinged secretions Nonlabored respirations Results & Data ([facility]) Vital Signs (Past 12 Hours) Vital Signs Temp Pulse Pulse Resp BP Pulse Ox 01/20/22 07:00 36.5 C 69 69 01/20/22 06:00 36.5 C 77 20 88/64 L 01/20/22 05:00 36.7 C 74 18 91/68 L 95 01/20/22 04:00 37 C 73 20 102/74 94 01/20/22 03:00 36.6 C 71 20 95/67 L 95 01/20/22 02:00 36.0 C L 77 18 96/74 L 95 01/20/22 01:00 36.6 C 77 20 97/74 L 99 01/20/22 00:00 36.9 C 71 20 93/69 L 95 01/19/22 23:00 36.6 C 71 20 92/70 L 94 01/19/22 22:00 36.6 C 70 20 99/76 L 95 01/19/22 21:00 36.0 C L 71 20 99/78 L 95 01/19/22 20:00 36.6 C 73 20 93/75 L 97 01/19/22 19:58 37 C 68 20 101/77 99 Diagnostic Findings CXR postprocedure without PTX, L atelectasis PG Care Time/CCT Total # of Minutes Spent Total Time Spent with Patient: Total time spent is greater than 50% in coordination of care (as documented) at patient's floor/unit and/or counseling patient: Coding Level of Care Code 73836 Subseq Hosp Care Lvl 2 Diagnoses Status post tracheostomy Z93.0 Vocal fold paresis, bilateral J38.02
[2022-01-20] MEDS ORDERED: MAGNESIUM SULFATE / D5W 1 GM/100 ML BAG IV ONE (07:58)
[2022-01-20] MEDS: THIAMINE HCL 100 MG TAB PO SCH (08:19)
[2022-01-20] MEDS: PANTOprazole 40 MG TAB PO SCH (08:19)
[2022-01-20] MEDS: ESCITALOPRAM OXALATE 10 MG TAB PO SCH (08:19)
[2022-01-20] MEDS ORDERED: PANTOprazole 40 MG in SYRINGE 0 ML IV SCH (11:00)
--- NOTE | 2022-01-20 11:52 | Critical Care Progress Note ---
Date of Service January 20, 2022 Assessment & Plan (1) Admitted to intensive care unit: Plan: Reason Critically Ill: 41-year-old female status post tracheostomy placement in the setting of bilateral vocal cord paralysis with granuloma requiring close airway monitoring status post intervention. NEURO - * CAM ICU: Negative * Sedation: none * Analgesic: fentanyl, acetaminophen CARDIAC/VASCULAR - * No history of cardiac disease * Monitor on telemetry RESPIRATORY - * S/p tracheostomy placement for vocal cord paralysis and vocal cord granuloma: * Inner cannula in place at this point in the event the patient requires positive pressure ventilatory support. * Currently receiving trach collar humidified oxygen at this point. We will titrate down as tolerated. * Stable for downgrade to PCU/tele. * post trach chest x-ray unremarkable * Speech evaluation pending * speech valve in place, suction as needed GI/NUTRITION - * Regular * Prophylaxis: Protonix RENAL/LYTES - * Replenished mag. Otherwise electrolytes stable. * Montanez to be removed prior to downgrade * IVF d/c'd - * No concerns at this time * Strict I&Os. ENDO - * No history of diabetes or thyroid disease. * BSGs per unit protocol. ISS --> gtt per unit policy. HEME - * Stable H&H ID - * No concerns for infectious contribution at this time. * COVID-19 testing negative. LINES/IV ACCESS - * PIVs x2 * Tracheostomy * Montanez catheter to be removed DVT PROPHYLAXIS - * Hold status post trach placement. Will leave to ENT to decide on initiation of DVT ppx. * SCDs Hemodynamically stable for downgrade to PCU/tele. Thank you for allowing us to participate in the care of this patient.Please refer to my attending physician's documentation for any further recommendations. (2) Status post tracheostomy: (3) Dyspnea: (4) Stridor: (5) Vocal fold paresis, bilateral: (6) Vocal process granuloma: (7) Dysphonia: (8) Alcohol use disorder: (9) MDD (major depressive disorder), recurrent episode, severe: Admission and Anticipated Discharge Date Admission Date: January 19, 2022 Supervising Physician Co-Signing Physician Notes Dr. Stevens was the resident-physician during care of patient. I separately evaluated patient for morales portions of the history and the exam. I was present during the critical portion of medical decision making, and I discussed the case with the resident. I generally agree with the findings and plan except for any additions/exceptions noted. 41-year-old female who presented to the hospital because of stridor. She does have history of traumatic intubation back in October 2021. She was following up with Dr. Valenzuela. Dr. Valenzuela saw the patient in the ER and she went for tracheostomy At the time of examination today patient is s/p trach She denied any significant pain around the trach site. She was saturating 99% on 5 L trach collar. Went down to 2 L as she was still maintaining her saturation. Denies any shortness of breath, no headache, no nausea, no vomiting. She was able to swallow without any issues Constitutional: No acute distress HEENT: EOMI, PERRLA, positive trach Respiratory system: Good air entry bilaterally, no wheeze, no rhonchi, no crackles CVS: S1-S2 positive, no murmurs or gallops Abdomen: Soft, nontender, nondistended, positive bowel sounds x4 Extremities: +2 pulses bilaterally radialis/ dorsalis pedis, no cyanosis, no edema Neuro: Awake alert oriented x3 Psych: Normal mood and affect G/U: Positive Montanez --Prophylaxis VTE: SCDs GI: Protonix Lines: Peripheral Diet: Clear liquid Plan: In/out: +1704, urine output 1060 Hypomagnesemia being replaced Try to take the patient off trach collar. I think patient will be able to maintain her saturation on room air. Trach tolerating to be explained to the patient. Resume once Lexapro as well as thiamine and folic acid. DC Montanez. Patient is hemodynamically stable to be downgraded to [facility] floor Please note the above document was generated using voice recognition software. It may contain grammatical, syntax or spelling errors.Any formal questions or concerns about the content, text or information contained within the body of this dictation should be directly addressed to the provider for clarification. Subjective Patient seen at bedside this morning. S/p tracheostomy. Unable to communicate verbally but able to nod to respond to questions. Mild pain at trach site. Denies chest pain, palpitations, shortness of breath, nausea, vomiting, or headaches. Review of Systems Review of Systems: All systems reviewed & are unremarkable except as noted in HPI & below Physical Exam Physical Exam: GENERAL - in no acute distress. Communicates appropriately yes/no with nodding. Vitals as above. HEENT - NCAT. PERRL. EOMI. Sclera anicteric. Moist mucous membranes. Oropharynx clear without perioral cyanosis. NECK - Trach in place with dressing clean, dry, and intact. Supple. No lymphadenopathy. No nuchal rigidity. LUNGS - Chest wall symmetric without accessory muscle use, intercostals retractions, or central cyanosis. Normal vesicular breath sounds CTA B/L. No wheezes, rales, or rhonchi appreciated. CARDIAC - RRR with S1/S2. No murmur, rubs, or gallops appreciated. ABDOMEN - BS normoactive all four quadrants. No tenderness, palpable masses, hepatosplenomegaly, or ascites. EXTREMITIES - No clubbing or peripheral cyanosis. No pretibial edema present. 2+ radial and dorsalis pedis pulses palpated throughout. +5/5 strength noted in UE/LE bilaterally. SKIN - No rashes, warm, dry. NEUROLOGIC - Cranial nerves II through XII grossly intact. PSYCH - A&Ox3 and cooperates fully with examiner. Pleasant. Results & Data Results & Data ([facility]) Vital Signs (Past 12 Hours) Vital Signs Temp Pulse Pulse Resp BP Pulse Ox 01/20/22 09:50 91 H 20 103/64 96 01/20/22 07:00 36.5 C 69 69 01/20/22 06:00 36.5 C 77 20 88/64 L 01/20/22 05:00 36.7 C 74 18 91/68 L 95 01/20/22 04:00 37 C 73 20 102/74 94 01/20/22 03:00 36.6 C 71 20 95/67 L 95 01/20/22 02:00 36.0 C L 77 18 96/74 L 95 01/20/22 01:00 36.6 C 77 20 97/74 L 99 01/20/22 00:00 36.9 C 71 20 93/69 L 95 Resident Activity Tracking Resident Involvement: Resident Care Provided Care Provided: Adult Hospital Medicine
[2022-01-20] MEDS: FOLIC ACID 1 MG TAB PO SCH (12:12)
--- NOTE | 2022-01-20 13:35 | Billing Data ---
Date of Service January 20, 2022 Coding Level of Care Code 85082 Subseq Hosp Care Lvl 3
[2022-01-20] MEDS: ACETAMINOPHEN 500 MG TAB PO PRN (14:39)
--- NOTE | 2022-01-20 17:51 | Hospitalist Progress Note ---
Date of Service January 20, 2022 Assessment & Plan (1) Stridor: Plan: Patient admitted to the ICU for stridor, vocal cord paralysis and granuloma Now s/p tracheostomy on 01/19 Doing well post-op with some pain, low grade temp Passed Speech eval and eating well Has speaking valve ENT wants her to stay through 01/24 for first trach exchange Change Fentanyl to percocet and morphine IV prn (2) MDD (major depressive disorder), recurrent episode, severe: Plan: Recent admission since 11/10 after a suicide attempt by drug overdose. All of her psychiatric medication was discontinued during that admission. Transferred to a residential treatment program ([facility]) where she stayed for 29 days. At time of discharge, she was prescribed Lexapro 10 mg and prazosin 2 mg as her only psychiatric medications. Appears controlled. -continue home meds No need for 1:1, she is denying SI and states mood is really good (3) Alcohol use disorder: Plan: S/P discharge from residential treatment program. EtOH level here negative (4) GERD (gastroesophageal reflux disease): Plan: continue ppi (5) Status post tracheostomy: Plan: DVT proph-SCDs Dispo-continued stay, downgrade to PCU Admission and Anticipated Discharge Date Admission Date: January 19, 2022 Subjective Pt feeling well.Having some pain in neck. No SOB. Had low grade fever. Tele with NSR, normal rates Review of Systems Review of Systems: All systems reviewed & are unremarkable except as noted in HPI & below Physical Exam Constitutional: WD/WN, vitals as above Eyes: + anicteric sclerae ENMT: external ear and nose normal, oropharynx normal Neck: + abnormal visual inspection (tracheostomy tube in place) Respiratory: normal respiratory effort, lungs clear to auscultation (decreased at bases) Cardiovascular: RRR, no murmur, no edema Chest (Breasts): Chest: normal inspection of chest Gastrointestinal (Abdomen): normal bowel sounds, soft, nontender, no hepatosplenomegaly Musculoskeletal: Extremities: extremities normal to inspection; no cyanosis and no clubbing Skin: no rashes, warm and dry Neurologic: moves all extremities and awake; no focal motor deficits Psychiatric: A+Ox3, euthymic affect Lymphatic: no lymphedema Results & Data Results & Data ([facility]) Vital Signs (Past 12 Hours) Vital Signs Temp Pulse Pulse Resp BP Pulse Ox 01/20/22 15:00 37.8 C H 91 H 22 92/79 L 96 01/20/22 11:57 37.4 C 93 H 28 H 106/69 95 01/20/22 09:50 91 H 20 103/64 96 01/20/22 07:00 36.5 C 69 69 01/20/22 06:00 36.5 C 77 20 88/64 L PG Care Time/CCT Total # of Minutes Spent Total Time Spent with Patient: Total time spent is greater than 50% in coordination of care (as documented) at patient's floor/unit and/or counseling patient: Coding Level of Care Code 27159 Subseq Hosp Care Lvl 2 Diagnoses Stridor R06.1 MDD (major depressive disorder), recurrent episode, severe F33.2 Alcohol use disorder GERD (gastroesophageal reflux disease) K21.9 Status post tracheostomy Z93.0
[2022-01-20] MEDS: MoRPHine SULFATE 2 MG/ML CARP IV PRN (19:49)
[2022-01-20] MEDS: oxyCODONE/ACETAMINOPHEN 5mg/325mg TAB PO PRN (21:46)
[2022-01-21] MEDS: MoRPHine SULFATE 2 MG/ML CARP IV PRN ×3 (01:00→15:40)
[2022-01-21] MEDS: oxyCODONE/ACETAMINOPHEN 5mg/325mg TAB PO PRN ×4 (04:46→20:53)
[2022-01-21 07:55] LABS: Potassium 3.2 mmol/L (3.5-5.1)
[2022-01-21 07:56] LABS: BUN Creatinine Ratio 11.9 (10-20); Calcium 8.3 mg/dl (8.5-10.1); Creatinine Clr Calc Pharmacy 117.1 ml/min; Est GFR (African American) 131.9 ml/min; Est GFR (Non-African American) 113.8 ml/min
[2022-01-21 08:00] LABS: Basophils # (auto) 0.04 K/uL (0-0.2); Basophils % (auto) 0.4 %; Eosinophils # (auto) 0.25 K/uL (0-0.5); Eosinophils % (auto) 2.3 %; Hematocrit (blood only) 33.2 % (37-47); Hemoglobin 11.2 g/dL (12.0-16.0); Immature Granulocytes # (auto) 0.02 K/uL (0.00-0.02); Immature Granulocytes % (auto) 0.2 %; Lymphocytes # (auto) 2.56 K/uL (1.2-3.4); Lymphocytes % (auto) 23.4 %; Mean Corpuscular Hemoglobin 31.2 pg (25-34); Mean Corpuscular Hgb Conc 33.7 g/dL (32-36); Mean Corpuscular Volume 92.5 fL (80-100); Mean Platelet Volume 10.5 fL (7.4-10.4); Monocytes # (auto) 0.69 K/uL (0.11-0.59); Monocytes % (auto) 6.3 %; Neutrophils # (auto) 7.37 K/uL (1.4-6.5); Neutrophils % (auto) 67.4 %; Platelet Count 241 K/uL (130-400); RDW Coefficient of Variation 13.2 % (11.5-14.5); RDW Standard Deviation 44.6 fL (36.4-46.3); Red Blood Count 3.59 M/uL (4.2-5.4); White Blood Count 10.93 K/uL (4.8-10.8)
[2022-01-21] MEDS: FOLIC ACID 1 MG TAB PO SCH (09:00)
[2022-01-21] MEDS: PANTOprazole 40 MG TAB PO SCH (09:00)
[2022-01-21] MEDS: THIAMINE HCL 100 MG TAB PO SCH (09:00)
[2022-01-21] MEDS: ESCITALOPRAM OXALATE 10 MG TAB PO SCH (09:00)
[2022-01-21] MEDS ORDERED: POTASSIUM CHLORIDE 20 MEQ/15 ML UDC PO STA (11:28)
--- NOTE | 2022-01-21 16:04 | Hospitalist Progress Note ---
Date of Service January 21, 2022 Assessment & Plan (1) Stridor: Plan: Patient admitted to the ICU for stridor, vocal cord paralysis and granuloma Now s/p tracheostomy on 01/19 Doing well post-op with some pain, low grade temp now resolved Passed Speech eval and eating well Has speaking valve ENT wants her to stay through 01/24 for first trach exchange Continue percocet and morphine IV prn (2) Hypokalemia: Plan: replace with po KCl elixir follow BMP, Mag in AM (3) Chronic constipation: Plan: add daily Miralax especially while receiving opioids for pain (4) MDD (major depressive disorder), recurrent episode, severe: Plan: Recent admission since 11/10 after a suicide attempt by drug overdose. All of her psychiatric medication was discontinued during that admission. Transferred to a residential treatment program ([facility]) where she stayed for 29 days. At time of discharge, she was prescribed Lexapro 10 mg and prazosin 2 mg as her only psychiatric medications. Appears controlled. -continue home meds No need for 1:1, she is denying SI and states mood is really good (5) Alcohol use disorder: Plan: S/P discharge from residential treatment program. EtOH level here negative (6) GERD (gastroesophageal reflux disease): Plan: continue ppi (7) Status post tracheostomy: Plan: DVT proph-SCDs Dispo-continued stay, PCU Admission and Anticipated Discharge Date Admission Date: January 19, 2022 Subjective Pt having more pain today in neck, alternating morphine and percocet. Otherwise eating well, no nausea. No BM and has a h/o constipation. Tele with NSR Review of Systems Review of Systems: All systems reviewed & are unremarkable except as noted in HPI & below Physical Exam Constitutional: WD/WN, vitals as above Eyes: + anicteric sclerae Neck: trachea midline, no thyromegaly + abnormal visual inspection (tracheostomy tube in place) Respiratory: normal respiratory effort, lungs clear to auscultation Cardiovascular: RRR, no murmur, no edema Chest (Breasts): Chest: normal inspection of chest Gastrointestinal (Abdomen): normal bowel sounds, soft, nontender, no hepatosplenomegaly Musculoskeletal: Extremities: extremities normal to inspection; no cyanosis and no clubbing Skin: no rashes, warm and dry Neurologic: moves all extremities and awake; no focal motor deficits Psychiatric: A+Ox3, euthymic affect Lymphatic: no lymphedema Results & Data Results & Data ([facility]) Vital Signs (Past 12 Hours) Vital Signs Temp Pulse Pulse Resp BP BP Pulse Ox 01/21/22 11:33 37.3 C 82 20 83/64 L 97 01/21/22 08:00 37.2 C 92 H 14 92/55 L 95 Laboratory Results hypokalemia PG Care Time/CCT Total # of Minutes Spent Total Time Spent with Patient: Total time spent is greater than 50% in coordination of care (as documented) at patient's floor/unit and/or counseling patient: Coding Level of Care Code 86775 Subseq Hosp Care Lvl 2 Diagnoses Stridor R06.1 MDD (major depressive disorder), recurrent episode, severe F33.2 Alcohol use disorder GERD (gastroesophageal reflux disease) K21.9 Status post tracheostomy Z93.0 Hypokalemia E87.6 Chronic constipation K59.09
[2022-01-21] MEDS: POLYETHYLENE (MIRALAX) 17 GM PACK PO SCH (17:06)
[2022-01-22] MEDS: MoRPHine SULFATE 2 MG/ML CARP IV PRN ×2 (00:20→19:39)
[2022-01-22] MEDS: oxyCODONE/ACETAMINOPHEN 5mg/325mg TAB PO PRN ×3 (07:37→23:25)
[2022-01-22] MEDS: POLYETHYLENE (MIRALAX) 17 GM PACK PO SCH (07:37)
[2022-01-22] MEDS: PANTOprazole 40 MG TAB PO SCH (07:38)
[2022-01-22] MEDS: THIAMINE HCL 100 MG TAB PO SCH (07:38)
[2022-01-22] MEDS: FOLIC ACID 1 MG TAB PO SCH (07:38)
[2022-01-22] MEDS: ESCITALOPRAM OXALATE 10 MG TAB PO SCH (07:38)
[2022-01-22 08:26] LABS: Basophils # (auto) 0.02 K/uL (0-0.2); Basophils % (auto) 0.2 %; Eosinophils # (auto) 0.29 K/uL (0-0.5); Eosinophils % (auto) 2.8 %; Hemoglobin 12.3 g/dL (12.0-16.0); Immature Granulocytes # (auto) 0.03 K/uL (0.00-0.02); Immature Granulocytes % (auto) 0.3 %; Lymphocytes # (auto) 2.16 K/uL (1.2-3.4); Lymphocytes % (auto) 20.7 %; Mean Corpuscular Hemoglobin 30.5 pg (25-34); Mean Corpuscular Hgb Conc 33.2 g/dL (32-36); Mean Corpuscular Volume 91.8 fL (80-100); Mean Platelet Volume 10.6 fL (7.4-10.4); Monocytes # (auto) 0.44 K/uL (0.11-0.59); Monocytes % (auto) 4.2 %; Neutrophils # (auto) 7.49 K/uL (1.4-6.5); Neutrophils % (auto) 71.8 %; Platelet Count 294 K/uL (130-400); RDW Coefficient of Variation 13.2 % (11.5-14.5); RDW Standard Deviation 44.4 fL (36.4-46.3); Red Blood Count 4.03 M/uL (4.2-5.4); White Blood Count 10.43 K/uL (4.8-10.8)
[2022-01-22 08:55] LABS: BUN Creatinine Ratio 10.2 (10-20); Creatinine Clr Calc Pharmacy 117.1 ml/min; Est GFR (African American) 131.9 ml/min; Est GFR (Non-African American) 113.8 ml/min; Magnesium 1.8 mg/dl (1.7-2.4); Potassium 3.6 mmol/L (3.5-5.1)
--- NOTE | 2022-01-22 10:51 | Hospitalist Progress Note ---
Date of Service January 22, 2022 Assessment & Plan (1) Stridor: Plan: Patient admitted to the ICU for stridor, vocal cord paralysis and granuloma Now s/p tracheostomy on 01/19 Doing well post-op with some pain which is better controlled, low grade temp now resolved Passed Speech eval and eating well Has speaking valve ENT wants her to stay through 01/24 for first trach exchange Continue percocet and morphine IV prn CM working on setting up supplies for at home, Rxs all signed (2) Hypokalemia: Plan: replaced and resolved, no need for further labs (3) Chronic constipation: Plan: No BM since admission continue daily Miralax especially while receiving opioids for pain (4) MDD (major depressive disorder), recurrent episode, severe: Plan: Recent admission since 11/10 after a suicide attempt by drug overdose. All of her psychiatric medication was discontinued during that admission. Transferred to a residential treatment program ([facility]) where she stayed for 29 days. At time of discharge, she was prescribed Lexapro 10 mg and prazosin 2 mg as her only psychiatric medications. Appears controlled. -continue home meds No need for 1:1, she is denying SI and states mood is really good (5) Alcohol use disorder: Plan: S/P discharge from residential treatment program. EtOH level here negative (6) GERD (gastroesophageal reflux disease): Plan: continue ppi (7) Status post tracheostomy: Plan: DVT proph-SCDs Dispo-continued stay, PCU Admission and Anticipated Discharge Date Admission Date: January 19, 2022 Subjective Pt feels well, pain is better controlled. Passing flatus but no BM yet. No SOB. Tele reviewed-NSR, normal rates Review of Systems Review of Systems: All systems reviewed & are unremarkable except as noted in HPI & below Physical Exam Constitutional: WD/WN, vitals as above Eyes: + anicteric sclerae ENMT: external ear and nose normal, oropharynx normal Neck: trachea midline, no thyromegaly + abnormal visual inspection (tracheostomy tube in place) Respiratory: normal respiratory effort, lungs clear to auscultation Cardiovascular: RRR, no murmur, no edema Chest (Breasts): Chest: normal inspection of chest Gastrointestinal (Abdomen): normal bowel sounds, soft, nontender, no hepatosplenomegaly Musculoskeletal: Extremities: extremities normal to inspection; no cyanosis and no clubbing Skin: no rashes, warm and dry Neurologic: moves all extremities and awake; no focal motor deficits Psychiatric: A+Ox3, euthymic affect Lymphatic: no lymphedema Results & Data Results & Data ([facility]) Vital Signs (Past 12 Hours) Vital Signs Temp Pulse Pulse Resp BP Pulse Ox 01/22/22 08:00 37.2 C 80 13 94/74 L 96 01/22/22 04:00 36.6 C 69 15 98/64 L 93 01/22/22 00:00 36.6 C 68 14 90/63 L 91 01/21/22 23:26 67 Laboratory Results 01/22/22 01/22/22 Range/Units 08:10 08:10 WBC 10.43 (4.8-10.8) K/uL RBC 4.03 L (4.2-5.4) M/uL Hgb 12.3 (12.0-16.0) g/dL Hct 37.0 (37-47) % MCV 91.8 (80-100) fL MCH 30.5 (25-34) pg MCHC 33.2 (32-36) g/dL RDW Std Deviation 44.4 (36.4-46.3) fL RDW Coeff of Evgeny 13.2 (11.5-14.5) % Plt Count 294 (130-400) K/uL MPV 10.6 H (7.4-10.4) fL Immature Gran % (Auto) 0.3 % Neut % (Auto) 71.8 % Lymph % (Auto) 20.7 % [place] % (Auto) 4.2 % Eos % (Auto) 2.8 % Baso % (Auto) 0.2 % Neut # (Auto) 7.49 H (1.4-6.5) K/uL Lymph # (Auto) 2.16 (1.2-3.4) K/uL [place] # (Auto) 0.44 (0.11-0.59) K/uL Eos # (Auto) 0.29 (0-0.5) K/uL Baso # (Auto) 0.02 (0-0.2) K/uL Immature Gran # (Auto) 0.03 H (0.00-0.02) K/uL Sodium 137 (136-145) mmol/L Potassium 3.6 (3.5-5.1) mmol/L Chloride 105 (98-107) mmol/L Carbon Dioxide 28 (21-32) mmol/L Anion Gap 4 (3-11) BUN 6 (6-23) mg/dl Creatinine 0.59 L (0.6-1.2) mg/dl Est Cr Clr Drug Dosing 117.1 ml/min Est GFR ( Amer) 131.9 ml/min Est GFR (Non-Af Amer) 113.8 ml/min BUN/Creatinine Ratio 10.2 (10-20) Glucose 131 H (70-99(Fasting)) mg/dl Calcium 9.0 (8.5-10.1) mg/dl Magnesium 1.8 (1.7-2.4) mg/dl PG Care Time/CCT Total # of Minutes Spent Total Time Spent with Patient: Total time spent is greater than 50% in coordination of care (as documented) at patient's floor/unit and/or counseling patient: Coding Level of Care Code 05278 Subseq Hosp Care Lvl 2 Diagnoses Stridor R06.1 Hypokalemia E87.6 Chronic constipation K59.09 MDD (major depressive disorder), recurrent episode, severe F33.2 Alcohol use disorder GERD (gastroesophageal reflux disease) K21.9 Status post tracheostomy Z93.0
--- NOTE | 2022-01-22 11:57 | Ears,Nose,Throat Progress Note ---
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 CT without subglottic stenosis. Now s/p DL/tracheostomy 01/19/22. Doing well. -Continue diet per HAZARDOUS WASTE MANAGEMENT SPECIALIST -Trach care teaching with RT, patient doing her own suctioning -Backup trach (same size/type) and obturator at bedside at all times -Continue humidified trach mask or provide HME -Will plan for trach change 01/25 in OR, can d/c after. Please keep NPO after MN on 01/24. Admission and Anticipated Discharge Date Admission Date: January 19, 2022 Subjective MILENA o/n. One tacking suture pulled through last night, 3 remain secure. Tolerating PMV and swallowing well. Pain improving. Breathing easily. Physical Exam Physical Exam: 6.5mm ID flex Shiley in place, secured with sutures x3 and soft trach collar. Voice strong with PMV Nonlabored respirations, SaO2 >92% on RA Managing secretions No bleeding Results & Data ([facility]) Vital Signs (Past 12 Hours) Vital Signs Temp Pulse Resp BP Pulse Ox 01/22/22 08:00 37.2 C 80 13 94/74 L 96 01/22/22 04:00 36.6 C 69 15 98/64 L 93 01/22/22 00:00 36.6 C 68 14 90/63 L 91 PG Care Time/CCT Total # of Minutes Spent Total Time Spent with Patient: Total time spent is greater than 50% in coordination of care (as documented) at patient's floor/unit and/or counseling patient: Coding Level of Care Code 94739 Subseq Hosp Care Lvl 2 Diagnoses Status post tracheostomy Z93.0 Vocal fold paresis, bilateral J38.02
[2022-01-23] MEDS: oxyCODONE/ACETAMINOPHEN 5mg/325mg TAB PO PRN ×3 (06:19→19:52)
--- NOTE | 2022-01-23 07:50 | Hospitalist Progress Note ---
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 on 01/19, Doing well post-op with some pain controlled, low grade temp now resolved Passed Speech eval and eating well Has speaking valve ENT wants her to stay through 01/24 for first trach exchange scheduled for thursday 01/25 Continue percocet and morphine IV prn CM working on setting up supplies for at home, Rxs all signed (2) Hypokalemia: Plan: replaced and resolved, no need for further labs (3) Chronic constipation: Plan: No BM since admission continue daily Miralax especially while receiving opioids for pain (4) MDD (major depressive disorder), recurrent episode, severe: Plan: Recent admission since 11/10 after a suicide attempt by drug overdose. All of her psychiatric medication was discontinued during that admission. Transferred to a residential treatment program ([facility]) where she stayed for 29 days. At time of discharge, she was prescribed Lexapro 10 mg and prazosin 2 mg as her only psychiatric medications. Appears controlled. -continue home meds No need for 1:1, she is denying SI and states mood is really good (5) Alcohol use disorder: Plan: S/P discharge from residential treatment program. EtOH level here negative (6) GERD (gastroesophageal reflux disease): Plan: continue ppi (7) Status post tracheostomy: Plan: DVT proph-SCDs Dispo-continued stay, PCU Admission and Anticipated Discharge Date Admission Date: January 19, 2022 Subjective Pt has no complaints or problems scheduled for trache exchange 01/25/22 Review of Systems Review of Systems: Mild distress and fatigue no headache, no visual changes no speech or swallowing issues, has talking trache no chest pain, pressure or palpitations no shortness of breath, cough or wheezes no abdominal pain, nausea or vomiting, diarrhea or constipation no dysuria, hematuria or frequency no focal joint pain or swelling no back pain, CVA tenderness or radicular pain no bruising, bleeding or rashes no focal signs of weakness or numbness or altered sensation no complaints of anxiety or depression.. Physical Exam Physical Exam: The patient appeared stable Vital signs as documented. trache site is clean and dry with no bruising Lungs are clear to auscultation and appear unlabored Cardiac exam, Rhythm is regular.. No murmurs, rubs or gallops. Abdominal exam reveals normal bowel sounds, soft non tender, no masses Extremities are nonedematous and both pedal pulses are normal. Neurologic exam is alert and oriented, no focal loss of strength or sensation Skin is without bruises or rashes Psychologically is without concerns for anxiety or depression. Results & Data Results & Data ([facility]) Vital Signs (Past 12 Hours) Vital Signs Temp Pulse Pulse Resp BP Pulse Ox 01/23/22 04:00 97.7 F 64 14 93/55 L 98 01/23/22 00:00 99.5 F 93 H 70 18 100/67 98 01/22/22 20:00 99.5 F 87 18 94/63 L 98 PG Care Time/CCT Total # of Minutes Spent Total Time Spent with Patient: Total time spent is greater than 50% in coordination of care (as documented) at patient's floor/unit and/or counseling patient: Coding Level of Care Code 06602 Subseq Hosp Care Lvl 1 Diagnoses Stridor R06.1 Hypokalemia E87.6 Chronic constipation K59.09 MDD (major depressive disorder), recurrent episode, severe F33.2 Alcohol use disorder GERD (gastroesophageal reflux disease) K21.9 Status post tracheostomy Z93.0
[2022-01-23] MEDS: ESCITALOPRAM OXALATE 10 MG TAB PO SCH (10:10)
[2022-01-23] MEDS: FOLIC ACID 1 MG TAB PO SCH (10:10)
[2022-01-23] MEDS: POLYETHYLENE (MIRALAX) 17 GM PACK PO SCH (10:10)
[2022-01-23] MEDS: THIAMINE HCL 100 MG TAB PO SCH (10:10)
[2022-01-23] MEDS: PANTOprazole 40 MG TAB PO SCH (10:10)
[2022-01-23] MEDS: ACETAMINOPHEN 500 MG TAB PO PRN (20:26)
[2022-01-24] MEDS: oxyCODONE/ACETAMINOPHEN 5mg/325mg TAB PO PRN ×3 (03:57→19:41)
[2022-01-24] MEDS: MoRPHine SULFATE 2 MG/ML CARP IV PRN ×2 (06:45→20:20)
--- NOTE | 2022-01-24 07:12 | Anesthesiology Consultation ---
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 History Surgery Operation Date: 01/19/22 13:35 Proposed Procedures p Direct Laryngoscopy - Harper Hector MD s Tracheostomy - Harper Hector MD s Possible Bronchoscopy - Harper Hector MD Operation Date: 01/25/22 07:00 Proposed Procedures p Tracheostomy Change - Noah Valenzuela MD Height/Weight Height: 5 ft 1 in Weight: 72.2 kg Allergies Allergy/AdvReac Type Severity Reaction Status Date / Time No Known Drug Allergies Allergy Verified 01/19/22 12:54 Medications Home Medications Medication Instructions Recorded Confirmed Last Taken olopatadine 0.6 % nasal spray 2 spray INTRANASAL DAILY #30.5 g 07/31/21 01/19/22 01/19/22 (Patanase) folic acid 1 mg tablet 1 mg PO DAILY 09/08/21 01/19/22 Unknown thiamine mononitrate (vit B1) 100 100 mg PO DAILY 09/08/21 01/19/22 01/19/22 mg tablet esomeprazole magnesium 40 mg 40 mg PO QAM 11/09/21 01/19/22 01/19/22 capsule,delayed release acetaminophen 325 mg tablet 650 mg PO Q4H PRN #30 tab 11/16/21 01/19/22 Unknown albuterol sulfate 90 mcg/actuation 2 inh INHALATION Q6H PRN #8.5 g 11/16/21 01/19/22 Unknown aerosol inhaler ibuprofen 800 mg tablet 800 mg PO TID PRN #30 tab 11/16/21 01/19/22 Unknown linaclotide 290 mcg capsule 290 mcg PO DAILY PRN 90 Days #90 11/16/21 01/19/22 08/09/21 cap multivitamin with folic acid 400 1 tab PO QAM #30 tab 11/16/21 01/19/22 01/19/22 mcg tablet (Daily-Ana (with folic acid)) escitalopram oxalate 10 mg tablet 10 mg PO DAILY #90 tab 12/30/21 01/19/22 01/19/22 (Lexapro) prazosin 2 mg capsule 2 mg PO QPM 12/30/21 01/19/22 Unknown methylprednisolone 4 mg tablets in See Rx Instructions .ROUTE 01/19/22 Unknown a dose pack .COMPLEX #21 ea Active Medications Generic Name Dose Route Start Last Admin Trade Name Freq PRN Reason Stop Dose Admin Acetaminophen 1,000 mg 01/20/22 11:07 01/23/22 20:26 Acetaminophen 500 Mg Tab PO 02/19/22 11:06 500 mg Q8H PRN Administration Fever or mild pain (1,2,3) Escitalopram Oxalate 10 mg 01/20/22 09:00 01/23/22 10:10 Escitalopram Oxalate 10 Mg Tab PO 02/19/22 08:59 10 mg QAM KATJA Administration Folic Acid 1 mg 01/20/22 11:45 01/23/22 10:10 Folic Acid 1 Mg Tab PO 02/19/22 11:44 1 mg QAM KATJA Administration Morphine Sulfate 2 mg 01/20/22 17:51 01/24/22 06:45 Morphine Sulfate 2 Mg/Ml Carp IV 02/03/22 17:50 2 mg Q4H PRN Administration Severe Pain Oxycodone/Acetaminophen 1 tab 01/20/22 17:51 01/24/22 03:57 Oxycodone/Acetaminophen 5mg/325mg Tab PO 02/03/22 17:50 1 tab Q4H PRN Administration moderate-severe Pain Pantoprazole Sodium 40 mg 01/20/22 09:00 01/23/22 10:10 Pantoprazole 40 Mg Tab PO 02/19/22 08:59 40 mg QAM KATJA Administration Polyethylene Glycol 17 gm 01/21/22 16:15 01/23/22 10:10 Polyethylene (Miralax) 17 Gm Pack PO 02/20/22 16:14 Not Given DAILY KATJA Thiamine HCl 100 mg 01/20/22 09:00 01/23/22 10:10 Thiamine Hcl 100 Mg Tab PO 02/19/22 08:59 100 mg QAM KATJA Administration NPO Date Last Intake of Fluids: 01/19/22 Time Last Intake of Fluids: 11:00 Date Last Intake of Solids: 01/19/22 Time Last Intake of Solids: 11:00 Last Intake of Solids Comment: peanut butter sandwich Past Medical History Medical History Acne Alcohol overdose Alcohol use disorder Chronic constipation Chronic sinusitis Exercise-induced asthma Family history of colonic polyps GERD (gastroesophageal reflux disease) History of menorrhagia History of uterine leiomyoma Past Family History Family History Son Allergic to eggs Esophagitis, eosinophilic Milk allergy Soy allergy Wheat allergy Grandfather (Paternal) Stroke Colorectal cancer Heart disease CHF Diabetes Mother Hepatic cirrhosis Leiomyoma of body of uterus Alcohol abuse Father Colonic polyp, Onset Age: 50 Anxiety Past Surgical History Surgical History History of delivery x 2 History of esophagogastroduodenoscopy (EGD) History of loop electrical excision procedure (LEEP) History of robot-assisted laparoscopic hysterectomy History of tubal ligation Social History Smoking Status: Former smoker Smoking cigarettes per day: unsure-smoked socially Do You Dip or Chew Tobacco: No Hx Alcohol Use: Yes Alcohol type: beer and wine alcohol intake frequency: a few times a month Hx Substance Use: Yes substance use type: prescription drug Last Used Substance: Just Prior to Arrival Physical Exam Vital Signs Last Vital Signs Temp 98.8 F 01/24/22 04:00 Pulse 75 01/24/22 04:00 Resp 16 01/24/22 04:00 BP 88/61 L 01/24/22 04:00 Pulse Ox 96 01/24/22 04:00 Testing Laboratory Results 01/22/22 08:10 01/22/22 08:10 Electrocardiogram Date: 11/12/21 Findings: + NSR @ (73 bpm) Chest X-Ray Date: 01/19/22 IMPRESSION: 1. Interval tracheostomy. 2. No pneumothorax. 3. Low lung volumes with suspected left basilar atelectasis. 4. Gaseous distention of the stomach.
[2022-01-24] MEDS: PANTOprazole 40 MG TAB PO SCH (08:08)
[2022-01-24] MEDS: FOLIC ACID 1 MG TAB PO SCH (08:08)
[2022-01-24] MEDS: THIAMINE HCL 100 MG TAB PO SCH (08:08)
[2022-01-24] MEDS: POLYETHYLENE (MIRALAX) 17 GM PACK PO SCH (08:08)
[2022-01-24] MEDS: ESCITALOPRAM OXALATE 10 MG TAB PO SCH (08:08)
--- NOTE | 2022-01-24 11:46 | Hospitalist Progress Note ---
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 on 01/19, l post-op some pain controlled, low grade temp some sputum will culture, follow, will not start antibiotics at this time Passed Speech eval and eating well Has speaking valve ENT wants her to stay through 01/24 for first trach exchange scheduled for thursday 01/25 Continue percocet and morphine IV prn CM working on setting up supplies for at home, Rxs all signed (2) Hypokalemia: Plan: replaced and resolved, no need for further labs (3) Chronic constipation: Plan: continue daily Miralax especially while receiving opioids for pain (4) MDD (major depressive disorder), recurrent episode, severe: Plan: Recent admission since 11/10 after a suicide attempt by drug overdose. All of her psychiatric medication was discontinued during that admission. Transferred to a residential treatment program ([facility]) where she stayed for 29 days. At time of discharge, she was prescribed Lexapro 10 mg and prazosin 2 mg as her only psychiatric medications. Appears controlled. -continue home meds No need for 1:1, she is denying SI and states mood is really good (5) Alcohol use disorder: Plan: S/P discharge from residential treatment program. EtOH level here negative (6) GERD (gastroesophageal reflux disease): Plan: continue ppi (7) Status post tracheostomy: Plan: DVT proph-SCDs Dispo-continued stay, PCU Admission and Anticipated Discharge Date Admission Date: January 19, 2022 Subjective Pt for trache exchange 01/25/22, has some sputum production with cough that pt states has a foul smell, nothing seen on outside will have sputum culture Review of Systems Review of Systems: Mild distress and fatigue no headache, no visual changes no speech or swallowing issues, has talking trache no chest pain, pressure or palpitations no shortness of breath, cough or wheezes no abdominal pain, nausea or vomiting, diarrhea or constipation no dysuria, hematuria or frequency no focal joint pain or swelling no back pain, CVA tenderness or radicular pain no bruising, bleeding or rashes no focal signs of weakness or numbness or altered sensation no complaints of anxiety or depression.. Physical Exam Physical Exam: The patient appeared stable Vital signs as documented. trache site is clean and dry with no bruising Lungs are clear to auscultation and appear unlabored Cardiac exam, Rhythm is regular.. No murmurs, rubs or gallops. Abdominal exam reveals normal bowel sounds, soft non tender, no masses Extremities are nonedematous and both pedal pulses are normal. Neurologic exam is alert and oriented, no focal loss of strength or sensation Skin is without bruises or rashes Psychologically is without concerns for anxiety or depression. Results & Data Results & Data ([facility]) Vital Signs (Past 12 Hours) Vital Signs Temp Pulse Resp BP Pulse Ox 01/24/22 08:00 98.6 F 76 16 97/69 L 99 01/24/22 04:00 98.8 F 75 16 88/61 L 96 01/23/22 23:44 98.6 F 68 16 95/65 L 95 01/23/22 22:03 99.1 F PG Care Time/CCT Total # of Minutes Spent Total Time Spent with Patient: Total time spent is greater than 50% in coordination of care (as documented) at patient's floor/unit and/or counseling patient: Coding Level of Care Code 50153 Subseq Hosp Care Lvl 2 Diagnoses Stridor R06.1 Hypokalemia E87.6 Chronic constipation K59.09 MDD (major depressive disorder), recurrent episode, severe F33.2 Alcohol use disorder GERD (gastroesophageal reflux disease) K21.9 Status post tracheostomy Z93.0
[2022-01-24] MEDS: ACETAMINOPHEN 500 MG TAB PO PRN (12:02)
[2022-01-25] MEDS: oxyCODONE/ACETAMINOPHEN 5mg/325mg TAB PO PRN ×3 (04:38→16:32)
[2022-01-25] MEDS: POLYETHYLENE (MIRALAX) 17 GM PACK PO SCH (07:32)
[2022-01-25] MEDS: PANTOprazole 40 MG TAB PO SCH (09:26)
[2022-01-25] MEDS: THIAMINE HCL 100 MG TAB PO SCH (09:26)
[2022-01-25] MEDS: ESCITALOPRAM OXALATE 10 MG TAB PO SCH (09:26)
[2022-01-25] MEDS: FOLIC ACID 1 MG TAB PO SCH (09:26)
[2022-01-25] MEDS ORDERED: fentaNYL citrate 100 MCG/2 ML VIAL ONE (14:00)
[2022-01-25] MEDS ORDERED: MIDAZOLAM HCL 1 MG/ML 2ML VIAL ONE ×2 (14:00→14:03)
[2022-01-25] MEDS ORDERED: LIDOCAINE 2%/EPINEPHRINE 1:100,000 20ML ONE (14:08)
[2022-01-25] MEDS ORDERED: LIDOCAINE 2% LOCAL 50 ML VIAL ONE (14:09)
--- NOTE | 2022-01-25 14:29 | History & Physical Bridge Note ---
Date of Service January 25, 2022 History & Physical Bridge Note I have examined the patient, reviewed the History & Physical and in the interval since the performance of the History & Physical I have noted the following changes of clinical significance: no changes noted Doing well, plan for tracheostomy tube change in [facility] today
[2022-01-25] MEDS ORDERED: KETAMINE 50 MG/5 ML SYRINGE ONE (14:48)
--- NOTE | 2022-01-25 15:00 | Post Operative Brief Note ---
PG Immediate Post Op with CF Date of Surgery January 25, 2022 Pre & Post Diagnosis Operation Date: 01/19/22 13:35 Pre-Op Diagnosis: SHORTNESS OF BREATH, DR REFERRED Post-Op Diagnosis: SHORTNESS OF BREATH, DR REFERRED Operation Date: 01/25/22 07:00 <No data on this case meets the specified criteria> I identified the patient and participated in the time-out.: Yes Procedure Operation Date: 01/19/22 13:35 Actual Procedures p Direct Laryngoscopy(Not Applicable) - Noah Valenzuela MD s Tracheostomy(Not Applicable) - Noah Valenzuela MD Operation Date: 01/25/22 07:00 <No data on this case meets the specified criteria> Surgeon Noah Valenzuela MD Wardrobe Coordinator none Estimated Blood Loss 0 Findings See Below Well healed tracheostomy tract, no granulation. 6.5mm ID cuffless flex Shiley placed easily, confirmed in airway with suction
--- NOTE | 2022-01-25 15:17 | Anesthesiology Progress Note ---
Date of Service January 25, 2022 Anesthesia Post Procedure Vital Signs Vital Signs: Temp Pulse Pulse Resp BP Pulse Ox 01/25/22 13:45 36.6 C 71 18 98/70 L 95 01/25/22 11:55 36.8 C 66 14 100/65 96 01/25/22 09:30 37.0 C 71 16 93/60 L 95 01/25/22 04:00 37.1 C 65 19 93/67 L 96 01/25/22 00:00 36.5 C 70 14 83/53 L 97 01/24/22 23:59 65 01/24/22 19:56 36.7 C 72 20 107/77 97 01/24/22 16:00 37.3 C 80 16 102/71 95 Pain Intensity Neck: Pain Intensity: 4 Transfer of Care Handoff Completed per policy Notes Mental Status: alert / awake / arousable and participated in evaluation Patient Amnestic to Procedure: Yes Nausea / Vomiting: adequately controlled Pain: adequately controlled Airway Patency, RR, SpO2: stable & adequate BP & HR: stable & adequate Hydration State: stable & adequate Anesthetic Complications: no major complications apparent and Pt Satisfied with anesthetic care
--- NOTE | 2022-01-25 15:24 | Discharge Summary ---
Date of Service January 25, 2022 Principal Diagnosis emergent tracheostomy, with exchange 01/25/22 6.5mm cuffless flex shiley hypokalemia resolved Discharge Exam The patient appeared stable Vital signs as documented. tracheostomy in anterior neck Lungs are clear to auscultation and appear unlabored Neurologic exam is alert and oriented, no focal loss of strength or sensation Psychologically is without concerns for anxiety or depression. Discharge Data Allergies Allergy/AdvReac Type Severity Reaction Status Date / Time No Known Drug Allergies Allergy Verified 01/19/22 12:54 Consultations 01/19/22 15:11 ED Decision to Admit Stat 01/19/22 15:16 Consult Sales Development Specialist Routine Procedures Performed Operation Date: 01/19/22 13:35 Actual Procedures p Direct Laryngoscopy(Not Applicable) - Noah Valenzuela MD s Tracheostomy(Not Applicable) - Noah Valenzuela MD Operation Date: 01/25/22 07:00 Actual Procedures p Tracheostomy Tube Change - Noah Valenzuela MD Ordered Studies 01/19/22 12:10 CT soft tissue neck w con Stat Hospital Course (1) Stridor: Patient admitted for stridor, 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 on 01/19, l post-op some pain controlled, low grade temp some sputum will culture, follow, will not start antibiotics at this time Passed Speech eval and eating well Has speaking valve ENT first trach exchange scheduled for thursday 01/25 exchange with 6.5mm cuffless flex shiley set up supplies for at home, Rxs all signed (2) Hypokalemia: replaced and resolved, no need for further labs (3) Chronic constipation: continue daily Miralax especially while receiving opioids for pain linzess can be used at home (4) MDD (major depressive disorder), recurrent episode, severe: Recent admission since 11/10 after a suicide attempt by drug overdose. All of her psychiatric medication was discontinued during that admission. Transferred to a residential treatment program ([facility]) where she stayed for 29 days. At time of discharge, she was prescribed Lexapro 10 mg and prazosin 2 mg as her only psychiatric medications. (5) Alcohol use disorder: S/P discharge from residential treatment program. EtOH level here negative (6) GERD (gastroesophageal reflux disease): continue ppi (7) Status post tracheostomy: DVT proph-SCDs Dispo-continued stay, PCU Total Time Total Time Spent Total Time Spent (In Minutes): It required greater than 30 minutes to prepare this patient for discharge Discharge Plan Discharge Items Patient Disposition: Home - Self-Care Reason For Visit: NEED FOR NTRACHEOSTOMY / STRIDOR Discharge Diagnosis: trachesotomy placement Condition on Discharge: Good Activity: Per Instructions section Activity Comment: tracheostomy care Non-emergency contact: Primary Care Provider and Surgeon Call non-emergency contact if: your symptoms worsen and you have a fever Follow-up/Referrals: Louann Campbell MD [Primary Care Provider] - Harper Hector MD [Physician] - 02/24/22 7:45 am (follow up one month February 24 @ 745 am) Diet: Regular Addtl Attending Provider Instructions: * Wash your hands thoroughly with soap and water. * Stand or sit in a comfortable position in front of a mirror (in the bathroom over the sink is a good place to care for your trach tube). * Put on the gloves. * Suction the trach tube. (Your healthcare provider will give you more information about the suctioning procedure). * If your tube has an inner cannula, remove it. (If the trach tube does not have an inner cannula, go to step 12.) * Hold the inner cannula over the basin and pour the hydrogen peroxide over and into it. Use as much hydrogen peroxide as you need to clean the inner cannula thoroughly. * Clean the inner cannula with pipe hr clerk or a small brush. * Thoroughly rinse the inner cannula with normal saline, tap water or distilled water (if you have a septic tank or well water). * Dry the inside and outside of the inner cannula completely with a clean 4 x 4 fine mesh gauze pad. * Reinsert the inner cannula and lock it in place. * Remove the soiled gauze dressing around your neck and throw it away. * Inspect the skin around the stoma for redness, hardness, tenderness, drainage or a foul smell. If you notice any of these conditions, call your nurse or physician after you finish routine care. * Soak the cotton-tipped swabs in a solution of half hydrogen peroxide and half water. Use the swabs to clean the exposed parts of the outer cannula and the skin around the stoma. * Wet the wash cloth with normal saline, tap water or distilled water. Use the wash cloth to wipe away the hydrogen peroxide and clean the skin. * Dry the exposed outer cannula and the skin around the stoma with a clean towel. * Change the trach tube ties. * Measure and cut a piece of tie long enough to go around your neck twice. Cut the tie at an angle (Illustration 17c.) so it is easier to insert the tie into the neck-plate. * Untie one side of the old tie and remove that side from the neck-plate. Do not completely remove the old tie until the new one is in place and is securely fastened. * Holding the trach tube in place, lace the tie through one hole of the neck- plate, around the back of your neck, through the other hole of neck-plate, and again around the back of your neck. * Pull the tie snugly and tie a square knot on the side of your neck. There should be enough space for no more than two fingers between the tie and your neck. (Illustration 17d.) * Cut, remove and discard the old tie. If you have a cuffed trach tube, be careful not to cut the cuff balloon when removing the old trach tube tie. * Place a fine mesh gauze under the tracheostomy tie and neck-plate by folding it or cutting a slit in it.*Note: Some brands of mesh gauze are pre- cut.Important: Do not use 4 x 4 gauze or toppers they contain cotton fibers which could clog your airway. * * Remove your gloves and throw them away. * Wash your hands with soap and warm water. * Wash the basin and small brush with soap and warm water. Dry them and put them away. * Put the used washcloth and towel in the laundry. * Wash your hands again with soap and warm water Pending Studies at Discharge: No Stand-Alone Forms: My [facility], Smoking Cessation Medications and DC Order Prescriptions: Continued escitalopram oxalate [Lexapro] 10 mg tablet 10 mg PO DAILY Qty: 90 RF: 3 prazosin 2 mg capsule 2 mg PO QPM RF: 0 olopatadine [Patanase] 0.6 % spray,non-aerosol 2 spray intranasal DAILY Qty: 30.5 RF: 11 folic acid 1 mg tablet 1 mg PO DAILY RF: 0 thiamine mononitrate (vit B1) 100 mg tablet 100 mg PO DAILY RF: 0 esomeprazole magnesium 40 mg capsule,delayed release(DR/EC) 40 mg PO QAM RF: 0 acetaminophen 325 mg Tablet 650 mg PO Q4H PRN (Reason: pain) Qty: 30 RF: 0 multivitamin with folic acid [Daily-Ana (with folic acid)] 400 mcg Tablet 1 tab PO QAM Qty: 30 RF: 0 Discontinued ibuprofen 800 mg Tablet 800 mg PO TID PRN (Reason: pain) Qty: 30 RF: 0 albuterol sulfate 90 mcg/actuation HFA aerosol inhaler 2 inh inhalation Q6H PRN (Reason: shortness of breath or wheezing) Qty: 8.5 RF: 0 linaclotide 290 mcg capsule 290 mcg PO DAILY PRN (Reason: constipation) 90 Days Qty: 90 RF: 3 Discharge Orders: Discharge Order (Routine); Ordered 01/25/22 Ordered By: Ethan Bland Admission Data Admit Date/Time: 01/19/22 15:16 Attending Provider: Ethan Bland Admit Provider: Farhad Pa Primary Care Provider: Louann Campbell Other Providers: Farhad Pa ; Luisito Cook ; [facility] ; [facility] Other Interventions: Discharge Summary Assessment (RN) Last Done: 01/25/22 16:06 Coding Level of Care Code D/C DAY MANAGEMENT >30 MINS Diagnoses Stridor R06.1 Hypokalemia E87.6 Chronic constipation K59.09 MDD (major depressive disorder), recurrent episode, severe F33.2 Alcohol use disorder GERD (gastroesophageal reflux disease) K21.9 Status post tracheostomy Z93.0
--- NOTE | 2022-01-26 01:01 | Operative Report (OR) ---
DATE OF SERVICE: 01/25/2022 PREOPERATIVE DIAGNOSIS: Tracheostomy tube dependence. POSTOPERATIVE DIAGNOSIS: Tracheostomy tube dependence. PROCEDURE: Tracheostomy tube change. SURGEON: Rosalia Valenzuela MD. ANESTHESIA: Conscious sedation. ESTIMATED BLOOD LOSS: 0 mL. INTRAOPERATIVE FINDINGS: 1. Well-healed tracheostomy tract. 2. A 6.5 mm inner diameter flexible cuffless Shiley trach tube was placed easily without difficulty. SPECIMENS: None. COMPLICATIONS: None. 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 The risks and benefits of the procedure were discussed in detail, and the patient elected to proceed with surgery. Informed consen t was obtained. A preprocedure COVID test remained negative. DESCRIPTION OF PROCEDURE: The patient was identified in the ICU and brought back to the operating ro om. She was placed supine on the operating room table. A shoulder roll was placed. After initiatio n of conscious sedation by the anesthesia team, the patient's existing tracheostomy tube was removed and the tract was examined. It was noted to be healing nicely without granulation tissue or bleeding . The trachea itself was suctioned clear. A 6.5 mm inner diameter flexible cuffless Shiley was then inserted through the tract into the trachea without difficulty. There was no resistance. Adequate placement in the airway was confirmed using suction. The stay sutures were then removed from the tra judie and discarded. A new soft collar was used to secure the tracheostomy tube. The patient was the n awakened without difficulty and transferred back to the ICU in good condition. I was present and p erformed the entire procedure myself. Job ID: [id number]
== END 2022-01-25 17:10 | disposition home or self-care (01) | DRG 12 ==
LOC: ED 11:27 → 1E 15:16 → SUATTDRO 15:16 → 1E 15:54
PROC: M.TRACH (2022-01-19 13:35)

== ENCOUNTER 2024-07-30 00:42 | Observation (INO) ==
[2024-07-30 00:53] VITALS: TEMP 98.2
--- NOTE | 2024-07-30 01:08 | Emergency Department Note ---
Impression & Plan Acute hypotension, Hypoxia, Drug overdose, Alcohol abuse ED Provider Note NAME: ALENA TORRES AGE: 44 SEX: F : 1980 ARRIVES VIA: Ambulance INFORMANT: Patient ED PROVIDER(S): Cory Martinez DO CHIEF COMPLAINT: Intentional overdose HPI: Patient is a 44-year-old female with a past medical history of alcohol abuse, depression, constipation, GERD who presents to the ER following intentional overdose that occurred about 2 hours ago. Patient took 9 tablets of 2 mg of prazosin. She was texting with her boyfriend and noted that the next Google search that he will find is her obituary. She admits to feeling much more depressed following losing her job. She feels as though things are getting significantly worse over the course of the past month. Patient was per the significant other threatening to take the medications if he told anyone or called anyone. He was arguing with her trying to get her not to take the medications and she took them in front of him. He did call EMS. Per EMS boyfriend told them that the patient intentionally took the medications to kill herself. Patient notes that her boyfriend will say that she took them to harm herself/kill her self and that he is lying. ADDITIONAL HISTORY OBTAINED: Per HPI Chronic Medical/Social Conditions Affecting Care: Per HPI PAST MEDICAL HISTORY:See Below PAST SURGICAL HISTORY:See Below FAMILY HISTORY:See Below SOCIAL HISTORY:See Below HOME MEDICATIONS:See Below ALLERGIES:See Below VITALS:See Below PHYSICAL EXAMINATION: GENERAL: Sitting up in bed, alert, well appearing, well nourished, no distress, non-toxic EYE EXAM: normal conjunctiva. OROPHARYNX: no exudate, no erythema, lips, buccal mucosa, and tongue normal and mucous membranes are moist NECK: supple, no nuchal rigidity, no adenopathy, non-tender LUNGS: Clear to auscultation. Normal chest wall mechanics HEART: no murmurs, S1 normal and S2 normal ABDOMEN: abdomen soft, non-tender, normo-active bowel sounds, no masses, no rebound or guarding. UPPER EXTREMITIES: upper extremities are grossly normal. LOWER EXTREMITIES: No pitting edema. NEURO EXAM: Normal sensorium, cranial nerves II-XII grossly intact, normal speech, no gross weakness of arms, no gross weakness of legs. MEDICAL DECISION MAKING: Patient is a 44-year-old female who presents ER following intentional overdose of 18 mg prazosin around 12:00 tonight. IV was established and blood work was obtained. Discussed with [place] poison control and they recommended observation for 6 hours with the likely side effects of hypotension, tachycardia, vomiting or dizziness. Both myself and the psychiatric lawn care professional discussed with the boyfriend who admits that patient sent text messages that he was going to find her obituary tomorrow that she was intentionally took the medications to overdose. Labs show no significant leukocytosis or anemia. BMP along LFTs bilirubin was unremarkable. UA was contaminated. was negative. Salicylates acetaminophen were negative. Alcohol was elevated at 250. Patient dropped her pressures into the 80s. She was given additional 2 L of normal saline for total of 3 L. She did have some wheezing and was found to be slightly hypoxic and was placed on 2 L nasal cannula and given DuoNeb x 2 in combination with Solu-Medrol IV 40 mg. She had a brief run per nursing of V. tach. When this was reviewed on the monitor does appear to be did not change present which marches through I do not feel this consistent with VT but she will remain on the monitor. Discussed case with the hospitalist for further evaluation management treatment. Consults/Care Managements Discussions: Per [facility] Triage Nursing notes reviewed. Limited review of prior medical records performed Vital Signs: reviewed and remarkable for no significant abnormalities Differential diagnosis: Overdose, toxicologic, infection, hypoglycemia, electrolyte abnormalities, cardiac sources, intracerebral event, neurologic, trauma, as well as other pathologies. ER treatment provided: See below Diagnostics interpreted by me include EKG and cardiac monitoring as listed below: -Cardiac Monitoring: An order was placed for continuous cardiac monitoring. The monitor shows a rate of 110 with sinus rhythm. -ECG: Sinus rhythm rate 81 Normal axis No PVCs QTc 432 -Laboratory studies:Interpreted by me as stated above in MDM and shown below. Imaging studies: Xrays: As interpreted by me:none CTs show: none Procedures:none Critical Care: I have personally spent 45 minutes of critical care time in the direct management of this patient. This includes bedside care, interpretation of diagnostic studies, and testing, discussion with consultants, patient, and family members, and other required patient management activities. This 45 minutes is in excess of all separately billable procedures. Past Med/Surg History Problem List Alcohol abuse (Acute) Drug overdose (Acute) Hypoxia (Acute) Acute hypotension (Acute) Posterior glottic stenosis (Chronic) Exercise-induced asthma (Chronic) Alcohol use disorder (Chronic) in remission MDD (major depressive disorder), recurrent episode, severe (Chronic) Chronic rhinitis (Chronic) Family history of colonic polyps (Chronic) Acne (Chronic) Chronic constipation (Chronic) GERD (gastroesophageal reflux disease) (Chronic) Medical History Suicide attempt Surgical History Status post tracheostomy History of robot-assisted laparoscopic hysterectomy done due to fibroids / heavy menses History of esophagogastroduodenoscopy (EGD) History of loop electrical excision procedure (LEEP) History of tubal ligation History of delivery x 2 Family History Son Allergic to eggs Esophagitis, eosinophilic Milk allergy Soy allergy Wheat allergy Grandfather (Paternal) Stroke Colorectal cancer Heart disease CHF Diabetes Mother Hepatic cirrhosis Leiomyoma of body of uterus Alcohol abuse Father Colonic polyp, Onset Age: 50 Anxiety Social History Smoking Status: Unknown if ever smoked Tobacco Type: Cigarettes Age Started Using Tobacco: 18; Age Quit Using Tobacco: 25; Cigarettes Per Day: unsure-smoked socially; Second Hand Exposure: No; Do You Dip or Chew Tobacco: No; Hx Alcohol Use: No (sober since 10/2021) Preferred Language: Qatari Communication Ability: Effective Communication Ability Comment: New Trach Visual Impairment: No Limitations Hearing Ability: Normal 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: No Beliefs That Will Affect Care: None marital status: Current Living Situation: Spouse Current Living Situation Comment: 2 children current occupational status: employed current occupation: [email or web address] Feels Safe at Home: Yes Childhood Exposure to Second-Hand Smoke: No Diet: regular caffeine: Yes Dental Care, Regularly: Yes Physical Activity Frequency: Does not Exercise Seatbelt Use: always Sunscreen Use: Yes Assistive Devices: None Allergies Allergies Allergy/AdvReac Type Severity Reaction Status Date / Time No Known Drug Allergies Allergy Verified 04/11/23 13:28 Home Meds Previous Rx's Medication Instructions Recorded acetaminophen 325 mg tablet 650 mg (2 x 325 mg) PO Q4H PRN 11/16/21 pain #30 tabs esomeprazole magnesium 40 mg See Rx Instructions .Route 10/31/23 capsule,delayed release .COMPLEX #90 caps escitalopram oxalate 10 mg tablet 10 mg PO DAILY #90 tabs 01/27/24 (Lexapro) Results & Data (ED) Vital Signs Vital Signs - 24 hr 07/30/24 00:50 07/30/24 00:53 07/30/24 01:22 Temperature 36.8 C Temperature Source Oral Pulse Rate 111 H 85 101 H Pulse Rate [Right Finger] Pulse Rhythm Regular Respiratory Rate 18 16 Respiratory Effort / Characteristics Non-Labored Spontaneous Respiratory Depth Normal Respiratory Pattern Regular Blood Pressure 112/79 Blood Pressure [Left Arm] Blood Pressure Mean 90 Blood Pressure Mean [Left Arm] Blood Pressure Position [Left Arm] Pulse Oximetry 100 98 Oxygen Delivery Method Room Air Room Air Oxygen Flow Rate Sepsis Recent Fever Within 48 Hours No Sepsis New/Unexplained Change in Mental Status N/A Sepsis Action Taken by Nursing No Action Required 07/30/24 02:03 07/30/24 02:12 07/30/24 04:00 Temperature Temperature Source Pulse Rate 99 H 96 H Pulse Rate [Right Finger] 97 H Pulse Rhythm Respiratory Rate 18 20 20 Respiratory Effort / Characteristics Non-Labored Respiratory Depth Normal Respiratory Pattern Blood Pressure 86/61 L Blood Pressure [Left Arm] 108/77 Blood Pressure Mean 69 Blood Pressure Mean [Left Arm] 87 Blood Pressure Position [Left Arm] Lying Pulse Oximetry 99 97 Oxygen Delivery Method Room Air Nasal Cannula Oxygen Flow Rate 2 Sepsis Recent Fever Within 48 Hours Sepsis New/Unexplained Change in Mental Status Sepsis Action Taken by Nursing Laboratory Data 07/30/24 01:15 07/30/24 01:15 Lab Results 07/30/24 07/30/24 07/30/24 Range/Units 01:15 01:16 Unknown WBC 5.33 (4.8-10.8) K/ul RBC 4.37 (4.20-5.40) M/uL Hgb 13.8 (12.0-16.0) g/dl Hct 41.4 (37.0-47.0) % MCV 94.7 (80.0-100.0) fL MCH 31.6 (25.0-34.0) pg MCHC 33.3 (32.0-36.0) g/dL RDW Std Deviation 49.9 H (36.4-46.3) fL RDW Coeff of Evgeny 14.3 (11.5-14.5) % Plt Count 296 (130-400) K/uL MPV 9.1 L (9.4-12.4) fL Immature Gran % (Auto) 0.4 % Neut % (Auto) 46.8 % Lymph % (Auto) 43.2 % [place] % (Auto) 6.4 % Eos % (Auto) 1.9 % Baso % (Auto) 1.3 % Neut # (Auto) 2.50 (1.40-6.50) K/uL Lymph # (Auto) 2.30 (1.20-3.40) K/uL [place] # (Auto) 0.34 (0.11-0.59) K/uL Eos # (Auto) 0.10 (0.00-0.50) K/uL Baso # (Auto) 0.07 (0.00-0.20) K/uL Immature Gran # (Auto) 0.02 (0.01-0.20) K/uL Sodium 142 (136-145) mmol/L Potassium 3.6 (3.5-5.1) mmol/L Chloride 105 (98-107) mmol/L Carbon Dioxide 27 (21-32) mmol/L Anion Gap 10 (3-11) BUN 7 (6-23) mg/dl Creatinine 0.69 (0.6-1.2) mg/dl Est Cr Clr Drug Dosing Not Reportable eGFR 109.68 BUN/Creatinine Ratio 10.1 (10-20) Glucose 122 H (70-99(Fasting)) mg/dl Calcium 9.0 (8.6-10.3) mg/dl Magnesium 1.9 (1.7-2.4) mg/dl Total Bilirubin 0.6 (0.2-1.0) mg/dl AST 20 (13-39) U/L ALT 15 (7-52) U/L Alkaline Phosphatase 82 (34-104) U/L Total Protein 7.4 (6.0-8.3) gm/dl Albumin 4.1 (3.4-5.0) gm/dl Globulin 3.3 (2.5-4.0) gm/dl Albumin/Globulin Ratio 1.2 (0.9-2) Urine Color Yellow Urine Appearance Cloudy A (Clear) Urine pH 5.5 (4.5-7.5) Ur Specific [place] 1.017 (1.000-1.030) Urine Protein Trace H (Negative) Urine Glucose (UA) Negative (Negative) Urine Ketones Trace H (Negative) Urine Blood Trace H (Negative) Urine Nitrite Negative (Negative) Urine Bilirubin Negative (Negative) Urine Urobilinogen Negative (Negative) Ur Leukocyte Esterase 1+ H (Negative) Urine WBC (Auto) 21-50 H (0-5) /hpf Urine RBC (Auto) 0-2 (0-2) /hpf U Hyaline Cast (Auto) 3-5 H (0-2) /lpf U Epithel Cells (Auto) 6-10 H (0-2) /hpf Urine Bacteria (Auto) None Seen (None Seen) Urine Mucus Present A (None Prsent) POC Ur Test NEG (NEG) Salicylates < 3.0 L (3.0-30) mg/dl Urine Opiates Screen Neg (Neg) Ur Methadone, Qual Neg (Neg) Urine Fentanyl Screen Neg (Neg) Acetaminophen < 3 L (10-30) ug/ml Urine Barbiturates Neg (Neg) Ur Phencyclidine (PCP) Neg (Neg) U Amphetamin/Meth Scrn Neg (Neg) MDMA (Ecstasy) Screen Neg (Neg) U Benzodiazepines Scrn Neg (Neg) Ur Cocaine Metabolite Neg (Neg) U Marijuana (THC) Screen Neg (Neg) Ethyl Alcohol mg/dL 248.9 H (<10.0) mg/dl SARS-CoV-2, RNA, NAAT NEGATIVE (NEGATIVE) Administered Medications Sodium Chloride (Nss) 1,000 mls @ 999 mls/hr IV .Q1H1M KATJA Stop: 07/30/24 05:15 Last Admin: 07/30/24 04:27 Dose: 999 mls/hr Documented By: Infusion: 07/30/24 04:25 Dose: Infused Documented By: Admin: 07/30/24 03:19 Dose: 999 mls/hr Documented By: MICHAEL Discontinued Medications Albuterol (Albut/Ipratrop 3mg/0.5mg Neb 3 Ml Vial) 6 ml NEB NOW STA; Protocol Stop: 07/30/24 03:38 Last Admin: 07/30/24 03:43 Dose: 6 ml Documented By: MICHAEL Sodium Chloride (Nss) 1,000 mls @ 999 mls/hr IV .Q1H1M ONE Stop: 07/30/24 02:23 Last Infusion: 07/30/24 02:27 Dose: Infused Documented By: Admin: 07/30/24 01:31 Dose: 999 mls/hr Documented By: AMAN Methylprednisolone (Methylprednisolone 125 Mg/2 Ml Vial) 40 mg IV NOW STA Stop: 07/30/24 03:39 Last Admin: 07/30/24 03:43 Dose: 40 mg Documented By: MICHAEL Discharge Plan Visit Data Chief Complaint: Overdose (Intentional) Stated Complaint: INTENTIONAL OVERDOSE ED Provider: Cory Martinez Discharge Problem: Acute hypotension, Hypoxia, Drug overdose, Alcohol abuse Forms Stand Alone Forms: My [facility], Suicide Prevention Resources Prescriptions Prescriptions: No Action esomeprazole magnesium 40 mg capsule,delayed release(DR/EC) See Rx Instructions .ROUTE .COMPLEX Qty: 90 3RF Dose Instruction: TAKE 1 CAPSULE IN THE MORNING Rx Instructions: TAKE 1 CAPSULE IN THE MORNING escitalopram oxalate [Lexapro] 10 mg tablet 10 mg PO DAILY Qty: 90 3RF acetaminophen 325 mg Tablet 650 mg PO Q4H PRN (Reason: pain) Qty: 30 0RF Referrals Referrals: Louann Campbell MD [Primary Care Provider] -
[2024-07-30] MEDS: SODIUM CHLORIDE 0.9% 1,000 ML IV ONE (01:31)
[2024-07-30 01:48] LABS: Basophils # (auto) 0.07 K/uL (0.00-0.20); Basophils % (auto) 1.3 %; Eosinophils % (auto) 1.9 %; Hematocrit (blood only) 41.4 % (37.0-47.0); Hemoglobin 13.8 g/dl (12.0-16.0); Immature Granulocytes # (auto) 0.02 K/uL (0.01-0.20); Immature Granulocytes % (auto) 0.4 %; Lymphocytes % (auto) 43.2 %; Mean Corpuscular Hemoglobin 31.6 pg (25.0-34.0); Mean Corpuscular Hgb Conc 33.3 g/dL (32.0-36.0); Mean Corpuscular Volume 94.7 fL (80.0-100.0); Mean Platelet Volume 9.1 fL (9.4-12.4); Monocytes # (auto) 0.34 K/uL (0.11-0.59); Monocytes % (auto) 6.4 %; Neutrophils % (auto) 46.8 %; Platelet Count 296 K/uL (130-400); RDW Coefficient of Variation 14.3 % (11.5-14.5); RDW Standard Deviation 49.9 fL (36.4-46.3); Red Blood Count 4.37 M/uL (4.20-5.40); White Blood Count 5.33 K/ul (4.8-10.8)
[2024-07-30 01:59] LABS: Alanine Aminotransferase 15 U/L (7-52); Albumin Globulin Ratio 1.2 (0.9-2); Albumin Level 4.1 gm/dl (3.4-5.0); Alkaline Phosphatase 82 U/L (34-104); Anion Gap 10 (3-11); Aspartate Aminotransferase 20 U/L (13-39); BUN Creatinine Ratio 10.1 (10-20); Bilirubin,Total 0.6 mg/dl (0.2-1.0); Blood Urea Nitrogen 7 mg/dl (6-23); Carbon Dioxide 27 mmol/L (21-32); Chloride 105 mmol/L (98-107); Globulin 3.3 gm/dl (2.5-4.0); Glucose 122 mg/dl (70-99(Fasting)); Potassium 3.6 mmol/L (3.5-5.1); Sodium 142 mmol/L (136-145); Total Protein 7.4 gm/dl (6.0-8.3)
[2024-07-30 02:05] LABS: Acetaminophen < 3 ug/ml (10-30); Salicylate < 3.0 mg/dl (3.0-30)
[2024-07-30] MEDS: SODIUM CHLORIDE 0.9% 1,000 ML IV SCH (03:19)
[2024-07-30] MEDS: ALBUT/IPRATROP 3MG/0.5MG NEB 3 ML VIAL NEB STA (03:43)
[2024-07-30] MEDS: methylPREDNISolone 125 MG/2 ML VIAL IV STA (03:43)
[2024-07-30 03:50] LABS: Appearance Urine Cloudy (Clear); Bacteria Urine Automated None Seen (None Seen); Bilirubin Urine Negative (Negative); Blood Urine Trace (Negative); Color Urine Yellow; Glucose Urine UA Negative (Negative); Ketones Urine Trace (Negative); Leukocyte Esterase Urine 1+ (Negative); Mucus Urine Present (None Prsent); Nitrite Urine Negative (Negative); Protein Urine Trace (Negative); RBC Urine Automated 0-2 /hpf (0-2); Specific Gravity Urine 1.017 (1.000-1.030); Urobilinogen Urine Negative (Negative); WBC Urine Automated 21-50 /hpf (0-5); pH Urine 5.5 (4.5-7.5)
[2024-07-30 03:56] LABS: Amphetamines+Metham, Urine Neg (Neg); Barbiturates, Urine Neg (Neg); Benzodiazepine, Urine Neg (Neg); Cocaine, Urine Neg (Neg); Fentanyl, Urine Neg (Neg); MDMA (Ecstacy), Urine Neg (Neg); Marijuana, Urine Neg (Neg); Methadone, Urine Neg (Neg); Opiate, Urine Neg (Neg); Phencyclidine, Urine Neg (Neg)
[2024-07-30 04:16] LABS: Magnesium 1.9 mg/dl (1.7-2.4)
--- NOTE | 2024-07-30 04:20 | History & Physical Report ---
Date of Service July 30, 2024 Assessment & Plan (1) Suicide attempt: Plan: 44yo female with history of MDD presenting after intentional overdose with Prazosin 18mg taken around 23:00. Patient with orthostatic hypotension in the ER, now improved -Admit to PCU -Continue IVF -Fall precautions -Suicide precautions, safe tray -One to one observation -Psychiatry consultation appreciated - 302 petition present on chart (2) Alcohol use disorder: Plan: Patient drinks frequently, 2-6 per day -AWSS At Risk Protocol History of Present Illness Chief Complaint: intentional overdose Primary Care Provider: Louann Campbell MD Massiel Pop is a 44yo female with history of GERD, MDD presenting with intentional overdose. Patient has had a difficult week with her family and ex- . She reports that tonight she became overwhelmed and took 18mg po Prazosin + EtOH tonight in attempt to kill herself. Patient with no additional complaints. In the ER she became hypotensive, orthostatic hypotension with BP dropping into the 50's with positional change Patient developed some shortness of breath and wheeze while in the ER as well ER Course: Solumedrol 40mg IV Albuterol 6mL neb NSS x 2L Allergies Allergy/AdvReac Type Severity Reaction Status Date / Time No Known Drug Allergies Allergy Verified 04/11/23 13:28 Home Medications Medication Instructions Recorded Confirmed Type acetaminophen 325 mg tablet 650 mg (2 x 325 mg) PO Q4H PRN 11/16/21 04/11/23 Rx pain #30 tabs esomeprazole magnesium 40 mg See Rx Instructions .Route 10/31/23 Rx capsule,delayed release .COMPLEX #90 caps escitalopram oxalate 10 mg tablet 10 mg PO DAILY #90 tabs 01/27/24 Rx (Lexapro) Past Med/Surg History Problem List Alcohol abuse (Acute) Drug overdose (Acute) Hypoxia (Acute) Acute hypotension (Acute) Posterior glottic stenosis (Chronic) Exercise-induced asthma (Chronic) Alcohol use disorder (Chronic) in remission MDD (major depressive disorder), recurrent episode, severe (Chronic) Chronic rhinitis (Chronic) Family history of colonic polyps (Chronic) Acne (Chronic) Chronic constipation (Chronic) GERD (gastroesophageal reflux disease) (Chronic) Medical History Suicide attempt Surgical History Status post tracheostomy History of robot-assisted laparoscopic hysterectomy done due to fibroids / heavy menses History of esophagogastroduodenoscopy (EGD) History of loop electrical excision procedure (LEEP) History of tubal ligation History of delivery x 2 Family History Son Allergic to eggs Esophagitis, eosinophilic Milk allergy Soy allergy Wheat allergy Grandfather (Paternal) Stroke Colorectal cancer Heart disease CHF Diabetes Mother Hepatic cirrhosis Leiomyoma of body of uterus Alcohol abuse Father Colonic polyp, Onset Age: 50 Anxiety Social History Smoking Status: Unknown if ever smoked Tobacco Type: Cigarettes Age Started Using Tobacco: 18; Age Quit Using Tobacco: 25; Cigarettes Per Day: unsure-smoked socially; Second Hand Exposure: No; Do You Dip or Chew Tobacco: No; Hx Alcohol Use: No (sober since 10/2021) Preferred Language: Fijian Communication Ability: Effective Communication Ability Comment: New Trach Visual Impairment: No Limitations Hearing Ability: Normal 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 Beliefs That Will Affect Care: None marital status: Current Living Situation: Spouse Current Living Situation Comment: 2 children current occupational status: employed 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 Safe at Home: Yes Childhood Exposure to Second-Hand Smoke: No Diet: regular caffeine: Yes Dental Care, Regularly: Yes Physical Activity Frequency: Does not Exercise Seatbelt Use: always Sunscreen Use: Yes Assistive Devices: None Review of Systems Review of Systems: All systems reviewed & are unremarkable except as noted in HPI & below Physical Exam Physical Exam: General: patient resting comfortably, NAD, non-toxic in appearance, AA&O x 4 Skin: warm, dry, intact, no rashes or lesions HEENT: NC/AT, PERRL, EOMI, anicteric sclera, conjunctiva without injection, external ear normal to inspection and nontender, nares patent, moist mucus membranes, dentition intact, no oropharyngeal lesions, neck supple, trachea midline, no LAD, no thyromegaly, no JVD Heart: +S1/S2, regular, no m/r/g Lungs: equal air entry bilaterally, no rales/rhonchi/wheezes Abd: +BS, soft, NT/ND, no masses/organomegaly/ascites Ext: warm, 2+ pulses in UE/LE bilaterally, no clubbing/cyanosis or edema Neuro: nonfocal, patient AA&O x 4, speech intact, no facial droop, moving all extremities on command with equal strength 5/5 Results & Data Results & Data Vital Signs (Past 12 Hours) Vital Signs Temp Pulse Resp BP Pulse Ox O2 Del Method 07/30/24 02:12 96 H 20 07/30/24 02:03 99 H 18 86/61 L 99 Room Air 07/30/24 01:22 101 H 07/30/24 00:53 85 16 98 Room Air 07/30/24 00:50 36.8 C 111 H 18 112/79 100 Room Air Laboratory Results Laboratory Results WBC 5.33 K/ul (4.8-10.8) 07/30/24 01:15 RBC 4.37 M/uL (4.20-5.40) 07/30/24 01:15 Hgb 13.8 g/dl (12.0-16.0) 07/30/24 01:15 Hct 41.4 % (37.0-47.0) 07/30/24 01:15 MCV 94.7 fL (80.0-100.0) 07/30/24 01:15 MCH 31.6 pg (25.0-34.0) 07/30/24 01:15 MCHC 33.3 g/dL (32.0-36.0) 07/30/24 01:15 RDW Std Deviation 49.9 fL (36.4-46.3) H 07/30/24 01:15 RDW Coeff of Evgeny 14.3 % (11.5-14.5) 07/30/24 01:15 Plt Count 296 K/uL (130-400) 07/30/24 01:15 MPV 9.1 fL (9.4-12.4) L 07/30/24 01:15 Immature Gran % (Auto) 0.4 % 07/30/24 01:15 Neut % (Auto) 46.8 % 07/30/24 01:15 Lymph % (Auto) 43.2 % 07/30/24 01:15 [place] % (Auto) 6.4 % 07/30/24 01:15 Eos % (Auto) 1.9 % 07/30/24 01:15 Baso % (Auto) 1.3 % 07/30/24 01:15 Neut # (Auto) 2.50 K/uL (1.40-6.50) 07/30/24 01:15 Lymph # (Auto) 2.30 K/uL (1.20-3.40) 07/30/24 01:15 [place] # (Auto) 0.34 K/uL (0.11-0.59) 07/30/24 01:15 Eos # (Auto) 0.10 K/uL (0.00-0.50) 07/30/24 01:15 Baso # (Auto) 0.07 K/uL (0.00-0.20) 07/30/24 01:15 Immature Gran # (Auto) 0.02 K/uL (0.01-0.20) 07/30/24 01:15 Sodium 142 mmol/L (136-145) 07/30/24 01:15 Potassium 3.6 mmol/L (3.5-5.1) 07/30/24 01:15 Chloride 105 mmol/L (98-107) 07/30/24 01:15 Carbon Dioxide 27 mmol/L (21-32) 07/30/24 01:15 Anion Gap 10 (3-11) 07/30/24 01:15 BUN 7 mg/dl (6-23) 07/30/24 01:15 Creatinine 0.69 mg/dl (0.6-1.2) 07/30/24 01:15 Est Cr Clr Drug Dosing Not Reportable 07/30/24 01:15 eGFR 109.68 07/30/24 01:15 BUN/Creatinine Ratio 10.1 (10-20) 07/30/24 01:15 Glucose 122 mg/dl (70-99(Fasting)) H 07/30/24 01:15 Calcium 9.0 mg/dl (8.6-10.3) 07/30/24 01:15 Total Bilirubin 0.6 mg/dl (0.2-1.0) 07/30/24 01:15 AST 20 U/L (13-39) 07/30/24 01:15 ALT 15 U/L (7-52) 07/30/24 01:15 Alkaline Phosphatase 82 U/L (34-104) 07/30/24 01:15 Total Protein 7.4 gm/dl (6.0-8.3) 07/30/24 01:15 Albumin 4.1 gm/dl (3.4-5.0) 07/30/24 01:15 Globulin 3.3 gm/dl (2.5-4.0) 07/30/24 01:15 Albumin/Globulin Ratio 1.2 (0.9-2) 07/30/24 01:15 Urine Color Yellow 07/30/24 Unknown Urine Appearance Cloudy (Clear) A 07/30/24 Unknown Urine pH 5.5 (4.5-7.5) 07/30/24 Unknown Ur Specific [place] 1.017 (1.000-1.030) 07/30/24 Unknown Urine Protein Trace (Negative) H 07/30/24 Unknown Urine Glucose (UA) Negative (Negative) 07/30/24 Unknown Urine Ketones Trace (Negative) H 07/30/24 Unknown Urine Blood Trace (Negative) H 07/30/24 Unknown Urine Nitrite Negative (Negative) 07/30/24 Unknown Urine Bilirubin Negative (Negative) 07/30/24 Unknown Urine Urobilinogen Negative (Negative) 07/30/24 Unknown Ur Leukocyte Esterase 1+ (Negative) H 07/30/24 Unknown Urine WBC (Auto) 21-50 /hpf (0-5) H 07/30/24 Unknown Urine RBC (Auto) 0-2 /hpf (0-2) 07/30/24 Unknown U Hyaline Cast (Auto) 3-5 /lpf (0-2) H 07/30/24 Unknown U Epithel Cells (Auto) 6-10 /hpf (0-2) H 07/30/24 Unknown Urine Bacteria (Auto) None Seen (None Seen) 07/30/24 Unknown Urine Mucus Present (None Prsent) A 07/30/24 Unknown POC Ur Test NEG (NEG) 07/30/24 Unknown Salicylates < 3.0 mg/dl (3.0-30) L 07/30/24 01:15 Urine Opiates Screen Neg (Neg) 07/30/24 Unknown Ur Methadone, Qual Neg (Neg) 07/30/24 Unknown Urine Fentanyl Screen Neg (Neg) 07/30/24 Unknown Acetaminophen < 3 ug/ml (10-30) L 07/30/24 01:15 Urine Barbiturates Neg (Neg) 07/30/24 Unknown Ur Phencyclidine (PCP) Neg (Neg) 07/30/24 Unknown U Amphetamin/Meth Scrn Neg (Neg) 07/30/24 Unknown MDMA (Ecstasy) Screen Neg (Neg) 07/30/24 Unknown U Benzodiazepines Scrn Neg (Neg) 07/30/24 Unknown Ur Cocaine Metabolite Neg (Neg) 07/30/24 Unknown U Marijuana (THC) Screen Neg (Neg) 07/30/24 Unknown Ethyl Alcohol mg/dL 248.9 mg/dl (<10.0) H 07/30/24 01:15 SARS-CoV-2, RNA, NAAT NEGATIVE (NEGATIVE) 07/30/24 01:16 PG Care Time/CCT Total # of Minutes Spent Total Time Spent with Patient: Total time spent is greater than 50% in coordination of care (as documented) at patient's floor/unit and/or counseling patient: Coding Level of Care Code 76460 INT INP/OBS CARE 3/75MIN Diagnoses Suicide attempt T14.91XA Alcohol use disorder F10.90
[2024-07-30] MEDS ORDERED: LORazepam 2 MG/1 ML VIAL IV PRN (05:19)
--- OUTSIDE RECORDS SUMMARY | 2024-07-30 08:26 | External Medical Summary ---
Author Name Unknown Address Unknown Organization : Laboratory Report Ordering Provider Test Date Status SONA GRAHAM 06/14/2024 14:04:27 Final Observation Date Value Abnormality Reference (Units ) Status Ethyl glucuronide [Mass/volume] in Urine 06/14/2024 14:04:27 1700 Above high normal <500 (ng/mL) Final Ethyl sulfate [Mass/volume] in Urine 06/14/2024 14:04:27 540 Above high normal <100 (ng/mL) Final This drug testing is for med ical treatment only.
Analysis was performed as non-forensic testing and
these results should be used only by healthcare
providers to render diagnosis or treatment, or to
monitor progress of medical conditions.
For assistance with interpreting these drug results,
please contact a [facility]
Specialist: [phone] ( ), M-F,
8am-6pm EST.
For additional information, please refer to
[email or web address]/[email or web address]
(This link is being provided for informational/
educational purposes only.)
This test was developed and its analytical performance
characteristics have been determined by [facility] [place], [place]. It has
not been cleared or approved by the U.S. Food and Drug
Administration. This assay has been validated pursuant
to the CLIA regulations and is used for clinical
purposes.

Test Performed at:
[employer] [facility]
[address] [facility]
[place], [place]
Shawn Peterson M.D., Ph.D.,Director of Laboratories Performing Location
--- NOTE | 2024-07-30 09:33 | Electrocardiogram Report ---
Test Reason : Blood Pressure : */* mmHG Vent. Rate : 81 BPM Atrial Rate : 81 BPM P-R Int : 150 ms QRS Dur : 80 ms QT Int : 372 ms P-R-T Axes : 66 71 71 degrees QTcB Int : 432 ms Normal sinus rhythm Normal ECG When compared with ECG of 12-Nov-2021 04:15, No significant change was found Confirmed by Sudhakar Bai ([id number]) on 07/30/2024 9:33:18 AM Referred By: REFERRED SELF Confirmed By: Sudhakar Bai
[2024-07-30] MEDS: ONDANSETRON INJ 2 MG/ML 2 ML VIAL IV PRN (11:35)
--- NOTE | 2024-07-30 13:42 | Psychiatric Consultation ---
Date of Consultation July 30, 2024 Impression / Recommendations Impression Diagnostically consistent with unspecified depressive disorder seems likely a combination of alcohol-induced depression and adjustment disorder with depressed mood vs MDD, mild in context of ongoing and new stressors as well as possible cluster B traits/trauma history leading to periods of high emotional reactivity. From a risk standpoint her acute risk of self-harm is now low given denial of SI, glad to be alive, no longer with intoxication, has strong deterrents, convincingly and adamantly speaks to protective factors and engagement with outpatient services and supports, allowed psych liason to corroborate lack of safety concerns with her partner. Chronic risk of self-harm is moderate to high given multiple non-modifiable risk factors: psychiatric co-morbid diagnoses, periods of impulsivity, substance use, prior attempts, emotional reactivity, prior psychiatric hospitalizations, trauma, but also with protective factors including: good social support, sense of responsibility to family and social supports, outpatient care in place, positive coping skills, positive problem solving, capacity to establish therapeutic alliance, willingness to engage with treatment, capacity for self-observation and motivation to stop drinking alcohol. Counseled on ways to reduce acute and chronic risk including avoiding substance use, continuing to engage with outpatient providers, getting back into an exercise routine, using safety plan if needed, utilizing supports, taking medication, and using coping skills. Discussed recommendation for inpatient psychiatric hospitalization given her ongoing and anticipated upcoming stressors (loss of insurance) but she feels capable of managing her stressors in healthier ways and utilizing her strong outpatient support network and services. She does not meet 302 criteria at this time given denial of SI, denial of HI, no evidence for psychosis, able to meet her basic needs and no evidence for major mood symptoms. Overall, I spent a total of 65 minutes with this case including review of chart records, review of labwork, direct evaluation of the patient at bedside, counseling the patient, discussion of the patient with the Nurse and with the hospitalist provider, discussion with the psychiatric liason during clinical rounds, review of collateral historian information from partner and documentation in the electronic health record. (1) Alcohol use disorder, moderate, dependence: (2) Depression: (3) Suicide attempt: Plan -Doesn't meet 302 criteria, can discharge from psychiatric standpoint as she declines voluntary inpatient psychiatric treatment -Offered and she declines option for voluntary psychiatric treatment, knows she can return in the future should she change her mind or should symptoms worsen or not improve -Agrees to contact 911 or return to the ED should symptoms worsen, not improve or SI re-occurs -Has outpatient psychiatrist and therapist, provided information for outpatient case management services should her outpatient care become inaccessible with potential loss of insurance in coming weeks or for additional outpatient support. She feels comfortable reaching out to make this referral on her own. -Actively engaged in safety planning -Reviewed crisis resources Psych History Identifying Data 44 yo woman with a history of GERD, depression, alcohol use disorder, and two prior suicide attempts admitted medically following suicide attempt via prazosin overdose. Psychiatry consulted for risk assessment. Chief Complaint "It was impulsive and I was drinking". History of Present Illness Massiel reports taking prazosin as a suicide attempt impulsively in the context of multiple psychosocial stressors, including job termination (her position can no longer be held while she awaits clearance to return to work from [employer] [employer]), potential upcoming insurance issues due to this, ongoing alcohol use, challenges of working with [employer], and harassment from her ex-partner. She was drinking yeste rday at the time of the attempt, recalls having 6 beers and 2 shots of vodka which she notes "is a lot, way too much". She relapsed on alcohol use this March and has been drinking intermittently si nce then. She feels her use has been decreasing after substance use treatment at [facility] in April and ongoing involvement in an IOP for substance use/dual diagnosis, outpatient psychiatry (including monthly Vivitrol injections though missed her most recent dose due to the hol, has a rescheduled appointment), therapy, AA and a weekly women's group for substance use. However, she recognizes that she can achieve sobriety again and was able to do so for 2.5 years and is very motivated to stop drinking. Discussed things that helped her be successful in the past, in spite of significant stressors, including a consistent exercise routine and dedication to AA and daily count of sobriety. Today she reflects that she felt overwhelmed and impulsively attempted suicide while under the influence of alcohol due to feeling "suddenly helpless". However, she is now glad to be alive and denies any current suicidal ideation. Reflects that she has support and recognizes that she should have reached out and plans to do this should she feel helpless or overwhelmed in the future. She does not think she would attempt again stating significant deterrents including her children, her partner (states this is the best relationship she's ever had, they've been together for a year), her family, and her AA groups. She is motivated to engage with safety planning. She is committed to her recovery and plans to continue engaging in outpatient treatment and support groups. She feels her psychiatric medication of escitalopram works well and wants to continue with this. She denies any current major depressive symptoms except fluctuations in her mood and some days has low motivation and struggles to get out of bed. Also deals with body dysmorphia and has gained weight over the last year which she would like to change. Denies any hopelessness. Confirms no other recent suicide attempts, last attempt was in 2021 leading to U admission during acute stressor of her divorce. Denies any access to guns. Allergies Allergy/AdvReac Type Severity Reaction Status Date / Time No Known Drug Allergies Allergy Verified 04/11/23 13:28 Home Medications Medication Instructions Recorded Confirmed Type acetaminophen 325 mg tablet 650 mg (2 x 325 mg) PO Q4H PRN 11/16/21 04/11/23 Rx pain #30 tabs esomeprazole magnesium 40 mg See Rx Instructions .Route 10/31/23 Rx capsule,delayed release .COMPLEX #90 caps escitalopram oxalate 10 mg tablet 10 mg PO DAILY #90 tabs 01/27/24 Rx (Lexapro) Patient History Medical History Suicide attempt Surgical History Status post tracheostomy History of robot-assisted laparoscopic hysterectomy done due to fibroids / heavy menses History of esophagogastroduodenoscopy (EGD) History of loop electrical excision procedure (LEEP) History of tubal ligation History of delivery x 2 Family History Son Allergic to eggs Esophagitis, eosinophilic Milk allergy Soy allergy Wheat allergy Grandfather (Paternal) Stroke Colorectal cancer Heart disease CHF Diabetes Mother Hepatic cirrhosis Leiomyoma of body of uterus Alcohol abuse Father Colonic polyp, Onset Age: 50 Anxiety Social History Smoking Status: Unknown if ever smoked Tobacco Type: Cigarettes Age Started Using Tobacco: 18; Age Quit Using Tobacco: 25; Cigarettes Per Day: unsure-smoked socially; Second Hand Exposure: No; Do You Dip or Chew Tobacco: No; Hx Alcohol Use: Yes Alcohol Intake Frequency: Monthly or Less Hx Substance Use: Yes Preferred Language: Icelandic Communication Ability: Effective Communication Ability Comment: New Trach Visual Impairment: No Limitations Hearing Ability: Normal 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 Beliefs That Will Affect Care: None marital status: Current Living Situation: Spouse Current Living Situation Comment: 2 children current occupational status: employed 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 Feels Safe at Home: Yes Childhood Exposure to Second-Hand Smoke: No Diet: regular caffeine: Yes Dental Care, Regularly: Yes Physical Activity Frequency: Does not Exercise Seatbelt Use: always Sunscreen Use: Yes Assistive Devices: None Physical Exam Psychiatric: Orientation: alert and oriented x 3 Apperance: appropriately dressed and appropriately groomed Eye Contact: good eye contact Motor Behavior: no abnormal motor movements Speech: normal rate/rhythm/volume of speech Affect: euthymic affect Mood: no depressed mood and no anxious mood Thought Process: linear/logical thought process Thought Content: reality based without delusions Suicidal Thoughts: denies suicidal thoughts, denies suicidal plan and denies suicidal intent Homicidal Thoughts: denies homicidal thoughts Hallucinations: no auditory hallucinations and no visual hallucinations Cognition: recent memory grossly intact, remote memory grossly intact, attention grossly intact and language grossly intact Estimated Intelligence: consistent with education level Insight: + fair insight Judgment: + limited judgement Vital Signs (Past 24 Hours): Last Vital Signs Temp 36.8 C 07/30/24 00:50 Pulse 159 H 07/30/24 13:11 Resp 20 07/30/24 13:00 BP 112/76 07/30/24 13:00 Pulse Ox 96 07/30/24 13:00 O2 Del Method Room Air 07/30/24 13:00 O2 Flow Rate 2 07/30/24 04:00 Review of Systems All systems reviewed & are unremarkable except as noted in HPI & below Results & Data (PSY) Medications Administered Ondansetron HCl (Ondansetron Inj 2 Mg/Ml 2 Ml Vial) 4 mg IV Q6H PRN PRN Reason: Nausea Stop: 08/29/24 05:18 Last Admin: 07/30/24 11:35 Dose: 4 mg Documented By: RHEA Coding Level of Care Code 19944 IN/OBS CONSULT LVL 4,60M Diagnoses Alcohol use disorder, moderate, dependence F10.20 Depression F32.A Suicide attempt T14.91XA
--- NOTE | 2024-07-30 14:11 | Discharge Summary ---
Discharge Summary Date of Service July 30, 2024 Principal Dx & Hospital Course #1 = Principal Diagnosis (1) Suicide attempt: 44yo female with history of MDD presenting after intentional overdose with Prazosin 18mg taken around 23:00. Patient initially orthostatic hypotension in the ER, now improved -Psychiatry consultation appreciated - did not feel pt exhibited need for 302, will support being home with safety plan plan of follow up with outpt provider (2) Alcohol use disorder: Patient drinks frequently, 2-6 per day -counselled about complete abstinence Plan discussed healthy ways to manage stressors Admission HPI Per Admitting Provider Massiel Pop is a 44yo female with history of GERD, MDD presenting with intentional overdose. Patient has had a difficult week with her family and ex- . She reports that tonight she became overwhelmed and took 18mg po Prazosin + EtOH tonight in attempt to kill herself. Patient with no additional complaints. In the ER she became hypotensive, orthostatic hypotension with BP dropping into the 50's with positional change Patient developed some shortness of breath and wheeze while in the ER as well ER Course: Solumedrol 40mg IV Albuterol 6mL neb NSS x 2L Discharge Exam awake and appropriate still some tachycardia lungs are clear Discharge Plan Discharge Items Patient Disposition: Home - Self-Care Reason For Visit: INTENTIONAL OVERDOSE Discharge Diagnosis: intentional overdose toxic affect of medication Activity: Per Instructions section Activity Comment: for next 24 hours no intentional exercise Non-emergency contact: Primary Care Provider Call non-emergency contact if: your symptoms worsen Follow-up/Referrals: Louann Campbell MD [Primary Care Provider] - Diet: Regular Addtl Attending Provider Instructions: Please no alcohol for the immediate future Please hydrate well and do not avoid salt, in fact salty foods may help reduce your lower blood pressures and high heart rate Please consider finding ways to de escalate your stress such as exercise( once the prazosin wears off) or with spirituality do not hesitate to contact your primary care or other health care providers if you have questions or need support Pending Studies at Discharge: Yes Studies:: urine culture is not completed at time of discharge Stand-Alone Forms: My Glo Bags, Smoking Cessation Medications and DC Order Prescriptions: Continued esomeprazole magnesium 40 mg capsule,delayed release(DR/EC) See Rx Instructions .ROUTE .COMPLEX Qty: 90 3RF Dose Instruction: TAKE 1 CAPSULE IN THE MORNING Rx Instructions: TAKE 1 CAPSULE IN THE MORNING escitalopram oxalate [Lexapro] 10 mg tablet 10 mg PO DAILY Qty: 90 3RF acetaminophen 325 mg Tablet 650 mg PO Q4H PRN (Reason: pain) Qty: 30 0RF Discharge Orders: Discharge Order (Routine); Ordered 07/30/24 Ordered By: Ethan Bland Admission Data Admit Date/Time: 07/30/24 04:08 Attending Provider: Ethan Bland Admit Provider: Zabrina Masters Primary Care Provider: Louann Campbell Other Providers: Kristin Randall; Rodney Colunga; Josefina Unger; Mayela Nassar; Luis Martin; Dona Serna; Zabrina Masters Hospital Stay Data Consultations 07/30/24 03:39 ED Decision to Admit Stat 07/30/24 04:08 Consult Psychiatry Routine Pending Results Patient Have Any Pending Studies at Discharge: Yes Discharge Instructions Given to Patient (Per Discharging Provider) Please no alcohol for the immediate future Please hydrate well and do not avoid salt, in fact salty foods may help reduce your lower blood pressures and high heart rate Please consider finding ways to de escalate your stress such as exercise( once the prazosin wears off) or with spirituality do not hesitate to contact your primary care or other health care providers if you have questions or need support Total Time Total Time Spent Total Time Spent (In Minutes): It required greater than 30 minutes to prepare this patient for discharge. Coding Level of Care Code 50112 INP/OBS DISCH >30 MIN Diagnoses Suicide attempt T14.91XA Alcohol use disorder F10.90
[2024-07-30 14:32] VITALS: BP 111/82; PULSE 117; RESP 18; O2SAT 97
--- NOTE | 2024-08-07 23:29 | Electrocardiogram Report ---
Test Reason : Blood Pressure : */* mmHG Vent. Rate : 114 BPM Atrial Rate : 114 BPM P-R Int : 120 ms QRS Dur : 68 ms QT Int : 324 ms P-R-T Axes : 85 65 54 degrees QTcB Int : 447 ms Sinus tachycardia Otherwise normal ECG When compared with ECG of 30-Jul-2024 01:17, No significant change was found Confirmed by Adrian Goodrich ([id number]) on 08/07/2024 11:29:04 PM Referred By: REFERRED SELF Confirmed By: Adrian Goodrich
== END 2024-07-30 14:40 | disposition home or self-care (01) | DRG 918 ==
LOC: ED 00:42 → SUATTDRO 04:08 → INTOOBSV 04:08 → EDINP 04:08